=== PATIENT | male | born 1950 | race African-American/Black ===

== ENCOUNTER 2016-07-07 14:04 | Emergency (ER) | payer MEDICARE ==
[~2016-07-07] VITALS: Ht 182.9 cm; Wt 80.7 kg
[~2016-07-07 14:04] MED LIST: ACET325T21 PO; AMLO5TAB2 PO; ATOR10TA60 PO; BACL10TA PO; BISA5TAB4 PO; CARB100C PO; CARB200T PO; CARV12.52 PO; CLON0.2T PO; CLON1TAB3 PO; DIPH25CA58 PO; DIPH50CA PO; DOXY100T PO; DULO30CA2 PO; ESOM40CA PO; FERR-26 PO; GABA600T2 PO; GLIP5TAB10 PO; HYDR-2762 PO; HYDR-2867 PO; HYDR-2869 PO; HYDR-963 PO; HYDR-971 PO; HYDR10TA2 PO; HYDR25CA75 PO; INSU100I13 SQ; INSU100I17 SQ; LATA2.5D3 OU; LEVE500T56 PO; LIDO700A4 TP; METF500T3 PO; METO50TA2 PO; NAPR250T PO; PANT40TA5 PO; PENT100C PO; PHEN100C PO; PIOG15TA21 PO; POLY17PO5 PO; POTA20TA82 PO; PRED20TA PO; PREG75CA PO; QUET100T PO; QUET25TA PO; QUET25TA5 PO; SULF1TAB24 PO; TAMS0.4C97 PO; TRAV2.5D2 OP; TRAV2.5D2 OU
[2016-07-07 14:16] VITALS: BP 139/79
[2016-07-07] MEDS ORDERED: PREG100C PO (14:51)
--- NOTE | 2016-07-07 14:51 | PHYS DOC ---
Past Medical History Past Medical History: Diabetes-Type I, Hypertension Additional Past Medical Histor: TBI, CHRONIC LOW BACK AND LEG PAIN, URINARY RETENTION. Past Surgical History: Cervical Fusion, Lumbar Laminectomy Additional Past Surgical Histo: back sx neck sx back sx Alcohol Use: None Drug Use: None Adult General Chief Complaint Chief Complaint: PAIN CONTROL HPI HPI Patient is a 65 year old male who presents emergency room today with complaint of bilateral leg pain after being out of his Lyrica for approximately one month. Patient states that it progressively got worse over the past 2 weeks. He has not seen his primary care doctor's for a refill. Patient states that the Lyrica template keeps his leg pain under control. Patient denies saddle anesthesia. He denies incontinence of urine or bowel. He denies any focal, unilateral symptoms. He has no additional concerns or complaints at this time. Review of Systems Review of Systems Constitutional: Denies fever or chills [] Eyes: Denies change in visual acuity, redness, or eye pain [] HENT: Denies nasal congestion or sore throat [] Respiratory: Denies cough or shortness of breath [] Cardiovascular: No additional information not addressed in HPI [] GI: Denies abdominal pain, nausea, vomiting, bloody stools or diarrhea [] : Denies dysuria or hematuria [] Musculoskeletal: Denies back pain or joint pain [] Integument: Denies rash or skin lesions [] Neurologic: Denies headache, focal weakness or sensory changes [] Endocrine: Denies polyuria or polydipsia [] Allergies Allergies Allergies Coded Allergies Type Severity Reaction Last Updated Verified No Known Drug Allergies 04/15/16 No Physical Exam Physical Exam Constitutional: Well developed, well nourished, no acute distress, non-toxic appearance. [] HENT: Normocephalic, atraumatic, bilateral external ears normal, oropharynx moist, no oral exudates, nose normal. [] Eyes: PERRLA, EOMI, conjunctiva normal, no discharge. [] Neck: Normal range of motion, no tenderness, supple, no stridor. [] Cardiovascular:Heart rate regular rhythm, no murmur [] Lungs & Thorax: Bilateral breath sounds clear to auscultation [] Abdomen: Bowel sounds normal, soft, no tenderness, no masses, no pulsatile masses. [] Skin: Warm, dry, no erythema, no rash. [] Back: No tenderness, no CVA tenderness. [] Extremities: Bilateral lower extremities are normal in appearance without any dystrophic changes. Skin is warm and dry. Patient has strong dorsalis pedis and posterior tibialis pulses. Lower extremities are neurovascularly intact. Strength is symmetric. Neurologic: Alert and oriented X 3, normal motor function, normal sensory function, no focal deficits noted. [] Psychologic: Affect normal, judgement normal, mood normal. [] Current Patient Data Vital Signs Vital Signs Date Time Temp Pulse Resp B/P Pulse Ox O2 Delivery O2 Flow Rate FiO2 07/07/16 14:16 98.7 104 18 100 Room Air 98.7 EKG EKG [] Radiology/Procedures Radiology/Procedures [] Course & Med Decision Making Course & Med Decision Making Pertinent Labs and Imaging studies reviewed. (See chart for details) [] Dragon Disclaimer Dragon Disclaimer This electronic medical record was generated, in whole or in part, using a voice recognition dictation system. Departure Departure Impression: Primary Impression: Medication refill Disposition: HOME, SELF-CARE Condition: GOOD Referrals: OLMAN HERNANDEZ (PCP) Patient Instructions: Medication Refill, Emergency Department Additional Instructions: 1. Take the medication as prescribed. 2. Be sure to follow up with your new primary care doctor within the next 1-2 weeks. Scripts Pregabalin (Lyrica)100 Mg Capsule1 Cap PO TID #30 CAP Ref 2 Prov:EASTON JIMENEZ 07/07/16 EASTON JIMENEZ Jul 07, 2016 14:51
== END 2016-07-07 15:03 | disposition home or self-care (01) ==
LOC: ER 14:04
DX: Z76.0 Encounter for issue of repeat prescription (principal); M79.605 Pain in left leg; M79.604 Pain in right leg; G89.29 Other chronic pain; Z98.1 Arthrodesis status; Z98.890 Other specified postprocedural states; E10.9 Type 1 diabetes mellitus without complications; I10 Essential (primary) hypertension; Z87.820 Personal history of traumatic brain injury
CPT/HCPCS: 99283

== ENCOUNTER → 2016-07-12 | Outpatient (CLI) | payer MEDICARE ==
[2016-07-07 14:16] VITALS: BP 139/79
[~2016-07-12] MED LIST changes: +PREG100C PO
== END | disposition home or self-care (01) ==
LOC: LAB 11:26
PROVIDERS: ATTEND Nurse Practitioner Occupational Health
DX: Z12.5 Encounter for screening for malignant neoplasm of prostate (principal); N40.1 Benign prostatic hyperplasia with lower urinary tract symptoms
CPT/HCPCS: 36415; G0103

== ENCOUNTER 2016-08-26 14:56 | Emergency (ER) | payer MEDICARE ==
[~2016-08-26 14:56] MED LIST changes: -PIOG15TA21 PO; +PIOG15TA42 PO; +POLY17PO29 PO; -POLY17PO5 PO
--- NOTE | 2016-08-26 15:20 | PHYS DOC ---
Past Medical History Past Medical History: Diabetes-Type I, Hypertension Additional Past Medical Histor: TBI, CHRONIC LOW BACK AND LEG PAIN, URINARY RETENTION. Past Surgical History: Cervical Fusion, Lumbar Laminectomy Additional Past Surgical Histo: back sx neck sx back sx Alcohol Use: None Drug Use: None Adult General Chief Complaint Chief Complaint: SEIZURE HPI HPI Patient is a 66 year old male presenting to the emergency department for evaluation of a seizure that happened today. Seizure was witnessed by mother and mother reportedly says that the seizure lasted for several minutes and then stopped on its own. He was somewhat confused afterwards and he is somewhat sleepy on exam but he awakes and arouses and answers all questions. He has some mental difficulty and after reviewing the charts this appears his baseline after suffering a traumatic brain injury. Medical records show that he is on Keppra and Tegretol however on another medication reconciliation appears that he is only on Keppra. He says that he sees a neurologist here and he thinks it is Dr. hammond. He denies any recent medication changes. He is in no obvious distress and denies any pain except for some leg itching. Review of Systems Review of Systems Constitutional: Denies fever or chills [] Eyes: Denies change in visual acuity, redness, or eye pain [] HENT: Denies nasal congestion or sore throat [] Respiratory: Denies cough or shortness of breath [] Cardiovascular: No additional information not addressed in HPI [] GI: Denies abdominal pain, nausea, vomiting, bloody stools or diarrhea [] : Denies dysuria or hematuria [] Musculoskeletal: Denies back pain or joint pain [] Integument: Denies rash or skin lesions [] Neurologic: Denies headache, focal weakness or sensory changes [] Current Medications Current Medications Current Medications Medications (Trade) Dose Ordered Sig/Loyda Start Time Stop Time Status Last Admin Dose Admin Carbamazepine (TEGretol) 400 mg 1X STAT 08/26/16 16:26 08/26/16 16:33 DC Levetiracetam 1000 mg/Sodium Chloride 110 ml @ 440 mls/hr 1X ONCE 08/26/16 15:45 08/26/16 15:59 DC 08/26/16 15:37 440 MLS/HR Sodium Chloride 1,000 ml @ 1,000 mls/hr 1X ONCE 08/26/16 15:30 08/26/16 16:29 DC 08/26/16 15:33 1,000 MLS/HR Allergies Allergies Allergies Coded Allergies Type Severity Reaction Last Updated Verified No Known Drug Allergies 04/15/16 No Physical Exam Physical Exam Constitutional: Well developed, well nourished, no acute distress, non-toxic appearance. [] HENT: Normocephalic, atraumatic, bilateral external ears normal, oropharynx moist, no oral exudates, nose normal. [] Eyes: PERRLA, EOMI, conjunctiva normal, no discharge. [] Neck: Normal range of motion, no tenderness, supple, no stridor. [] Cardiovascular:Heart rate regular rhythm, no murmur [] Lungs & Thorax: Bilateral breath sounds clear to auscultation [] Abdomen: Bowel sounds normal, soft, no tenderness, no masses, no pulsatile masses. [] Skin: Warm, dry, no erythema, no rash. [] Back: No tenderness, no CVA tenderness. [] Extremities: No tenderness, no cyanosis, no clubbing, ROM intact, no edema. [] Neurologic: Alert and oriented X 2, moves all ext Current Patient Data Vital Signs Vital Signs Date Time Temp Pulse Resp B/P (MAP) Pulse Ox O2 Delivery O2 Flow Rate FiO2 08/26/16 14:56 98.9 79 18 121/59 (79) 100 Room Air 98.9 Lab Values Laboratory Tests Test 08/26/16 15:00 White Blood Count 4.7 x10^3/uL (4.0-11.0) Red Blood Count 2.68 x10^6/uL (4.30-5.70) L Hemoglobin 7.1 g/dL (13.0-17.5) L Hematocrit 22.9 % (39.0-53.0) L Mean Corpuscular Volume 86 fL (79-100) Mean Corpuscular Hemoglobin 27 pg (25-35) Mean Corpuscular Hemoglobin Concent 31 g/dL (31-37) Red Cell Distribution Width 18.8 % (11.5-14.5) H Platelet Count 182 x10^3/uL (140-400) Neutrophils (%) (Auto) 72 % (31-73) Lymphocytes (%) (Auto) 16 % (24-48) L Monocytes (%) (Auto) 11 % (0-9) H Eosinophils (%) (Auto) 1 % (0-3) Basophils (%) (Auto) 0 % (0-3) Neutrophils # (Auto) 3.4 x10^3uL (1.8-7.7) Lymphocytes # (Auto) 0.7 x10^3/uL (1.0-4.8) L Monocytes # (Auto) 0.5 x10^3/uL (0.0-1.1) Eosinophils # (Auto) 0.0 x10^3/uL (0.0-0.7) Basophils # (Auto) 0.0 x10^3/uL (0.0-0.2) Prothrombin Time 13.9 SEC (11.7-14.0) Prothrombin Time INR 1.1 (0.8-1.1) PTT 34 SEC (24-38) Sodium Level 142 mmol/L (136-145) Potassium Level 4.2 mmol/L (3.5-5.1) Chloride Level 108 mmol/L (98-107) H Carbon Dioxide Level 26 mmol/L (21-32) Anion Gap 8 (6-14) Blood Urea Nitrogen 28 mg/dL (8-26) H Creatinine 1.4 mg/dL (0.7-1.3) H Estimated GFR (Cockcroft-Gault) 61.7 BUN/Creatinine Ratio 20 (6-20) Glucose Level 153 mg/dL (70-99) H Calcium Level 8.6 mg/dL (8.5-10.1) Magnesium Level 2.0 mg/dL (1.8-2.4) Total Bilirubin 0.2 mg/dL (0.2-1.0) Aspartate Amino Transferase (AST) 29 U/L (15-37) Alanine Aminotransferase (ALT) 23 U/L (16-63) Alkaline Phosphatase 48 U/L (46-116) Creatine Kinase 225 U/L (39-308) Total Protein 7.4 g/dL (6.4-8.2) Albumin 3.5 g/dL (3.4-5.0) Albumin/Globulin Ratio 0.9 (1.0-1.7) L Lipase 121 U/L (73-393) Salicylates Level < 2.8 mg/dL (2.8-20.0) L Salicylate Last Dose Date Unk Salicylate Last Dose Time Unk Acetaminophen Level < 10 mcg/ml (10-30) L Acetaminophen Last Dose Date Unk Acetaminophen Last Dose Time Unk Carbamazepine (Tegretol) Level 2.6 mcg/mL (4.0-12.0) L Carbamazepine Last Dose Date 08/26/16 Carbamazepine Last Dose Time 0800 Ethyl Alcohol Level < 10 mg/dL (0-10) Laboratory Tests 08/26/16 15:00 Laboratory Tests 08/26/16 15:00 EKG EKG Sinus rhythm at 78 bpm with normal axis no obvious ST elevation or depression and normal T waves Radiology/Procedures Radiology/Procedures Indication seizure. Axial noncontrast images through the head were obtained and are compared to an exam April 15, 2016. Changes compatible with a prior left craniotomy are noted. No acute calvarial finding is seen. The visualized paranasal sinuses appear normal. Area of encephalomalacia in the left parietal lobe is noted similar to the previous exam. A smaller area of encephalomalacia at the base of the right frontal lobe is also noted and also appears similar. There is no subdural or epidural hematoma. There is no mass or midline shift. A significant change relative to the previous exam is not seen. IMPRESSION: Chronic changes. No acute finding. No significant change PQRS Compliance Statement: One or more of the following individualized dose reduction techniques were utilized for this examination: 1. Automated exposure control 2. Adjustment of the mA and/or kV according to patient size 3. Use of iterative reconstruction technique DICTATED and SIGNED BY: ERIN PLEITEZ MD DATE: 08/26/16 9004 Course & Med Decision Making Course & Med Decision Making Patient was observed in the emergency department for 2 hours and still sleepy but he awakes and is interactive and appropriate. I checked his labs and it appears that he is not taking Tegretol. He has mild increase in creatinine and by mouth and likely related to dehydration. He was given a liter of fluids in addition to a gram of Keppra. His hemoglobin is 7.1 and this appears to be consistent with his recent baseline for which no one is doing transfusions, given his poor baseline I think this is reasonable and will not pursue transfusion at this time. We spoke to his mother the Ronny and she says that he does get sleepy after seizures and he is somewhat confused at baseline. We told her that he is somewhat dehydrated and needs to drink some warm water and he needs to follow with his seizure in the next 1-2 days to go over his medications and recent seizure. I do not see any reason for admission at this time so he will be discharged in stable condition back to home. Mother aware and agreeable with plan for discharge and verbalized understanding of the need for short-term neurology follow-up and strict ER return precautions discussed worsening pain confusion seizures or other general concerns. Dragon Disclaimer Dragon Disclaimer This electronic medical record was generated, in whole or in part, using a voice recognition dictation system. Departure Departure Impression: Primary Impression: Seizure Additional Impressions: Dehydration Anemia Disposition: HOME, SELF-CARE Condition: GOOD Referrals: OLMAN HERNANDEZ (PCP) RAVI HAMMOND MD Patient Instructions: Seizure Disorder, Child, Generalized Tonic-Clonic Additional Instructions: Take all of her medications as prescribed including her seizure medications. He should be drinking plenty of water and also eating a good diet rich and iron as you are anemic. He should follow with your neurologist in the next 1-2 days and come back to the ER sooner with any worsening pain seizures confusion or other general concerns. Problem Qualifiers FRANCINE CLAUDIO DO Aug 26, 2016 15:20
[2016-08-26] MEDS ORDERED: IV NORMAL SALINE 1000ML BAG 1,000 ML IV ONE (15:30)
[2016-08-26 15:32] LABS: BASO % 0 % (0-3); EOS % 1 % (0-3); HEMATOCRIT 22.9 % (39.0-53.0); HEMOGLOBIN 7.1 g/dL (13.0-17.5); LYMPH # 0.7 x10^3/uL (1.0-4.8); LYMPH % 16 % (24-48); MEAN CORPUSCULAR HEMOGLOBIN 27 pg (25-35); MEAN CORPUSCULAR HGB CONC 31 g/dL (31-37); MEAN CORPUSCULAR VOLUME 86 fL (79-100); MONO % 11 % (0-9); NEUT % 72 % (31-73); PLATELET COUNT 182 x10^3/uL (140-400); RED BLOOD COUNT 2.68 x10^6/uL (4.30-5.70); RED CELL DISTRIBUTION WIDTH 18.8 % (11.5-14.5); WHITE BLOOD COUNT 4.7 x10^3/uL (4.0-11.0)
--- NOTE | 2016-08-26 15:43 | EKG ---
[facility] [address] [place] [address] Test Date: 2016-08-26 Test Time: 15:36:07 Pat Name: ANAMARIA MAJANO Department: Room: Gender: M Recruiter: : 1950 Requested By: FRANCINE CLAUDIO Order Number: [id number] Reading MD: Yenni Woo Measurements Intervals [place] Rate: 78 P: 31 FL: 170 QRS: 9 QRSD: 90 T: 28 QT: 358 QTc: 411 Interpretive Statements SINUS RHYTHM QRS(T) CONTOUR ABNORMALITY CONSISTENT WITH ANTEROSEPTAL INFARCT AGE UNDETERMINED ABNORMAL ECG Electronically Signed On 08-29-2016 22:26:25 CDT by Yenni Woo
--- NOTE | 2016-08-26 16:02 | RAD ---
Indication seizure. Axial noncontrast images through the head were obtained and are compared to an exam April 15, 2016. Changes compatible with a prior left craniotomy are noted. No acute calvarial finding is seen. The visualized paranasal sinuses appear normal. Area of encephalomalacia in the left parietal lobe is noted similar to the previous exam. A smaller area of encephalomalacia at the base of the right frontal lobe is also noted and also appears similar. There is no subdural or epidural hematoma. There is no mass or midline shift. A significant change relative to the previous exam is not seen. IMPRESSION: Chronic changes. No acute finding. No significant change PQRS Compliance Statement: One or more of the following individualized dose reduction techniques were utilized for this examination: 1. Automated exposure control 2. Adjustment of the mA and/or kV according to patient size 3. Use of iterative reconstruction technique
[2016-08-26 16:10] LABS: CALCIUM 8.6 mg/dL (8.5-10.1); CREATININE 1.4 mg/dL (0.7-1.3); GFR 61.7; POTASSIUM 4.2 mmol/L (3.5-5.1)
[2016-08-26 16:11] LABS: ETHANOL < 10 mg/dL (0-10)
[2016-08-26 16:12] LABS: INR 1.1 (0.8-1.1); PROTHROMBIN TIME PATIENT 13.9 SEC (11.7-14.0)
[2016-08-26 16:13] LABS: ALBUMIN 3.5 g/dL (3.4-5.0); ALBUMIN/GLOBULIN RATIO 0.9 (1.0-1.7); TOTAL BILIRUBIN 0.2 mg/dL (0.2-1.0); TOTAL PROTEIN 7.4 g/dL (6.4-8.2)
--- NOTE | 2016-08-26 16:25 | ACF ---
Admit Criteria Forms Admit Criteria Forms Admit Criteria Forms SEIZURE Clinical Indications for Admission to Inpatient Care (Place 'X' for any and all applicable criteria): Admission is indicated for seizure and ANY ONE of the following(1)(2)(3)(4)(5): [X]I. Inpatient admission required rather than observation care (Also use Seizure: Observation Care Criteria as appropriate) because of ANY ONE of the following: [ ]a) Altered mental status that is severe or persistent [ ]b) New focal neurologic deficit that is severe or persistent [ ]c) Metabolic disorder (eg, hypoglycemia, hyponatremia) that is severe or persistent [X]d) Recurrent seizure [ ]e) Outpatient antiseizure regimen cannot be established (eg , patient cannot tolerate medication, initiation requires inpatient care) [ ]f) Need for ongoing intravenous infusion of antiseizure medication [ ]g) Cardiac arrhythmias of immediate concern [ ]h) Cerebral bleeding, hydrocephalus, or vasospasm monitoring (14) [ ]i) Increased intracranial pressure or cerebral edema monitoring (15) [ ]j) Other treatment or monitoring requiring inpatient admission [ ]II. Status epilepticus [A] or repetitive seizures not controlled with emergent treatment (6)(8) [ ]III. Brain disorder (eg, tumor, edema, and hydrocephalus) that requiring monitoring or intervention available only at inpatient level of care. [ ]IV. Brain insult (eg, severe trauma, stroke, drug toxicity, or withdrawal) that requires monitoring or intervention available only at inpatient level of care (10)(11) Extended stay beyond goal length of stay may be needed for (22) [ ]a) Complications of status epilepticus [ ]b) Refractory status epilepticus [ ]c) Etiology-specific therapy for conditions such as PROGRAM MANAGEMENT SPECIALIST infection, head injury,eclampsia, severe metabolic abnormalities, and brain tumor [ ]d) Residual neurologic damage, [ ]e) Initiation of significant change to anticonvulsant treatment [ ]f) Older patients (65 years or older) [ ]g) Patient requiring intubation (eg, to protect airway) The original [facility] content created by [email or web address] has been revised. The portions of the content which have been revised are identified through the use of italic text or in bold, and [facility] [employer] has neither reviewed nor approved the modified material. All other unmodified content is copyright [facility]. Please see references footnoted in the original [facility] edition 2016 DOMINGUEZ HUTCHISON Aug 26, 2016 16:25
[2016-08-26] MEDS ORDERED: carBAMazepine 200 MG TABLET PO STA (16:26)
[2016-08-26 16:30] VITALS: BP 132/66
== END 2016-08-26 18:45 | disposition home or self-care (01) ==
LOC: ER 14:56
DX: R56.9 Unspecified convulsions (principal); E86.0 Dehydration; D64.9 Anemia, unspecified; R41.0 Disorientation, unspecified; E10.9 Type 1 diabetes mellitus without complications; I10 Essential (primary) hypertension; G89.29 Other chronic pain; Z98.1 Arthrodesis status; Z79.899 Other long term (current) drug therapy; Z87.820 Personal history of traumatic brain injury
CPT/HCPCS: 36415; 70450; 80053; 80156; 80177; 82550; 83690; 83735; 85027; 85610; 85730; 93005; 96374; 99285; G0480; J1953; J7030; 80320; 80329; 96365

== ENCOUNTER 2016-10-29 09:51 | Emergency (ER) | payer MEDICARE ==
[~2016-10-29] VITALS: Ht 182.9 cm; Wt 80.7 kg
--- NOTE | 2016-10-29 10:17 | PHYS DOC ---
Past Medical History Past Medical History: Diabetes-Type I, Glaucoma, Hypertension Additional Past Medical Histor: TBI, CHRONIC LOW BACK AND LEG PAIN, URINARY RETENTION,sciatica, neuropathy Past Surgical History: Cervical Fusion, Lumbar Laminectomy Additional Past Surgical Histo: back sx neck sx back sx Alcohol Use: None Drug Use: None Adult General Chief Complaint Chief Complaint: SKIN RASH/ABSCESS HPI HPI Patient is a 66 year old male with history of diabetes hypertension, who presents today complaining of shingles rash for 2 weeks. Patient is giving very little information. He states his pain is very severe he would like something for pain. Review of Systems Review of Systems Constitutional: Denies fever or chills [] Musculoskeletal: Denies back pain or joint pain [] Integument: shingles rash Neurologic: Denies headache, focal weakness or sensory changes [] Endocrine: Denies polyuria or polydipsia [] Current Medications Current Medications Current Medications Medications (Trade) Dose Ordered Sig/Loyda Start Time Stop Time Status Last Admin Dose Admin Acetaminophen/ Hydrocodone Bitart (Lortab 5/325) 1 tab 1X ONCE 10/29/16 10:15 10/29/16 10:16 UNV Allergies Allergies Allergies Coded Allergies Type Severity Reaction Last Updated Verified No Known Drug Allergies 04/15/16 No Physical Exam Physical Exam Constitutional: Well developed, well nourished, no acute distress, non-toxic appearance. [] Skin: Moderate amount of erythematous papular rash in patient's right forearm. He is laying in bed and refusing to be examined fully. Back: No tenderness, no CVA tenderness. [] Extremities: No tenderness, no cyanosis, no clubbing, ROM intact, no edema. [] Neurologic: Alert and oriented X 3, normal motor function, normal sensory function, no focal deficits noted. [] Psychologic: Affect normal, judgement normal, mood normal. [] Current Patient Data Vital Signs Vital Signs Date Time Temp Pulse Resp B/P (MAP) Pulse Ox O2 Delivery O2 Flow Rate FiO2 10/29/16 10:05 98.2 94 20 97 Room Air 98.2 EKG EKG [] Radiology/Procedures Radiology/Procedures [] Course & Med Decision Making Course & Med Decision Making Pertinent Labs and Imaging studies reviewed. (See chart for details) Patient is in the ED with a rash suspicious for shingles. He only showed me the right upper extremity. The rash has been present for 2 weeks. Informed patient acyclovir is not that helpful at this point but i will write him a prescription. Gave him a prescription for gabapentin as well as Ultram. I did give him a prescription for triamcinolone cream just for comfort. He is to follow-up with his own PCP in one to 2 weeks. Dragon Disclaimer Dragon Disclaimer This electronic medical record was generated, in whole or in part, using a voice recognition dictation system. Departure Departure Impression: Primary Impression: Shingles rash Disposition: HOME, SELF-CARE Condition: STABLE Referrals: OLMAN HERNANDEZ (PCP) Follow-up with your doctor in 1-2 weeks. Patient Instructions: Shingles, [id number] Additional Instructions: You were seen for a rash suspicious of shingles. Use the medications provided as ordered. Follow-up with your doctor in the next 1-[address] operate machinery on the pain medicine. Scripts Acyclovir (ACYCLOVIR) 800 Mg Tablet 1 TAB PO 5XDAY, #50 TAB Prov: EBEN FULTON APRN 10/29/16 Gabapentin (GABAPENTIN) 300 Mg Capsule 300 MG PO TID, #30 CAP Prov: EBEN FULTON APRN 10/29/16 Triamcinolone Acetonide (TRIAMCINOLONE ACETONIDE 0.1% OINT) 15 Gm Oint...g. 1 BENJAMÍN TP BID for WOUND CARE, #1 TUBE Prov: EBEN FULTON APRN 10/29/16 Problem Qualifiers Primary Impression: Shingles rash Herpes zoster complications: without complications Qualified Codes: B02.9 - Zoster without complications EBEN FULTON APRN Oct 29, 2016 10:17
[2016-10-29] MEDS ORDERED: ACYC800T PO (10:25)
[2016-10-29] MEDS ORDERED: GABA-586 PO (10:25)
[2016-10-29] MEDS ORDERED: TRIA15OI TP (10:25)
[2016-10-29] MEDS ORDERED: HYDROcodone/APAP 5/325MG 1 TAB TABLET PO ONE ×2 (10:30)
[2016-10-29 10:32] VITALS: BP 147/87
== END 2016-10-29 10:52 | disposition home or self-care (01) ==
LOC: ER 09:51
DX: B02.9 Zoster without complications (principal); E10.39 Type 1 diabetes mellitus with other diabetic ophthalmic complication; E10.40 Type 1 diabetes mellitus with diabetic neuropathy, unspecified; H40.9 Unspecified glaucoma; I10 Essential (primary) hypertension; G89.29 Other chronic pain; Z98.1 Arthrodesis status; Z98.890 Other specified postprocedural states; Z87.820 Personal history of traumatic brain injury
CPT/HCPCS: 99283

== ENCOUNTER 2017-02-07 22:00 | Emergency (ER) | payer MEDICARE ==
[~2017-02-07] VITALS: Ht 182.9 cm; Wt 77.1 kg
[~2017-02-07 22:00] MED LIST changes: +ACYC800T PO; +GABA-586 PO; +POTA20TA4 PO; +TRIA15OI TP
--- NOTE | 2017-02-07 22:30 | PHYS DOC ---
Past Medical History Past Medical History: Diabetes-Type I, Glaucoma, High Cholesterol, Hypertension Additional Past Medical Histor: TBI, CHRONIC LOW BACK AND LEG PAIN, URINARY RETENTION,sciatica, neuropathy Past Surgical History: Appendectomy, Cervical Fusion, Cholecystectomy, Lumbar Laminectomy Additional Past Surgical Histo: back sx neck sx back sx Alcohol Use: None Drug Use: None Adult General Chief Complaint Chief Complaint: HYPOGLYCEMIA HPI HPI Patient is a 66 year old M who presents with low blood sugar. Patient's mom called EMS for decreased level responsiveness EMS blood sugar was 14. Given amp of D50 and transported to the emergency room. In emergency room blood sugar was 109 and patient has no complaints. Patient was given some apple juice and food and a lunch box. Patient denies any fevers. Patient denies any chest pain or shortness of breath or nausea/vomiting/diarrhea. Review of Systems Review of Systems GEN: Denies fevers, chills, sweats HEENT: Denies blurred vision, sore throat CV: Denies chest pain RESP: Denies shortness of air, cough GI: Denies n/v/d NEURO: Denies confusion, dizziness MSK: Denies weakness, joint pain/swelling All other systems were reviewed and found to be within normal limits, except as documented in this note. Allergies Allergies Allergies Coded Allergies Type Severity Reaction Last Updated Verified No Known Drug Allergies 04/15/16 No Physical Exam Physical Exam GEN.: No apparent distress. Alert and oriented. HEENT: Head is normocephalic, atraumatic NECK: Supple. LUNGS: CTAB. HEART: RRR, S1, S2 present. Peripheral pulses intact ABDOMEN: Soft, nontender. Positive bowel sounds. EXTREMITIES: Without any cyanosis. NEUROLOGIC: Normal speech, normal tone PSYCHIATRIC: Normal affect, normal mood. SKIN: No ulcerations Current Patient Data Vital Signs Vital Signs Date Time Temp Pulse Resp B/P (MAP) Pulse Ox O2 Delivery O2 Flow Rate FiO2 02/07/17 22:09 75 18 137/81 (99) 100 Room Air Lab Values Laboratory Tests Test 02/07/17 22:29 02/07/17 22:53 POC Hemoglobin 9.9 g/dL (14-18) L POC Hematocrit 29 % (37-52) L POC Sodium 144 mmol/L (135-145) POC Potassium 4.4 mmol/L (3.5-5.0) POC Chloride 108 mmol/L (98-110) POC Total CO2 30 mmol/L (23-32) Anion Gap 12 mmol/L (6-14) POC Blood Urea Nitrogen 28 mg/dL (8-26) H POC Creatinine 1.2 mg/dL (0.5-1.4) Glucose Level 102 mg/dL (70-99) H POC Ionized Calcium (Naz) 1.10 mmol/L (1.13-1.32) L Glucose (Fingerstick) 123 mg/dL (70-99) H Laboratory Tests 02/07/17 22:29 EKG EKG [] Course & Med Decision Making Course & Med Decision Making Pertinent Labs and Imaging studies reviewed. (See chart for details) ED course: Patient was seen and examined emergency room an i-STAT was ordered Repeat blood sugars show levels above the 100, patient is alert and oriented sitting up in bed eating in no acute distress MDM: After reviewing the chart, CC/HPI/PMH, physical exam, [lab results], I do not believe the patient has emergent medical condition warranting further workup and /or admission at this time. I believe patient stable for discharge. Patient had multiple blood sugar checks that were all normal. Additional verbal discharge instructions were provided to the patient and that if symptoms get worse or any new symptoms arise that are worrisome to the patient he is to return to the emergency room immediately [] Dragon Disclaimer Dragon Disclaimer This electronic medical record was generated, in whole or in part, using a voice recognition dictation system. Departure Departure Impression: Primary Impression: Hypoglycemia Disposition: 01 HOME, SELF-CARE Condition: IMPROVED Referrals: ERNESTO BUCK MD (PCP) Patient Instructions: Hypoglycemia (Low Blood Sugar) Additional Instructions: Please follow-up with your family physician in the next one to 2 days and return if symptoms increase JOSE CERON DO Feb 07, 2017 22:30
[2017-02-07 22:45] LABS: POTASSIUM ISTAT 4.4 mmol/L (3.5-5.0)
[2017-02-07 23:18] VITALS: BP 158/87
== END 2017-02-07 23:29 | disposition home or self-care (01) ==
LOC: ER 22:00
DX: E10.649 Type 1 diabetes mellitus with hypoglycemia without coma (principal); E10.39 Type 1 diabetes mellitus with other diabetic ophthalmic complication; H40.9 Unspecified glaucoma; E78.00 Pure hypercholesterolemia, unspecified; I10 Essential (primary) hypertension; G89.29 Other chronic pain; E10.40 Type 1 diabetes mellitus with diabetic neuropathy, unspecified; Z98.1 Arthrodesis status; Z87.820 Personal history of traumatic brain injury; Z90.49 Acquired absence of other specified parts of digestive tract
CPT/HCPCS: 36415; 80047; 82962; 85014; 85018; 99284

== ENCOUNTER 2018-03-10 09:45 | Emergency (ER) | payer MEDICARE ==
[~2018-03-10] VITALS: Ht 175.3 cm; Wt 83.9 kg
[~2018-03-10 09:45] MED LIST changes: -AMLO5TAB2 PO; +AMLO5TAB7 PO; -CARB100C PO; +CARB100C2 PO; +CARV12.511 PO; -CARV12.52 PO; +CIPR250T30 PO; +CLON1TAB11 PO; -CLON1TAB3 PO; +DOXY100C2 PO; -FERR-26 PO; +FERR325T14 PO; +FINA5TAB4 PO; -GABA-586 PO; +GABA300C18 PO; -HYDR-2762 PO; +HYDR-2765 PO; +HYDR-3135 PO; +HYDR-3164 PO; -HYDR-963 PO; -HYDR-971 PO; -METO50TA2 PO; +METO50TA6 PO; +PREG150C PO
--- NOTE | 2018-03-10 10:34 | PHYS DOC ---
Past Medical History Past Medical History: Anemia, Depression, Diabetes-Type II, Glaucoma, High Cholesterol, Hypertension, Other Additional Past Medical Histor: TBI, URINARY RETEN, SCIATICA, NEUROPATHY, ANEURSYM, TARDIVE DYSKINESIA Past Surgical History: Appendectomy, Cervical Fusion, Cholecystectomy, Lumbar Laminectomy, Other Additional Past Surgical Histo: BACK SX, NECK SX , L PARIETAL CRANIECTOMY, INTRACRAN. ANEURSYM REPAIR Alcohol Use: None Drug Use: None Adult General Chief Complaint Chief Complaint: CONSTIPATION HPI HPI Patient is a 67 year old male who presents with multiple complaints. Patient states that he has been having ongoing constipation. He does indicate that he took some medicine for the constipation and did have a small bowel movement but states that he is still constipated. He also complains of lower back pain and admits that that is chronic in nature. He states that he also has a Garcia catheter and states that the catheter is in place but is not connected to a bag. He states that the home health people did not attach a bag to it he also states that the catheter has not been draining and wants it checked. He denies any chest pain or shortness of breath. He states that he doesn't think that he has had a fever. He denies any nausea, vomiting or diarrhea. Review of Systems Review of Systems Constitutional: Denies fever or chills [] Respiratory: Denies cough or shortness of breath [] Cardiovascular: No additional information not addressed in HPI [] GI: Denies abdominal pain, nausea, vomiting or diarrhea. Complains of constipation [] : Denies dysuria or hematuria [] Musculoskeletal: Power of lower back pain [] Neurologic: Denies headache, focal weakness or sensory changes [] All other systems were reviewed and found to be within normal limits, except as documented in this note. Current Medications Current Medications Current Medications Medications (Trade) Dose Ordered Sig/Loyda Start Time Stop Time Status Last Admin Dose Admin Magnesium Citrate (Citroma) 296 ml 1X ONCE 03/10/18 12:30 03/10/18 12:33 DC 03/10/18 12:49 296 ML Allergies Allergies Allergies Coded Allergies Type Severity Reaction Last Updated Verified No Known Drug Allergies 04/15/16 No Physical Exam Physical Exam Constitutional: Well developed, well nourished, no acute distress, non-toxic appearance. [] HENT: Normocephalic, atraumatic, bilateral external ears normal, oropharynx moist, no oral exudates, nose normal. [] Eyes: PERRLA, EOMI, conjunctiva normal, no discharge. [] Neck: Normal range of motion, no tenderness, supple, no stridor. [] Cardiovascular: Regular rate and rhythm [] Lungs & Thorax: Bilateral breath sounds clear to auscultation [] Abdomen: Bowel sounds normal, soft, no tenderness. [] Skin: Warm, dry, no erythema, no rash. [] Extremities: No tenderness, no cyanosis, no clubbing, ROM intact. [] Neurologic: Awake and alert with no focal deficits noted. [] Current Patient Data Vital Signs Vital Signs Date Time Temp Pulse Resp B/P (MAP) Pulse Ox O2 Delivery O2 Flow Rate FiO2 03/10/18 09:47 98.2 75 22 139/79 (99) 97 Room Air 98.2 Lab Values Laboratory Tests Test 03/10/18 11:05 03/10/18 11:14 White Blood Count 7.8 x10^3/uL (4.0-11.0) Red Blood Count 3.77 x10^6/uL (4.30-5.70) L Hemoglobin 12.0 g/dL (13.0-17.5) L Hematocrit 36.0 % (39.0-53.0) L Mean Corpuscular Volume 96 fL (79-100) Mean Corpuscular Hemoglobin 32 pg (25-35) Mean Corpuscular Hemoglobin Concent 33 g/dL (31-37) Red Cell Distribution Width 14.6 % (11.5-14.5) H Platelet Count 147 x10^3/uL (140-400) Neutrophils (%) (Auto) 79 % (31-73) H Lymphocytes (%) (Auto) 11 % (24-48) L Monocytes (%) (Auto) 8 % (0-9) Eosinophils (%) (Auto) 2 % (0-3) Basophils (%) (Auto) 0 % (0-3) Neutrophils # (Auto) 6.2 x10^3uL (1.8-7.7) Lymphocytes # (Auto) 0.9 x10^3/uL (1.0-4.8) L Monocytes # (Auto) 0.7 x10^3/uL (0.0-1.1) Eosinophils # (Auto) 0.1 x10^3/uL (0.0-0.7) Basophils # (Auto) 0.0 x10^3/uL (0.0-0.2) Sodium Level 146 mmol/L (136-145) H Potassium Level 3.1 mmol/L (3.5-5.1) L Chloride Level 107 mmol/L (98-107) Carbon Dioxide Level 31 mmol/L (21-32) Anion Gap 8 (6-14) Blood Urea Nitrogen 18 mg/dL (8-26) Creatinine 1.3 mg/dL (0.7-1.3) Estimated GFR (Cockcroft-Gault) 67.0 BUN/Creatinine Ratio 14 (6-20) Glucose Level 140 mg/dL (70-99) H Calcium Level 9.0 mg/dL (8.5-10.1) Total Bilirubin 0.6 mg/dL (0.2-1.0) Aspartate Amino Transferase (AST) 29 U/L (15-37) Alanine Aminotransferase (ALT) 27 U/L (16-63) Alkaline Phosphatase 49 U/L (46-116) Total Protein 8.1 g/dL (6.4-8.2) Albumin 3.2 g/dL (3.4-5.0) L Albumin/Globulin Ratio 0.7 (1.0-1.7) L Urine Collection Type Unknown Urine Color Negrita Urine Clarity Clear Urine pH 5.5 Urine Specific [place] 1.025 Urine Protein 30 mg/dL (NEG-TRACE) Urine Glucose (UA) Negative mg/dL (NEG) Urine Ketones (Stick) Trace mg/dL (NEG) Urine Blood Negative (NEG) Urine Nitrite Negative (NEG) Urine Bilirubin Small (NEG) Urine Urobilinogen Dipstick 1.0 mg/dL (0.2 mg/dL) Urine Leukocyte Esterase Small (NEG) Urine RBC Occ /HPF (0-2) Urine WBC 5-10 /HPF (0-4) Urine Squamous Epithelial Cells Occ /LPF Urine Bacteria 0 /HPF (0-FEW) Urine Mucus Mod /LPF Urine Yeast Present /HPF Laboratory Tests 03/10/18 11:05 Laboratory Tests 03/10/18 11:05 EKG EKG [] Radiology/Procedures Radiology/Procedures [] Impressions: PROCEDURE: ACUTE ABDOMEN SERIES ACUTE ABDOMEN SERIES History: CONSTIPATION, ABDOMEN PAIN. . Comparison: None are available Single view of the chest is compared with prior study of 02/26/2018. Cardiomediastinal silhouette is stable. Improvement in previously seen infiltrates in the right lung. There is some mild patchy residual opacity in both lungs. No new lobar airspace consolidation. No evidence of pneumothorax. No significant pleural effusion. No evidence of free intraperitoneal gas. Moderate retained stool in the colon. There are some metallic clips or surgical material in the upper mid abdomen. Spinal fixation rods of the lower spine. Multiple pelvic calcifications would most commonly represent phleboliths. Bowel gas pattern is nonobstructive. IMPRESSION: 1. Mild patchy hazy opacities persist in both lungs but are improved since previous exam. 2. Moderate retained stool in the colon. Electronically signed by: Eugenio Whitmore MD (03/10/2018 10:39 AM) Course & Med Decision Making Course & Med Decision Making Pertinent Labs and Imaging studies reviewed. (See chart for details) [] Dragon Disclaimer Dragon Disclaimer This electronic medical record was generated, in whole or in part, using a voice recognition dictation system. Departure Departure Impression: Primary Impression: Constipation Disposition: 01 HOME, SELF-CARE Condition: STABLE Referrals: ERNESTO BUCK MD (PCP) Patient Instructions: Constipation, Adult Scripts Lactulose (LACTULOSE) 20 Gm/30 Ml Solution 10 GM PO DAILY PRN for CONSTIPATION, #240 [facility] [place] Prov: STEPHANIE LINDSEY Jr. DO 03/10/18 Problem Qualifiers Primary Impression: Constipation Constipation type: unspecified constipation type Qualified Codes: K59.00 - Constipation, unspecified STEPHANIE LINDSEY Jr. DO Mar 10, 2018 10:34
--- NOTE | 2018-03-10 10:42 | RAD ---
ACUTE ABDOMEN SERIES History: CONSTIPATION, ABDOMEN PAIN. . Comparison: None are available Single view of the chest is compared with prior study of 02/26/2018. Cardiomediastinal silhouette is stable. Improvement in previously seen infiltrates in the right lung. There is some mild patchy residual opacity in both lungs. No new lobar airspace consolidation. No evidence of pneumothorax. No significant pleural effusion. No evidence of free intraperitoneal gas. Moderate retained stool in the colon. There are some metallic clips or surgical material in the upper mid abdomen. Spinal fixation rods of the lower spine. Multiple pelvic calcifications would most commonly represent phleboliths. Bowel gas pattern is nonobstructive. IMPRESSION: 1. Mild patchy hazy opacities persist in both lungs but are improved since previous exam. 2. Moderate retained stool in the colon. Electronically signed by: Eugenio Whitmore MD (03/10/2018 10:39 AM) [id number]
[2018-03-10 11:23] LABS: BILIRUBIN,URINE SMALL (NEG); CLARITY,URINE CLEAR; COLOR,URINE AMBER; NITRITE,URINE NEGATIVE (NEG); PH,URINE 5.5; PROTEIN,URINE 30 mg/dL (NEG-TRACE)
[2018-03-10 11:53] LABS: BACTERIA,URINE 0 /HPF (0-FEW); RBC,URINE OCC /HPF (0-2); SQUAMOUS EPITHELIAL CELL,UR OCC /LPF
[2018-03-10 11:54] LABS: YEAST,URINE PRESENT /HPF
[2018-03-10 12:12] LABS: BASO % 0 % (0-3); EOS # 0.1 x10^3/uL (0.0-0.7); EOS % 2 % (0-3); LYMPH # 0.9 x10^3/uL (1.0-4.8); LYMPH % 11 % (24-48); MEAN CORPUSCULAR HEMOGLOBIN 32 pg (25-35); MEAN CORPUSCULAR HGB CONC 33 g/dL (31-37); MEAN CORPUSCULAR VOLUME 96 fL (79-100); MONO # 0.7 x10^3/uL (0.0-1.1); MONO % 8 % (0-9); NEUT # 6.2 x10^3uL (1.8-7.7); NEUT % 79 % (31-73); PLATELET COUNT 147 x10^3/uL (140-400); RED BLOOD COUNT 3.77 x10^6/uL (4.30-5.70); RED CELL DISTRIBUTION WIDTH 14.6 % (11.5-14.5); WHITE BLOOD COUNT 7.8 x10^3/uL (4.0-11.0)
[2018-03-10 12:19] LABS: CREATININE 1.3 mg/dL (0.7-1.3); POTASSIUM 3.1 mmol/L (3.5-5.1)
[2018-03-10 12:27] LABS: ALBUMIN 3.2 g/dL (3.4-5.0); ALBUMIN/GLOBULIN RATIO 0.7 (1.0-1.7); TOTAL BILIRUBIN 0.6 mg/dL (0.2-1.0); TOTAL PROTEIN 8.1 g/dL (6.4-8.2)
[2018-03-10] MEDS ORDERED: MAGNESIUM CITRATE 296 ML SOLUTION. PO ONE (12:30)
[2018-03-10] MEDS ORDERED: LACT20SO PO (13:48)
[2018-03-10 14:45] VITALS: BP 172/87
== END 2018-03-10 15:00 | disposition home or self-care (01) ==
LOC: ER 09:45
DX: K59.00 Constipation, unspecified (principal); M54.5 Low back pain; F32.9 Major depressive disorder, single episode, unspecified; E11.39 Type 2 diabetes mellitus with other diabetic ophthalmic complication; H40.9 Unspecified glaucoma; E78.00 Pure hypercholesterolemia, unspecified; I10 Essential (primary) hypertension; E11.40 Type 2 diabetes mellitus with diabetic neuropathy, unspecified; Z87.820 Personal history of traumatic brain injury; Z86.2 Personal history of diseases of the blood and blood-forming organs and certain disorders involving the immune mechanism; Z90.89 Acquired absence of other organs; Z90.49 Acquired absence of other specified parts of digestive tract; Z98.890 Other specified postprocedural states
CPT/HCPCS: 36415; 74022; 80053; 81001; 85025; 99284-25

== ENCOUNTER → 2018-03-20 | Outpatient (CLI) | payer MEDICARE ==
[2018-03-10 14:45] VITALS: BP 172/87
[~2018-03-20] MED LIST changes: +LACT20SO PO
--- NOTE | 2018-03-24 20:08 | EEG ---
DATE OF SERVICE: 03/20/2018 EEG NUMBER: [id number]. OBJECTIVE: This is a 67-year-old male patient with a history of seizure. He had mental status changes. EEG was requested to evaluate seizure activity. METHODS: Twenty electrodes were applied according to the international 10-20 electrode placement system. EKG monitoring, hyperventilation, intermittent photic stimulation, monopolar and bipolar montages are routinely utilized. The record was obtained on a digital system with video monitoring. FINDINGS: Background: The patient was recorded in the awake, drowsy, and sleep states. The overall background amplitude is 10-20 microvolts. A posterior dominant rhythm of 7-8 Hz is observed. Abnormalities: No specific epileptiform discharge or electrographic seizure is seen. No diffuse slowing. Activation: Hyperventilation was performed with poor efforts. Intermittent photic stimulation was performed with photic driving. No specific epileptiform discharge or electrographic seizure induced by hyperventilation or intermittent photic stimulation. IMPRESSION: This EEG is an abnormal study for the awake, drowsy, and sleep states. The posterior dominant rhythm of 7-8 Hz is slow for age. No focal, lateralizing, specific epileptiform discharge or electrographic seizure is seen. RAVI VALDES MD DR: JULIUS/kristen JOB#: [id number] / [id number] NEYDA
== END | disposition home or self-care (01) ==
LOC: RT 09:00
PROVIDERS: ATTEND Psychiatry & Neurology Neurology
DX: R56.9 Unspecified convulsions (principal); R41.82 Altered mental status, unspecified
CPT/HCPCS: 95816

== ENCOUNTER 2018-06-25 22:17 | Inpatient (IN) | payer MEDICARE ==
[~2018-06-25] VITALS: Ht 172.7 cm; Wt 81.2 kg
[~2018-06-25 22:17] MED LIST changes: +AMLO5TAB10 PO; -AMLO5TAB7 PO; -GABA600T2 PO; +GABA600T7 PO
--- NOTE | 2018-06-25 22:35 | PHYS DOC ---
Past Medical History Past Medical History: Constipation, Diabetes-Type II, High Cholesterol, Hypertension Additional Past Medical Histor: TBI, URINARY RETEN, SCIATICA, NEUROPATHY, ANEURSYM, TARDIVE DYSKINESIA Past Surgical History: Other Additional Past Surgical Histo: PROSTATE Alcohol Use: None Drug Use: None Adult General Chief Complaint Chief Complaint: SEIZURE HPI HPI Patient is a 67 year old male who presents for a seizure. Per EMS, patient has a history of seizures and had a generalized tonic clonic seizure about 45 minutes prior to ED arrival. Per EMS, patient's who was a witness stated that the seizure lasted one to two minutes but she was unsure if he hit his head. Patient reportedly fell from standing. Patient was given 2mg Narcan without improvement en route to the ED. Blood sugar noted to be 164, per EMS. Patient is a poor historian secondary to altered mental status. Patient had kidney stones removed surgically yesterday at . Review of Systems Review of Systems ROS unobtainable secondary to altered mental status. Current Medications Current Medications Current Medications Medications (Trade) Dose Ordered Sig/Loyda Start Time Stop Time Status Last Admin Dose Admin Sodium Chloride 1,000 ml @ 1,000 mls/hr 1X ONCE 06/25/18 22:45 06/25/18 23:44 DC 06/25/18 23:02 1,000 MLS/HR Allergies Allergies Allergies Coded Allergies Type Severity Reaction Last Updated Verified No Known Drug Allergies 04/15/16 No Physical Exam Physical Exam Constitutional: Well developed, well nourished, lethargic. HENT: Normocephalic, oropharynx moist. No tongue laceration. Eyes: Pinpoint pupils. No discharge. Cardiovascular:Heart rate regular rhythm, no murmur Lungs & Thorax: Bilateral breath sounds clear to auscultation Abdomen: Bowel sounds normal, soft. Skin: Warm, dry. Back: Gauze dressing overlying surgical site located over left lower back which looks clean and dry. Extremities: No edema. Distal pulses intact. Neurologic: Able to follow simple commands. Alert and oriented to self and place. Current Patient Data Lab Values Laboratory Tests Test 06/25/18 23:00 White Blood Count 5.8 x10^3/uL (4.0-11.0) Red Blood Count 3.51 x10^6/uL (4.30-5.70) L Hemoglobin 11.0 g/dL (13.0-17.5) L Hematocrit 33.7 % (39.0-53.0) L Mean Corpuscular Volume 96 fL (79-100) Mean Corpuscular Hemoglobin 31 pg (25-35) Mean Corpuscular Hemoglobin Concent 33 g/dL (31-37) Red Cell Distribution Width 16.1 % (11.5-14.5) H Platelet Count 100 x10^3/uL (140-400) L Neutrophils (%) (Auto) 67 % (31-73) Lymphocytes (%) (Auto) 17 % (24-48) L Monocytes (%) (Auto) 14 % (0-9) H Eosinophils (%) (Auto) 1 % (0-3) Basophils (%) (Auto) 0 % (0-3) Neutrophils # (Auto) 3.9 x10^3uL (1.8-7.7) Lymphocytes # (Auto) 1.0 x10^3/uL (1.0-4.8) Monocytes # (Auto) 0.8 x10^3/uL (0.0-1.1) Eosinophils # (Auto) 0.1 x10^3/uL (0.0-0.7) Basophils # (Auto) 0.0 x10^3/uL (0.0-0.2) Prothrombin Time 12.7 SEC (11.7-14.0) Prothrombin Time INR 1.0 (0.8-1.1) PTT 38 SEC (24-38) Sodium Level 142 mmol/L (136-145) Potassium Level 4.1 mmol/L (3.5-5.1) Chloride Level 105 mmol/L (98-107) Carbon Dioxide Level 30 mmol/L (21-32) Anion Gap 7 (6-14) Blood Urea Nitrogen 32 mg/dL (8-26) H Creatinine 2.4 mg/dL (0.7-1.3) H Estimated GFR (Cockcroft-Gault) 33.0 BUN/Creatinine Ratio 13 (6-20) Glucose Level 175 mg/dL (70-99) H Lactic Acid Level 1.4 mmol/L (0.4-2.0) Calcium Level 8.4 mg/dL (8.5-10.1) L Magnesium Level 2.1 mg/dL (1.8-2.4) Total Bilirubin 0.4 mg/dL (0.2-1.0) Aspartate Amino Transferase (AST) 32 U/L (15-37) Alanine Aminotransferase (ALT) 31 U/L (16-63) Alkaline Phosphatase 66 U/L (46-116) Creatine Kinase 273 U/L (39-308) Creatine Kinase MB (Mass) 2.1 ng/mL (0.0-3.6) Creatine Kinase MB Relative Index 0.8 % (0-4) Troponin I Quantitative < 0.017 ng/mL (0.000-0.055) Total Protein 8.2 g/dL (6.4-8.2) Albumin 3.6 g/dL (3.4-5.0) Albumin/Globulin Ratio 0.8 (1.0-1.7) L Carbamazepine (Tegretol) Level 11.7 mcg/mL (4.0-12.0) Carbamazepine Last Dose Date Carbamazepine Last Dose Time Ethyl Alcohol Level < 10 mg/dL (0-10) Laboratory Tests 06/25/18 23:00 Laboratory Tests 06/25/18 23:00 EKG EKG Normal sinus rhythm at 73bpm. No ST elevation. Interpretation Time: 22:51 Radiology/Procedures Radiology/Procedures [] Course & Med Decision Making Course & Med Decision Making Pertinent Labs and Imaging studies reviewed. (See chart for details) Patient is a 67 year old male who presents for a seizure. CT head ordered due to seizure with unknown head trauma. 1L Normal Saline IV administered. Dragon Disclaimer Dragon Disclaimer This electronic medical record was generated, in whole or in part, using a voice recognition dictation system. Departure Departure Impression: Primary Impression: Breakthrough seizure Additional Impression: Acute renal insufficiency Disposition: 09 ADMITTED INPATIENT Admitting Physician: Debi Maza (covering for Dr. Bukc) Condition: STABLE Referrals: ERNESTO BUCK MD (PCP) Problem Qualifiers KP TOMAS DO Jun 25, 2018 22:35
[2018-06-25] MEDS ORDERED: IV NORMAL SALINE 1000ML BAG 1,000 ML IV ONE (22:45)
[2018-06-25 23:31] LABS: CALCIUM 8.4 mg/dL (8.5-10.1); CREATININE 2.4 mg/dL (0.7-1.3); POTASSIUM 4.1 mmol/L (3.5-5.1)
[2018-06-25 23:33] LABS: BASO % 0 % (0-3); EOS # 0.1 x10^3/uL (0.0-0.7); EOS % 1 % (0-3); HEMATOCRIT 33.7 % (39.0-53.0); LYMPH % 17 % (24-48); MEAN CORPUSCULAR HEMOGLOBIN 31 pg (25-35); MEAN CORPUSCULAR HGB CONC 33 g/dL (31-37); MEAN CORPUSCULAR VOLUME 96 fL (79-100); MONO # 0.8 x10^3/uL (0.0-1.1); MONO % 14 % (0-9); NEUT # 3.9 x10^3uL (1.8-7.7); NEUT % 67 % (31-73); PLATELET COUNT 100 x10^3/uL (140-400); RED BLOOD COUNT 3.51 x10^6/uL (4.30-5.70); RED CELL DISTRIBUTION WIDTH 16.1 % (11.5-14.5); WHITE BLOOD COUNT 5.8 x10^3/uL (4.0-11.0)
--- NOTE | 2018-06-25 23:35 | RAD ---
PQRS Compliance statement: One or more of the following individualized dose reduction techniques were utilized for this examination: 1. Automated exposure control. 2. Adjustment of the mA and/or kV according to patient size. 3. Use of iterative reconstruction technique. Indication:seizure TECHNIQUE: CT head without IV contrast COMPARISON:02/2018 FINDINGS: Stable moderate encephalomalacia involving the left temporoparietal lobe. No pathologic extra-axial or intra-axial fluid collection. No acute intracranial bleed. The ventricles and basal cisterns are within normal limits. No focal loss of suárez-white differentiation. Orbits within normal limits. Left lateral parietal anatomy. No suspicious calvarial lesion. Visualized paranasal sinuses and mastoid air cells are clear. IMPRESSION: 1. No acute intracranial process. 2. Stable encephalomalacia in the left temporoparietal lobe likely from prior surgery or trauma. Indication:seizure TECHNIQUE: CT of the cervical spine without IV contrast with multiplanar reformats. COMPARISON:None FINDINGS: Focal reversal of normal cervical lordosis is seen with apex at C2-C3. Status post posterior fusion at C3-C7 atlantoaxial joint interval is preserved. No compression deformities. Multilevel intervertebral disc space narrowing seen with endplate irregularities and small osteophyte formation. Laminectomy changes seen from C3-C7. No acute fractures. Noncontrast appearance of the neck soft tissue is within normal limits. Clear lung apices. IMPRESSION: 1. No acute fractures. 2. Status post posterior fixation with laminectomy changes from C3-C7. 3. Multilevel degenerative disc disease. Electronically signed by: Hector White DO (06/25/2018 11:32 PM) [facility]
[2018-06-25 23:36] LABS: PROTHROMBIN TIME PATIENT 12.7 SEC (11.7-14.0)
[2018-06-25 23:37] LABS: ALBUMIN 3.6 g/dL (3.4-5.0); ALBUMIN/GLOBULIN RATIO 0.8 (1.0-1.7); MAGNESIUM 2.1 mg/dL (1.8-2.4); TOTAL BILIRUBIN 0.4 mg/dL (0.2-1.0); TOTAL PROTEIN 8.2 g/dL (6.4-8.2)
[2018-06-26] VITALS (7 sets, daily range): BP systolic 102–171; BP diastolic 49–79
[2018-06-26] MEDS ORDERED: fentaNYL PF VIAL 100 MCG/2 ML VIAL IV PRN (00:15)
[2018-06-26] MEDS ORDERED: DEXTROSE 50% 25 GM / 50ML DISP.SYRIN. IV PRN (00:15)
[2018-06-26] MEDS ORDERED: IV NORMAL SALINE 1000ML BAG 1,000 ML IV ONE (00:15)
[2018-06-26] MEDS ORDERED: ONDANSETRON PF 4 MG/2 ML VIAL. IV PRN (00:15)
[2018-06-26 00:29] LABS: CARBAM 11.7 mcg/mL (4.0-12.0)
--- NOTE | 2018-06-26 01:40 | NUR ---
The patient, ANAMARIA MAJANO, 67 y/o, M admitted by STEPHEN TURNER MD, was given written information regarding hospital policies, unit procedures and contact persons. Valuables were checked and left with patient.
--- NOTE | 2018-06-26 04:05 | NUR ---
Pt was admitted on to the unit from the ED. Pt experienced a siezure at home. During assessment, pt was unable to answer questions with more than a yes or no response. Pt also unable to sign Fall Contract and unable to comprehend orientation to the room and tv/call light. Changed transparent dressing to spine stimulator surgical site with Ambar JEAN. Will continue to monitor.
[2018-06-26] MEDS: INSULIN LISPRO 300 UNITS/3 ML INSULN.PEN. SQ SCH ×3 (07:51→17:00)
[2018-06-26] MEDS ORDERED: BISACODYL 5 MG TABLET.DR. PO PRN (08:00)
[2018-06-26] MEDS ORDERED: LACTULOSE 20 GM/30 ML SOLUTION. PO PRN (08:00)
--- NOTE | 2018-06-26 08:02 | PDOC1 ---
History and Physical Date of Admission Date of Admission 06/26/18 Identification/Chief Complaint Chief Complaint Seizures Source Source: Chart review, Patient History of Present Illness History of Present Illness Pt admits that he is still slightly confused. He is oriented to person and place but unable to tell me date, month, year, etc. He says that he knows that he is here for seizures and blood sugar issues but he does not remember much of yesterday. Per chart review pt had kidney stones removed yesterday at . Pt unable to squeeze my hand with his left hand and has very limited use of his left hand when directed; in discussing with pt it appears that this has been going on since a previous brain aneurysm, but he is not well known to me so will discuss with his normal PCP today. Past Medical History Cardiovascular: HTN Pulmonary: No pertinent hx CENTRAL NERVOUS SYSTEM: Periperal neuropathy, Seizure, Other GI: Peptic Ulcer disease Heme/Onc: No pertinent hx Hepatobiliary: No pertinent hx Psych: Depression, Schizophrenia Rheumatologic: No pertinent hx Infectious disease: No pertinent hx ENT: No pertinent hx Renal/: Other Endocrine: Diabetes Dermatology: No pertinent hx Past Surgical History Past Surgical History: Other (Craniotomy 2/2 brain aneurysm, back surgery, kyphoplasty L2, cervical laminectomy, coil embolization of two gastric arteries , TURP) Family History Family History: Cancer, Other Social History Smoke: No ALCOHOL: none Drugs: None Current Problem List Problem List Problems Medical Problems: (1) Acute renal insufficiency Status: Acute (2) Breakthrough seizure Status: Acute Current Medications Current Medications Current Medications Medications (Trade) Dose Ordered Sig/Loyda Start Time Stop Time Status Last Admin Dose Admin Dextrose (Dextrose 50%-Water Syringe) 12.5 gm PRN Q15MIN PRN 06/26/18 00:15 Fentanyl Citrate (Fentanyl 2ml Vial) 50 mcg PRN Q2HR PRN 06/26/18 00:15 Insulin Human Lispro (HumaLOG) 0-5 UNITS TIDWMEALS 06/26/18 08:00 Ondansetron HCl (Zofran) 4 mg PRN Q8HRS PRN 06/26/18 00:15 06/27/18 00:14 Sodium Chloride 1,000 ml @ 100 mls/hr 1X ONCE 06/26/18 00:15 06/26/18 10:14 Allergies Allergies Allergies Coded Allergies Type Severity Reaction Last Updated Verified No Known Drug Allergies 04/15/16 No ROS Review of System CONSTITUTIONAL: No fever or chills EYES: No recent changes SKIN: No rash or itching CARDIOVASCULAR: No chest pain, syncope, palpitations, or edema RESPIRATORY: No SOB or cough GASTROINTESTINAL: No nausea, vomiting or abdominal pain NEUROLOGICAL: No headaches or weakness ENDOCRINE: No cold or heat intolerance GENITOURINARY: No urgency or frequency of urination MUSCULOSKELETAL: No back pain or joint pain LYMPHATICS: No enlarged lymph nodes PSYCHIATRIC: No anxiety or depression Physical Exam Physical Exam GEN.: No apparent distress. Alert and oriented to person and place only. HEENT: Head is normocephalic, atraumatic NECK: Supple. LUNGS: Clear to auscultation. HEART: RRR, S1, S2 present. Peripheral pulses intact ABDOMEN: Soft, nontender. Positive bowel sounds. EXTREMITIES: Without any cyanosis. NEUROLOGIC: Normal speech, pt unable to use left hand PSYCHIATRIC: Normal affect, normal mood. SKIN: No ulcerations Vitals Vitals Vital Signs Date Time Temp Pulse Resp B/P (MAP) Pulse Ox O2 Delivery O2 Flow Rate FiO2 06/26/18 07:00 97.7 78 18 143/76 (98) 93 Room Air 97.7 Labs Labs Laboratory Tests Test 06/25/18 23:00 White Blood Count 5.8 x10^3/uL (4.0-11.0) Red Blood Count 3.51 x10^6/uL (4.30-5.70) Hemoglobin 11.0 g/dL (13.0-17.5) Hematocrit 33.7 % (39.0-53.0) Mean Corpuscular Volume 96 fL (79-100) Mean Corpuscular Hemoglobin 31 pg (25-35) Mean Corpuscular Hemoglobin Concent 33 g/dL (31-37) Red Cell Distribution Width 16.1 % (11.5-14.5) Platelet Count 100 x10^3/uL (140-400) Neutrophils (%) (Auto) 67 % (31-73) Lymphocytes (%) (Auto) 17 % (24-48) Monocytes (%) (Auto) 14 % (0-9) Eosinophils (%) (Auto) 1 % (0-3) Basophils (%) (Auto) 0 % (0-3) Neutrophils # (Auto) 3.9 x10^3uL (1.8-7.7) Lymphocytes # (Auto) 1.0 x10^3/uL (1.0-4.8) Monocytes # (Auto) 0.8 x10^3/uL (0.0-1.1) Eosinophils # (Auto) 0.1 x10^3/uL (0.0-0.7) Basophils # (Auto) 0.0 x10^3/uL (0.0-0.2) Prothrombin Time 12.7 SEC (11.7-14.0) Prothromb Time International Ratio 1.0 (0.8-1.1) Activated Partial Thromboplast Time 38 SEC (24-38) Sodium Level 142 mmol/L (136-145) Potassium Level 4.1 mmol/L (3.5-5.1) Chloride Level 105 mmol/L (98-107) Carbon Dioxide Level 30 mmol/L (21-32) Anion Gap 7 (6-14) Blood Urea Nitrogen 32 mg/dL (8-26) Creatinine 2.4 mg/dL (0.7-1.3) Estimated GFR (Cockcroft-Gault) 33.0 BUN/Creatinine Ratio 13 (6-20) Glucose Level 175 mg/dL (70-99) Lactic Acid Level 1.4 mmol/L (0.4-2.0) Calcium Level 8.4 mg/dL (8.5-10.1) Magnesium Level 2.1 mg/dL (1.8-2.4) Total Bilirubin 0.4 mg/dL (0.2-1.0) Aspartate Amino Transf (AST/SGOT) 32 U/L (15-37) Alanine Aminotransferase (ALT/SGPT) 31 U/L (16-63) Alkaline Phosphatase 66 U/L (46-116) Creatine Kinase 273 U/L (39-308) Creatine Kinase MB (Mass) 2.1 ng/mL (0.0-3.6) Creatine Kinase MB Relative Index 0.8 % (0-4) Troponin I Quantitative < 0.017 ng/mL (0.000-0.055) Total Protein 8.2 g/dL (6.4-8.2) Albumin 3.6 g/dL (3.4-5.0) Albumin/Globulin Ratio 0.8 (1.0-1.7) Carbamazepine (Tegretol) Level 11.7 mcg/mL (4.0-12.0) Carbamazepine Last Dose Date Carbamazepine Last Dose Time Ethyl Alcohol Level < 10 mg/dL (0-10) Laboratory Tests Test 06/25/18 23:00 White Blood Count 5.8 x10^3/uL (4.0-11.0) Red Blood Count 3.51 x10^6/uL (4.30-5.70) Hemoglobin 11.0 g/dL (13.0-17.5) Hematocrit 33.7 % (39.0-53.0) Mean Corpuscular Volume 96 fL (79-100) Mean Corpuscular Hemoglobin 31 pg (25-35) Mean Corpuscular Hemoglobin Concent 33 g/dL (31-37) Red Cell Distribution Width 16.1 % (11.5-14.5) Platelet Count 100 x10^3/uL (140-400) Neutrophils (%) (Auto) 67 % (31-73) Lymphocytes (%) (Auto) 17 % (24-48) Monocytes (%) (Auto) 14 % (0-9) Eosinophils (%) (Auto) 1 % (0-3) Basophils (%) (Auto) 0 % (0-3) Neutrophils # (Auto) 3.9 x10^3uL (1.8-7.7) Lymphocytes # (Auto) 1.0 x10^3/uL (1.0-4.8) Monocytes # (Auto) 0.8 x10^3/uL (0.0-1.1) Eosinophils # (Auto) 0.1 x10^3/uL (0.0-0.7) Basophils # (Auto) 0.0 x10^3/uL (0.0-0.2) Prothrombin Time 12.7 SEC (11.7-14.0) Prothromb Time International Ratio 1.0 (0.8-1.1) Activated Partial Thromboplast Time 38 SEC (24-38) Sodium Level 142 mmol/L (136-145) Potassium Level 4.1 mmol/L (3.5-5.1) Chloride Level 105 mmol/L (98-107) Carbon Dioxide Level 30 mmol/L (21-32) Anion Gap 7 (6-14) Blood Urea Nitrogen 32 mg/dL (8-26) Creatinine 2.4 mg/dL (0.7-1.3) Estimated GFR (Cockcroft-Gault) 33.0 BUN/Creatinine Ratio 13 (6-20) Glucose Level 175 mg/dL (70-99) Lactic Acid Level 1.4 mmol/L (0.4-2.0) Calcium Level 8.4 mg/dL (8.5-10.1) Magnesium Level 2.1 mg/dL (1.8-2.4) Total Bilirubin 0.4 mg/dL (0.2-1.0) Aspartate Amino Transf (AST/SGOT) 32 U/L (15-37) Alanine Aminotransferase (ALT/SGPT) 31 U/L (16-63) Alkaline Phosphatase 66 U/L (46-116) Creatine Kinase 273 U/L (39-308) Creatine Kinase MB (Mass) 2.1 ng/mL (0.0-3.6) Creatine Kinase MB Relative Index 0.8 % (0-4) Troponin I Quantitative < 0.017 ng/mL (0.000-0.055) Total Protein 8.2 g/dL (6.4-8.2) Albumin 3.6 g/dL (3.4-5.0) Albumin/Globulin Ratio 0.8 (1.0-1.7) Carbamazepine (Tegretol) Level 11.7 mcg/mL (4.0-12.0) Carbamazepine Last Dose Date Carbamazepine Last Dose Time Ethyl Alcohol Level < 10 mg/dL (0-10) VTE Prophylaxis Ordered VTE Prophylaxis Devices: No VTE Pharmacological Prophylaxi: No Assessment/Plan Assessment/Plan Pt is a 67yo AAM admitted after seizure 1)Seizure disorder- pt continued on Tegretol 200mg qday and Keppra 500mg BID. Neurology consulted. 2)Altered mental status- will discuss with pt's PCP what pt's baseline is as pt is not well known to me. 3)Acute on CKD- Cr currently 2.4 with baseline at 1.3, receiving IVF hydration 4)Depression/Schizophrenia- pt continued on Duloxetine 60mg and Seroquel 100mg QHS 5)BPH- pt continued on Flomax and Finasteride 6)Kidney stone removal yesterday? 7)HTN- moderately controlled. Pt resumed on home medications of Carvedilol 12.5mg BID, Amlodipine 5mg 8)DM2- HbA1C currently pending. Pt continued on Glipizide 5mg BID, Metformin 500mg BID and Pioglitazone 45mg. SSI also available as needed 9)HLD- pt continued on atorvastatin 10mg 10)Tardive Dyskinesia- pt continued on baclofen 11)Hx of brain aneurysm 12)Anemia- mild, chronic 13)Thrombocytopenia- chronic, stable. No active bleeding or oozing STEPHEN TURNER MD Jun 26, 2018 08:02
[2018-06-26] MEDS: glipiZIDE 5 MG TABLET PO SCH ×2 (08:15→17:07)
--- NOTE | 2018-06-26 08:27 | EKG ---
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
[2018-06-26] MEDS: CARVEDILOL 12.5 MG TABLET. PO SCH ×2 (08:55→17:06)
[2018-06-26] MEDS: levETIRAcetam 500 MG TABLET PO SCH ×2 (08:55→20:22)
[2018-06-26] MEDS: FINASTERIDE 5 MG TABLET. PO SCH (08:56)
[2018-06-26] MEDS: PREGABALIN 75 MG CAPSULE PO SCH ×2 (08:56→20:33)
[2018-06-26] MEDS: TAMSULOSIN 0.4 MG CAP.ER.24H. PO SCH ×2 (08:56→20:22)
[2018-06-26] MEDS: DULoxetine HCL 30 MG CAPSULE.DR PO SCH (08:56)
[2018-06-26] MEDS: carBAMazepine 200 MG TABLET PO SCH ×2 (08:56→20:21)
[2018-06-26] MEDS: FUROSEMIDE 20 MG TABLET PO SCH (08:56)
[2018-06-26] MEDS: BACLOFEN 10 MG TABLET. PO SCH ×3 (08:56→20:20)
[2018-06-26] MEDS: metFORMIN 500 MG TABLET PO SCH ×2 (08:57→17:07)
[2018-06-26] MEDS: amLODIPine BESYLATE 5 MG TABLET PO SCH (08:57)
[2018-06-26] MEDS: PIOGLITAZONE 15 MG TABLET. PO SCH (08:58)
--- NOTE | 2018-06-26 09:00 | NUR ---
Glucotrol held r/t patient poor diet intake and FSBG 110. Continue cares and monitor.
--- NOTE | 2018-06-26 09:58 | PDOC2 ---
NEUROLOGY CONSULT Date of Admission Date of Admission DATE: 06/26/18 TIME: 09:46 Reason for Consult Reason for Consult: Seizure Referring Physician Referring Physician: Dr. Maza Source Source: Chart review, Patient History of Present Illness History of Present Illness The patient is a 67-year-old right-handed male whom I follow in the office for diabetic polyneuropathy and epilepsy. He had a seizure last night. He remained posted actively confused. Had kidney stone removed at yesterday. He is feeling better this morning. He denies any headache, diplopia, dysphagia, or dysarthria. His last seizure was in January 2018. mojgan follows at the [facility] for schizophrenia and depression Past Medical History Cardiovascular: HTN, Hyperlipidemia CENTRAL NERVOUS SYSTEM: Periperal neuropathy, Seizure ( is he still here), Other (Brain aneurysm, tardive dyskinesia) GI: Peptic Ulcer disease, Other (C diff) Psych: Depression, Schizophrenia Musculoskeletal: low back pain ENT: Other ( glaucoma) Renal/: UTI, Other ( kidney stone removal) Endocrine: Diabetes Past Surgical History Past Surgical History: Appendectomy, Other ( craniotomy for brain aneurysm) Family History Family History: Other ( negative for seizures) Social History Social History Lives with , no alcohol or tobacco, usually ambulates with a walker Current Medications Current Medications Current Medications Sodium Chloride 1,000 ml @ 1,000 mls/hr 1X ONCE IV Last administered on at 23:02; Start 06/25/18 at 22:45; Stop 06/25/18 at 23:44; Status DC Ondansetron HCl (Zofran) 4 mg PRN Q8HRS PRN IV NAUSEA/VOMITING; Start 06/26/18 at 00:15; Stop 06/27/18 at 00:14 Fentanyl Citrate (Fentanyl 2ml Vial) 50 mcg PRN Q2HR PRN IV PAIN; Start at 00:15 Insulin Human Lispro (HumaLOG) 0-5 UNITS TIDWMEALS SQ ; Start 06/26/18 at 08:00 Dextrose (Dextrose 50%-Water Syringe) 12.5 gm PRN Q15MIN PRN IV SEE COMMENTS; Start 06/26/18 at 00:15 Sodium Chloride 1,000 ml @ 100 mls/hr 1X ONCE IV ; Start 06/26/18 at 00:15; Stop 06/26/18 at 10:14 Amlodipine Besylate (Norvasc) 5 mg DAILY PO Last administered on 06/26/18 08:57 ; Start 06/26/18 at 09:00 Atorvastatin Calcium (Lipitor) 10 mg QHS PO ; Start 06/26/18 at 21:00 Baclofen (Lioresal) 10 mg TID PO Last administered on 06/26/18 08:56; Start 06/26/18 at 09:00 Bisacodyl (Dulcolax Tab) 10 mg PRN DAILY PRN PO CONSTIPATION; Start 06/26/18 at 08:00 Carbamazepine (TEGretol) 200 mg BID PO Last administered on 06/26/18 08:56; Start 06/26/18 at 09:00 Carvedilol (Coreg) 12.5 mg BIDWMEALS PO Last administered on 06/26/18 08:55; Start 06/26/18 at 08:00 Duloxetine HCl (Cymbalta) 60 mg DAILY PO Last administered on 06/26/18 08:56; Start 06/26/18 at 09:00 Finasteride (Proscar) 5 mg DAILY PO Last administered on 06/26/18 08:56; Start 06/26/18 at 09:00 Glipizide (Glucotrol) 5 mg BIDBFRMEAL PO ; Start 06/26/18 at 08:15 Lactulose (Lactulose) 10 gm DAILY PRN PO CONSTIPATION; Start 06/26/18 at 08:00 Levetiracetam (Keppra) 500 mg BID PO Last administered on 06/26/18 08:55; Start 06/26/18 at 09:00 Tamsulosin HCl (Flomax) 0.4 mg BID PO Last administered on 06/26/18 08:56; Start 06/26/18 at 09:00 Latanoprost (Xalatan) 1 drop QHS OU ; Start 06/26/18 at 21:00 Metformin HCl (Glucophage) 500 mg BIDWMEALS PO Last administered on 06/26/18 08 :57; Start 06/26/18 at 08:15 Pioglitazone HCl (Actos) 45 mg DAILY PO Last administered on 06/26/18 08:58; Start 06/26/18 at 09:00 Pregabalin (Lyrica) 150 mg BID PO Last administered on 06/26/18at 08:56; Start at 09:00 Quetiapine Fumarate (SEROquel) 100 mg QHS PO ; Start 06/26/18 at 21:00 Furosemide (Lasix) 20 mg DAILY PO Last administered on 06/26/18at 08:56; Start at 09:00 Active Scripts Active Lactulose 20 Gm/30 Ml Solution 10 Gm PO DAILY PRN Finasteride 5 Mg Tablet 1 Tab PO DAILY Lyrica (Pregabalin) 150 Mg Capsule 1 Cap PO BID Flomax (Tamsulosin Hcl) 0.4 Mg Cap.er.24h 0.4 Mg PO BID 30 Days Triamcinolone Acetonide 0.1% Oint (Triamcinolone Acetonide) 15 Gm Oint...g. 1 Rogelio TP BID Actos (Pioglitazone Hcl) 15 Mg Tablet 45 Mg PO DAILY 28 Days Glucophage Xr (Metformin Hcl) 500 Mg Tab.er.24h 1,000 Mg PO DAILYWBKFT 30 Days Keppra (Levetiracetam) 500 Mg Tablet 500 Mg PO BID 30 Days Glipizide 5 Mg Tablet 5 Mg PO BIDBFRMEAL 30 Days Bisacodyl 5 Mg Tablet.dr 10 Mg PO PRN DAILY PRN 28 Days Quetiapine Fumarate 100 Mg Tablet 100 Mg PO QHS 30 Days Carvedilol (Carvedilol) 12.5 Mg Tablet 12.5 Mg PO BIDWMEALS 30 Days Baclofen 10 Mg Tablet 10 Mg PO TID 30 Days Reported Latanoprost 2.5 Ml Drops 1 Drop OU QHS Tegretol (Carbamazepine) 200 Mg Tablet 1 Tab PO BID Atorvastatin Calcium 10 Mg Tablet 10 Mg PO Amlodipine Besylate 5 Mg Tablet 5 Mg PO Cymbalta (Duloxetine Hcl) 30 Mg Capsule.dr 60 Mg PO DAILY Lidoderm (Lidocaine) 700 Mg Adh..patch 1 Patch TP DAILY Allergies Allergies: Coded Allergies: No Known Drug Allergies (Unverified , 04/15/16) ROS Review of System Negative for fever, chills, weight loss, shortness of breath, chest pain, indigestion, hematochezia, melena, and dysuria. Full 14-point review of systems is negative. Physical Exam Physical Examination General: Well-developed, well-nourished black male in no acute distress HEENT: Normocephalic andatraumatic. Tympanic membranes clear.Temporal arteries pulsatile and nontender.Fundoscopic exam unremarkable Neck: Supple without bruit, no meningismus Musculoskeletal: Stability:see neurologic. Gait exam:see neurologic. Tone:see neurologic. Strength:see neurologic. Neurological: Mental Status:orientation, memory, attention span/concentration, language, fund of knowledge: knows name of hospital, does not note date or the name of the president. Cranial Nerves:Pupils equal and reactive to light, extraocular movements areintact, visual garcia are full to confrontation. Facial sensation is normal. There is no facial asymmetry. Vestibulo-ocular reflex is intact. Palate elevates and tongue protrudes in midline. All other cranial related problems are negative except as mentioned before.Reflexes:0-1+ and symmetric with flexor plantar responses. Motor:5/5 strength with normal tone and bulk, left 3rd digit chronically inflection contracture. Coordination:Finger-nose finger and [id number]-od-jmdt testing are normal. Rapid alternating movements and fine finger movements are intact. Gait: not tested. Sensory: stocking loss. Vitals VITALS Vital Signs Date Time Temp Pulse Resp B/P (MAP) Pulse Ox O2 Delivery O2 Flow Rate FiO2 06/26/18 08:57 78 143/76 06/26/18 07:00 97.7 18 93 Room Air 97.7 Labs Labs Laboratory Tests Test 06/25/18 23:00 06/26/18 07:43 White Blood Count 5.8 x10^3/uL (4.0-11.0) Red Blood Count 3.51 x10^6/uL (4.30-5.70) Hemoglobin 11.0 g/dL (13.0-17.5) Hematocrit 33.7 % (39.0-53.0) Mean Corpuscular Volume 96 fL (79-100) Mean Corpuscular Hemoglobin 31 pg (25-35) Mean Corpuscular Hemoglobin Concent 33 g/dL (31-37) Red Cell Distribution Width 16.1 % (11.5-14.5) Platelet Count 100 x10^3/uL (140-400) Neutrophils (%) (Auto) 67 % (31-73) Lymphocytes (%) (Auto) 17 % (24-48) Monocytes (%) (Auto) 14 % (0-9) Eosinophils (%) (Auto) 1 % (0-3) Basophils (%) (Auto) 0 % (0-3) Neutrophils # (Auto) 3.9 x10^3uL (1.8-7.7) Lymphocytes # (Auto) 1.0 x10^3/uL (1.0-4.8) Monocytes # (Auto) 0.8 x10^3/uL (0.0-1.1) Eosinophils # (Auto) 0.1 x10^3/uL (0.0-0.7) Basophils # (Auto) 0.0 x10^3/uL (0.0-0.2) Prothrombin Time 12.7 SEC (11.7-14.0) Prothromb Time International Ratio 1.0 (0.8-1.1) Activated Partial Thromboplast Time 38 SEC (24-38) Sodium Level 142 mmol/L (136-145) Potassium Level 4.1 mmol/L (3.5-5.1) Chloride Level 105 mmol/L (98-107) Carbon Dioxide Level 30 mmol/L (21-32) Anion Gap 7 (6-14) Blood Urea Nitrogen 32 mg/dL (8-26) Creatinine 2.4 mg/dL (0.7-1.3) Estimated GFR (Cockcroft-Gault) 33.0 BUN/Creatinine Ratio 13 (6-20) Glucose Level 175 mg/dL (70-99) Lactic Acid Level 1.4 mmol/L (0.4-2.0) Calcium Level 8.4 mg/dL (8.5-10.1) Magnesium Level 2.1 mg/dL (1.8-2.4) Total Bilirubin 0.4 mg/dL (0.2-1.0) Aspartate Amino Transf (AST/SGOT) 32 U/L (15-37) Alanine Aminotransferase (ALT/SGPT) 31 U/L (16-63) Alkaline Phosphatase 66 U/L (46-116) Creatine Kinase 273 U/L (39-308) Creatine Kinase MB (Mass) 2.1 ng/mL (0.0-3.6) Creatine Kinase MB Relative Index 0.8 % (0-4) Troponin I Quantitative < 0.017 ng/mL (0.000-0.055) Total Protein 8.2 g/dL (6.4-8.2) Albumin 3.6 g/dL (3.4-5.0) Albumin/Globulin Ratio 0.8 (1.0-1.7) Carbamazepine (Tegretol) Level 11.7 mcg/mL (4.0-12.0) Carbamazepine Last Dose Date Carbamazepine Last Dose Time Ethyl Alcohol Level < 10 mg/dL (0-10) Ammonia 27 mcmol/L (11-34) Laboratory Tests Test 06/25/18 23:00 06/26/18 07:43 White Blood Count 5.8 x10^3/uL (4.0-11.0) Red Blood Count 3.51 x10^6/uL (4.30-5.70) Hemoglobin 11.0 g/dL (13.0-17.5) Hematocrit 33.7 % (39.0-53.0) Mean Corpuscular Volume 96 fL (79-100) Mean Corpuscular Hemoglobin 31 pg (25-35) Mean Corpuscular Hemoglobin Concent 33 g/dL (31-37) Red Cell Distribution Width 16.1 % (11.5-14.5) Platelet Count 100 x10^3/uL (140-400) Neutrophils (%) (Auto) 67 % (31-73) Lymphocytes (%) (Auto) 17 % (24-48) Monocytes (%) (Auto) 14 % (0-9) Eosinophils (%) (Auto) 1 % (0-3) Basophils (%) (Auto) 0 % (0-3) Neutrophils # (Auto) 3.9 x10^3uL (1.8-7.7) Lymphocytes # (Auto) 1.0 x10^3/uL (1.0-4.8) Monocytes # (Auto) 0.8 x10^3/uL (0.0-1.1) Eosinophils # (Auto) 0.1 x10^3/uL (0.0-0.7) Basophils # (Auto) 0.0 x10^3/uL (0.0-0.2) Prothrombin Time 12.7 SEC (11.7-14.0) Prothromb Time International Ratio 1.0 (0.8-1.1) Activated Partial Thromboplast Time 38 SEC (24-38) Sodium Level 142 mmol/L (136-145) Potassium Level 4.1 mmol/L (3.5-5.1) Chloride Level 105 mmol/L (98-107) Carbon Dioxide Level 30 mmol/L (21-32) Anion Gap 7 (6-14) Blood Urea Nitrogen 32 mg/dL (8-26) Creatinine 2.4 mg/dL (0.7-1.3) Estimated GFR (Cockcroft-Gault) 33.0 BUN/Creatinine Ratio 13 (6-20) Glucose Level 175 mg/dL (70-99) Lactic Acid Level 1.4 mmol/L (0.4-2.0) Calcium Level 8.4 mg/dL (8.5-10.1) Magnesium Level 2.1 mg/dL (1.8-2.4) Total Bilirubin 0.4 mg/dL (0.2-1.0) Aspartate Amino Transf (AST/SGOT) 32 U/L (15-37) Alanine Aminotransferase (ALT/SGPT) 31 U/L (16-63) Alkaline Phosphatase 66 U/L (46-116) Creatine Kinase 273 U/L (39-308) Creatine Kinase MB (Mass) 2.1 ng/mL (0.0-3.6) Creatine Kinase MB Relative Index 0.8 % (0-4) Troponin I Quantitative < 0.017 ng/mL (0.000-0.055) Total Protein 8.2 g/dL (6.4-8.2) Albumin 3.6 g/dL (3.4-5.0) Albumin/Globulin Ratio 0.8 (1.0-1.7) Carbamazepine (Tegretol) Level 11.7 mcg/mL (4.0-12.0) Carbamazepine Last Dose Date Carbamazepine Last Dose Time Ethyl Alcohol Level < 10 mg/dL (0-10) Ammonia 27 mcmol/L (11-34) Images Images CT head without IV contrast COMPARISON:02/2018 FINDINGS: Stable moderate encephalomalacia involving the left temporoparietal lobe. No pathologic extra-axial or intra-axial fluid collection. No acute intracranial bleed. The ventricles and basal cisterns are within normal limits. No focal loss of suárez-white differentiation. Orbits within normal limits. Left lateral parietal anatomy. No suspicious calvarial lesion. Visualized paranasal sinuses and mastoid air cells are clear. IMPRESSION: 1. No acute intracranial process. 2. Stable encephalomalacia in the left temporoparietal lobe likely from prior surgery or trauma. Indication:seizure TECHNIQUE: CT of the cervical spine without IV contrast with multiplanar reformats. COMPARISON:None FINDINGS: Focal reversal of normal cervical lordosis is seen with apex at C2-C3. Status post posterior fusion at C3-C7 atlantoaxial joint interval is preserved. No compression deformities. Multilevel intervertebral disc space narrowing seen with endplate irregularities and small osteophyte formation. Laminectomy changes seen from C3-C7. No acute fractures. Noncontrast appearance of the neck soft tissue is within normal limits. Clear lung apices. IMPRESSION: 1. No acute fractures. 2. Status post posterior fixation with laminectomy changes from C3-C7. 3. Multilevel degenerative disc disease. Assessment/Plan Assessment/Plan Impression: Epilepsy, breakthrough seizure, therapeutic carbamazepine level. Schizophrenia and depression Diabetic polyneuropathy Tardive dyskinesia, controlled Recommendations: Continue current anticonvulsant doses, I am worried about increasing them given his psychiatric issues and gait disorder, increased fall risk. He does not need additional neurological studies. Observe overnight. Thank you for letting me help with the patient's care. BEN TAM MD Jun 26, 2018 09:58
--- NOTE | 2018-06-26 11:35 | NUR ---
Dr. Maza notified patient's sister Alisha Snyder called, she is in [place], she stated patient gets his prescriptions from [facility] on . This RN called to check patient medication list. She said he had surgery for stimulator on 06/24 at [facility] to help him urinate, that the ordered him medications. Dr. Maza notified of medications, see orders. To clarify Tegretol dose with Dr. Knowles, last orders per [facility] at [facility] were for Tegretol ER 100 mg BID and Tegretol 200 mg was ordered . Will notify Dr. Knowles. See nursing communication. Patient confused, knows he has had a seizure, but does not remember anything and states he has had a brain injury and never knows the date. Patient is oriented to hospital, name and birthdate. Continue cares and monitor.
[2018-06-26] MEDS ORDERED: HYOSCYAMINE 0.125 MG TAB.RAPDIS PO PRN (11:45)
[2018-06-26] MEDS: CEPHALEXIN 250 MG CAPSULE. PO SCH ×2 (13:08→20:19)
--- NOTE | 2018-06-26 13:42 | NUR ---
Dr. Knowles called r/t different doses of Tegretol order at [facility], he confirmed patient on correct dose now, 200 mg BID as ordered. See nursing communication.
--- NOTE | 2018-06-26 13:48 | PDOC2 ---
UROLOGY CONSULT Date of Consult Date of Consult DATE: 06/26/18 TIME: 13:46 Source Source: Caregiver, Chart review, Patient History of Present Illness Reason for Visit: Patient is a 67 year old male who presented yesterday for a seizure. Per the spouse the seizure lasted two minutes and she was unsure if he hit his head. Urology has been consulted for a history of an implanted stimulator device for bladder function and history of recent kidney stone removal at . records regarding this are not available to review at the time of consult. During the interview, patient was very difficult to get focused. He kept talking about his hair, etc. He did mention a "device" that he "peed through." When asked if it was a catheter he said "I think so." Per Nursing he is voiding and wetting the bed frequently. He just voided before the SAMPLE SHOE INSPECTOR AND REWORKER came in the room and thinks his bladder is empty now. Past Medical History Cardiovascular: HTN, Hyperlipidemia Pulmonary: No pertinent hx CENTRAL NERVOUS SYSTEM: Periperal neuropathy, Seizure ( is he still here), Other (Brain aneurysm, tardive dyskinesia) GI: Peptic Ulcer disease, Other (C diff) Heme/Onc: No pertinent hx Hepatobiliary: No pertinent hx Psych: Depression, Schizophrenia Musculoskeletal: low back pain Rheumatologic: No pertinent hx Infectious disease: No pertinent hx ENT: Other ( glaucoma) Renal/: UTI, Other ( kidney stone removal) Endocrine: Diabetes Dermatology: No pertinent hx Past Surgical History Past Surgical History: Appendectomy, Other ( craniotomy for brain aneurysm) Family History Family History: Cancer, Other Social History No ALCOHOL: none Drugs: None Lives: Alone Current Medications Current Medications Current Medications Amlodipine Besylate (Norvasc) 5 mg DAILY PO Last administered on 06/26/18at 08:57 ; Start 06/26/18 at 09:00 Atorvastatin Calcium (Lipitor) 10 mg QHS PO ; Start 06/26/18 at 21:00 Baclofen (Lioresal) 10 mg TID PO Last administered on 06/26/18at 13:08; Start 06/26/18 at 09:00 Bisacodyl (Dulcolax Tab) 10 mg PRN DAILY PRN PO CONSTIPATION 1ST CHOICE; Start 06/26/18 at 08:00 Carbamazepine (TEGretol) 200 mg BID PO Last administered on 06/26/18at 08:56; Start 06/26/18 at 09:00 Carvedilol (Coreg) 12.5 mg BIDWMEALS PO Last administered on 06/26/18 08:55; Start 06/26/18 at 08:00 Cephalexin HCl (Keflex) 500 mg BID PO Last administered on 06/26/18at 13:08; Start 06/26/18 at 13:00 Dextrose (Dextrose 50%-Water Syringe) 12.5 gm PRN Q15MIN PRN IV SEE COMMENTS; Start 06/26/18 at 00:15 Docusate Sodium (Colace) 100 mg DAILY PO ; Start 06/27/18 at 09:00 Duloxetine HCl (Cymbalta) 60 mg DAILY PO Last administered on 06/26/18 08:56; Start 06/26/18 at 09:00 Fentanyl Citrate (Fentanyl 2ml Vial) 50 mcg PRN Q2HR PRN IV PAIN; Start at 00:15 Finasteride (Proscar) 5 mg DAILY PO Last administered on 06/26/18at 08:56; Start 06/26/18 at 09:00 Furosemide (Lasix) 20 mg DAILY PO Last administered on 06/26/18 08:56; Start at 09:00 Glipizide (Glucotrol) 5 mg BIDBFRMEAL PO ; Start 06/26/18 at 08:15 Hyoscyamine (Anaspaz) 0.125 mg PRN Q4HRS PRN PO STOMACH CRAMPING; Start at 11:45 Insulin Human Lispro (HumaLOG) 0-5 UNITS TIDWMEALS SQ ; Start 06/26/18 at 08:00 Lactobacillus Rhamnosus (Culturelle) 1 cap BID PO ; Start 06/26/18 at 21:00 Lactulose (Lactulose) 10 gm DAILY PRN PO CONSTIPATION 2ND CHOICE; Start at 08:00 Latanoprost (Xalatan) 1 drop QHS OU ; Start 06/26/18 at 21:00 Levetiracetam (Keppra) 500 mg BID PO Last administered on 06/26/18 08:55; Start 06/26/18 at 09:00 Metformin HCl (Glucophage) 500 mg BIDWMEALS PO Last administered on 4/5/19at 08 :57; Start 06/26/18 at 08:15 Ondansetron HCl (Zofran) 4 mg PRN Q8HRS PRN IV NAUSEA/VOMITING; Start 06/26/18 at 00:15; Stop 06/27/18 at 00:14 Pioglitazone HCl (Actos) 45 mg DAILY PO Last administered on 06/26/18at 08:58; Start 06/26/18 at 09:00 Pregabalin (Lyrica) 150 mg BID PO Last administered on 06/26/18at 08:56; Start at 09:00 Quetiapine Fumarate (SEROquel) 100 mg QHS PO ; Start 06/26/18 at 21:00 Sodium Chloride 1,000 ml @ 100 mls/hr 1X ONCE IV ; Start 06/26/18 at 00:15; Stop 06/26/18 at 10:14; Status DC Sodium Chloride 1,000 ml @ 1,000 mls/hr 1X ONCE IV Last administered on at 23:02; Start 06/25/18 at 22:45; Stop 06/25/18 at 23:44; Status DC Tamsulosin HCl (Flomax) 0.4 mg BID PO Last administered on 06/26/18at 08:56; Start 06/26/18 at 09:00 Allergies Allergies: Coded Allergies: No Known Drug Allergies (Unverified , 04/15/16) ROS Review Of Systems: CONSTITUTIONAL: No fever or chills EYES: No recent changes SKIN: No rash or itching CARDIOVASCULAR: No chest pain, syncope, palpitations, or edema RESPIRATORY: No SOB or cough GASTROINTESTINAL: No nausea, vomiting or abdominal pain NEUROLOGICAL: No headaches or weakness ENDOCRINE: No cold or heat intolerance GENITOURINARY: No urgency or frequency of urination MUSCULOSKELETAL: No back pain or joint pain LYMPHATICS: No enlarged lymph nodes PSYCHIATRIC: No anxiety or depression Physical Exam Physical Exam: General: Pleasant, no acute distress, well groomed Eyes: conjunctiva anicteric, eyes full range of motion ENT: moist oral mucosa, normal dentition Neck: Trachea midline, no masses Respiratory: unlabored breathing, not using accessory muscles, : circ phallus. PVR per scan is 375 Abdomen: nontender, nondistended, no hepatosplenomegaly, no masses Skin: no rashes or skin lesions on visualized skin Psych: cooperative but confused. Poor historian. Vitals VITALS Vital Signs Date Time Temp Pulse Resp B/P (MAP) Pulse Ox O2 Delivery O2 Flow Rate FiO2 06/26/18 11:00 98.4 65 16 120/60 (80) 96 Room Air 98.4 Labs Labs Laboratory Tests Test 06/25/18 23:00 06/26/18 07:26 06/26/18 07:43 06/26/18 12:03 White Blood Count 5.8 x10^3/uL (4.0-11.0) Red Blood Count 3.51 x10^6/uL (4.30-5.70) Hemoglobin 11.0 g/dL (13.0-17.5) Hematocrit 33.7 % (39.0-53.0) Mean Corpuscular Volume 96 fL (79-100) Mean Corpuscular Hemoglobin 31 pg (25-35) Mean Corpuscular Hemoglobin Concent 33 g/dL (31-37) Red Cell Distribution Width 16.1 % (11.5-14.5) Platelet Count 100 x10^3/uL (140-400) Neutrophils (%) (Auto) 67 % (31-73) Lymphocytes (%) (Auto) 17 % (24-48) Monocytes (%) (Auto) 14 % (0-9) Eosinophils (%) (Auto) 1 % (0-3) Basophils (%) (Auto) 0 % (0-3) Neutrophils # (Auto) 3.9 x10^3uL (1.8-7.7) Lymphocytes # (Auto) 1.0 x10^3/uL (1.0-4.8) Monocytes # (Auto) 0.8 x10^3/uL (0.0-1.1) Eosinophils # (Auto) 0.1 x10^3/uL (0.0-0.7) Basophils # (Auto) 0.0 x10^3/uL (0.0-0.2) Prothrombin Time 12.7 SEC (11.7-14.0) Prothromb Time International Ratio 1.0 (0.8-1.1) Activated Partial Thromboplast Time 38 SEC (24-38) Sodium Level 142 mmol/L (136-145) Potassium Level 4.1 mmol/L (3.5-5.1) Chloride Level 105 mmol/L (98-107) Carbon Dioxide Level 30 mmol/L (21-32) Anion Gap 7 (6-14) Blood Urea Nitrogen 32 mg/dL (8-26) Creatinine 2.4 mg/dL (0.7-1.3) Estimated GFR (Cockcroft-Gault) 33.0 BUN/Creatinine Ratio 13 (6-20) Glucose Level 175 mg/dL (70-99) Lactic Acid Level 1.4 mmol/L (0.4-2.0) Calcium Level 8.4 mg/dL (8.5-10.1) Magnesium Level 2.1 mg/dL (1.8-2.4) Total Bilirubin 0.4 mg/dL (0.2-1.0) Aspartate Amino Transf (AST/SGOT) 32 U/L (15-37) Alanine Aminotransferase (ALT/SGPT) 31 U/L (16-63) Alkaline Phosphatase 66 U/L (46-116) Creatine Kinase 273 U/L (39-308) Creatine Kinase MB (Mass) 2.1 ng/mL (0.0-3.6) Creatine Kinase MB Relative Index 0.8 % (0-4) Troponin I Quantitative < 0.017 ng/mL (0.000-0.055) Total Protein 8.2 g/dL (6.4-8.2) Albumin 3.6 g/dL (3.4-5.0) Albumin/Globulin Ratio 0.8 (1.0-1.7) Carbamazepine (Tegretol) Level 11.7 mcg/mL (4.0-12.0) Carbamazepine Last Dose Date Carbamazepine Last Dose Time Ethyl Alcohol Level < 10 mg/dL (0-10) Glucose (Fingerstick) 110 mg/dL (70-99) 145 mg/dL (70-99) Ammonia 27 mcmol/L (11-34) Laboratory Tests Test 06/25/18 23:00 06/26/18 07:26 06/26/18 07:43 06/26/18 12:03 White Blood Count 5.8 x10^3/uL (4.0-11.0) Red Blood Count 3.51 x10^6/uL (4.30-5.70) Hemoglobin 11.0 g/dL (13.0-17.5) Hematocrit 33.7 % (39.0-53.0) Mean Corpuscular Volume 96 fL (79-100) Mean Corpuscular Hemoglobin 31 pg (25-35) Mean Corpuscular Hemoglobin Concent 33 g/dL (31-37) Red Cell Distribution Width 16.1 % (11.5-14.5) Platelet Count 100 x10^3/uL (140-400) Neutrophils (%) (Auto) 67 % (31-73) Lymphocytes (%) (Auto) 17 % (24-48) Monocytes (%) (Auto) 14 % (0-9) Eosinophils (%) (Auto) 1 % (0-3) Basophils (%) (Auto) 0 % (0-3) Neutrophils # (Auto) 3.9 x10^3uL (1.8-7.7) Lymphocytes # (Auto) 1.0 x10^3/uL (1.0-4.8) Monocytes # (Auto) 0.8 x10^3/uL (0.0-1.1) Eosinophils # (Auto) 0.1 x10^3/uL (0.0-0.7) Basophils # (Auto) 0.0 x10^3/uL (0.0-0.2) Prothrombin Time 12.7 SEC (11.7-14.0) Prothromb Time International Ratio 1.0 (0.8-1.1) Activated Partial Thromboplast Time 38 SEC (24-38) Sodium Level 142 mmol/L (136-145) Potassium Level 4.1 mmol/L (3.5-5.1) Chloride Level 105 mmol/L (98-107) Carbon Dioxide Level 30 mmol/L (21-32) Anion Gap 7 (6-14) Blood Urea Nitrogen 32 mg/dL (8-26) Creatinine 2.4 mg/dL (0.7-1.3) Estimated GFR (Cockcroft-Gault) 33.0 BUN/Creatinine Ratio 13 (6-20) Glucose Level 175 mg/dL (70-99) Lactic Acid Level 1.4 mmol/L (0.4-2.0) Calcium Level 8.4 mg/dL (8.5-10.1) Magnesium Level 2.1 mg/dL (1.8-2.4) Total Bilirubin 0.4 mg/dL (0.2-1.0) Aspartate Amino Transf (AST/SGOT) 32 U/L (15-37) Alanine Aminotransferase (ALT/SGPT) 31 U/L (16-63) Alkaline Phosphatase 66 U/L (46-116) Creatine Kinase 273 U/L (39-308) Creatine Kinase MB (Mass) 2.1 ng/mL (0.0-3.6) Creatine Kinase MB Relative Index 0.8 % (0-4) Troponin I Quantitative < 0.017 ng/mL (0.000-0.055) Total Protein 8.2 g/dL (6.4-8.2) Albumin 3.6 g/dL (3.4-5.0) Albumin/Globulin Ratio 0.8 (1.0-1.7) Carbamazepine (Tegretol) Level 11.7 mcg/mL (4.0-12.0) Carbamazepine Last Dose Date Carbamazepine Last Dose Time Ethyl Alcohol Level < 10 mg/dL (0-10) Glucose (Fingerstick) 110 mg/dL (70-99) 145 mg/dL (70-99) Ammonia 27 mcmol/L (11-34) Assessment/Plan Assessment/Plan We will get a KUB to check for stones due to reports of recent stone surgery Records have been ordered from Urology department. Bladder scan = 375. We did attempt to insert indwelling Garcia catheter x 2 but was unsuccessful. He is voiding into depends and urinal, just not emptying completely. Leave Garcia out for now. Continue BID Flomax and Finasteride. Bladder stimulator: please leave disconnected and follow up at for treatment regarding this. No need for serial bladder scans but nursing staff may bladder scan PRN suspected retention. ALVARADO BACON PRINTER OPERATOR Jun 26, 2018 13:48
--- NOTE | 2018-06-26 14:36 | NUR ---
Bindu Clifford APRN attempted galdamez catheter insertion without success r/t patient with 375 cc in bladder. To continue to monitor UO, patient was incontinent of large amount of urine before lunch saturating brief, bed pad, draw sheet and bottom sheet. Patient verb. understanding request of records from [facility] and request faxed per order.
--- NOTE | 2018-06-26 15:46 | RAD ---
Portable abdomen, 06/26/2018: HISTORY: Check for kidney stones Comparison is made to a study from 03/10/2018. The renal regions are largely obscured by overlying bowel. No renal calculi are seen. Multiple lower pelvic calcifications are probably phleboliths. There is a moderate amount gas and stool in the transverse colon and the hepatic/splenic flexures. Radiopacities overlying the upper abdomen centrally are probably old embolization coils. An electrode type wire extends into the left sacral region. There are surgical rods and screws in the lower lumbar spine. Vertebroplasty change is evident at L2. IMPRESSION: 1. Chronic findings as shown above. 2. No urinary tract calculi are identified. Electronically signed by: Andry Cornell MD (06/26/2018 3:43 PM) [facility]
[2018-06-26] MEDS ORDERED: CEPH500T PO (16:28)
[2018-06-26] MEDS ORDERED: FURO20TA3 PO (16:28)
[2018-06-26] MEDS ORDERED: DOCU100C28 PO (16:28)
[2018-06-26] MEDS ORDERED: PANT20TA2 PO (16:28)
[2018-06-26] MEDS ORDERED: HYOS0.1264 PO (16:28)
[2018-06-26] MEDS ORDERED: OXYC5TAB4 PO (16:28)
--- NOTE | 2018-06-26 16:43 | NUR ---
Medications added to patient medication reconciliation as reported by indeni pharmacy teacher. at [facility] as patient's sister Alisha Snyder called and stated they should have patient mediation list as they fill his medications at [facility] on . Patient's sister currently in [place] until Friday on vacation and returned call after RN had trie to call her, (left message when no pick-up) for patient per his request in the morning.
--- NOTE | 2018-06-26 17:22 | NUR ---
AUTO BODY REPAIRER states has change patient's bed linens and brief four times this 12 hour shift for incontinence large amount of urine soaking brief, bed pad and linens.
[2018-06-26] MEDS: LATANOPROST 0.005% OPHTH SOLUTION 2.5ML BOTTLE. OU SCH (20:18)
[2018-06-26] MEDS: ATORVASTATIN CALCIUM 10 MG TABLET. PO SCH (20:19)
[2018-06-26] MEDS: LACTOBACILLUS RHAMNOSUS GG 1 CAPSULE. PO SCH (20:20)
[2018-06-26] MEDS: QUEtiapine 100 MG TABLET. PO SCH (20:22)
[2018-06-26 23:09] LABS: HEMOGLOBIN A1C 6.5 % (4.8-5.6)
[2018-06-27 03:00] VITALS: BP 133/65
[2018-06-27 04:54] LABS: CALCIUM 8.2 mg/dL (8.5-10.1); CREATININE 1.5 mg/dL (0.7-1.3); GFR 56.8; POTASSIUM 3.6 mmol/L (3.5-5.1)
[2018-06-27 07:00] VITALS: BP 124/62
[2018-06-27] MEDS: INSULIN LISPRO 300 UNITS/3 ML INSULN.PEN. SQ SCH ×3 (07:59→17:00)
[2018-06-27] MEDS: PIOGLITAZONE 15 MG TABLET. PO SCH (08:43)
[2018-06-27] MEDS: amLODIPine BESYLATE 5 MG TABLET PO SCH (08:43)
[2018-06-27] MEDS: PREGABALIN 75 MG CAPSULE PO SCH ×2 (08:44→20:13)
[2018-06-27] MEDS: FUROSEMIDE 20 MG TABLET PO SCH (08:44)
[2018-06-27] MEDS: BACLOFEN 10 MG TABLET. PO SCH ×3 (08:44→20:15)
[2018-06-27] MEDS: TAMSULOSIN 0.4 MG CAP.ER.24H. PO SCH ×2 (08:44→20:16)
[2018-06-27] MEDS: FINASTERIDE 5 MG TABLET. PO SCH (08:44)
[2018-06-27] MEDS: CARVEDILOL 12.5 MG TABLET. PO SCH ×2 (08:44→16:53)
[2018-06-27] MEDS: CEPHALEXIN 250 MG CAPSULE. PO SCH ×2 (08:44→20:16)
[2018-06-27] MEDS: levETIRAcetam 500 MG TABLET PO SCH ×2 (08:44→20:14)
[2018-06-27] MEDS: metFORMIN 500 MG TABLET PO SCH ×2 (08:44→16:53)
[2018-06-27] MEDS: LACTOBACILLUS RHAMNOSUS GG 1 CAPSULE. PO SCH ×2 (08:44→20:14)
[2018-06-27] MEDS: DOCUSATE SODIUM 100 MG CAPSULE. PO SCH (08:44)
[2018-06-27] MEDS: DULoxetine HCL 30 MG CAPSULE.DR PO SCH (08:45)
[2018-06-27] MEDS: carBAMazepine 200 MG TABLET PO SCH ×2 (08:45→20:15)
[2018-06-27] MEDS: glipiZIDE 5 MG TABLET PO SCH ×2 (08:45→16:53)
[2018-06-27 11:00] VITALS: BP 106/61
[2018-06-27 15:01] VITALS: BP 107/54
--- NOTE | 2018-06-27 16:11 | PDOC ---
PROGRESS NOTES Assessment Problems Medical Problems: (1) Acute renal insufficiency Status: Acute (2) Breakthrough seizure Status: Acute Epilepsy, breakthrough seizure, therapeutic carbamazepine level. Schizophrenia and depression Diabetic polyneuropathy Tardive dyskinesia, controlled Long-standing gait disorder Recent kidney stone surgery Plan Continue current anticonvulsant doses, I am worried about increasing them given his psychiatric issues and gait disorder, increased fall risk. Rehabilitation modalities. I do not think he would tolerate an MRI scan to investigate for a new stroke. He may need placement. He apparently has alienated friends and family and only his mother is taking care of him (not his as I mistakenly wrote yesterday) Subjective No complaints, wants to go home Objective Vital Signs Date Time Temp Pulse Resp B/P (MAP) Pulse Ox O2 Delivery O2 Flow Rate FiO2 06/27/18 15:01 98.2 66 17 107/54 (71) 98 Room Air 98.2 Intake and Output 06/27/18 07:00 Intake Total 100 ml Balance 100 ml Intake Oral 100 ml # Voids 5 PHYSICAL EXAM Alert. knows name of hospital, does not note date or the name of the president [facility]. EOMI. CN: no focal findings. Muscle tone: normal. 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 Sensory exam: Stocking loss. No cerebellar signs elicited. Review of Relevant I have reviewed the following items jacob (where applicable) has been applied. Labs Laboratory Tests Test 06/25/18 23:00 06/26/18 07:26 06/26/18 07:43 06/26/18 12:03 White Blood Count 5.8 x10^3/uL (4.0-11.0) Red Blood Count 3.51 x10^6/uL (4.30-5.70) Hemoglobin 11.0 g/dL (13.0-17.5) Hematocrit 33.7 % (39.0-53.0) Mean Corpuscular Volume 96 fL (79-100) Mean Corpuscular Hemoglobin 31 pg (25-35) Mean Corpuscular Hemoglobin Concent 33 g/dL (31-37) Red Cell Distribution Width 16.1 % (11.5-14.5) Platelet Count 100 x10^3/uL (140-400) Neutrophils (%) (Auto) 67 % (31-73) Lymphocytes (%) (Auto) 17 % (24-48) Monocytes (%) (Auto) 14 % (0-9) Eosinophils (%) (Auto) 1 % (0-3) Basophils (%) (Auto) 0 % (0-3) Neutrophils # (Auto) 3.9 x10^3uL (1.8-7.7) Lymphocytes # (Auto) 1.0 x10^3/uL (1.0-4.8) Monocytes # (Auto) 0.8 x10^3/uL (0.0-1.1) Eosinophils # (Auto) 0.1 x10^3/uL (0.0-0.7) Basophils # (Auto) 0.0 x10^3/uL (0.0-0.2) Prothrombin Time 12.7 SEC (11.7-14.0) Prothromb Time International Ratio 1.0 (0.8-1.1) Activated Partial Thromboplast Time 38 SEC (24-38) Sodium Level 142 mmol/L (136-145) Potassium Level 4.1 mmol/L (3.5-5.1) Chloride Level 105 mmol/L (98-107) Carbon Dioxide Level 30 mmol/L (21-32) Anion Gap 7 (6-14) Blood Urea Nitrogen 32 mg/dL (8-26) Creatinine 2.4 mg/dL (0.7-1.3) Estimated GFR (Cockcroft-Gault) 33.0 BUN/Creatinine Ratio 13 (6-20) Glucose Level 175 mg/dL (70-99) Hemoglobin A1c 6.5 % (4.8-5.6) Lactic Acid Level 1.4 mmol/L (0.4-2.0) Calcium Level 8.4 mg/dL (8.5-10.1) Magnesium Level 2.1 mg/dL (1.8-2.4) Total Bilirubin 0.4 mg/dL (0.2-1.0) Aspartate Amino Transf (AST/SGOT) 32 U/L (15-37) Alanine Aminotransferase (ALT/SGPT) 31 U/L (16-63) Alkaline Phosphatase 66 U/L (46-116) Creatine Kinase 273 U/L (39-308) Creatine Kinase MB (Mass) 2.1 ng/mL (0.0-3.6) Creatine Kinase MB Relative Index 0.8 % (0-4) Troponin I Quantitative < 0.017 ng/mL (0.000-0.055) Total Protein 8.2 g/dL (6.4-8.2) Albumin 3.6 g/dL (3.4-5.0) Albumin/Globulin Ratio 0.8 (1.0-1.7) Carbamazepine (Tegretol) Level 11.7 mcg/mL (4.0-12.0) Carbamazepine Last Dose Date Carbamazepine Last Dose Time Ethyl Alcohol Level < 10 mg/dL (0-10) Glucose (Fingerstick) 110 mg/dL (70-99) 145 mg/dL (70-99) Ammonia 27 mcmol/L (11-34) Test 06/26/18 17:06 06/26/18 20:28 06/27/18 03:10 06/27/18 07:18 Glucose (Fingerstick) 154 mg/dL (70-99) 133 mg/dL (70-99) 125 mg/dL (70-99) Sodium Level 147 mmol/L (136-145) Potassium Level 3.6 mmol/L (3.5-5.1) Chloride Level 108 mmol/L (98-107) Carbon Dioxide Level 31 mmol/L (21-32) Anion Gap 8 (6-14) Blood Urea Nitrogen 22 mg/dL (8-26) Creatinine 1.5 mg/dL (0.7-1.3) Estimated GFR (Cockcroft-Gault) 56.8 Glucose Level 108 mg/dL (70-99) Calcium Level 8.2 mg/dL (8.5-10.1) Test 06/27/18 10:50 Glucose (Fingerstick) 176 mg/dL (70-99) Laboratory Tests Test 06/26/18 17:06 06/26/18 20:28 06/27/18 03:10 06/27/18 07:18 Glucose (Fingerstick) 154 mg/dL (70-99) 133 mg/dL (70-99) 125 mg/dL (70-99) Sodium Level 147 mmol/L (136-145) Potassium Level 3.6 mmol/L (3.5-5.1) Chloride Level 108 mmol/L (98-107) Carbon Dioxide Level 31 mmol/L (21-32) Anion Gap 8 (6-14) Blood Urea Nitrogen 22 mg/dL (8-26) Creatinine 1.5 mg/dL (0.7-1.3) Estimated GFR (Cockcroft-Gault) 56.8 Glucose Level 108 mg/dL (70-99) Calcium Level 8.2 mg/dL (8.5-10.1) Test 06/27/18 10:50 Glucose (Fingerstick) 176 mg/dL (70-99) Medications Current Medications Sodium Chloride 1,000 ml @ 1,000 mls/hr 1X ONCE IV Last administered on at 23:02; Start 06/25/18 at 22:45; Stop 06/25/18 at 23:44; Status DC Ondansetron HCl (Zofran) 4 mg PRN Q8HRS PRN IV NAUSEA/VOMITING; Start 06/26/18 at 00:15; Stop 06/27/18 at 00:14; Status DC Fentanyl Citrate (Fentanyl 2ml Vial) 50 mcg PRN Q2HR PRN IV PAIN; Start at 00:15 Insulin Human Lispro (HumaLOG) 0-5 UNITS TIDWMEALS SQ Last administered on at 11:44; Start 06/26/18 at 08:00 Dextrose (Dextrose 50%-Water Syringe) 12.5 gm PRN Q15MIN PRN IV SEE COMMENTS; Start 06/26/18 at 00:15 Sodium Chloride 1,000 ml @ 100 mls/hr 1X ONCE IV ; Start 06/26/18 at 00:15; Stop 06/26/18 at 10:14; Status DC Amlodipine Besylate (Norvasc) 5 mg DAILY PO Last administered on 06/27/18at 08:43 ; Start 06/26/18 at 09:00 Atorvastatin Calcium (Lipitor) 10 mg QHS PO Last administered on 06/26/18at 20:19 ; Start 06/26/18 at 21:00 Baclofen (Lioresal) 10 mg TID PO Last administered on 06/27/18at 14:24; Start 06/26/18 at 09:00 Bisacodyl (Dulcolax Tab) 10 mg PRN DAILY PRN PO CONSTIPATION 1ST CHOICE; Start 06/26/18 at 08:00 Carbamazepine (TEGretol) 200 mg BID PO Last administered on 06/27/18 08:45; Start 06/26/18 at 09:00 Carvedilol (Coreg) 12.5 mg BIDWMEALS PO Last administered on 06/27/18 08:44; Start 06/26/18 at 08:00 Duloxetine HCl (Cymbalta) 60 mg DAILY PO Last administered on 06/27/18 08:45; Start 06/26/18 at 09:00 Finasteride (Proscar) 5 mg DAILY PO Last administered on 06/27/18 08:44; Start 06/26/18 at 09:00 Glipizide (Glucotrol) 5 mg BIDBFRMEAL PO Last administered on 06/27/18 08:45; Start 06/26/18 at 08:15 Lactulose (Lactulose) 10 gm DAILY PRN PO CONSTIPATION 2ND CHOICE Last administered on 06/27/18 08:49; Start 06/26/18 at 08:00 Levetiracetam (Keppra) 500 mg BID PO Last administered on 06/27/18 08:44; Start 06/26/18 at 09:00 Tamsulosin HCl (Flomax) 0.4 mg BID PO Last administered on 06/27/18 08:44; Start 06/26/18 at 09:00 Latanoprost (Xalatan) 1 drop QHS OU Last administered on 06/26/18 20:18; Start 06/26/18 at 21:00 Metformin HCl (Glucophage) 500 mg BIDWMEALS PO Last administered on 06/27/18 08 :44; Start 06/26/18 at 08:15 Pioglitazone HCl (Actos) 45 mg DAILY PO Last administered on 06/27/18 08:43; Start 06/26/18 at 09:00 Pregabalin (Lyrica) 150 mg BID PO Last administered on 06/27/18 08:44; Start at 09:00 Quetiapine Fumarate (SEROquel) 100 mg QHS PO Last administered on 06/26/18 20: 22; Start 06/26/18 at 21:00 Furosemide (Lasix) 20 mg DAILY PO Last administered on 06/27/18 08:44; Start at 09:00 Cephalexin HCl (Keflex) 500 mg BID PO Last administered on 06/27/18 08:44; Start 06/26/18 at 13:00 Docusate Sodium (Colace) 100 mg DAILY PO Last administered on 06/27/18at 08:44; Start 06/27/18 at 09:00 Hyoscyamine (Anaspaz) 0.125 mg PRN Q4HRS PRN PO STOMACH CRAMPING; Start at 11:45 Lactobacillus Rhamnosus (Culturelle) 1 cap BID PO Last administered on at 08:44; Start 06/26/18 at 21:00 Active Scripts Active Lactulose 20 Gm/30 Ml Solution 10 Gm PO DAILY PRN Finasteride 5 Mg Tablet 1 Tab PO DAILY Lyrica (Pregabalin) 150 Mg Capsule 1 Cap PO BID Flomax (Tamsulosin Hcl) 0.4 Mg Cap.er.24h 0.4 Mg PO BID 30 Days Triamcinolone Acetonide 0.1% Oint (Triamcinolone Acetonide) 15 Gm Oint...g. 1 Rogelio TP BID Actos (Pioglitazone Hcl) 15 Mg Tablet 45 Mg PO DAILY 28 Days Glucophage Xr (Metformin Hcl) 500 Mg Tab.er.24h 1,000 Mg PO DAILYWBKFT 30 Days Keppra (Levetiracetam) 500 Mg Tablet 500 Mg PO BID 30 Days Glipizide 5 Mg Tablet 5 Mg PO BIDBFRMEAL 30 Days Bisacodyl 5 Mg Tablet.dr 10 Mg PO PRN DAILY PRN 28 Days Quetiapine Fumarate 100 Mg Tablet 100 Mg PO QHS 30 Days Carvedilol (Carvedilol) 12.5 Mg Tablet 12.5 Mg PO BIDWMEALS 30 Days Baclofen 10 Mg Tablet 10 Mg PO TID 30 Days Reported Protonix (Pantoprazole Sodium) 20 Mg Tablet.dr 40 Mg PO DAILY Furosemide 20 Mg Tablet 1 Tab PO DAILY Levsin (Hyoscyamine Sulfate) 0.125 Mg Tablet 1 Tab PO Q4HRS Oxycodone Hcl Immed.release (Oxycodone Hcl) 5 Mg Tablet 5 Mg PO PRN Q4HRS PRN Cephalexin 500 Mg Tablet 500 Mg PO BID Docusate Sodium 100 Mg Capsule 1 Cap PO DAILY Latanoprost 2.5 Ml Drops 1 Drop OU QHS Tegretol (Carbamazepine) 200 Mg Tablet 1 Tab PO BID Atorvastatin Calcium 10 Mg Tablet 10 Mg PO Amlodipine Besylate 5 Mg Tablet 5 Mg PO Cymbalta (Duloxetine Hcl) 30 Mg Capsule.dr 60 Mg PO DAILY Lidoderm (Lidocaine) 700 Mg Adh..patch 1 Patch TP DAILY Vitals/I & O Vital Sign - Last 24 Hours 06/26/18 06/26/18 06/26/18 06/26/18 17:06 19:00 19:55 23:00 Temp 99.3 98.4 99.3 98.4 Pulse 79 67 67 Resp 18 B/P (MAP) 134/68 106/52 (70) 102/49 (66) Pulse Ox 96 95 O2 Delivery Room Air Room Air Room Air 06/27/18 06/27/18 06/27/18 06/27/18 03:00 07:00 08:43 08:44 Temp 98.7 97.9 98.7 97.9 Pulse 67 68 68 68 Resp 17 B/P (MAP) 133/65 (87) 124/62 (82) 124/62 124/62 Pulse Ox 97 96 O2 Delivery Room Air Room Air 06/27/18 06/27/18 11:00 15:01 Temp 97.9 98.2 97.9 98.2 Pulse 64 66 Resp 17 B/P (MAP) 106/61 (76) 107/54 (71) Pulse Ox 96 98 O2 Delivery Room Air Room Air Intake and Output 06/26/18 06/26/18 06/27/18 15:00 23:00 07:00 Intake Total 100 ml Balance 100 ml BEN TAM MD Jun 27, 2018 16:11
[2018-06-27 19:00] VITALS: BP 124/60
--- NOTE | 2018-06-27 20:08 | DS ---
DATE OF DISCHARGE: 06/27/2018 ADMITTING DIAGNOSES: 1. Recurrent seizure disorder. 2. Altered mental status. 3. Qfjcz-ci-kontnse renal failure. 4. Urinary retention. 5. Depression and schizophrenia. 6. Benign prostatic hyperplasia with stimulator device in place by [facility]. 7. Recurrent kidney stones. 8. Hypertension. 9. Type 2 diabetes. 10. Hyperlipidemia. 11. Tardive dyskinesia. 12. History of brain aneurysm. 13. Chronic anemia. 14. Chronic thrombocytopenia. DISMISSAL DIAGNOSES: 1. Recurrent seizure disorder. 2. Altered mental status. 3. Vtjfq-hf-wnzfrhm renal failure. 4. Urinary retention. 5. Depression and schizophrenia. 6. Benign prostatic hyperplasia with stimulator device in place by [facility]. 7. Recurrent kidney stones. 8. Hypertension. 9. Type 2 diabetes. 10. Hyperlipidemia. 11. Tardive dyskinesia. 12. History of brain aneurysm. 13. Chronic anemia. 14. Chronic thrombocytopenia. HISTORY OF PRESENT ILLNESS AND HOSPITAL COURSE: This patient is a 67-year-old -Stateless male with multiple medical and mental issues, came in with changes in mental status, which are now back to baseline and a history of recurrent seizure as well as difficulty with urination. Again, the patient's chronic medical mental status was back to baseline. The patient was evaluated by Urology for urinary retention and the patient is voiding with high residuals but stable and chronic followed by [facility]. The patient was also seen by Neurology due to recurrent seizure and seizure medications were evaluated due to multiple medications. No further increase medications were described at this time and the patient was observed for 24 hours without a recurrent seizure and was back to baseline; therefore, plans discharged to home were made with a rapid followup by [facility] for ongoing urologic issues. DISCHARGE MEDICATIONS: As follows: Amlodipine 5 mg daily, atorvastatin 10 mg daily, baclofen 10 mg t.i.d., Colace 10 mg daily, Tegretol 200 mg b.i.d., carvedilol 12.5 mg b.i.d., cephalexin 500 mg b.i.d. for UTI, Dulcolax 10 mg p.r.n., Cymbalta 60 mg daily, finasteride 5 mg daily, Lasix 20 mg daily, glipizide 5 mg b.i.d., Levsin 0.25 q. 4 hours p.r.n. bladder spasms, lactulose 20 mg daily, latanoprost eyedrops at bedtime, Keppra 500 mg b.i.d., lidocaine patch applied daily, metformin 500 mg daily, oxycodone 5 mg q. 4 p.r.n., Protonix 40 mg daily, Actos 45 mg daily, Lyrica 150 mg b.i.d., Seroquel 100 mg at bedtime, Flomax 0.4 b.i.d. and triamcinolone cream p.r.n. DISCHARGE INSTRUCTIONS: The patient will follow up with Dr. Riley in 1-2 weeks and with Urology within 1 week. KP READ MD DR: TITO/nts JOB#: [id number] / [id number]
[2018-06-27] MEDS: LATANOPROST 0.005% OPHTH SOLUTION 2.5ML BOTTLE. OU SCH (20:12)
[2018-06-27] MEDS: ATORVASTATIN CALCIUM 10 MG TABLET. PO SCH (20:15)
[2018-06-27] MEDS: QUEtiapine 100 MG TABLET. PO SCH (20:16)
[2018-06-27 23:00] VITALS: BP 120/69
[2018-06-28 03:00] VITALS: BP 107/68
[2018-06-28 07:00] VITALS: BP 152/76
[2018-06-28] MEDS: INSULIN LISPRO 300 UNITS/3 ML INSULN.PEN. SQ SCH ×3 (08:00→17:00)
[2018-06-28] MEDS: DOCUSATE SODIUM 100 MG CAPSULE. PO SCH (08:48)
[2018-06-28] MEDS: CARVEDILOL 12.5 MG TABLET. PO SCH ×2 (08:48→17:22)
[2018-06-28] MEDS: LACTOBACILLUS RHAMNOSUS GG 1 CAPSULE. PO SCH ×2 (08:48→20:53)
[2018-06-28] MEDS: amLODIPine BESYLATE 5 MG TABLET PO SCH (08:48)
[2018-06-28] MEDS: carBAMazepine 200 MG TABLET PO SCH ×2 (08:48→20:53)
[2018-06-28] MEDS: FUROSEMIDE 20 MG TABLET PO SCH (08:48)
[2018-06-28] MEDS: PIOGLITAZONE 15 MG TABLET. PO SCH (08:48)
[2018-06-28] MEDS: BACLOFEN 10 MG TABLET. PO SCH ×3 (08:49→20:54)
[2018-06-28] MEDS: DULoxetine HCL 30 MG CAPSULE.DR PO SCH (08:49)
[2018-06-28] MEDS: CEPHALEXIN 250 MG CAPSULE. PO SCH ×2 (08:49→20:53)
[2018-06-28] MEDS: levETIRAcetam 500 MG TABLET PO SCH ×2 (08:49→20:53)
[2018-06-28] MEDS: FINASTERIDE 5 MG TABLET. PO SCH (08:49)
[2018-06-28] MEDS: TAMSULOSIN 0.4 MG CAP.ER.24H. PO SCH ×2 (08:49→20:53)
[2018-06-28] MEDS: PREGABALIN 75 MG CAPSULE PO SCH ×2 (08:49→20:54)
[2018-06-28] MEDS: metFORMIN 500 MG TABLET PO SCH ×2 (08:49→17:21)
[2018-06-28] MEDS: glipiZIDE 5 MG TABLET PO SCH ×2 (08:49→16:30)
--- NOTE | 2018-06-28 10:02 | PDOC ---
PROGRESS NOTES Subjective Subjective Discharge ordered yesterday. Patient exhibited increased weakness and was unable to ambulate and care for herself therefore discharge was canceled. Plans for three-day hospital stay and half-way if patient does not improve PT and OT ordered. Patient greatly improved today and ambulating with walker still unsteady and unsafe. Patient's mental care abilities appear improved today. Patient speaking better and answering questions appropriately. Objective Objective Vital Signs Date Time Temp Pulse Resp B/P (MAP) Pulse Ox O2 Delivery O2 Flow Rate FiO2 06/28/18 08:48 81 152/76 06/28/18 07:00 98.1 18 94 Room Air 98.1 Intake and Output 06/28/18 07:00 Intake Total 210 ml Balance 210 ml Intake Oral 210 ml # Voids 4 # Bowel Movements 1 Physical Exam Abdomen: Normal bowel sounds Heart: Regular rate Extremities: No edema General: Alert Lungs: Clear to auscultation Assessment Assessment Problems Medical Problems: (1) Acute renal insufficiency Status: Acute (2) Breakthrough seizure Status: Acute 1. Recurrent seizure disorder. 2. Altered mental status. 3. Qonij-ya-kvamope renal failure. 4. Urinary retention. 5. Depression and schizophrenia. 6. Benign prostatic hyperplasia with stimulator device in place by [facility]. 7. Recurrent kidney stones. 8. Hypertension. 9. Type 2 diabetes. 10. Hyperlipidemia. 11. Tardive dyskinesia. 12. History of brain aneurysm. 13. Chronic anemia. 14. Chronic thrombocytopenia. 15. Debilitation Plan Plan of Care Continue PT and OT modalities. Discharge to's new or home with home health pending recommendations in a.m. Comment Review of Relevant I have reviewed the following items jacob (where applicable) has been applied. Labs Laboratory Tests Test 06/26/18 12:03 06/26/18 17:06 06/26/18 20:28 06/27/18 03:10 Glucose (Fingerstick) 145 mg/dL (70-99) 154 mg/dL (70-99) 133 mg/dL (70-99) Sodium Level 147 mmol/L (136-145) Potassium Level 3.6 mmol/L (3.5-5.1) Chloride Level 108 mmol/L (98-107) Carbon Dioxide Level 31 mmol/L (21-32) Anion Gap 8 (6-14) Blood Urea Nitrogen 22 mg/dL (8-26) Creatinine 1.5 mg/dL (0.7-1.3) Estimated GFR (Cockcroft-Gault) 56.8 Glucose Level 108 mg/dL (70-99) Calcium Level 8.2 mg/dL (8.5-10.1) Test 06/27/18 07:18 06/27/18 10:50 06/27/18 16:43 06/27/18 20:16 Glucose (Fingerstick) 125 mg/dL (70-99) 176 mg/dL (70-99) 80 mg/dL (70-99) 123 mg/dL (70-99) Test 06/28/18 07:09 Glucose (Fingerstick) 120 mg/dL (70-99) Laboratory Tests Test 06/27/18 10:50 06/27/18 16:43 06/27/18 20:16 06/28/18 07:09 Glucose (Fingerstick) 176 mg/dL (70-99) 80 mg/dL (70-99) 123 mg/dL (70-99) 120 mg/dL (70-99) Medications Current Medications Sodium Chloride 1,000 ml @ 1,000 mls/hr 1X ONCE IV Last administered on at 23:02; Start 06/25/18 at 22:45; Stop 06/25/18 at 23:44; Status DC Ondansetron HCl (Zofran) 4 mg PRN Q8HRS PRN IV NAUSEA/VOMITING; Start 06/26/18 at 00:15; Stop 06/27/18 at 00:14; Status DC Fentanyl Citrate (Fentanyl 2ml Vial) 50 mcg PRN Q2HR PRN IV PAIN; Start at 00:15 Insulin Human Lispro (HumaLOG) 0-5 UNITS TIDWMEALS SQ Last administered on at 11:44; Start 06/26/18 at 08:00 Dextrose (Dextrose 50%-Water Syringe) 12.5 gm PRN Q15MIN PRN IV SEE COMMENTS; Start 06/26/18 at 00:15 Sodium Chloride 1,000 ml @ 100 mls/hr 1X ONCE IV ; Start 06/26/18 at 00:15; Stop 06/26/18 at 10:14; Status DC Amlodipine Besylate (Norvasc) 5 mg DAILY PO Last administered on 06/28/18 08:48 ; Start 06/26/18 at 09:00 Atorvastatin Calcium (Lipitor) 10 mg QHS PO Last administered on 06/27/18 20:15 ; Start 06/26/18 at 21:00 Baclofen (Lioresal) 10 mg TID PO Last administered on 06/28/18 08:49; Start 06/26/18 at 09:00 Bisacodyl (Dulcolax Tab) 10 mg PRN DAILY PRN PO CONSTIPATION 1ST CHOICE; Start 06/26/18 at 08:00 Carbamazepine (TEGretol) 200 mg BID PO Last administered on 06/28/18 08:48; Start 06/26/18 at 09:00 Carvedilol (Coreg) 12.5 mg BIDWMEALS PO Last administered on 06/28/18 08:48; Start 06/26/18 at 08:00 Duloxetine HCl (Cymbalta) 60 mg DAILY PO Last administered on 06/28/18 08:49; Start 06/26/18 at 09:00 Finasteride (Proscar) 5 mg DAILY PO Last administered on 06/28/18 08:49; Start 06/26/18 at 09:00 Glipizide (Glucotrol) 5 mg BIDBFRMEAL PO Last administered on 06/28/18 08:49; Start 06/26/18 at 08:15 Lactulose (Lactulose) 10 gm DAILY PRN PO CONSTIPATION 2ND CHOICE Last administered on 06/27/18 08:49; Start 06/26/18 at 08:00 Levetiracetam (Keppra) 500 mg BID PO Last administered on 06/28/18 08:49; Start 06/26/18 at 09:00 Tamsulosin HCl (Flomax) 0.4 mg BID PO Last administered on 06/28/18 08:49; Start 06/26/18 at 09:00 Latanoprost (Xalatan) 1 drop QHS OU Last administered on 06/27/18 20:12; Start 06/26/18 at 21:00 Metformin HCl (Glucophage) 500 mg BIDWMEALS PO Last administered on 06/28/18 08 :49; Start 06/26/18 at 08:15 Pioglitazone HCl (Actos) 45 mg DAILY PO Last administered on 06/28/18 08:48; Start 06/26/18 at 09:00 Pregabalin (Lyrica) 150 mg BID PO Last administered on 06/28/18 08:49; Start at 09:00 Quetiapine Fumarate (SEROquel) 100 mg QHS PO Last administered on 06/27/18 20: 16; Start 06/26/18 at 21:00 Furosemide (Lasix) 20 mg DAILY PO Last administered on 06/28/18 08:48; Start at 09:00 Cephalexin HCl (Keflex) 500 mg BID PO Last administered on 06/28/18 08:49; Start 06/26/18 at 13:00 Docusate Sodium (Colace) 100 mg DAILY PO Last administered on 06/28/18 08:48; Start 06/27/18 at 09:00 Hyoscyamine (Anaspaz) 0.125 mg PRN Q4HRS PRN PO STOMACH CRAMPING; Start at 11:45 Lactobacillus Rhamnosus (Culturelle) 1 cap BID PO Last administered on 08:48; Start 06/26/18 at 21:00 Active Scripts Active Lactulose 20 Gm/30 Ml Solution 10 Gm PO DAILY PRN Finasteride 5 Mg Tablet 1 Tab PO DAILY Lyrica (Pregabalin) 150 Mg Capsule 1 Cap PO BID Flomax (Tamsulosin Hcl) 0.4 Mg Cap.er.24h 0.4 Mg PO BID 30 Days Triamcinolone Acetonide 0.1% Oint (Triamcinolone Acetonide) 15 Gm Oint...g. 1 Rogelio TP BID Actos (Pioglitazone Hcl) 15 Mg Tablet 45 Mg PO DAILY 28 Days Glucophage Xr (Metformin Hcl) 500 Mg Tab.er.24h 1,000 Mg PO DAILYWBKFT 30 Days Keppra (Levetiracetam) 500 Mg Tablet 500 Mg PO BID 30 Days Glipizide 5 Mg Tablet 5 Mg PO BIDBFRMEAL 30 Days Bisacodyl 5 Mg Tablet.dr 10 Mg PO PRN DAILY PRN 28 Days Quetiapine Fumarate 100 Mg Tablet 100 Mg PO QHS 30 Days Carvedilol (Carvedilol) 12.5 Mg Tablet 12.5 Mg PO BIDWMEALS 30 Days Baclofen 10 Mg Tablet 10 Mg PO TID 30 Days Reported Protonix (Pantoprazole Sodium) 20 Mg Tablet.dr 40 Mg PO DAILY Furosemide 20 Mg Tablet 1 Tab PO DAILY Levsin (Hyoscyamine Sulfate) 0.125 Mg Tablet 1 Tab PO Q4HRS Oxycodone Hcl Immed.release (Oxycodone Hcl) 5 Mg Tablet 5 Mg PO PRN Q4HRS PRN Cephalexin 500 Mg Tablet 500 Mg PO BID Docusate Sodium 100 Mg Capsule 1 Cap PO DAILY Latanoprost 2.5 Ml Drops 1 Drop OU QHS Tegretol (Carbamazepine) 200 Mg Tablet 1 Tab PO BID Atorvastatin Calcium 10 Mg Tablet 10 Mg PO Amlodipine Besylate 5 Mg Tablet 5 Mg PO Cymbalta (Duloxetine Hcl) 30 Mg Capsule.dr 60 Mg PO DAILY Lidoderm (Lidocaine) 700 Mg Adh..patch 1 Patch TP DAILY Vitals/I & O Vital Sign - Last 24 Hours 06/27/18 06/27/18 06/27/18 06/27/18 11:00 15:01 16:53 19:00 Temp 97.9 98.2 98.5 97.9 98.2 98.5 Pulse 64 66 66 66 Resp 19 17 17 B/P (MAP) 106/61 (76) 107/54 (71) 107/54 124/60 (81) Pulse Ox 96 98 97 O2 Delivery Room Air Room Air Room Air 06/27/18 06/27/18 06/28/18 06/28/18 19:58 23:00 03:00 07:00 Temp 98.4 98.1 98.1 98.4 98.1 98.1 Pulse 63 67 81 Resp 17 17 18 B/P (MAP) 120/69 (86) 107/68 (81) 152/76 (101) Pulse Ox 96 95 94 O2 Delivery Room Air Room Air Room Air Room Air 06/28/18 06/28/18 08:48 08:48 Pulse 81 81 B/P (MAP) 152/76 152/76 Intake and Output 06/27/18 06/27/18 06/28/18 15:00 23:00 07:00 Intake Total 150 ml 60 ml Balance 150 ml 60 ml KP READ MD Jun 28, 2018 10:02
--- NOTE | 2018-06-28 10:03 | PDOC ---
PROGRESS NOTES Assessment Problems Medical Problems: (1) Acute renal insufficiency Status: Acute (2) Breakthrough seizure Status: Acute Epilepsy, breakthrough seizure, therapeutic carbamazepine level. Schizophrenia and depression Diabetic polyneuropathy Tardive dyskinesia, controlled Long-standing gait disorder Recent kidney stone surgery Plan Continue current anticonvulsant doses, I am worried about increasing them given his psychiatric issues and gait disorder, increased fall risk. Rehabilitation modalities. I do not think he would tolerate an MRI scan to investigate for a new stroke. He is agreeable to SNU placement. He apparently has alienated friends and family and only his mother is taking care of him Subjective no complaints Objective Vital Signs Date Time Temp Pulse Resp B/P (MAP) Pulse Ox O2 Delivery O2 Flow Rate FiO2 06/28/18 08:48 81 152/76 06/28/18 07:00 98.1 18 94 Room Air 98.1 Intake and Output 06/28/18 07:00 Intake Total 210 ml Balance 210 ml Intake Oral 210 ml # Voids 4 # Bowel Movements 1 PHYSICAL EXAM Alert. knows name of hospital, does not note date or the name of the president MORGANCelia [facility]ARRAGAN[facility]. CN: no focal findings. Muscle tone: normal. Muscle strength: 5/5, left 3rd digit chronically in flexion contracture DTR: 0-1+ Plantar reflex: flexor Gait: not examined in bed Sensory exam: Stocking loss. No cerebellar signs elicited. Review of Relevant I have reviewed the following items jacob (where applicable) has been applied. Labs Laboratory Tests Test 06/26/18 12:03 06/26/18 17:06 06/26/18 20:28 06/27/18 03:10 Glucose (Fingerstick) 145 mg/dL (70-99) 154 mg/dL (70-99) 133 mg/dL (70-99) Sodium Level 147 mmol/L (136-145) Potassium Level 3.6 mmol/L (3.5-5.1) Chloride Level 108 mmol/L (98-107) Carbon Dioxide Level 31 mmol/L (21-32) Anion Gap 8 (6-14) Blood Urea Nitrogen 22 mg/dL (8-26) Creatinine 1.5 mg/dL (0.7-1.3) Estimated GFR (Cockcroft-Gault) 56.8 Glucose Level 108 mg/dL (70-99) Calcium Level 8.2 mg/dL (8.5-10.1) Test 06/27/18 07:18 06/27/18 10:50 06/27/18 16:43 06/27/18 20:16 Glucose (Fingerstick) 125 mg/dL (70-99) 176 mg/dL (70-99) 80 mg/dL (70-99) 123 mg/dL (70-99) Test 06/28/18 07:09 Glucose (Fingerstick) 120 mg/dL (70-99) Laboratory Tests Test 06/27/18 10:50 06/27/18 16:43 06/27/18 20:16 06/28/18 07:09 Glucose (Fingerstick) 176 mg/dL (70-99) 80 mg/dL (70-99) 123 mg/dL (70-99) 120 mg/dL (70-99) Medications Current Medications Sodium Chloride 1,000 ml @ 1,000 mls/hr 1X ONCE IV Last administered on at 23:02; Start 06/25/18 at 22:45; Stop 06/25/18 at 23:44; Status DC Ondansetron HCl (Zofran) 4 mg PRN Q8HRS PRN IV NAUSEA/VOMITING; Start 06/26/18 at 00:15; Stop 06/27/18 at 00:14; Status DC Fentanyl Citrate (Fentanyl 2ml Vial) 50 mcg PRN Q2HR PRN IV PAIN; Start at 00:15 Insulin Human Lispro (HumaLOG) 0-5 UNITS TIDWMEALS SQ Last administered on at 11:44; Start 06/26/18 at 08:00 Dextrose (Dextrose 50%-Water Syringe) 12.5 gm PRN Q15MIN PRN IV SEE COMMENTS; Start 06/26/18 at 00:15 Sodium Chloride 1,000 ml @ 100 mls/hr 1X ONCE IV ; Start 06/26/18 at 00:15; Stop 06/26/18 at 10:14; Status DC Amlodipine Besylate (Norvasc) 5 mg DAILY PO Last administered on 06/28/18at 08:48 ; Start 06/26/18 at 09:00 Atorvastatin Calcium (Lipitor) 10 mg QHS PO Last administered on 06/27/18at 20:15 ; Start 06/26/18 at 21:00 Baclofen (Lioresal) 10 mg TID PO Last administered on 06/28/18 08:49; Start 06/26/18 at 09:00 Bisacodyl (Dulcolax Tab) 10 mg PRN DAILY PRN PO CONSTIPATION 1ST CHOICE; Start 06/26/18 at 08:00 Carbamazepine (TEGretol) 200 mg BID PO Last administered on 06/28/18 08:48; Start 06/26/18 at 09:00 Carvedilol (Coreg) 12.5 mg BIDWMEALS PO Last administered on 06/28/18 08:48; Start 06/26/18 at 08:00 Duloxetine HCl (Cymbalta) 60 mg DAILY PO Last administered on 06/28/18 08:49; Start 06/26/18 at 09:00 Finasteride (Proscar) 5 mg DAILY PO Last administered on 06/28/18 08:49; Start 06/26/18 at 09:00 Glipizide (Glucotrol) 5 mg BIDBFRMEAL PO Last administered on 06/28/18 08:49; Start 06/26/18 at 08:15 Lactulose (Lactulose) 10 gm DAILY PRN PO CONSTIPATION 2ND CHOICE Last administered on 06/27/18 08:49; Start 06/26/18 at 08:00 Levetiracetam (Keppra) 500 mg BID PO Last administered on 06/28/18 08:49; Start 06/26/18 at 09:00 Tamsulosin HCl (Flomax) 0.4 mg BID PO Last administered on 06/28/18 08:49; Start 06/26/18 at 09:00 Latanoprost (Xalatan) 1 drop QHS OU Last administered on 06/27/18 20:12; Start 06/26/18 at 21:00 Metformin HCl (Glucophage) 500 mg BIDWMEALS PO Last administered on 06/28/18 08 :49; Start 06/26/18 at 08:15 Pioglitazone HCl (Actos) 45 mg DAILY PO Last administered on 06/28/18 08:48; Start 06/26/18 at 09:00 Pregabalin (Lyrica) 150 mg BID PO Last administered on 06/28/18 08:49; Start at 09:00 Quetiapine Fumarate (SEROquel) 100 mg QHS PO Last administered on 06/27/18at 20: 16; Start 06/26/18 at 21:00 Furosemide (Lasix) 20 mg DAILY PO Last administered on 06/28/18at 08:48; Start at 09:00 Cephalexin HCl (Keflex) 500 mg BID PO Last administered on 06/28/18 08:49; Start 06/26/18 at 13:00 Docusate Sodium (Colace) 100 mg DAILY PO Last administered on 06/28/18 08:48; Start 06/27/18 at 09:00 Hyoscyamine (Anaspaz) 0.125 mg PRN Q4HRS PRN PO STOMACH CRAMPING; Start at 11:45 Lactobacillus Rhamnosus (Culturelle) 1 cap BID PO Last administered on at 08:48; Start 06/26/18 at 21:00 Active Scripts Active Lactulose 20 Gm/30 Ml Solution 10 Gm PO DAILY PRN Finasteride 5 Mg Tablet 1 Tab PO DAILY Lyrica (Pregabalin) 150 Mg Capsule 1 Cap PO BID Flomax (Tamsulosin Hcl) 0.4 Mg Cap.er.24h 0.4 Mg PO BID 30 Days Triamcinolone Acetonide 0.1% Oint (Triamcinolone Acetonide) 15 Gm Oint...g. 1 Rogelio TP BID Actos (Pioglitazone Hcl) 15 Mg Tablet 45 Mg PO DAILY 28 Days Glucophage Xr (Metformin Hcl) 500 Mg Tab.er.24h 1,000 Mg PO DAILYWBKFT 30 Days Keppra (Levetiracetam) 500 Mg Tablet 500 Mg PO BID 30 Days Glipizide 5 Mg Tablet 5 Mg PO BIDBFRMEAL 30 Days Bisacodyl 5 Mg Tablet.dr 10 Mg PO PRN DAILY PRN 28 Days Quetiapine Fumarate 100 Mg Tablet 100 Mg PO QHS 30 Days Carvedilol (Carvedilol) 12.5 Mg Tablet 12.5 Mg PO BIDWMEALS 30 Days Baclofen 10 Mg Tablet 10 Mg PO TID 30 Days Reported Protonix (Pantoprazole Sodium) 20 Mg Tablet.dr 40 Mg PO DAILY Furosemide 20 Mg Tablet 1 Tab PO DAILY Levsin (Hyoscyamine Sulfate) 0.125 Mg Tablet 1 Tab PO Q4HRS Oxycodone Hcl Immed.release (Oxycodone Hcl) 5 Mg Tablet 5 Mg PO PRN Q4HRS PRN Cephalexin 500 Mg Tablet 500 Mg PO BID Docusate Sodium 100 Mg Capsule 1 Cap PO DAILY Latanoprost 2.5 Ml Drops 1 Drop OU QHS Tegretol (Carbamazepine) 200 Mg Tablet 1 Tab PO BID Atorvastatin Calcium 10 Mg Tablet 10 Mg PO Amlodipine Besylate 5 Mg Tablet 5 Mg PO Cymbalta (Duloxetine Hcl) 30 Mg Capsule.dr 60 Mg PO DAILY Lidoderm (Lidocaine) 700 Mg Adh..patch 1 Patch TP DAILY Vitals/I & O Vital Sign - Last 24 Hours 06/27/18 06/27/18 06/27/18 06/27/18 11:00 15:01 16:53 19:00 Temp 97.9 98.2 98.5 97.9 98.2 98.5 Pulse 64 66 66 66 Resp 19 17 17 B/P (MAP) 106/61 (76) 107/54 (71) 107/54 124/60 (81) Pulse Ox 96 98 97 O2 Delivery Room Air Room Air Room Air 06/27/18 06/27/18 06/28/18 06/28/18 19:58 23:00 03:00 07:00 Temp 98.4 98.1 98.1 98.4 98.1 98.1 Pulse 63 67 81 Resp 17 17 18 B/P (MAP) 120/69 (86) 107/68 (81) 152/76 (101) Pulse Ox 96 95 94 O2 Delivery Room Air Room Air Room Air Room Air 06/28/18 06/28/18 08:48 08:48 Pulse 81 81 B/P (MAP) 152/76 152/76 Intake and Output 06/27/18 06/27/18 06/28/18 15:00 23:00 07:00 Intake Total 150 ml 60 ml Balance 150 ml 60 ml BEN TAM MD Jun 28, 2018 10:03
[2018-06-28 11:00] VITALS: BP 130/65
[2018-06-28 15:00] VITALS: BP 114/56
--- NOTE | 2018-06-28 17:30 | NUR ---
Held pt's glipizide as this nurse is anticipating a rebound from low BG. Pt's BG has come up 30+ points in 30 min.
--- NOTE | 2018-06-28 18:27 | NUR ---
Assumed care from MIRANDA Johnson around 1430. Agree with head to toe assessment.
[2018-06-28 19:00] VITALS: BP 95/59
[2018-06-28] MEDS: LATANOPROST 0.005% OPHTH SOLUTION 2.5ML BOTTLE. OU SCH (20:52)
[2018-06-28] MEDS: QUEtiapine 100 MG TABLET. PO SCH (20:53)
[2018-06-28] MEDS: ATORVASTATIN CALCIUM 10 MG TABLET. PO SCH (20:57)
[2018-06-28 23:00] VITALS: BP 122/63
[2018-06-29 03:00] VITALS: BP 113/57
[2018-06-29 07:00] VITALS: BP 129/66
[2018-06-29] MEDS: INSULIN LISPRO 300 UNITS/3 ML INSULN.PEN. SQ SCH ×2 (08:00→12:24)
[2018-06-29] MEDS: FINASTERIDE 5 MG TABLET. PO SCH (08:16)
[2018-06-29] MEDS: DULoxetine HCL 30 MG CAPSULE.DR PO SCH (08:16)
[2018-06-29] MEDS: LACTOBACILLUS RHAMNOSUS GG 1 CAPSULE. PO SCH (08:16)
[2018-06-29] MEDS: FUROSEMIDE 20 MG TABLET PO SCH (08:16)
[2018-06-29] MEDS: glipiZIDE 5 MG TABLET PO SCH (08:16)
[2018-06-29] MEDS: metFORMIN 500 MG TABLET PO SCH (08:16)
[2018-06-29] MEDS: PIOGLITAZONE 15 MG TABLET. PO SCH (08:18)
[2018-06-29] MEDS: CARVEDILOL 12.5 MG TABLET. PO SCH (08:20)
[2018-06-29] MEDS: CEPHALEXIN 250 MG CAPSULE. PO SCH (08:20)
[2018-06-29] MEDS: PREGABALIN 75 MG CAPSULE PO SCH (08:21)
[2018-06-29] MEDS: DOCUSATE SODIUM 100 MG CAPSULE. PO SCH (08:21)
[2018-06-29] MEDS: levETIRAcetam 500 MG TABLET PO SCH (08:22)
[2018-06-29] MEDS: TAMSULOSIN 0.4 MG CAP.ER.24H. PO SCH (08:22)
[2018-06-29] MEDS: BACLOFEN 10 MG TABLET. PO SCH (08:22)
[2018-06-29] MEDS: carBAMazepine 200 MG TABLET PO SCH (08:23)
[2018-06-29] MEDS: amLODIPine BESYLATE 5 MG TABLET PO SCH (08:23)
--- NOTE | 2018-06-29 08:36 | PDOC ---
PROGRESS NOTES Subjective Subjective Patient without complaint, feels ready to go home, declines assisted. Objective Objective Vital Signs Date Time Temp Pulse Resp B/P (MAP) Pulse Ox O2 Delivery O2 Flow Rate FiO2 06/29/18 08:23 64 129/66 06/29/18 07:00 97.9 18 95 Room Air 97.9 Intake and Output 06/29/18 07:00 Intake Total 350 ml Output Total 1270 ml Balance -920 ml Intake Oral 350 ml Output Urine Total 1270 ml # Voids 2 Physical Exam Abdomen: Normal bowel sounds, Soft, No tenderness Heart: Regular rate Extremities: No edema General: Alert, Oriented X3, No acute distress Lungs: Clear to auscultation Assessment Assessment Problems Medical Problems: (1) Acute renal insufficiency Status: Acute (2) Breakthrough seizure Status: Acute Plan Plan of Care 1. Seizure disorder - stable, continuing on his usual medications per Neurology. 2. weakness and gait instability - patient's gait disturbance is chronic and he appears to be at baseline. Able to ambulate with roller walker. Home today, he already has home health for nursing care. Orders done. 3. DM2 - some low blood sugars here but patient denies problems with his blood sugar at home and probably doesn't watch his diet as closely there. A1C 6.5 Home on his usual medications. 4. HTN - controlled with present medication. 5. schizophrenia - patient's mental status is at his baseline. Continue medication per his Psychiatrist. 6. urinary retention - this has actually improved recently and patient is no longer needing a Garcia. Continue care per Urology. 7. tardive dyskinesia - at baseline. 8. chronic back pain - stable, patient takes Tylenol or Ibuprofen as needed, no narcotics. Comment Review of Relevant I have reviewed the following items jacob (where applicable) has been applied. Labs Laboratory Tests Test 06/27/18 10:50 06/27/18 16:43 06/27/18 20:16 06/28/18 07:09 Glucose (Fingerstick) 176 mg/dL (70-99) 80 mg/dL (70-99) 123 mg/dL (70-99) 120 mg/dL (70-99) Test 06/28/18 10:58 06/28/18 16:49 06/28/18 17:07 06/28/18 17:21 Glucose (Fingerstick) 265 mg/dL (70-99) 45 mg/dL (70-99) 54 mg/dL (70-99) 72 mg/dL (70-99) Test 06/28/18 18:11 06/28/18 19:44 06/29/18 07:47 06/29/18 08:08 Glucose (Fingerstick) 115 mg/dL (70-99) 124 mg/dL (70-99) 58 mg/dL (70-99) 106 mg/dL (70-99) Laboratory Tests Test 06/28/18 10:58 06/28/18 16:49 06/28/18 17:07 06/28/18 17:21 Glucose (Fingerstick) 265 mg/dL (70-99) 45 mg/dL (70-99) 54 mg/dL (70-99) 72 mg/dL (70-99) Test 06/28/18 18:11 06/28/18 19:44 06/29/18 07:47 06/29/18 08:08 Glucose (Fingerstick) 115 mg/dL (70-99) 124 mg/dL (70-99) 58 mg/dL (70-99) 106 mg/dL (70-99) Medications Current Medications Sodium Chloride 1,000 ml @ 1,000 mls/hr 1X ONCE IV Last administered on at 23:02; Start 06/25/18 at 22:45; Stop 06/25/18 at 23:44; Status DC Ondansetron HCl (Zofran) 4 mg PRN Q8HRS PRN IV NAUSEA/VOMITING; Start 06/26/18 at 00:15; Stop 06/27/18 at 00:14; Status DC Fentanyl Citrate (Fentanyl 2ml Vial) 50 mcg PRN Q2HR PRN IV PAIN; Start at 00:15; Stop 06/29/18 at 08:16; Status DC Insulin Human Lispro (HumaLOG) 0-5 UNITS TIDWMEALS SQ Last administered on at 11:42; Start 06/26/18 at 08:00 Dextrose (Dextrose 50%-Water Syringe) 12.5 gm PRN Q15MIN PRN IV SEE COMMENTS; Start 06/26/18 at 00:15 Sodium Chloride 1,000 ml @ 100 mls/hr 1X ONCE IV ; Start 06/26/18 at 00:15; Stop 06/26/18 at 10:14; Status DC Amlodipine Besylate (Norvasc) 5 mg DAILY PO Last administered on 06/29/18 08:23 ; Start 06/26/18 at 09:00 Atorvastatin Calcium (Lipitor) 10 mg QHS PO Last administered on 06/28/18 20:57 ; Start 06/26/18 at 21:00 Baclofen (Lioresal) 10 mg TID PO Last administered on 06/29/18 08:22; Start 06/26/18 at 09:00 Bisacodyl (Dulcolax Tab) 10 mg PRN DAILY PRN PO CONSTIPATION 1ST CHOICE; Start 06/26/18 at 08:00 Carbamazepine (TEGretol) 200 mg BID PO Last administered on 06/29/18 08:23; Start 06/26/18 at 09:00 Carvedilol (Coreg) 12.5 mg BIDWMEALS PO Last administered on 06/29/18 08:20; Start 06/26/18 at 08:00 Duloxetine HCl (Cymbalta) 60 mg DAILY PO Last administered on 06/29/18 08:16; Start 06/26/18 at 09:00 Finasteride (Proscar) 5 mg DAILY PO Last administered on 06/29/18 08:16; Start 06/26/18 at 09:00 Glipizide (Glucotrol) 5 mg BIDBFRMEAL PO Last administered on 06/29/18 08:16; Start 06/26/18 at 08:15 Lactulose (Lactulose) 10 gm DAILY PRN PO CONSTIPATION 2ND CHOICE Last administered on 06/27/18 08:49; Start 06/26/18 at 08:00 Levetiracetam (Keppra) 500 mg BID PO Last administered on 06/29/18 08:22; Start 06/26/18 at 09:00 Tamsulosin HCl (Flomax) 0.4 mg BID PO Last administered on 06/29/18 08:22; Start 06/26/18 at 09:00 Latanoprost (Xalatan) 1 drop QHS OU Last administered on 06/28/18 20:52; Start 06/26/18 at 21:00 Metformin HCl (Glucophage) 500 mg BIDWMEALS PO Last administered on 06/29/18 08 :16; Start 06/26/18 at 08:15 Pioglitazone HCl (Actos) 45 mg DAILY PO Last administered on 06/29/18 08:18; Start 06/26/18 at 09:00 Pregabalin (Lyrica) 150 mg BID PO Last administered on 06/29/18 08:21; Start at 09:00 Quetiapine Fumarate (SEROquel) 100 mg QHS PO Last administered on 06/28/18 20: 53; Start 06/26/18 at 21:00 Furosemide (Lasix) 20 mg DAILY PO Last administered on 06/29/18 08:16; Start at 09:00 Cephalexin HCl (Keflex) 500 mg BID PO Last administered on 06/29/18 08:20; Start 06/26/18 at 13:00 Docusate Sodium (Colace) 100 mg DAILY PO Last administered on 06/29/18 08:21; Start 06/27/18 at 09:00 Hyoscyamine (Anaspaz) 0.125 mg PRN Q4HRS PRN PO STOMACH CRAMPING; Start at 11:45 Lactobacillus Rhamnosus (Culturelle) 1 cap BID PO Last administered on 08:16; Start 06/26/18 at 21:00 Active Scripts Active Lactulose 20 Gm/30 Ml Solution 10 Gm PO DAILY PRN Finasteride 5 Mg Tablet 1 Tab PO DAILY Lyrica (Pregabalin) 150 Mg Capsule 1 Cap PO BID Flomax (Tamsulosin Hcl) 0.4 Mg Cap.er.24h 0.4 Mg PO BID 30 Days Triamcinolone Acetonide 0.1% Oint (Triamcinolone Acetonide) 15 Gm Oint...g. 1 Rogelio TP BID Actos (Pioglitazone Hcl) 15 Mg Tablet 45 Mg PO DAILY 28 Days Glucophage Xr (Metformin Hcl) 500 Mg Tab.er.24h 1,000 Mg PO DAILYWBKFT 30 Days Keppra (Levetiracetam) 500 Mg Tablet 500 Mg PO BID 30 Days Glipizide 5 Mg Tablet 5 Mg PO BIDBFRMEAL 30 Days Bisacodyl 5 Mg Tablet.dr 10 Mg PO PRN DAILY PRN 28 Days Quetiapine Fumarate 100 Mg Tablet 100 Mg PO QHS 30 Days Carvedilol (Carvedilol) 12.5 Mg Tablet 12.5 Mg PO BIDWMEALS 30 Days Baclofen 10 Mg Tablet 10 Mg PO TID 30 Days Reported Protonix (Pantoprazole Sodium) 20 Mg Tablet. 40 Mg PO DAILY Furosemide 20 Mg Tablet 1 Tab PO DAILY Levsin (Hyoscyamine Sulfate) 0.125 Mg Tablet 1 Tab PO Q4HRS Oxycodone Hcl Immed.release (Oxycodone Hcl) 5 Mg Tablet 5 Mg PO PRN Q4HRS PRN Cephalexin 500 Mg Tablet 500 Mg PO BID Docusate Sodium 100 Mg Capsule 1 Cap PO DAILY Latanoprost 2.5 Ml Drops 1 Drop OU QHS Tegretol (Carbamazepine) 200 Mg Tablet 1 Tab PO BID Atorvastatin Calcium 10 Mg Tablet 10 Mg PO Amlodipine Besylate 5 Mg Tablet 5 Mg PO Cymbalta (Duloxetine Hcl) 30 Mg Capsule.dr 60 Mg PO DAILY Lidoderm (Lidocaine) 700 Mg Adh..patch 1 Patch TP DAILY Vitals/I & O Vital Sign - Last 24 Hours 06/28/18 06/28/18 06/28/18 06/28/18 08:48 08:48 11:00 15:00 Temp 97.9 98.5 97.9 98.5 Pulse 81 81 69 74 Resp 18 18 B/P (MAP) 152/76 152/76 130/65 (86) 114/56 (75) Pulse Ox 95 96 O2 Delivery Room Air Room Air 06/28/18 06/28/18 06/28/18 06/28/18 17:22 19:00 19:50 23:00 Temp 98.5 98.5 98.5 98.5 Pulse 74 77 74 Resp 18 18 B/P (MAP) 114/56 95/59 (71) 122/63 (82) Pulse Ox 91 94 O2 Delivery Room Air Room Air Room Air 06/29/18 06/29/18 06/29/18 06/29/18 03:00 07:00 08:20 08:23 Temp 98.0 97.9 98.0 97.9 Pulse 64 64 64 64 Resp 18 18 B/P (MAP) 113/57 (75) 129/66 (87) 129/66 129/66 Pulse Ox 91 95 O2 Delivery Room Air Room Air Intake and Output 06/28/18 06/28/18 06/29/18 15:00 23:00 07:00 Intake Total 350 ml 0 ml Output Total 420 ml 500 ml 350 ml Balance -420 ml -150 ml -350 ml ERNESTO BCUK MD Jun 29, 2018 08:36
--- NOTE | 2018-06-29 08:41 | SNU/HH DC ---
DISCHARGE WITH HOME HEALTH DISCHARGE INFORMATION: Final Diagnosis: Problems Medical Problems: (1) Acute renal insufficiency Status: Acute (2) Breakthrough seizure Status: Acute Condition on Discharge: Stable CODE STATUS: Code Status: Full HOME HEALTH: Face to Face: I certify this patient is under my care and that I, or a nurse practitioner or physician's customer relations assistant working with me, had a face to face encounter that meets the physician face to face encounter requirements with this patient on []. RN For Eval/Treatment: Yes Physical Therapy For: Evalulation/Treatment Occupational Therapy For: Evaluation/Treatment Pt Meets Homebound Status: Poor coordination w/ amb., Unsteady balance w/ amb, , Psychological condition POST DISCHARGE ORDERS: Activity Instructions for Disc: Activity as tolerated Weight Bearing Status after Di: No restrictions, As tolerated Bathing Instructions: Shower-keep dressing dry, No Tub Bath until see DIET AFTER DISCHARGE: ADA Wound/Incision Care: Keep wound/cast CDI, Reinforce dressing PRN CHECKS AFTER DISCHARGE: Checks after discharge: Check blood press - daily, Check blood sugar, ac/hs FOLLOW-UP: Follow up with: Dr Riley as needed. TREATMENT/EQUIPMENT ORDERS: Adaptive Equipment Issued: None CERTIFICATION STATEMENT: Certification Statement: Certification Statement: Based on the above finding, I certify that this patient is confined to the home and needs intermittent longterm care, physical therapy and/or speech therapy, or continues to need occupational therapy.~ This patient is under my care, and I have initiated the establishment of the plan of care.~ This patient will be followed by myself or a community physician who will periodically review the plan of care. Home Meds Active Scripts Lactulose (LACTULOSE) 20 Gm/30 Ml Solution, 10 GM PO DAILY PRN for CONSTIPATION , #240 MISC Prov:STEPHANIE LINDSEY Jr. DO 03/10/18 Finasteride (FINASTERIDE) 5 Mg Tablet, 1 TAB PO DAILY for bph, #30 TAB 11 Refills Prov:ERNESTO RILEY MD 02/26/18 Pregabalin (LYRICA) 150 Mg Capsule, 1 CAP PO BID, #60 CAP 5 Refills Prov:Dinorah LOAIZA MD 06/18/17 Tamsulosin Hcl (FLOMAX) 0.4 Mg Cap.er.24h, 0.4 MG PO BID for 30 Days, #60 CAP.SR 5 Refills Prov:Dinorah LOAIZA MD 11/18/16 Triamcinolone Acetonide (TRIAMCINOLONE ACETONIDE 0.1% OINT) 15 Gm Oint...g., 1 BENJAMÍN TP BID for WOUND CARE, #1 TUBE Prov:EBEN FULTON VESTA 10/29/16 Pioglitazone Hcl (ACTOS) 15 Mg Tablet, 45 MG PO DAILY for 28 Days, TAB Prov:ERNESTO RILEY MD 04/22/16 Metformin Hcl (GLUCOPHAGE XR) 500 Mg Tab.er.24h, 1000 MG PO DAILYWBKFT for 30 Days, TAB Prov:ERNESTO RILEY MD 04/22/16 Levetiracetam (KEPPRA) 500 Mg Tablet, 500 MG PO BID for 30 Days, TAB Prov:ERNESTO RILEY MD 04/22/16 Glipizide (GLIPIZIDE) 5 Mg Tablet, 5 MG PO BIDBFRMEAL for 30 Days, TAB Prov:ERNESTO RILEY MD 04/22/16 Bisacodyl (BISACODYL) 5 Mg Tablet., 10 MG PO PRN DAILY PRN for CONSTIPATION for 28 Days, TAB Prov:ERNESTO RILEY MD 04/22/16 Quetiapine Fumarate (QUETIAPINE FUMARATE) 100 Mg Tablet, 100 MG PO QHS for 30 Days, TAB Prov:ERNESTO RILEY MD 03/11/16 Carvedilol (CARVEDILOL ) 12.5 Mg Tablet, 12.5 MG PO BIDWMEALS for 30 Days, TAB Prov:ERNESTO RILEY MD 03/11/16 Baclofen (BACLOFEN) 10 Mg Tablet, 10 MG PO TID for 30 Days, TAB Prov:ERNESTO RILEY MD 03/11/16 Reported Medications Pantoprazole Sodium (PROTONIX) 20 Mg Tablet.dr, 40 MG PO DAILY for acid refulx, TAB 06/26/18 Furosemide (FUROSEMIDE) 20 Mg Tablet, 1 TAB PO DAILY for diuretic, #90 TAB 1 Refill 06/26/18 Hyoscyamine Sulfate (LEVSIN) 0.125 Mg Tablet, 1 TAB PO Q4HRS for bladder spasm, #120 TAB 5 Refills 06/26/18 Cephalexin (CEPHALEXIN) 500 Mg Tablet, 500 MG PO BID for after surgery at [facility], TAB 06/26/18 Docusate Sodium (DOCUSATE SODIUM) 100 Mg Capsule, 1 CAP PO DAILY for bowels, # 30 CAP 06/26/18 Latanoprost (LATANOPROST) 2.5 Ml Drops, 1 DROP OU QHS, #25 04/17/16 Carbamazepine (TEGRETOL) 200 Mg Tablet, 1 TAB PO BID, #60 TAB 1 Refill 12/30/13 Atorvastatin Calcium (ATORVASTATIN CALCIUM) 10 Mg Tablet, 10 MG PO 06/21/13 Amlodipine Besylate (AMLODIPINE BESYLATE) 5 Mg Tablet, 5 MG PO 06/21/13 Duloxetine Hcl (CYMBALTA) 30 Mg Capsule.dr, 60 MG PO DAILY 06/21/13 Lidocaine (LIDODERM) 700 Mg Adh..patch, 1 PATCH TP DAILY 06/21/13 Discontinued Reported Medications Oxycodone Hcl (OXYCODONE HCL IMMED.RELEASE ) 5 Mg Tablet, 5 MG PO PRN Q4HRS PRN for PAIN, TAB 0 Refills 06/26/18 Discontinued Scripts Doxycycline Hyclate (DOXYCYCLINE HYCLATE) 100 Mg Capsule, 1 CAP PO BID for uti for 5 Days, #10 CAP Prov:ERNESTO RILEY MD 02/26/18 ERNESTO RILEY MD Jun 29, 2018 08:41
--- NOTE | 2018-06-29 08:52 | PDOC ---
SUBJECTIVE Subjective Pt feeling well this am, ready to go home. States "after you tried to put that catheter in me, it opened me up and I have been peeing like crazy ever since." No pain, dysuria, hematuria or retention. OBJECTIVE Objective Physical Exam: General appearance: Alert and cooperative. Some mild confusion,but very pleasant overall. Head: Normocephalic, without obvious abnormality Eyes: conjunctivae/corneas clear. PERRL, EOM's intact. Fundi benign Back: no CVA pain. Lungs: Regular respirations, non labored breathing. Abdomen: soft, non-tender. Extremities: extremities normal, atraumatic, no cyanosis or edema Pulses: 2+ and symmetric Lymph nodes: Cervical, supraclavicular, and axillary nodes normal. Vital Signs Vital Signs Date Time Temp Pulse Resp B/P (MAP) Pulse Ox O2 Delivery O2 Flow Rate FiO2 06/29/18 08:23 64 129/66 06/29/18 08:20 64 129/66 06/29/18 07:00 97.9 64 18 129/66 (87) 95 Room Air 97.9 06/29/18 03:00 98.0 64 18 113/57 (75) 91 Room Air 98.0 06/28/18 23:00 98.5 74 18 122/63 (82) 94 Room Air 98.5 06/28/18 19:50 Room Air 06/28/18 19:00 98.5 77 18 95/59 (71) 91 Room Air 98.5 06/28/18 17:22 74 114/56 06/28/18 15:00 98.5 74 18 114/56 (75) 96 Room Air 98.5 06/28/18 11:00 97.9 69 18 130/65 (86) 95 Room Air 97.9 I & O Intake and Output 06/29/18 07:00 Intake Total 350 ml Output Total 1270 ml Balance -920 ml Intake Oral 350 ml Output Urine Total 1270 ml # Voids 2 PHYSICAL EXAM Physical Exam Physical Exam: General appearance: Alert and cooperative. Some mild confusion,but very pleasant overall. Head: Normocephalic, without obvious abnormality Eyes: conjunctivae/corneas clear. PERRL, EOM's intact. Fundi benign Back: no CVA pain. Lungs: Regular respirations, non labored breathing. Abdomen: soft, non-tender. Extremities: extremities normal, atraumatic, no cyanosis or edema Pulses: 2+ and symmetric Lymph nodes: Cervical, supraclavicular, and axillary nodes normal. ASSESSMENT/PLAN Assessment/Plan Patient voiding very well over the weekend. No stones on KUB. Recommend he follow up at for bladder stem device management. For now, keep disconnected. Continue BID Flomax and Finasteride as an outpatient. OK to D/C whenever medical team is ready. Will sign off at this time, but please call with questions or changes in patient condition. Problems: (1) Urinary retention COMMENT Lab Laboratory Tests Test 06/28/18 10:58 06/28/18 16:49 06/28/18 17:07 06/28/18 17:21 Glucose (Fingerstick) 265 mg/dL (70-99) 45 mg/dL (70-99) 54 mg/dL (70-99) 72 mg/dL (70-99) Test 06/28/18 18:11 06/28/18 19:44 06/29/18 07:47 06/29/18 08:08 Glucose (Fingerstick) 115 mg/dL (70-99) 124 mg/dL (70-99) 58 mg/dL (70-99) 106 mg/dL (70-99) ALVARADO BACON APRN Jun 29, 2018 08:52
--- NOTE | 2018-06-29 10:33 | NUR ---
SW following for discharge planning. Discussed with RN, pt wanting to return home, DC orders in for home health. MICHELLE met with pt, pt agreeable to home health. Pt chose [facility] after given a list to choose from. MICHELLE phoned and faxed referral to [facility]. Pt needing assistance getting home, MICHELLE set up transportation for 1230. RN notified. Pt choice and rights letter signed and placed on chart. No further SW needs.
[2018-06-29 10:36] VITALS: BP 130/65
--- NOTE | 2018-06-29 14:29 | DS ---
DATE OF DISCHARGE: 06/29/2018 ADDENDUM CHIEF COMPLAINT: Seizures. HISTORY OF PRESENT ILLNESS: The patient is a 67-year-old male with a history of seizure disorder who was brought to the Emergency Room with the above complaint. The Emergency Room information indicates that the patient had a witnessed grand mal seizure at home. He was brought to the Emergency Room and admitted for further care. HOSPITAL COURSE: The patient was seen by Urology due to his history of chronic urinary retention and by Neurology for his seizures. He had no further seizures while hospitalized, Dr. Jacob felt that he should be continued on his usual seizure medication and this was done. The patient did deny missing doses of it. He goes to Urology for treatment of his chronic urinary retention. He had been requiring a Garcia catheter for the past several months, but this has apparently improved and the Garcia was discontinued by . There was also a report in the chart that he had had renal stones removed at recently. He has been urinating well while he is here, although he does have some chronic postvoid residual. The patient has schizophrenia and other ongoing psychiatric issues. He is at his baseline mental status where he is alert and oriented and cooperative with his care. His usual medications from Psychiatry are to be continued. His hypertension is well controlled with present medication. He is on several medications for diabetes. He had a few mildly low blood sugars while hospitalized, but denies having a problem with this at home and is probably not as compliant with a diabetic diet at home. His A1c is 6.5. His usual medications for his diabetes are continued. The patient was originally going to be discharged home on 06/27/2018; however, it was felt that he was too weak to go home, so he was kept over the weekend. He was seen by Physical and Occupational Therapy. He appears to be at his baseline mobility where he uses a roller walker. He does have a chronically unsteady gait, but this does not appear to have worsened or changed. Discharge options were discussed with the patient and he declines consideration of fdc at this time. He feels that he is moving around fairly well and requests to be discharged home. He already has home health to help with his ongoing medical problems, so orders will be resumed for this and physical and occupational therapy consult to see if the patient would benefit from more therapy at home. FINAL DIAGNOSES: 1. Seizure disorder. 2. Chronic gait instability. 3. Diabetes. 4. Hypertension. 5. Schizophrenia. 6. Chronic urinary retention. 7. Tardive dyskinesia. 8. Chronic back pain. DISCHARGE MEDICATIONS: Remain the same as previously dictated by Dr. Jimenez except that the oxycodone has been discontinued as the patient is not on this long-term and does not do well with narcotic pain medication. Follow up with Dr. Riley as needed. Follow up with Urology and Neurology as advised. ERNESTO RILEY MD DR: WILLIE/kristen JOB#: [id number] / [id number] NEYDA
--- NOTE | 2018-06-29 15:16 | PDOC ---
PROGRESS NOTES Assessment Assessment Metabolic encephalopathy. Hyperglycemia. Seizure. Hypoglycemia. Hyperglycemia. TBI Hx DM Diabetic peripheral neuropathy, LE, bilateral. HTN HLD RECOMMENDATIONS/PLAN: Continue Keppra 500 mg bid. Continue Lipitor HS. FU with PCP. FU with in Neurology Clinic. PAST MEDICAL HISTORY: Cardiovascular: HTN, Hyperlipidemia Pulmonary: Other (tardive dyskinesia) Psych: Depression Musculoskeletal: low back pain Past Surgical History Aneurysm, left parietal craniotomy. Family History No pertinent hx Social History Lives at home, denies alcohol or tobacco. MEDICATIONS: Refer to [facility] REVIEW OF SYSTEMS: Constitutional: No cachexia. Head: No traumatic brain or head injury. Skin: No edema, or rash. Ear: No infection, tinnitus. Eyes: No vision loss, or diplopia. Nose: No bleeding or purulent discharges. Hearing: No hearing decrease. Neck: No injury. Cardiac: HTN, HLD Pulmonary: No COPD. GI: No GI Ulcer, GI bleeding Urinary/genital: Renal failure. Endocrine: Diabetes Mellitus Skeletomuscular: No muscular atrophy, deformity Neurological: see HP. Psychiatric: Denies drug use/abuse. Otherwise, not [id number] review of systems. PHYSICAL EXAMINATION: General appearance in no acute distress. HEENT: Normocephalic and nontraumatic. Eyes, nose, ears, and throat are unremarkable. Hearing decrease. Neck is supple. No lymphadenopathy. No bruits are heard over the carotid artery. No Crepitus. Cardiovascular: S1, S2, regular rate and rhythm. Pulmonary: Clear to auscultation bilaterally. Abdomen: Bowel sounds are positive. Abdomen is soft, nontender, and nondistended. Extremities: No rash, lesions, or edema. No restriction of range of motion NEUROLOGICAL EXAMINATION: Awake. Not fully oriented to time, but knows place and person. PERRL. EOMI. CN: no focal findings. Muscle tone: within normal. Muscle strength: 5- DTR: 2 UE, 0 at knee. Plantar reflex: Neutral response bilaterally Gait: Able to walk. Sensory exam: no acute findings. F-T-N test fine. Objective Objective Vital Signs Date Time Temp Pulse Resp B/P (MAP) Pulse Ox O2 Delivery O2 Flow Rate FiO2 06/29/18 10:36 97.9 66 18 130/65 (86) 94 Room Air 97.9 Intake and Output 06/29/18 07:00 Intake Total 350 ml Output Total 1270 ml Balance -920 ml Intake Oral 350 ml Output Urine Total 1270 ml # Voids 2 Vitals Signs Vitals VS - Last 72 Hours, by Label Date Time Temp Pulse Resp B/P (MAP) Pulse Ox O2 Delivery O2 Flow Rate FiO2 06/29/18 10:36 97.9 66 18 130/65 (86) 94 Room Air 97.9 06/29/18 08:23 64 129/66 06/29/18 08:20 64 129/66 06/29/18 07:00 97.9 64 18 129/66 (87) 95 Room Air 97.9 06/29/18 03:00 98.0 64 18 113/57 (75) 91 Room Air 98.0 06/28/18 23:00 98.5 74 18 122/63 (82) 94 Room Air 98.5 06/28/18 19:50 Room Air 06/28/18 19:00 98.5 77 18 95/59 (71) 91 Room Air 98.5 06/28/18 17:22 74 114/56 06/28/18 15:00 98.5 74 18 114/56 (75) 96 Room Air 98.5 06/28/18 11:00 97.9 69 18 130/65 (86) 95 Room Air 97.9 06/28/18 08:48 81 152/76 06/28/18 08:48 81 152/76 06/28/18 07:00 98.1 81 18 152/76 (101) 94 Room Air 98.1 Laboratory Laboratory Laboratory Tests Test 06/28/18 16:49 06/28/18 17:07 06/28/18 17:21 06/28/18 18:11 Glucose (Fingerstick) 45 mg/dL (70-99) 54 mg/dL (70-99) 72 mg/dL (70-99) 115 mg/dL (70-99) Test 06/28/18 19:44 06/29/18 07:47 06/29/18 08:08 06/29/18 09:12 Glucose (Fingerstick) 124 mg/dL (70-99) 58 mg/dL (70-99) 106 mg/dL (70-99) 149 mg/dL (70-99) Test 06/29/18 10:57 Glucose (Fingerstick) 151 mg/dL (70-99) Comment Review of Relevant I have reviewed the following items jacob (where applicable) has been applied. RAVI VALDES MD Jun 29, 2018 15:16
[2018-08-17] MEDS ORDERED: CEPH500T PO (11:52)
[2018-08-17] MEDS ORDERED: TRAM50TA PO (11:52)
[2018-08-17] MEDS ORDERED: SULF1TAB24 PO (11:52)
[2018-08-20] MEDS ORDERED: IV NORMAL SALINE 1000ML BAG 1,000 ML IV SCH (08:45)
[2018-08-26] MEDS ORDERED: PRED20TA PO (09:10)
[2018-08-26] MEDS ORDERED: NYST60PO TP (09:10)
== END 2018-06-29 13:07 | disposition home health service (06) | DRG 100 ==
LOC: ER 22:17 → 5 NORTH 06-26
PROVIDERS: ADMIT Family Medicine; ATTEND Family Medicine
DX: G40.409 Other generalized epilepsy and epileptic syndromes, not intractable, without status epilepticus (principal); G93.41 Metabolic encephalopathy; N17.9 Acute kidney failure, unspecified; N39.0 Urinary tract infection, site not specified; E78.5 Hyperlipidemia, unspecified; I12.9 Hypertensive chronic kidney disease with stage 1 through stage 4 chronic kidney disease, or unspecified chronic kidney disease; N18.9 Chronic kidney disease, unspecified; F20.9 Schizophrenia, unspecified; E78.00 Pure hypercholesterolemia, unspecified; E11.42 Type 2 diabetes mellitus with diabetic polyneuropathy; F32.9 Major depressive disorder, single episode, unspecified; E11.22 Type 2 diabetes mellitus with diabetic chronic kidney disease; N40.1 Benign prostatic hyperplasia with lower urinary tract symptoms; R33.8 Other retention of urine; G24.01 Drug induced subacute dyskinesia; D64.9 Anemia, unspecified; D69.6 Thrombocytopenia, unspecified; H40.9 Unspecified glaucoma; E11.65 Type 2 diabetes mellitus with hyperglycemia; G89.29 Other chronic pain; Z87.820 Personal history of traumatic brain injury; Z87.442 Personal history of urinary calculi; Z87.11 Personal history of peptic ulcer disease; Z80.9 Family history of malignant neoplasm, unspecified; Z79.899 Other long term (current) drug therapy; Z79.84 Long term (current) use of oral hypoglycemic drugs
CPT/HCPCS: 36415; 70450; 72125; 74018; 80048; 80053; 80156; 80177; 82140; 82553; 82962; 83036; 83605; 83735; 84484; 85025; 85610; 85730; 93005; 96360; G0480; J1815; J7030; 97116; 97535; 99285-25

== ENCOUNTER 2018-08-19 10:41 | Inpatient (IN) | payer MEDICARE ==
[~2018-08-19] VITALS: Ht 175.3 cm; Wt 86.3 kg
[~2018-08-19 10:41] MED LIST changes: +CEPH500T PO; +DOCU100C28 PO; +FURO20TA3 PO; +HYOS0.1264 PO; +OXYC5TAB4 PO; +PANT20TA2 PO; +TRAM50TA PO
[2018-08-19] MEDS ORDERED: IV NORMAL SALINE 1000ML BAG 1,000 ML IV SCH (10:56)
--- NOTE | 2018-08-19 11:04 | PHYS DOC ---
Past Medical History Past Medical History: Diabetes-Type II, Glaucoma, Hypertension Additional Past Medical Histor: TBI, URINARY RETEN, SCIATICA, NEUROPATHY,ANEURSYM, TARDIVE DYSKINESIA Past Surgical History: Lumbar Laminectomy Additional Past Surgical Histo: neck and back surgery Alcohol Use: None Drug Use: None Adult General HPI HPI Patient is a 68-year-old -[place] male who arrives in the emergency department via EMS. According to EMS report, the patient had a seizure at his home and was postictal upon their arrival. By the time of the emergency department arrival, the patient is able to answer questions, appears coherent. However cognitive bleed does appear somewhat limited, and although I am unaware of his baseline, this might be baseline for the patient, he has a history of schizophrenia, as well as prior brain surgery from an aneurysm. He denies any pain at this time. He is noted to be febrile upon arrival in the emergency department. On initial evaluation he was noted to be hypoxic but I suspect that this was more of a monitoring issue as when the patient was transferred to a r esuscitation room, his oxygen saturation is in the upper 90s on 2 L of nasal cannula he will be monitored from an oxygenation standpoint. He denies any cough, headache, neck pain, back pain, numbness or weakness. He does have warmth and erythema on his left hand, as well as a small cutaneous abscess on the dorsal aspect of his left index finger which was drained a few days ago. The patient is uncertain if he has been taking the antibiotics or not. There are no alleviating or exacerbating factors to the patient's symptoms. Review of Systems Review of Systems Constitutional: Denies malaise or chills [] Eyes: Denies change in visual acuity, redness, or eye pain [] HENT: Denies nasal congestion or sore throat [] Respiratory: Denies cough or shortness of breath [] Cardiovascular: The patient denies any shortness of breath, chest pain, palpitations, or orthopnea [] GI: Denies abdominal pain, nausea, vomiting, bloody stools or diarrhea [] : Denies dysuria or hematuria [] Musculoskeletal: Denies back pain or joint pain [] Integument: Denies rash or skin lesions, except as noted to the left hand. [] Neurologic: Denies headache, focal weakness or sensory changes. The patient apparently had a seizure prior to arrival. [] Endocrine: Denies polyuria or polydipsia [] All other systems were reviewed and found to be within normal limits, except as documented in this note. Current Medications Current Medications Current Medications Medications (Trade) Dose Ordered Sig/Loyda Start Time Stop Time Status Last Admin Dose Admin Ceftriaxone Sodium (Rocephin) 1 gm 1X ONCE 08/19/18 11:45 08/19/18 11:46 DC Lorazepam (Ativan Inj) 1 mg 1X ONCE 08/19/18 11:00 08/19/18 11:01 DC 08/19/18 11:38 1 MG Sodium Chloride 1,000 ml @ 1,000 mls/hr 1X ONCE 08/19/18 12:00 08/19/18 12:59 Vancomycin HCl 1.25 gm/Sodium Chloride 250 ml @ 166.667 mls/hr 1X ONCE 08/19/18 12:00 08/19/18 13:29 Allergies Allergies Allergies Coded Allergies Type Severity Reaction Last Updated Verified No Known Drug Allergies 04/15/16 No Physical Exam Physical Exam PHYSICAL EXAM: CONSTITUTIONAL: Well developed, well nourished HEAD: normocephalic, atraumatic EENT: PERRL, EOMI. Conjunctivae normal color, sclerae non-icteric; moist mucous membranes. NECK: Supple, non-tender; no meningismus. LUNGS: Lungs CTA, breathing even and unlabored. Normal air movement. HEART: Regular rate and rhythm, no murmur CHEST: No deformity; non-tender ABDOMEN: The abdomen is soft, and non-tender, no masses or bruits. EXTREM: Normal ROM; no deformity, no calf tenderness. Normal pulses palpable in all extremities. There is no pedal edema. There is edema and warmth noted to the left hand, with a somewhat macerated cutaneous abscess without active drainage, the dorsal aspect of the left index finger. SKIN: No rash; no diaphoresis NEURO: Alert; normal speech mildly delayed cognition; CN's grossly intact; strength grossly intact without focal deficit. The patient is exhibiting intermittent myoclonic jerking BACK: No CVA TTP. GENITOURINARY: There is excoriation/exfoliation of the outer dermal layer of the skin of the glans penis. There is also superficial erosion on the skin of the scrotum on the right. The remainder of the skin of the scrotum appears unremarkable without maceration or evidence of acute infection. The patient is uncertain exactly how or when his penile lesions developed. Current Patient Data Vital Signs Vital Signs Date Time Temp Pulse Resp B/P (MAP) Pulse Ox O2 Delivery O2 Flow Rate FiO2 08/19/18 11:01 101.2 105 14 150/70 (96) 95 Nasal Cannula 2.0 101.2 Lab Values Laboratory Tests Test 08/19/18 11:00 08/19/18 11:35 08/19/18 11:40 White Blood Count 6.0 x10^3/uL (4.0-11.0) Red Blood Count 3.63 x10^6/uL (4.30-5.70) L Hemoglobin 11.6 g/dL (13.0-17.5) L Hematocrit 34.5 % (39.0-53.0) L Mean Corpuscular Volume 95 fL (79-100) Mean Corpuscular Hemoglobin 32 pg (25-35) Mean Corpuscular Hemoglobin Concent 34 g/dL (31-37) Red Cell Distribution Width 14.5 % (11.5-14.5) Platelet Count 114 x10^3/uL (140-400) L Neutrophils (%) (Auto) 79 % (31-73) H Lymphocytes (%) (Auto) 6 % (24-48) L Monocytes (%) (Auto) 12 % (0-9) H Eosinophils (%) (Auto) 3 % (0-3) Basophils (%) (Auto) 0 % (0-3) Neutrophils # (Auto) 4.8 x10^3uL (1.8-7.7) Lymphocytes # (Auto) 0.4 x10^3/uL (1.0-4.8) L Monocytes # (Auto) 0.7 x10^3/uL (0.0-1.1) Eosinophils # (Auto) 0.2 x10^3/uL (0.0-0.7) Basophils # (Auto) 0.0 x10^3/uL (0.0-0.2) Prothrombin Time 12.7 SEC (11.7-14.0) Prothrombin Time INR 1.0 (0.8-1.1) Sodium Level 141 mmol/L (136-145) Potassium Level 4.0 mmol/L (3.5-5.1) Chloride Level 102 mmol/L (98-107) Carbon Dioxide Level 28 mmol/L (21-32) Anion Gap 11 (6-14) Blood Urea Nitrogen 35 mg/dL (8-26) H Creatinine 2.5 mg/dL (0.7-1.3) H Estimated GFR (Cockcroft-Gault) 31.4 BUN/Creatinine Ratio 14 (6-20) Glucose Level 181 mg/dL (70-99) H Lactic Acid Level 1.2 mmol/L (0.4-2.0) Calcium Level 8.7 mg/dL (8.5-10.1) Total Bilirubin 0.4 mg/dL (0.2-1.0) Aspartate Amino Transferase (AST) 39 U/L (15-37) H Alanine Aminotransferase (ALT) 32 U/L (16-63) Alkaline Phosphatase 73 U/L (46-116) Ammonia < 10 mcmol/L (11-34) L Troponin I Quantitative < 0.017 ng/mL (0.000-0.055) Total Protein 7.9 g/dL (6.4-8.2) Albumin 3.6 g/dL (3.4-5.0) Albumin/Globulin Ratio 0.8 (1.0-1.7) L Lipase 81 U/L (73-393) Carbamazepine (Tegretol) Level 11.2 mcg/mL (4.0-12.0) Carbamazepine Last Dose Date Unknown Carbamazepine Last Dose Time Unknown Urine Collection Type Unknown Urine Color [place] Urine Clarity Clear Urine pH 5.5 Urine Specific [place] 1.020 Urine Protein Negative mg/dL (NEG-TRACE) Urine Glucose (UA) Negative mg/dL (NEG) Urine Ketones (Stick) Negative mg/dL (NEG) Urine Blood Negative (NEG) Urine Nitrite Negative (NEG) Urine Bilirubin Small (NEG) Urine Urobilinogen Dipstick 1.0 mg/dL (0.2 mg/dL) Urine Leukocyte Esterase Negative (NEG) Urine RBC 0 /HPF (0-2) Urine WBC 0 /HPF (0-4) Urine Squamous Epithelial Cells Few /LPF Urine Bacteria 0 /HPF (0-FEW) Urine Opiates Screen Neg (NEG) Urine Methadone Screen Neg (NEG) Urine Barbiturates Neg (NEG) Urine Phencyclidine Screen Neg (NEG) Urine Amphetamine/Methamphetamine Neg (NEG) Urine Benzodiazepines Screen Neg (NEG) Urine Cocaine Screen Neg (NEG) Urine Cannabinoids Screen Neg (NEG) Urine Ethyl Alcohol Neg (NEG) Laboratory Tests 08/19/18 11:00 Laboratory Tests 08/19/18 11:00 EKG EKG Normal sinus rhythm at a rate of 101 beats for minute, left axis deviation, normal intervals. Biatrial enlargement. There are no acute ischemic ST/T changes.[] Radiology/Procedures Radiology/Procedures [PROCEDURE: PORTABLE CHEST 1V Portable chest, 08/19/2018: HISTORY: Fever Comparison is made to a study from 02/26/2018. The heart appears to be within normal limits in size. There is mild patchy right basilar infiltrate. There is minimal linear atelectasis in the left base. There is no evidence of pleural fluid. Postsurgical changes are present in the lower cervical spine. IMPRESSION: 1. Mild right basilar atelectasis and/or pneumonitis. 2. Minimal discoid atelectasis in the left base.] Course & Med Decision Making Course & Med Decision Making Pertinent Labs and Imaging studies reviewed. (See chart for details) []12:10 PM: The patient's condition remains stable. I spoke with the hospitalist, who accepted the patient to the hospital for further evaluation and treatment. Dragon Disclaimer Dragon Disclaimer This electronic medical record was generated, in whole or in part, using a voice recognition dictation system. Departure Departure Impression: Primary Impression: Acute renal failure Additional Impressions: Seizure Cellulitis of left hand Disposition: ADMITTED INPATIENT Condition: STABLE Referrals: ERNESTO BUCK MD (PCP) Problem Qualifiers FRANCINE HAMM MD August 19, 2018 11:04
[2018-08-19 11:24] LABS: BASO % 0 % (0-3); EOS # 0.2 x10^3/uL (0.0-0.7); EOS % 3 % (0-3); HEMATOCRIT 34.5 % (39.0-53.0); HEMOGLOBIN 11.6 g/dL (13.0-17.5); LYMPH # 0.4 x10^3/uL (1.0-4.8); LYMPH % 6 % (24-48); MEAN CORPUSCULAR HEMOGLOBIN 32 pg (25-35); MEAN CORPUSCULAR HGB CONC 34 g/dL (31-37); MEAN CORPUSCULAR VOLUME 95 fL (79-100); MONO # 0.7 x10^3/uL (0.0-1.1); MONO % 12 % (0-9); NEUT # 4.8 x10^3uL (1.8-7.7); NEUT % 79 % (31-73); PLATELET COUNT 114 x10^3/uL (140-400); RED BLOOD COUNT 3.63 x10^6/uL (4.30-5.70); RED CELL DISTRIBUTION WIDTH 14.5 % (11.5-14.5)
--- NOTE | 2018-08-19 11:24 | RAD ---
Portable chest, 08/19/2018: HISTORY: Fever Comparison is made to a study from 02/26/2018. The heart appears to be within normal limits in size. There is mild patchy right basilar infiltrate. There is minimal linear atelectasis in the left base. There is no evidence of pleural fluid. Postsurgical changes are present in the lower cervical spine. IMPRESSION: 1. Mild right basilar atelectasis and/or pneumonitis. 2. Minimal discoid atelectasis in the left base. Electronically signed by: Andry Cornell MD (08/19/2018 11:21 AM) [facility]
[2018-08-19 11:26] LABS: PROTHROMBIN TIME PATIENT 12.7 SEC (11.7-14.0)
[2018-08-19 11:30] LABS: ANION GAP 11 (6-14); BLOOD UREA NITROGEN 35 mg/dL (8-26); BUN/CREATININE RATIO 14 (6-20); CALCIUM 8.7 mg/dL (8.5-10.1); CARBON DIOXIDE 28 mmol/L (21-32); CHLORIDE 102 mmol/L (98-107); CREATININE 2.5 mg/dL (0.7-1.3); GFR 31.4; GLUCOSE 181 mg/dL (70-99); SODIUM 141 mmol/L (136-145)
[2018-08-19 11:43] LABS: ALBUMIN 3.6 g/dL (3.4-5.0); ALBUMIN/GLOBULIN RATIO 0.8 (1.0-1.7); ALK PHOS 73 U/L (46-116); ALT (SGPT) 32 U/L (16-63); AST (SGOT) 39 U/L (15-37); CARBAM 11.2 mcg/mL (4.0-12.0); LIPASE 81 U/L (73-393); TOTAL BILIRUBIN 0.4 mg/dL (0.2-1.0); TOTAL PROTEIN 7.9 g/dL (6.4-8.2)
[2018-08-19] MEDS ORDERED: VANCOMYCIN 1GM IVPB FOR OMNI 250 ML IV ONE (11:45)
[2018-08-19] MEDS ORDERED: cefTRIAXone IV Push 1 GM VIAL. IVP ONE (11:45)
--- NOTE | 2018-08-19 11:51 | PDOC1 ---
History and Physical Date of Admission Date of Admission DATE: 08/19/18 TIME: 11:51 Past Medical History Cardiovascular: HTN Pulmonary: No pertinent hx CENTRAL NERVOUS SYSTEM: Periperal neuropathy, Seizure, Other GI: Peptic Ulcer disease Heme/Onc: No pertinent hx Hepatobiliary: No pertinent hx Psych: Schizophrenia Musculoskeletal: Other Rheumatologic: No pertinent hx Infectious disease: No pertinent hx Renal/: Other Endocrine: Diabetes Past Surgical History Past Surgical History: Other Family History Family History: Other Social History ALCOHOL: none Drugs: None Current Medications Current Medications Current Medications Lorazepam (Ativan Inj) 1 mg 1X ONCE IV Last administered on 08/19/18at 11:38; Start 08/19/18 at 11:00; Stop 08/19/18 at 11:01; Status DC Sodium Chloride 1,000 ml @ 100 mls/hr Q10H IV Last administered on 08/19/18at 11:22; Start 08/19/18 at 10:56; Stop 08/19/18 at 20:55 Ceftriaxone Sodium (Rocephin) 1 gm 1X ONCE IVP ; Start 08/19/18 at 11:45; Stop 08/19/18 at 11:46; Status DC Vancomycin HCl 250 ml @ 250 mls/hr 1X ONCE IV ; Start 08/19/18 at 11:45; Stop 08/19/18 at 12:44; Status UNV Vancomycin HCl 1.25 gm/Sodium Chloride 250 ml @ 166.667 mls/hr 1X ONCE IV ; Start 08/19/18 at 12:00; Stop 08/19/18 at 13:29 Active Scripts Active Tramadol Hcl 50 Mg Tablet 50 Mg PO Q6HRS PRN Cephalexin 500 Mg Tablet 1 Tab PO QID Bactrim Ds Tablet (Sulfamethoxazole/Trimethoprim) 1 Each Tablet 1 Tab PO BID Lactulose 20 Gm/30 Ml Solution 10 Gm PO DAILY PRN Finasteride 5 Mg Tablet 1 Tab PO DAILY Lyrica (Pregabalin) 150 Mg Capsule 1 Cap PO BID Flomax (Tamsulosin Hcl) 0.4 Mg Cap.er.24h 0.4 Mg PO BID 30 Days Triamcinolone Acetonide 0.1% Oint (Triamcinolone Acetonide) 15 Gm Oint...g. 1 Rogelio TP BID Actos (Pioglitazone Hcl) 15 Mg Tablet 45 Mg PO DAILY 28 Days Glucophage Xr (Metformin Hcl) 500 Mg Tab.er.24h 1,000 Mg PO DAILYWBKFT 30 Days Keppra (Levetiracetam) 500 Mg Tablet 500 Mg PO BID 30 Days Glipizide 5 Mg Tablet 5 Mg PO BIDBFRMEAL 30 Days Bisacodyl 5 Mg Tablet.dr 10 Mg PO PRN DAILY PRN 28 Days Quetiapine Fumarate 100 Mg Tablet 100 Mg PO QHS 30 Days Carvedilol (Carvedilol) 12.5 Mg Tablet 12.5 Mg PO BIDWMEALS 30 Days Baclofen 10 Mg Tablet 10 Mg PO TID 30 Days Reported Protonix (Pantoprazole Sodium) 20 Mg Tablet.dr 40 Mg PO DAILY Furosemide 20 Mg Tablet 1 Tab PO DAILY Levsin (Hyoscyamine Sulfate) 0.125 Mg Tablet 1 Tab PO Q4HRS Cephalexin 500 Mg Tablet 500 Mg PO BID Docusate Sodium 100 Mg Capsule 1 Cap PO DAILY Latanoprost 2.5 Ml Drops 1 Drop OU QHS Tegretol (Carbamazepine) 200 Mg Tablet 1 Tab PO BID Atorvastatin Calcium 10 Mg Tablet 10 Mg PO Amlodipine Besylate 5 Mg Tablet 5 Mg PO Cymbalta (Duloxetine Hcl) 30 Mg Capsule.dr 60 Mg PO DAILY Lidoderm (Lidocaine) 700 Mg Adh..patch 1 Patch TP DAILY Allergies Allergies: Coded Allergies: No Known Drug Allergies (Unverified , 04/15/16) Vitals Vitals Vital Signs Date Time Temp Pulse Resp B/P (MAP) Pulse Ox O2 Delivery O2 Flow Rate FiO2 08/19/18 11:01 101.2 105 14 150/70 (96) 95 Nasal Cannula 2.0 101.2 Labs Labs Laboratory Tests Test 08/19/18 11:00 White Blood Count 6.0 x10^3/uL (4.0-11.0) Red Blood Count 3.63 x10^6/uL (4.30-5.70) Hemoglobin 11.6 g/dL (13.0-17.5) Hematocrit 34.5 % (39.0-53.0) Mean Corpuscular Volume 95 fL (79-100) Mean Corpuscular Hemoglobin 32 pg (25-35) Mean Corpuscular Hemoglobin Concent 34 g/dL (31-37) Red Cell Distribution Width 14.5 % (11.5-14.5) Platelet Count 114 x10^3/uL (140-400) Neutrophils (%) (Auto) 79 % (31-73) Lymphocytes (%) (Auto) 6 % (24-48) Monocytes (%) (Auto) 12 % (0-9) Eosinophils (%) (Auto) 3 % (0-3) Basophils (%) (Auto) 0 % (0-3) Neutrophils # (Auto) 4.8 x10^3uL (1.8-7.7) Lymphocytes # (Auto) 0.4 x10^3/uL (1.0-4.8) Monocytes # (Auto) 0.7 x10^3/uL (0.0-1.1) Eosinophils # (Auto) 0.2 x10^3/uL (0.0-0.7) Basophils # (Auto) 0.0 x10^3/uL (0.0-0.2) Sodium Level 141 mmol/L (136-145) Potassium Level 4.0 mmol/L (3.5-5.1) Chloride Level 102 mmol/L (98-107) Carbon Dioxide Level 28 mmol/L (21-32) Anion Gap 11 (6-14) Blood Urea Nitrogen 35 mg/dL (8-26) Creatinine 2.5 mg/dL (0.7-1.3) Estimated GFR (Cockcroft-Gault) 31.4 BUN/Creatinine Ratio 14 (6-20) Glucose Level 181 mg/dL (70-99) Lactic Acid Level 1.2 mmol/L (0.4-2.0) Calcium Level 8.7 mg/dL (8.5-10.1) Total Bilirubin 0.4 mg/dL (0.2-1.0) Aspartate Amino Transf (AST/SGOT) 39 U/L (15-37) Alanine Aminotransferase (ALT/SGPT) 32 U/L (16-63) Alkaline Phosphatase 73 U/L (46-116) Ammonia < 10 mcmol/L (11-34) Troponin I Quantitative < 0.017 ng/mL (0.000-0.055) Total Protein 7.9 g/dL (6.4-8.2) Albumin 3.6 g/dL (3.4-5.0) Albumin/Globulin Ratio 0.8 (1.0-1.7) Lipase 81 U/L (73-393) Carbamazepine (Tegretol) Level 11.2 mcg/mL (4.0-12.0) Carbamazepine Last Dose Date Unknown Carbamazepine Last Dose Time Unknown Laboratory Tests Test 08/19/18 11:00 White Blood Count 6.0 x10^3/uL (4.0-11.0) Red Blood Count 3.63 x10^6/uL (4.30-5.70) Hemoglobin 11.6 g/dL (13.0-17.5) Hematocrit 34.5 % (39.0-53.0) Mean Corpuscular Volume 95 fL (79-100) Mean Corpuscular Hemoglobin 32 pg (25-35) Mean Corpuscular Hemoglobin Concent 34 g/dL (31-37) Red Cell Distribution Width 14.5 % (11.5-14.5) Platelet Count 114 x10^3/uL (140-400) Neutrophils (%) (Auto) 79 % (31-73) Lymphocytes (%) (Auto) 6 % (24-48) Monocytes (%) (Auto) 12 % (0-9) Eosinophils (%) (Auto) 3 % (0-3) Basophils (%) (Auto) 0 % (0-3) Neutrophils # (Auto) 4.8 x10^3uL (1.8-7.7) Lymphocytes # (Auto) 0.4 x10^3/uL (1.0-4.8) Monocytes # (Auto) 0.7 x10^3/uL (0.0-1.1) Eosinophils # (Auto) 0.2 x10^3/uL (0.0-0.7) Basophils # (Auto) 0.0 x10^3/uL (0.0-0.2) Sodium Level 141 mmol/L (136-145) Potassium Level 4.0 mmol/L (3.5-5.1) Chloride Level 102 mmol/L (98-107) Carbon Dioxide Level 28 mmol/L (21-32) Anion Gap 11 (6-14) Blood Urea Nitrogen 35 mg/dL (8-26) Creatinine 2.5 mg/dL (0.7-1.3) Estimated GFR (Cockcroft-Gault) 31.4 BUN/Creatinine Ratio 14 (6-20) Glucose Level 181 mg/dL (70-99) Lactic Acid Level 1.2 mmol/L (0.4-2.0) Calcium Level 8.7 mg/dL (8.5-10.1) Total Bilirubin 0.4 mg/dL (0.2-1.0) Aspartate Amino Transf (AST/SGOT) 39 U/L (15-37) Alanine Aminotransferase (ALT/SGPT) 32 U/L (16-63) Alkaline Phosphatase 73 U/L (46-116) Ammonia < 10 mcmol/L (11-34) Troponin I Quantitative < 0.017 ng/mL (0.000-0.055) Total Protein 7.9 g/dL (6.4-8.2) Albumin 3.6 g/dL (3.4-5.0) Albumin/Globulin Ratio 0.8 (1.0-1.7) Lipase 81 U/L (73-393) Carbamazepine (Tegretol) Level 11.2 mcg/mL (4.0-12.0) Carbamazepine Last Dose Date Unknown Carbamazepine Last Dose Time Unknown VTE Prophylaxis Ordered VTE Prophylaxis Devices: No VTE Pharmacological Prophylaxi: Contraindicated TAYLOR LANDA MD August 19, 2018 11:51
[2018-08-19 11:57] LABS: BILIRUBIN,URINE SMALL (NEG); CLARITY,URINE CLEAR; COLOR,URINE AMBER; NITRITE,URINE NEGATIVE (NEG); PH,URINE 5.5; PROTEIN,URINE NEGATIVE (NEG-TRACE)
[2018-08-19 11:59] LABS: AMPHETAMINE/METHAMPHETAMINE NEG (NEG); BARBITURATES NEG (NEG); BENZODIAZEPINES NEG (NEG); CANNABINOIDS NEG (NEG); COCAINE NEG (NEG); METHADONE NEG (NEG); OPIATES NEG (NEG); PHENCYCLIDINE NEG (NEG)
[2018-08-19] MEDS ORDERED: VANCOMYCIN 1.25 GM in IV NORMAL SALINE 250ML 250 ML IV ONE (12:00)
[2018-08-19] MEDS ORDERED: IV NORMAL SALINE 1000ML BAG 1,000 ML IV ONE (12:00)
[2018-08-19 12:06] LABS: BACTERIA,URINE 0 /HPF (0-FEW); RBC,URINE 0 /HPF (0-2); SQUAMOUS EPITHELIAL CELL,UR FEW /LPF; WBC,URINE 0 /HPF (0-4)
--- NOTE | 2018-08-19 13:22 | EKG ---
[facility] [address] [place] [address] Test Date: 2018-08-19 Test Time: 10:58:29 Pat Name: ANAMARIA MAJANO Department: Room: Gender: M Buffer Inflated Pad: : 1950 Requested By: FRANCINE HAMM Order Number: [id number] Reading MD: Measurements Intervals [place] Rate: 101 P: 180 SD: 164 QRS: -8 QRSD: 94 T: 21 QT: 322 QTc: 418 Interpretive Statements SINUS TACHYCARDIA LEFTWARD AXIS QRS(T) CONTOUR ABNORMALITY CONSISTENT WITH ANTEROSEPTAL INFARCT AGE UNDETERMINED ABNORMAL ECG RI6.01 Unconfirmed report No previous ECG available for comparison
[2018-08-19] MEDS ORDERED: DEXTROSE 50% 25 GM / 50ML DISP.SYRIN. IV PRN (14:30)
[2018-08-19] MEDS ORDERED: BISACODYL 5 MG TABLET.DR. PO PRN (14:30)
--- NOTE | 2018-08-19 14:44 | NUR ---
Pharmacy Vancomycin Dosing Note S:Consulted to monitor and dose vancomycin started . O:ANAMARIA MAJANO is a 68 year old M with CELLULITIS Height: 5 feet, 4 inches Weight: 79.468218 kg [place] Body Weight: Adjusted Body Weight: Dosing Weight: Other Antibiotics: LABS: Last BUN: Last Creatinine: 2.5 Creatinine Clearance: 27ML/min Last WBC: 6.0 Last Procalcitonin: Tmax (past 24 hours): 101.2 Microbiology: I/O: Drug Levels: Last level: on at Last dose given at 08/19/18 1400 Vancomycin Dosing: Loading Dose: x1 Dosing Weight: 79 KG Target Trough: 15 A: Based on: WEIGHT AND RENAL FUNCTION, GIVE A TOTAL OF 2GM VANCOMYCIN BOLUS, THEN P: 1. Begin Vancomycin IV 1GM Q24H TOMORROW 2. Follow up level on 08/21 AT 1330 3. Pharmacy will continue to monitor, follow and adjust therapy as needed. ROSIO PEREZ [facility], 08/19/18 [id number]
[2018-08-19] MEDS ORDERED: ACETAMINOPHEN 500 MG TABLET PO PRN (14:45)
[2018-08-19] MEDS: VANCOMYCIN PER PHARMACY MC PRN (14:50)
[2018-08-19] MEDS ORDERED: VANCOMYCIN 750 MG in IV NORMAL SALINE 250ML 250 ML IV ONE (15:00)
[2018-08-19] MEDS: BACLOFEN 10 MG TABLET. PO SCH ×2 (15:30→20:43)
[2018-08-19] MEDS: PIPERACILLIN/TAZOBACTAM 3.375 GM in IV NORMAL SALINE 50ML 50 ML IV SCH ×3 (15:41→23:23)
--- NOTE | 2018-08-19 16:10 | PDOC2 ---
NEUROLOGY CONSULT Date of Admission Date of Admission DATE: 08/19/18 TIME: 15:59 Reason for Consult Reason for Consult: seizure Referring Physician Referring Physician: Dr. Riley Source Source: Chart review, Patient History of Present Illness History of Present Illness The patient is a 67-year-old right-handed male whom I follow in the office for diabetic polyneuropathy and epilepsy. I last saw him during his June hospital stay for breakthrough seizure. At that time his carbamazepine level was 11.7 and his levetiracetam level was 37.6. He was brought in by emergency medical servic es today for a seizure. He was postictal upon their arrival. He just had a left second digit abscess incised and drained 2 days ago. He was febrile and hypoxic in the emergency department.. He follows at the [facility] for schizophrenia and depression. Past Medical History Cardiovascular: HTN, Hyperlipidemia CENTRAL NERVOUS SYSTEM: Periperal neuropathy, Seizure, Other (Brain aneurysm, tardive dyskinesia) GI: Peptic Ulcer disease, Other (C diff) Psych: Depression, Schizophrenia Musculoskeletal: low back pain ENT: Other (glaucoma) Renal/: UTI, Other (kidney stone removal) Endocrine: Diabetes Past Surgical History Past Surgical History: Appendectomy, No pertinent history (craniotomy for brain aneurysm) Family History Family History: Other (negative for seizures) Social History Social History Lives with mother, no alcohol or tobacco, usually ambulates with a walker Current Medications Current Medications Current Medications Lorazepam (Ativan Inj) 1 mg 1X ONCE IV Last administered on 08/19/18at 11:38; Start 08/19/18 at 11:00; Stop 08/19/18 at 11:01; Status DC Sodium Chloride 1,000 ml @ 100 mls/hr Q10H IV Last administered on 08/19/18at 11:22; Start 08/19/18 at 10:56; Stop 08/19/18 at 20:55 Ceftriaxone Sodium (Rocephin) 1 gm 1X ONCE IVP Last administered on 08/19/18at 12:10; Start 08/19/18 at 11:45; Stop 08/19/18 at 11:46; Status DC Vancomycin HCl 250 ml @ 250 mls/hr 1X ONCE IV ; Start 08/19/18 at 11:45; Stop 08/19/18 at 12:44; Status UNV Vancomycin HCl 1.25 gm/Sodium Chloride 250 ml @ 166.667 mls/hr 1X ONCE IV Last administered on 08/19/18at 12:14; Start 08/19/18 at 12:00; Stop 08/19/18 at 13:29; Status DC Sodium Chloride 1,000 ml @ 1,000 mls/hr 1X ONCE IV Last administered on 08/19/18at 12:33; Start 08/19/18 at 12:00; Stop 08/19/18 at 12:59; Status DC Insulin Human Lispro (HumaLOG) 0-5 UNITS TIDWMEALS SQ ; Start 08/19/18 at 17:00 Dextrose (Dextrose 50%-Water Syringe) 12.5 gm PRN Q15MIN PRN IV SEE COMMENTS; Start 08/19/18 at 14:30 Piperacillin Sod/ Tazobactam Sod 3.375 gm/Sodium Chloride 50 ml @ 100 mls/hr Q6HRS IV Last administered on 08/19/18at 15:41; Start 08/19/18 at 14:30 Vancomycin HCl (Vanco Per Pharmacy) 1 each PRN DAILY PRN MC SEE COMMENTS Last administered on 08/19/18at 14:50; Start 08/19/18 at 14:30 Amlodipine Besylate (Norvasc) 5 mg DAILY PO ; Start 08/20/18 at 09:00 Atorvastatin Calcium (Lipitor) 10 mg HS PO ; Start 08/19/18 at 21:00 Baclofen (Lioresal) 10 mg TID PO ; Start 08/19/18 at 15:30 Bisacodyl (Dulcolax Tab) 10 mg PRN DAILY PRN PO CONSTIPATION; Start 08/19/18 at 14:30 Carbamazepine (TEGretol) 200 mg BID PO ; Start 08/19/18 at 21:00 Carvedilol (Coreg) 12.5 mg BIDWMEALS PO ; Start 08/19/18 at 17:00 Docusate Sodium (Colace) 100 mg DAILY PO ; Start 08/20/18 at 09:00 Duloxetine HCl (Cymbalta) 60 mg DAILY PO ; Start 08/20/18 at 09:00 Finasteride (Proscar) 5 mg DAILY PO ; Start 08/20/18 at 09:00 Glipizide (Glucotrol) 5 mg BIDBFRMEAL PO ; Start 08/19/18 at 16:30 Levetiracetam (Keppra) 500 mg BID PO ; Start 08/19/18 at 21:00 Tamsulosin HCl (Flomax) 0.4 mg BID PO ; Start 08/19/18 at 21:00 Latanoprost (Xalatan) 1 drop QHS OU ; Start 08/19/18 at 21:00 Pantoprazole Sodium (Protonix) 40 mg DAILYAC PO ; Start 08/20/18 at 07:30 Pioglitazone HCl (Actos) 45 mg DAILY PO ; Start 08/20/18 at 09:00 Pregabalin (Lyrica) 150 mg BID PO ; Start 08/19/18 at 21:00 Quetiapine Fumarate (SEROquel) 100 mg HS PO ; Start 08/19/18 at 21:00 Acetaminophen (Tylenol) 1,000 mg PRN Q6HRS PRN PO pain; Start 08/19/18 at 14:45 Vancomycin HCl 750 mg/Sodium Chloride 250 ml @ 250 mls/hr 1X ONCE IV Last administered on 08/19/18at 15:41; Start 08/19/18 at 15:00; Stop 08/19/18 at 15:59 Vancomycin HCl 1 gm/Sodium Chloride 250 ml @ 250 mls/hr Q24H IV ; Start 08/20/18 at 14:00 Vancomycin HCl (Vancomycin Trough Level) 1 each 1X ONCE MC ; Start 08/21/18 at 13:30; Stop 08/21/18 at 13:31 Active Scripts Active Tramadol Hcl 50 Mg Tablet 50 Mg PO Q6HRS PRN Cephalexin 500 Mg Tablet 1 Tab PO QID Bactrim Ds Tablet (Sulfamethoxazole/Trimethoprim) 1 Each Tablet 1 Tab PO BID Finasteride 5 Mg Tablet 1 Tab PO DAILY Lyrica (Pregabalin) 150 Mg Capsule 1 Cap PO BID Flomax (Tamsulosin Hcl) 0.4 Mg Cap.er.24h 0.4 Mg PO BID 30 Days Triamcinolone Acetonide 0.1% Oint (Triamcinolone Acetonide) 15 Gm Oint...g. 1 Rogelio TP BID Actos (Pioglitazone Hcl) 15 Mg Tablet 45 Mg PO DAILY 28 Days Glucophage Xr (Metformin Hcl) 500 Mg Tab.er.24h 1,000 Mg PO DAILYWBKFT 30 Days Keppra (Levetiracetam) 500 Mg Tablet 500 Mg PO BID 30 Days Glipizide 5 Mg Tablet 5 Mg PO BIDBFRMEAL 30 Days Bisacodyl 5 Mg Tablet.dr 10 Mg PO PRN DAILY PRN 28 Days Quetiapine Fumarate 100 Mg Tablet 100 Mg PO QHS 30 Days Carvedilol (Carvedilol) 12.5 Mg Tablet 12.5 Mg PO BIDWMEALS 30 Days Baclofen 10 Mg Tablet 10 Mg PO TID 30 Days Reported Protonix (Pantoprazole Sodium) 20 Mg Tablet.dr 40 Mg PO DAILY Furosemide 20 Mg Tablet 1 Tab PO DAILY Docusate Sodium 100 Mg Capsule 1 Cap PO DAILY Latanoprost 2.5 Ml Drops 1 Drop OU QHS Tegretol (Carbamazepine) 200 Mg Tablet 1 Tab PO BID Atorvastatin Calcium 10 Mg Tablet 10 Mg PO Amlodipine Besylate 5 Mg Tablet 5 Mg PO Cymbalta (Duloxetine Hcl) 30 Mg Capsule.dr 60 Mg PO DAILY Lidoderm (Lidocaine) 700 Mg Adh..patch 1 Patch TP DAILY Allergies Allergies: Coded Allergies: No Known Drug Allergies (Unverified , 04/15/16) ROS Review of System Negative for fever, chills, weight loss, shortness of breath, chest pain, indigestion, hematochezia, melena, and dysuria. Full 14-point review of systems is negative. Physical Exam Physical Examination General: Well-developed, well-nourished black male in no acute distress HEENT: Normocephalic andatraumatic. Tympanic membranes clear.Temporal arteriespulsatile and nontender.Fundoscopic exam unremarkable Neck: Supple without bruit, no meningismus Musculoskeletal: Stability:see neurologic. Gait exam:see neurologic. Tone:see neurologic.Strength:see neurologic. Neurological: Mental Status:orientation, memory, attention span/concentration, language, fund of knowledge: knows name of hospital, does not note date or the name of the president. Cranial Nerves:Pupils equal and reactive to light, extraocular movements areintact, visual garcia are full to confrontation. Facial sensation is normal. There is no facial asymmetry. Vestibulo-ocular reflex is intact. Pal ate elevates and tongue protrudes in midline. All other cranial related problems are negative except as mentioned before.Reflexes:0-1+ and symmetric with flexor plantar responses. Motor:5/5 strength with normal tone and bulk, left 3rd digit chronically inflection contracture. Coordination:Finger-nose finger and [id number] testing are normal. Rapid alternating movements and fine finger movements are intact. Gait: not tested. Sensory: stocking loss. Vitals VITALS Vital Signs Date Time Temp Pulse Resp B/P (MAP) Pulse Ox O2 Delivery O2 Flow Rate FiO2 08/19/18 13:09 90 98 08/19/18 11:01 101.2 14 150/70 (96) Nasal Cannula 2.0 101.2 Labs Labs Laboratory Tests Test 08/19/18 11:00 08/19/18 11:35 08/19/18 11:40 White Blood Count 6.0 x10^3/uL (4.0-11.0) Red Blood Count 3.63 x10^6/uL (4.30-5.70) Hemoglobin 11.6 g/dL (13.0-17.5) Hematocrit 34.5 % (39.0-53.0) Mean Corpuscular Volume 95 fL (79-100) Mean Corpuscular Hemoglobin 32 pg (25-35) Mean Corpuscular Hemoglobin Concent 34 g/dL (31-37) Red Cell Distribution Width 14.5 % (11.5-14.5) Platelet Count 114 x10^3/uL (140-400) Neutrophils (%) (Auto) 79 % (31-73) Lymphocytes (%) (Auto) 6 % (24-48) Monocytes (%) (Auto) 12 % (0-9) Eosinophils (%) (Auto) 3 % (0-3) Basophils (%) (Auto) 0 % (0-3) Neutrophils # (Auto) 4.8 x10^3uL (1.8-7.7) Lymphocytes # (Auto) 0.4 x10^3/uL (1.0-4.8) Monocytes # (Auto) 0.7 x10^3/uL (0.0-1.1) Eosinophils # (Auto) 0.2 x10^3/uL (0.0-0.7) Basophils # (Auto) 0.0 x10^3/uL (0.0-0.2) Prothrombin Time 12.7 SEC (11.7-14.0) Prothromb Time International Ratio 1.0 (0.8-1.1) Sodium Level 141 mmol/L (136-145) Potassium Level 4.0 mmol/L (3.5-5.1) Chloride Level 102 mmol/L (98-107) Carbon Dioxide Level 28 mmol/L (21-32) Anion Gap 11 (6-14) Blood Urea Nitrogen 35 mg/dL (8-26) Creatinine 2.5 mg/dL (0.7-1.3) Estimated GFR (Cockcroft-Gault) 31.4 BUN/Creatinine Ratio 14 (6-20) Glucose Level 181 mg/dL (70-99) Lactic Acid Level 1.2 mmol/L (0.4-2.0) Calcium Level 8.7 mg/dL (8.5-10.1) Total Bilirubin 0.4 mg/dL (0.2-1.0) Aspartate Amino Transf (AST/SGOT) 39 U/L (15-37) Alanine Aminotransferase (ALT/SGPT) 32 U/L (16-63) Alkaline Phosphatase 73 U/L (46-116) Ammonia < 10 mcmol/L (11-34) Troponin I Quantitative < 0.017 ng/mL (0.000-0.055) Total Protein 7.9 g/dL (6.4-8.2) Albumin 3.6 g/dL (3.4-5.0) Albumin/Globulin Ratio 0.8 (1.0-1.7) Lipase 81 U/L (73-393) Carbamazepine (Tegretol) Level 11.2 mcg/mL (4.0-12.0) Carbamazepine Last Dose Date Unknown Carbamazepine Last Dose Time Unknown Urine Collection Type Unknown Urine Color Negrita Urine Clarity Clear Urine pH 5.5 Urine Specific [place] 1.020 Urine Protein Negative mg/dL (NEG-TRACE) Urine Glucose (UA) Negative mg/dL (NEG) Urine Ketones (Stick) Negative mg/dL (NEG) Urine Blood Negative (NEG) Urine Nitrite Negative (NEG) Urine Bilirubin Small (NEG) Urine Urobilinogen Dipstick 1.0 mg/dL (0.2 mg/dL) Urine Leukocyte Esterase Negative (NEG) Urine RBC 0 /HPF (0-2) Urine WBC 0 /HPF (0-4) Urine Squamous Epithelial Cells Few /LPF Urine Bacteria 0 /HPF (0-FEW) Urine Opiates Screen Neg (NEG) Urine Methadone Screen Neg (NEG) Urine Barbiturates Neg (NEG) Urine Phencyclidine Screen Neg (NEG) Urine Amphetamine/Methamphetamine Neg (NEG) Urine Benzodiazepines Screen Neg (NEG) Urine Cocaine Screen Neg (NEG) Urine Cannabinoids Screen Neg (NEG) Urine Ethyl Alcohol Neg (NEG) Laboratory Tests Test 08/19/18 11:00 08/19/18 11:35 08/19/18 11:40 White Blood Count 6.0 x10^3/uL (4.0-11.0) Red Blood Count 3.63 x10^6/uL (4.30-5.70) Hemoglobin 11.6 g/dL (13.0-17.5) Hematocrit 34.5 % (39.0-53.0) Mean Corpuscular Volume 95 fL (79-100) Mean Corpuscular Hemoglobin 32 pg (25-35) Mean Corpuscular Hemoglobin Concent 34 g/dL (31-37) Red Cell Distribution Width 14.5 % (11.5-14.5) Platelet Count 114 x10^3/uL (140-400) Neutrophils (%) (Auto) 79 % (31-73) Lymphocytes (%) (Auto) 6 % (24-48) Monocytes (%) (Auto) 12 % (0-9) Eosinophils (%) (Auto) 3 % (0-3) Basophils (%) (Auto) 0 % (0-3) Neutrophils # (Auto) 4.8 x10^3uL (1.8-7.7) Lymphocytes # (Auto) 0.4 x10^3/uL (1.0-4.8) Monocytes # (Auto) 0.7 x10^3/uL (0.0-1.1) Eosinophils # (Auto) 0.2 x10^3/uL (0.0-0.7) Basophils # (Auto) 0.0 x10^3/uL (0.0-0.2) Prothrombin Time 12.7 SEC (11.7-14.0) Prothromb Time International Ratio 1.0 (0.8-1.1) Sodium Level 141 mmol/L (136-145) Potassium Level 4.0 mmol/L (3.5-5.1) Chloride Level 102 mmol/L (98-107) Carbon Dioxide Level 28 mmol/L (21-32) Anion Gap 11 (6-14) Blood Urea Nitrogen 35 mg/dL (8-26) Creatinine 2.5 mg/dL (0.7-1.3) Estimated GFR (Cockcroft-Gault) 31.4 BUN/Creatinine Ratio 14 (6-20) Glucose Level 181 mg/dL (70-99) Lactic Acid Level 1.2 mmol/L (0.4-2.0) Calcium Level 8.7 mg/dL (8.5-10.1) Total Bilirubin 0.4 mg/dL (0.2-1.0) Aspartate Amino Transf (AST/SGOT) 39 U/L (15-37) Alanine Aminotransferase (ALT/SGPT) 32 U/L (16-63) Alkaline Phosphatase 73 U/L (46-116) Ammonia < 10 mcmol/L (11-34) Troponin I Quantitative < 0.017 ng/mL (0.000-0.055) Total Protein 7.9 g/dL (6.4-8.2) Albumin 3.6 g/dL (3.4-5.0) Albumin/Globulin Ratio 0.8 (1.0-1.7) Lipase 81 U/L (73-393) Carbamazepine (Tegretol) Level 11.2 mcg/mL (4.0-12.0) Carbamazepine Last Dose Date Unknown Carbamazepine Last Dose Time Unknown Urine Collection Type Unknown Urine Color Negrita Urine Clarity Clear Urine pH 5.5 Urine Specific [place] 1.020 Urine Protein Negative mg/dL (NEG-TRACE) Urine Glucose (UA) Negative mg/dL (NEG) Urine Ketones (Stick) Negative mg/dL (NEG) Urine Blood Negative (NEG) Urine Nitrite Negative (NEG) Urine Bilirubin Small (NEG) Urine Urobilinogen Dipstick 1.0 mg/dL (0.2 mg/dL) Urine Leukocyte Esterase Negative (NEG) Urine RBC 0 /HPF (0-2) Urine WBC 0 /HPF (0-4) Urine Squamous Epithelial Cells Few /LPF Urine Bacteria 0 /HPF (0-FEW) Urine Opiates Screen Neg (NEG) Urine Methadone Screen Neg (NEG) Urine Barbiturates Neg (NEG) Urine Phencyclidine Screen Neg (NEG) Urine Amphetamine/Methamphetamine Neg (NEG) Urine Benzodiazepines Screen Neg (NEG) Urine Cocaine Screen Neg (NEG) Urine Cannabinoids Screen Neg (NEG) Urine Ethyl Alcohol Neg (NEG) Assessment/Plan Assessment/Plan Impression: Epilepsy, breakthrough seizure. He is on 3 anticonvulsants including the pregabalin, plus the levetiracetam and carbamazepine. Levels were therapeutic when he was admitted 2 months ago Schizophrenia and depression Diabetic polyneuropathy Tardive dyskinesia, controlled Recommendations: Continue current anticonvulsant doses He does not need additional neurological studies. Observe overnight. Treatment of abscess, fever, per primary service. Also, nurse notes a lesion on the penis which I defer to primary service. Thank you for letting me help with the patient's care. BEN TAM MD August 19, 2018 16:10
[2018-08-19] MEDS: INSULIN LISPRO 300 UNITS/3 ML INSULN.PEN. SQ SCH (17:00)
[2018-08-19] MEDS: glipiZIDE 5 MG TABLET PO SCH (17:50)
[2018-08-19] MEDS: CARVEDILOL 12.5 MG TABLET. PO SCH (17:51)
[2018-08-19 19:00] VITALS: BP 126/70
[2018-08-19] MEDS: LATANOPROST 0.005% OPHTH SOLUTION 2.5ML BOTTLE. OU SCH (20:42)
[2018-08-19] MEDS: levETIRAcetam 500 MG TABLET PO SCH (20:43)
[2018-08-19] MEDS: TAMSULOSIN 0.4 MG CAP.ER.24H. PO SCH (20:43)
[2018-08-19] MEDS: QUEtiapine 100 MG TABLET. PO SCH (20:43)
[2018-08-19] MEDS: PREGABALIN 75 MG CAPSULE PO SCH (20:43)
[2018-08-19] MEDS: ATORVASTATIN CALCIUM 10 MG TABLET. PO SCH (20:43)
[2018-08-19] MEDS: carBAMazepine 200 MG TABLET PO SCH (20:43)
[2018-08-19 23:00] VITALS: BP 140/88
[2018-08-20 03:00] VITALS: BP 121/69
--- NOTE | 2018-08-20 03:10 | NUR ---
Care taken over from MIRANDA Sidhu
[2018-08-20] MEDS: PIPERACILLIN/TAZOBACTAM 3.375 GM in IV NORMAL SALINE 50ML 50 ML IV SCH ×3 (05:55→17:30)
[2018-08-20 07:00] VITALS: BP 145/72
[2018-08-20] MEDS: glipiZIDE 5 MG TABLET PO SCH (07:30)
[2018-08-20] MEDS: INSULIN LISPRO 300 UNITS/3 ML INSULN.PEN. SQ SCH ×3 (08:00→17:32)
[2018-08-20] MEDS: PIOGLITAZONE 15 MG TABLET. PO SCH (08:08)
[2018-08-20] MEDS ORDERED: IV NORMAL SALINE 1000ML BAG 1,000 ML IV SCH (08:45)
[2018-08-20 08:49] LABS: HEMATOCRIT 33.8 % (39.0-53.0); HEMOGLOBIN 11.3 g/dL (13.0-17.5); RED BLOOD COUNT 3.51 x10^6/uL (4.30-5.70); RED CELL DISTRIBUTION WIDTH 14.8 % (11.5-14.5); WHITE BLOOD COUNT 8.8 x10^3/uL (4.0-11.0)
--- NOTE | 2018-08-20 08:50 | PDOC ---
PROGRESS NOTES Subjective Subjective Patient denies pain or SOA. Objective Objective Vital Signs Date Time Temp Pulse Resp B/P (MAP) Pulse Ox O2 Delivery O2 Flow Rate FiO2 08/20/18 03:00 98.4 72 16 121/69 (86) 97 98.4 08/19/18 19:10 Nasal Cannula 2.0 Intake and Output 08/20/18 07:00 Intake Total 590 ml Output Total 950 ml Balance -360 ml Intake Oral 540 ml IV Total 50 ml Output Urine Total 950 ml Physical Exam Abdomen: Normal bowel sounds, Soft, No tenderness, Other (glans penis with eroded skin, no ulcer seen ) Heart: Regular rate Extremities: No edema General: Alert (appears mildly sleepy but appropriate), No acute distress Lungs: Clear to auscultation Skin: Other (Left index finger with shallow open area and scant exudate, no erythema or induration) Assessment Assessment Problems Medical Problems: (1) Acute renal failure Status: Acute (2) Cellulitis of left hand Status: Acute Plan Plan of Care 1. Seizure disorder - has been stable overnight, continue his usual meds per Neurology. 2. acute renal failure - lab from this AM pending, continue IVF and encourage po fluids. Has fairly normal renal function at baseline. 3. Cellulitis of finger with possible sepsis - patient was febrile at admission, afebrile since. Blood cultures pending. Infection on finger not significantly worse than when seen in clinic day before this admission. Continue broad- spectrum antibiotics and wound care. 4. wound to penis - start Diflucan for possible fungal component. Urology consult pending. 5. hx of urinary retention - patient had bladder interstim placed by Urology earlier this month and he reports he has been urinating well since then. Had to have Garcia for several weeks prior to that. Continuing his usual meds for now. 6. DM2 - glucose low this AM, not eating as much as usual. Metformin already on hold due to renal failure, will hold Glipizide also and follow FSBG. 7. HTN - continue home meds. 8. schizophrenia - stable, continue his usual meds for this from Psychiatry. Comment Review of Relevant I have reviewed the following items jacob (where applicable) has been applied. Labs Laboratory Tests Test 08/19/18 11:00 08/19/18 11:35 08/19/18 11:40 08/19/18 16:41 White Blood Count 6.0 x10^3/uL (4.0-11.0) Red Blood Count 3.63 x10^6/uL (4.30-5.70) Hemoglobin 11.6 g/dL (13.0-17.5) Hematocrit 34.5 % (39.0-53.0) Mean Corpuscular Volume 95 fL (79-100) Mean Corpuscular Hemoglobin 32 pg (25-35) Mean Corpuscular Hemoglobin Concent 34 g/dL (31-37) Red Cell Distribution Width 14.5 % (11.5-14.5) Platelet Count 114 x10^3/uL (140-400) Neutrophils (%) (Auto) 79 % (31-73) Lymphocytes (%) (Auto) 6 % (24-48) Monocytes (%) (Auto) 12 % (0-9) Eosinophils (%) (Auto) 3 % (0-3) Basophils (%) (Auto) 0 % (0-3) Neutrophils # (Auto) 4.8 x10^3uL (1.8-7.7) Lymphocytes # (Auto) 0.4 x10^3/uL (1.0-4.8) Monocytes # (Auto) 0.7 x10^3/uL (0.0-1.1) Eosinophils # (Auto) 0.2 x10^3/uL (0.0-0.7) Basophils # (Auto) 0.0 x10^3/uL (0.0-0.2) Prothrombin Time 12.7 SEC (11.7-14.0) Prothromb Time International Ratio 1.0 (0.8-1.1) Sodium Level 141 mmol/L (136-145) Potassium Level 4.0 mmol/L (3.5-5.1) Chloride Level 102 mmol/L (98-107) Carbon Dioxide Level 28 mmol/L (21-32) Anion Gap 11 (6-14) Blood Urea Nitrogen 35 mg/dL (8-26) Creatinine 2.5 mg/dL (0.7-1.3) Estimated GFR (Cockcroft-Gault) 31.4 BUN/Creatinine Ratio 14 (6-20) Glucose Level 181 mg/dL (70-99) Lactic Acid Level 1.2 mmol/L (0.4-2.0) Calcium Level 8.7 mg/dL (8.5-10.1) Total Bilirubin 0.4 mg/dL (0.2-1.0) Aspartate Amino Transf (AST/SGOT) 39 U/L (15-37) Alanine Aminotransferase (ALT/SGPT) 32 U/L (16-63) Alkaline Phosphatase 73 U/L (46-116) Ammonia < 10 mcmol/L (11-34) Troponin I Quantitative < 0.017 ng/mL (0.000-0.055) Total Protein 7.9 g/dL (6.4-8.2) Albumin 3.6 g/dL (3.4-5.0) Albumin/Globulin Ratio 0.8 (1.0-1.7) Lipase 81 U/L (73-393) Carbamazepine (Tegretol) Level 11.2 mcg/mL (4.0-12.0) Carbamazepine Last Dose Date Unknown Carbamazepine Last Dose Time Unknown Urine Collection Type Unknown Urine Color Negrita Urine Clarity Clear Urine pH 5.5 Urine Specific [place] 1.020 Urine Protein Negative mg/dL (NEG-TRACE) Urine Glucose (UA) Negative mg/dL (NEG) Urine Ketones (Stick) Negative mg/dL (NEG) Urine Blood Negative (NEG) Urine Nitrite Negative (NEG) Urine Bilirubin Small (NEG) Urine Urobilinogen Dipstick 1.0 mg/dL (0.2 mg/dL) Urine Leukocyte Esterase Negative (NEG) Urine RBC 0 /HPF (0-2) Urine WBC 0 /HPF (0-4) Urine Squamous Epithelial Cells Few /LPF Urine Bacteria 0 /HPF (0-FEW) Urine Opiates Screen Neg (NEG) Urine Methadone Screen Neg (NEG) Urine Barbiturates Neg (NEG) Urine Phencyclidine Screen Neg (NEG) Urine Amphetamine/Methamphetamine Neg (NEG) Urine Benzodiazepines Screen Neg (NEG) Urine Cocaine Screen Neg (NEG) Urine Cannabinoids Screen Neg (NEG) Urine Ethyl Alcohol Neg (NEG) Glucose (Fingerstick) 155 mg/dL (70-99) Test 08/19/18 21:15 08/20/18 07:38 08/20/18 08:19 Glucose (Fingerstick) 140 mg/dL (70-99) 36 mg/dL (70-99) 159 mg/dL (70-99) Laboratory Tests Test 08/19/18 11:00 08/19/18 11:35 08/19/18 11:40 08/19/18 16:41 White Blood Count 6.0 x10^3/uL (4.0-11.0) Red Blood Count 3.63 x10^6/uL (4.30-5.70) Hemoglobin 11.6 g/dL (13.0-17.5) Hematocrit 34.5 % (39.0-53.0) Mean Corpuscular Volume 95 fL (79-100) Mean Corpuscular Hemoglobin 32 pg (25-35) Mean Corpuscular Hemoglobin Concent 34 g/dL (31-37) Red Cell Distribution Width 14.5 % (11.5-14.5) Platelet Count 114 x10^3/uL (140-400) Neutrophils (%) (Auto) 79 % (31-73) Lymphocytes (%) (Auto) 6 % (24-48) Monocytes (%) (Auto) 12 % (0-9) Eosinophils (%) (Auto) 3 % (0-3) Basophils (%) (Auto) 0 % (0-3) Neutrophils # (Auto) 4.8 x10^3uL (1.8-7.7) Lymphocytes # (Auto) 0.4 x10^3/uL (1.0-4.8) Monocytes # (Auto) 0.7 x10^3/uL (0.0-1.1) Eosinophils # (Auto) 0.2 x10^3/uL (0.0-0.7) Basophils # (Auto) 0.0 x10^3/uL (0.0-0.2) Prothrombin Time 12.7 SEC (11.7-14.0) Prothromb Time International Ratio 1.0 (0.8-1.1) Sodium Level 141 mmol/L (136-145) Potassium Level 4.0 mmol/L (3.5-5.1) Chloride Level 102 mmol/L (98-107) Carbon Dioxide Level 28 mmol/L (21-32) Anion Gap 11 (6-14) Blood Urea Nitrogen 35 mg/dL (8-26) Creatinine 2.5 mg/dL (0.7-1.3) Estimated GFR (Cockcroft-Gault) 31.4 BUN/Creatinine Ratio 14 (6-20) Glucose Level 181 mg/dL (70-99) Lactic Acid Level 1.2 mmol/L (0.4-2.0) Calcium Level 8.7 mg/dL (8.5-10.1) Total Bilirubin 0.4 mg/dL (0.2-1.0) Aspartate Amino Transf (AST/SGOT) 39 U/L (15-37) Alanine Aminotransferase (ALT/SGPT) 32 U/L (16-63) Alkaline Phosphatase 73 U/L (46-116) Ammonia < 10 mcmol/L (11-34) Troponin I Quantitative < 0.017 ng/mL (0.000-0.055) Total Protein 7.9 g/dL (6.4-8.2) Albumin 3.6 g/dL (3.4-5.0) Albumin/Globulin Ratio 0.8 (1.0-1.7) Lipase 81 U/L (73-393) Carbamazepine (Tegretol) Level 11.2 mcg/mL (4.0-12.0) Carbamazepine Last Dose Date Unknown Carbamazepine Last Dose Time Unknown Urine Collection Type Unknown Urine Color Negrita Urine Clarity Clear Urine pH 5.5 Urine Specific [place] 1.020 Urine Protein Negative mg/dL (NEG-TRACE) Urine Glucose (UA) Negative mg/dL (NEG) Urine Ketones (Stick) Negative mg/dL (NEG) Urine Blood Negative (NEG) Urine Nitrite Negative (NEG) Urine Bilirubin Small (NEG) Urine Urobilinogen Dipstick 1.0 mg/dL (0.2 mg/dL) Urine Leukocyte Esterase Negative (NEG) Urine RBC 0 /HPF (0-2) Urine WBC 0 /HPF (0-4) Urine Squamous Epithelial Cells Few /LPF Urine Bacteria 0 /HPF (0-FEW) Urine Opiates Screen Neg (NEG) Urine Methadone Screen Neg (NEG) Urine Barbiturates Neg (NEG) Urine Phencyclidine Screen Neg (NEG) Urine Amphetamine/Methamphetamine Neg (NEG) Urine Benzodiazepines Screen Neg (NEG) Urine Cocaine Screen Neg (NEG) Urine Cannabinoids Screen Neg (NEG) Urine Ethyl Alcohol Neg (NEG) Glucose (Fingerstick) 155 mg/dL (70-99) Test 08/19/18 21:15 08/20/18 07:38 08/20/18 08:19 Glucose (Fingerstick) 140 mg/dL (70-99) 36 mg/dL (70-99) 159 mg/dL (70-99) Medications Current Medications Lorazepam (Ativan Inj) 1 mg 1X ONCE IV Last administered on 08/19/18at 11:38; Start 08/19/18 at 11:00; Stop 08/19/18 at 11:01; Status DC Sodium Chloride 1,000 ml @ 100 mls/hr Q10H IV Last administered on 08/19/18at 11:22; Start 08/19/18 at 10:56; Stop 08/19/18 at 20:55; Status DC Ceftriaxone Sodium (Rocephin) 1 gm 1X ONCE IVP Last administered on 08/19/18at 12:10; Start 08/19/18 at 11:45; Stop 08/19/18 at 11:46; Status DC Vancomycin HCl 250 ml @ 250 mls/hr 1X ONCE IV ; Start 08/19/18 at 11:45; Stop 08/19/18 at 12:44; Status UNV Vancomycin HCl 1.25 gm/Sodium Chloride 250 ml @ 166.667 mls/hr 1X ONCE IV Last administered on 08/19/18at 12:14; Start 08/19/18 at 12:00; Stop 08/19/18 at 13:29; Status DC Sodium Chloride 1,000 ml @ 1,000 mls/hr 1X ONCE IV Last administered on 08/19/18at 12:33; Start 08/19/18 at 12:00; Stop 08/19/18 at 12:59; Status DC Insulin Human Lispro (HumaLOG) 0-5 UNITS TIDWMEALS SQ ; Start 08/19/18 at 17:00 Dextrose (Dextrose 50%-Water Syringe) 12.5 gm PRN Q15MIN PRN IV SEE COMMENTS Last administered on 08/20/18at 08:00; Start 08/19/18 at 14:30 Piperacillin Sod/ Tazobactam Sod 3.375 gm/Sodium Chloride 50 ml @ 100 mls/hr Q6HRS IV Last administered on 08/20/18at 05:55; Start 08/19/18 at 14:30 Vancomycin HCl (Vanco Per Pharmacy) 1 each PRN DAILY PRN MC SEE COMMENTS Last administered on 08/19/18at 14:50; Start 08/19/18 at 14:30 Amlodipine Besylate (Norvasc) 5 mg DAILY PO ; Start 08/20/18 at 09:00 Atorvastatin Calcium (Lipitor) 10 mg HS PO Last administered on 08/19/18 20:43; Start 08/19/18 at 21:00 Baclofen (Lioresal) 10 mg TID PO Last administered on 08/19/18 20:43; Start 08/19/18 at 15:30 Bisacodyl (Dulcolax Tab) 10 mg PRN DAILY PRN PO CONSTIPATION; Start 08/19/18 at 14:30 Carbamazepine (TEGretol) 200 mg BID PO Last administered on 08/19/18 20:43; Start 08/19/18 at 21:00 Carvedilol (Coreg) 12.5 mg BIDWMEALS PO Last administered on 08/19/18 17:51; Start 08/19/18 at 17:00 Docusate Sodium (Colace) 100 mg DAILY PO ; Start 08/20/18 at 09:00 Duloxetine HCl (Cymbalta) 60 mg DAILY PO ; Start 08/20/18 at 09:00 Finasteride (Proscar) 5 mg DAILY PO ; Start 08/20/18 at 09:00 Glipizide (Glucotrol) 5 mg BIDBFRMEAL PO Last administered on 08/19/18at 17:50; Start 08/19/18 at 16:30 Levetiracetam (Keppra) 500 mg BID PO Last administered on 08/19/18 20:43; Start 08/19/18 at 21:00 Tamsulosin HCl (Flomax) 0.4 mg BID PO Last administered on 08/19/18 20:43; Start 08/19/18 at 21:00 Latanoprost (Xalatan) 1 drop QHS OU Last administered on 08/19/18 20:42; Start 08/19/18 at 21:00 Pantoprazole Sodium (Protonix) 40 mg DAILYAC PO ; Start 08/20/18 at 07:30 Pioglitazone HCl (Actos) 45 mg DAILY PO ; Start 08/20/18 at 09:00 Pregabalin (Lyrica) 150 mg BID PO Last administered on 08/19/18 20:43; Start 08/19/18 at 21:00 Quetiapine Fumarate (SEROquel) 100 mg HS PO Last administered on 08/19/18at 20:43; Start 08/19/18 at 21:00 Acetaminophen (Tylenol) 1,000 mg PRN Q6HRS PRN PO pain; Start 08/19/18 at 14:45 Vancomycin HCl 750 mg/Sodium Chloride 250 ml @ 250 mls/hr 1X ONCE IV Last administered on 08/19/18at 15:41; Start 08/19/18 at 15:00; Stop 08/19/18 at 15:59; Status DC Vancomycin HCl 1 gm/Sodium Chloride 250 ml @ 250 mls/hr Q24H IV ; Start 08/20/18 at 14:00 Vancomycin HCl (Vancomycin Trough Level) 1 each 1X ONCE MC ; Start 08/21/18 at 13:30; Stop 08/21/18 at 13:31 Sodium Chloride 1,000 ml @ 100 mls/hr Q10H IV ; Start 08/20/18 at 08:45; Status UNV Fluconazole (Diflucan) 100 mg DAILY PO ; Start 08/20/18 at 09:00; Status UNV Active Scripts Active Tramadol Hcl 50 Mg Tablet 50 Mg PO Q6HRS PRN Cephalexin 500 Mg Tablet 1 Tab PO QID Bactrim Ds Tablet (Sulfamethoxazole/Trimethoprim) 1 Each Tablet 1 Tab PO BID Finasteride 5 Mg Tablet 1 Tab PO DAILY Lyrica (Pregabalin) 150 Mg Capsule 1 Cap PO BID Flomax (Tamsulosin Hcl) 0.4 Mg Cap.er.24h 0.4 Mg PO BID 30 Days Triamcinolone Acetonide 0.1% Oint (Triamcinolone Acetonide) 15 Gm Oint...g. 1 Rogelio TP BID Actos (Pioglitazone Hcl) 15 Mg Tablet 45 Mg PO DAILY 28 Days Glucophage Xr (Metformin Hcl) 500 Mg Tab.er.24h 1,000 Mg PO DAILYWBKFT 30 Days Keppra (Levetiracetam) 500 Mg Tablet 500 Mg PO BID 30 Days Glipizide 5 Mg Tablet 5 Mg PO BIDBFRMEAL 30 Days Bisacodyl 5 Mg Tablet.dr 10 Mg PO PRN DAILY PRN 28 Days Quetiapine Fumarate 100 Mg Tablet 100 Mg PO QHS 30 Days Carvedilol (Carvedilol) 12.5 Mg Tablet 12.5 Mg PO BIDWMEALS 30 Days Baclofen 10 Mg Tablet 10 Mg PO TID 30 Days Reported Protonix (Pantoprazole Sodium) 20 Mg Tablet.dr 40 Mg PO DAILY Furosemide 20 Mg Tablet 1 Tab PO DAILY Docusate Sodium 100 Mg Capsule 1 Cap PO DAILY Latanoprost 2.5 Ml Drops 1 Drop OU QHS Tegretol (Carbamazepine) 200 Mg Tablet 1 Tab PO BID Atorvastatin Calcium 10 Mg Tablet 10 Mg PO Amlodipine Besylate 5 Mg Tablet 5 Mg PO Cymbalta (Duloxetine Hcl) 30 Mg Capsule.dr 60 Mg PO DAILY Lidoderm (Lidocaine) 700 Mg Adh..patch 1 Patch TP DAILY Vitals/I & O Vital Sign - Last 24 Hours 08/19/18 08/19/18 08/19/18 08/19/18 11:01 11:09 11:39 11:54 Temp 101.2 101.2 Pulse 105 100 102 96 Resp 14 B/P (MAP) 150/70 (96) Pulse Ox 95 96 96 98 O2 Delivery Nasal Cannula O2 Flow Rate 2.0 08/19/18 08/19/18 08/19/18 08/19/18 12:09 13:09 17:49 17:51 Pulse 96 90 88 B/P (MAP) 126/65 Pulse Ox 98 98 O2 Delivery Nasal Cannula O2 Flow Rate 2.0 08/19/18 08/19/18 08/19/18 08/20/18 19:00 19:10 23:00 03:00 Temp 97.5 98.2 98.4 97.5 98.2 98.4 Pulse 73 79 72 Resp 18 18 16 B/P (MAP) 126/70 (88) 140/88 (105) 121/69 (86) Pulse Ox 100 98 97 O2 Delivery Nasal Cannula O2 Flow Rate 2.0 Intake and Output 08/19/18 08/19/18 08/20/18 15:00 23:00 07:00 Intake Total 260 ml 330 ml Output Total 450 ml 500 ml Balance -190 ml -170 ml ERNESTO BUCK MD August 20, 2018 08:50
[2018-08-20] MEDS: FLUCONAZOLE 100 MG TABLET. PO SCH (08:56)
[2018-08-20] MEDS: PREGABALIN 75 MG CAPSULE PO SCH ×2 (08:56→20:45)
[2018-08-20] MEDS: carBAMazepine 200 MG TABLET PO SCH ×2 (08:56→20:44)
[2018-08-20] MEDS: BACLOFEN 10 MG TABLET. PO SCH ×3 (08:56→20:44)
[2018-08-20] MEDS: DOCUSATE SODIUM 100 MG CAPSULE. PO SCH (08:56)
[2018-08-20] MEDS: levETIRAcetam 500 MG TABLET PO SCH ×2 (08:56→20:44)
[2018-08-20] MEDS: TAMSULOSIN 0.4 MG CAP.ER.24H. PO SCH ×2 (08:57→20:44)
[2018-08-20] MEDS: amLODIPine BESYLATE 5 MG TABLET PO SCH (08:57)
[2018-08-20] MEDS: PANTOPRAZOLE 40 MG TABLET.DR. PO SCH (08:57)
[2018-08-20] MEDS: CARVEDILOL 12.5 MG TABLET. PO SCH ×2 (08:57→17:29)
[2018-08-20] MEDS: FINASTERIDE 5 MG TABLET. PO SCH (08:57)
[2018-08-20 09:07] LABS: CALCIUM 8.2 mg/dL (8.5-10.1); CREATININE 1.5 mg/dL (0.7-1.3); GFR 56.7; POTASSIUM 3.7 mmol/L (3.5-5.1)
[2018-08-20] MEDS: DULoxetine HCL 30 MG CAPSULE.DR PO SCH (09:23)
--- NOTE | 2018-08-20 09:37 | HP ---
ADMIT DATE: 08/19/2018 CHIEF COMPLAINT: Seizures. HISTORY OF PRESENT ILLNESS: The patient is a 68-year-old male with a known history of seizure disorder who was brought to the Emergency Room with the above complaint. He apparently had a witnessed seizure at his home and the paramedics were called. Initial evaluation in the Emergency Room showed him to be postictal. He was also found to be febrile with a temperature of 101.2. Lab showed acute renal failure with a creatinine of 2.5. Treatment was started, and he was admitted for further care. PAST MEDICAL HISTORY: Seizure disorder, diabetes mellitus type 2, schizophrenia, chronic urinary retention, peripheral neuropathy, previous gastric ulcer, cervical and lumbar degenerative disk disease and stenosis, glaucoma, hypertension, tardive dyskinesia. PAST SURGICAL HISTORY: Cholecystectomy, appendectomy, cervical fusion, lumbar laminectomy, craniotomy and brain aneurysm repair, coil embolization of 2 gastric artery, 11/07. TURP. InterStim placement at Urology in 2019. ALLERGIES: The patient has no known drug allergies. HOME MEDICATIONS: This list may not be accurate, amlodipine 5 mg daily, atorvastatin 10 mg daily, baclofen 10 mg t.i.d., Tegretol 200 mg b.i.d., carvedilol 12.5 mg b.i.d., Cymbalta 30 mg daily, finasteride 5 mg daily, furosemide 20 mg daily, glipizide 5 mg b.i.d. Latanoprost drops one drop both eyes at bedtime, Keppra 500 mg b.i.d., metformin XR 1000 mg daily, pantoprazole 40 mg daily, pioglitazone 45 mg daily, Lyrica 150 mg b.i.d., Seroquel 100 mg at bedtime, Flomax 0.4 mg daily. The patient had just been started on Keflex and Bactrim after being seen in the Emergency Room several days ago for cellulitis of his left index finger. FAMILY HISTORY: Noncontributory. SOCIAL HISTORY: The patient is single. He is disabled. He lives with a family member. He does not smoke cigarettes or drink alcohol. REVIEW OF SYSTEMS: The patient was not aware of a fever at home. He denies cough or shortness of breath. He denies chest pain or palpitations. He denies abdominal pain, nausea or vomiting. He denies dysuria. He reports that he has been able to urinate well since his InterStim placement earlier this month. He had a Garcia catheter, but this was removed when the InterStim was done. He denies pain in his penis. He also denies pain in his left index finger, but he does know that a sore is present there. PHYSICAL EXAMINATION: GENERAL: The patient is alert and oriented to person and place, but he does appear mildly sleepy and not quite at his baseline. HEENT: PERRL, EOMI, sclerae clear. Oropharynx: Mucous membranes moist. NECK: Supple, without lymphadenopathy. CHEST: Clear to auscultation without crackles or wheeze. CARDIOVASCULAR: Regular rhythm. ABDOMEN: Soft, nontender, normoactive bowel sounds are present. EXTREMITIES: Bilateral lower extremities are without edema. The left index finger shows a small shallow open area with scant exudate present. There is no erythema or induration. GENITOURINARY: The glans penis has eroded skin throughout. No ulcer seen. ASSESSMENT AND PLAN: 1. Seizure disorder. This has been stable overnight. He has been seen by Dr. Knowles who recommends continuing his usual anti-seizure medications. 2. Acute renal failure. The patient was on IV fluids overnight. Lab from this morning is pending. We will continue IV fluids and encourage p.o. fluids and follow his response to this. 3. Cellulitis of the finger with possible sepsis. The patient was febrile at admission and has been afebrile since. Blood cultures are pending. The infection on his finger does not appear significantly worse than when seen in our clinic on the day before this admission. We will continue broad-spectrum antibiotics and wound care. 4. Rash on the penis. We will start oral Diflucan for possible fungal component to this. A consult with Urology is pending. 5. History of urinary retention. This appears to have improved after placement of a bladder InterStim. We will continue his usual oral medications and monitor his urination. 6. Diabetes mellitus type 2. The patient's glucose is low this morning as he is not eating as much as is usual for him. His metformin is already on hold due to renal failure. We will also hold his glipizide and follow his fingersticks. 7. Hypertension. Continue home medication. 8. Schizophrenia. This is stable, continue his usual medications from Psychiatry. ERNESTO BUCK MD DR: Landen JOB#: [id number] / [id number] NEYDA
--- NOTE | 2018-08-20 09:40 | PDOC2 ---
ALVARADO BACON Rosalba RAG WASHER 08/20/18 0940: UROLOGY CONSULT Date of Consult Date of Consult DATE: 08/20/18 TIME: 09:31 Reason for Consult Reason for Consult: Penile lesion Identification/Chief Complaint Chief Complaint Penile lesion Source Source: Caregiver, Chart review History of Present Illness Reason for Visit: This pleasant 68 year old male was admitted through the ER for seizure, renal failure and cellulitis of the left hand. During the course of his h ospitalization, it was discovered that he had a penile lesion. He is a poor historian, but the RN reports that he has had this since he came in, that the entire head of his penis is red with some sloughing, but they have not noticed any significant odor or drainage from the wound.. There is also a slit on the top side of his penis and on the underside of his penis. Apparently all areas to include the slits have been cultured yesterday, and the results are not back yet on these cultures. Patient lives in assisted living and is not sexually active. During exam, patient insists that the wound is "not painful, and does not interfere with urination.." He is not sure when he first developed this and states "I didn't know it was there till they said something." Per RN he has been urinating well and patient denies LUTs or having a full bladder. Past Medical History Cardiovascular: HTN, Hyperlipidemia Pulmonary: No pertinent hx CENTRAL NERVOUS SYSTEM: Periperal neuropathy, Seizure, Other (Brain aneurysm, tardive dyskinesia) GI: Peptic Ulcer disease, Other (C diff) Heme/Onc: No pertinent hx Hepatobiliary: No pertinent hx Psych: Depression, Schizophrenia Musculoskeletal: low back pain Rheumatologic: No pertinent hx Infectious disease: No pertinent hx ENT: Other (glaucoma) Renal/: UTI, Other (kidney stone removal) Endocrine: Diabetes Past Surgical History Past Surgical History: Appendectomy, No pertinent history (craniotomy for brain aneurysm) Family History Family History: Other Social History ALCOHOL: none Drugs: None Lives: Alone Current Problem List Problems: (1) Penile lesion Current Medications Current Medications Current Medications Acetaminophen (Tylenol) 1,000 mg PRN Q6HRS PRN PO pain; Start 08/19/18 at 14:45 Amlodipine Besylate (Norvasc) 5 mg DAILY PO Last administered on 08/20/18at 08:57; Start 08/20/18 at 09:00 Atorvastatin Calcium (Lipitor) 10 mg HS PO Last administered on 08/19/18 20:43; Start 08/19/18 at 21:00 Baclofen (Lioresal) 10 mg TID PO Last administered on 08/20/18 08:56; Start 08/19/18 at 15:30 Bisacodyl (Dulcolax Tab) 10 mg PRN DAILY PRN PO CONSTIPATION; Start 08/19/18 at 14:30 Carbamazepine (TEGretol) 200 mg BID PO Last administered on 08/20/18 08:56; Start 08/19/18 at 21:00 Carvedilol (Coreg) 12.5 mg BIDWMEALS PO Last administered on 08/20/18 08:57; Start 08/19/18 at 17:00 Ceftriaxone Sodium (Rocephin) 1 gm 1X ONCE IVP Last administered on 08/19/18 12:10; Start 08/19/18 at 11:45; Stop 08/19/18 at 11:46; Status DC Dextrose (Dextrose 50%-Water Syringe) 12.5 gm PRN Q15MIN PRN IV SEE COMMENTS Last administered on 08/20/18 08:00; Start 08/19/18 at 14:30 Docusate Sodium (Colace) 100 mg DAILY PO Last administered on 08/20/18 08:56; Start 08/20/18 at 09:00 Duloxetine HCl (Cymbalta) 60 mg DAILY PO Last administered on 08/20/18 09:23; Start 08/20/18 at 09:00 Finasteride (Proscar) 5 mg DAILY PO Last administered on 08/20/18 08:57; Start 08/20/18 at 09:00 Fluconazole (Diflucan) 100 mg DAILY PO Last administered on 08/20/18 08:56; Start 08/20/18 at 09:00 Glipizide (Glucotrol) 5 mg BIDBFRMEAL PO Last administered on 08/19/18 17:50; Start 08/19/18 at 16:30; Stop 08/20/18 at 08:51; Status DC Insulin Human Lispro (HumaLOG) 0-5 UNITS TIDWMEALS SQ ; Start 08/19/18 at 17:00 Latanoprost (Xalatan) 1 drop QHS OU Last administered on 08/19/18at 20:42; Start 08/19/18 at 21:00 Levetiracetam (Keppra) 500 mg BID PO Last administered on 08/20/18 08:56; Start 08/19/18 at 21:00 Lorazepam (Ativan Inj) 1 mg 1X ONCE IV Last administered on 08/19/18at 11:38; Start 08/19/18 at 11:00; Stop 08/19/18 at 11:01; Status DC Pantoprazole Sodium (Protonix) 40 mg DAILYAC PO Last administered on 08/20/18 08:57; Start 08/20/18 at 07:30 Pioglitazone HCl (Actos) 45 mg DAILY PO ; Start 08/20/18 at 09:00 Piperacillin Sod/ Tazobactam Sod 3.375 gm/Sodium Chloride 50 ml @ 100 mls/hr Q6HRS IV Last administered on 08/20/18at 05:55; Start 08/19/18 at 14:30 Pregabalin (Lyrica) 150 mg BID PO Last administered on 08/20/18 08:56; Start 08/19/18 at 21:00 Quetiapine Fumarate (SEROquel) 100 mg HS PO Last administered on 08/19/18 20:43; Start 08/19/18 at 21:00 Sodium Chloride 1,000 ml @ 100 mls/hr Q10H IV Last administered on 08/19/18at 11:22; Start 08/19/18 at 10:56; Stop 08/19/18 at 20:55; Status DC Sodium Chloride 1,000 ml @ 100 mls/hr Q10H IV Last administered on 08/20/18 08:58; Start 08/20/18 at 08:45 Sodium Chloride 1,000 ml @ 1,000 mls/hr 1X ONCE IV Last administered on 08/19/18at 12:33; Start 08/19/18 at 12:00; Stop 08/19/18 at 12:59; Status DC Tamsulosin HCl (Flomax) 0.4 mg BID PO Last administered on 08/20/18 08:57; Start 08/19/18 at 21:00 Vancomycin HCl 250 ml @ 250 mls/hr 1X ONCE IV ; Start 08/19/18 at 11:45; Stop 08/19/18 at 12:44; Status UNV Vancomycin HCl (Vanco Per Pharmacy) 1 each PRN DAILY PRN MC SEE COMMENTS Last administered on 08/19/18at 14:50; Start 08/19/18 at 14:30 Vancomycin HCl (Vancomycin Trough Level) 1 each 1X ONCE MC ; Start 08/21/18 at 13:30; Stop 08/21/18 at 13:31 Vancomycin HCl 1.25 gm/Sodium Chloride 250 ml @ 166.667 mls/hr 1X ONCE IV Last administered on 08/19/18at 12:14; Start 08/19/18 at 12:00; Stop 08/19/18 at 13:29; Status DC Vancomycin HCl 750 mg/Sodium Chloride 250 ml @ 250 mls/hr 1X ONCE IV Last administered on 08/19/18at 15:41; Start 08/19/18 at 15:00; Stop 08/19/18 at 15:59; Status DC Vancomycin HCl 1 gm/Sodium Chloride 250 ml @ 250 mls/hr Q24H IV ; Start 08/20/18 at 14:00 Allergies Allergies: Coded Allergies: No Known Drug Allergies (Unverified , 04/15/16) ROS Review Of Systems: CONSTITUTIONAL: No fever or chills EYES: No recent changes SKIN: No rash or itching CARDIOVASCULAR: No chest pain, syncope, palpitations, or edema RESPIRATORY: No SOB or cough GASTROINTESTINAL: No nausea, vomiting or abdominal pain NEUROLOGICAL: No headaches or weakness ENDOCRINE: No cold or heat intolerance GENITOURINARY: No urgency or frequency of urination MUSCULOSKELETAL: No back pain or joint pain LYMPHATICS: No enlarged lymph nodes PSYCHIATRIC: No anxiety or depression Physical Exam Physical Exam: General: Pleasant, no acute distress, well groomed Eyes: conjunctiva anicteric, eyes full range of motion ENT: moist oral mucosa, normal dentition Neck: Trachea midline, no masses Respiratory: unlabored breathing, not using accessory muscles, Abdomen: nontender, nondistended, no hepatosplenomegaly, no masses : head of penis is red with some minor skin sloughing. A small 1 cm slit on the upper side of the coronal ridge and on the bottom side. No significant drainage or odor noted from any of the areas. Non tender on exam by [employer] Skin: Penile lesion, please see above. Psych: normal mood, affect. Some confusion but very pleasant and cooperative with staff. Vitals VITALS Vital Signs Date Time Temp Pulse Resp B/P (MAP) Pulse Ox O2 Delivery O2 Flow Rate FiO2 08/20/18 08:57 79 145/72 08/20/18 07:00 98.5 16 94 Room Air 98.5 08/19/18 19:10 2.0 Labs Labs Laboratory Tests Test 08/19/18 11:00 08/19/18 11:35 08/19/18 11:40 08/19/18 16:41 White Blood Count 6.0 x10^3/uL (4.0-11.0) Red Blood Count 3.63 x10^6/uL (4.30-5.70) Hemoglobin 11.6 g/dL (13.0-17.5) Hematocrit 34.5 % (39.0-53.0) Mean Corpuscular Volume 95 fL (79-100) Mean Corpuscular Hemoglobin 32 pg (25-35) Mean Corpuscular Hemoglobin Concent 34 g/dL (31-37) Red Cell Distribution Width 14.5 % (11.5-14.5) Platelet Count 114 x10^3/uL (140-400) Neutrophils (%) (Auto) 79 % (31-73) Lymphocytes (%) (Auto) 6 % (24-48) Monocytes (%) (Auto) 12 % (0-9) Eosinophils (%) (Auto) 3 % (0-3) Basophils (%) (Auto) 0 % (0-3) Neutrophils # (Auto) 4.8 x10^3uL (1.8-7.7) Lymphocytes # (Auto) 0.4 x10^3/uL (1.0-4.8) Monocytes # (Auto) 0.7 x10^3/uL (0.0-1.1) Eosinophils # (Auto) 0.2 x10^3/uL (0.0-0.7) Basophils # (Auto) 0.0 x10^3/uL (0.0-0.2) Prothrombin Time 12.7 SEC (11.7-14.0) Prothromb Time International Ratio 1.0 (0.8-1.1) Sodium Level 141 mmol/L (136-145) Potassium Level 4.0 mmol/L (3.5-5.1) Chloride Level 102 mmol/L (98-107) Carbon Dioxide Level 28 mmol/L (21-32) Anion Gap 11 (6-14) Blood Urea Nitrogen 35 mg/dL (8-26) Creatinine 2.5 mg/dL (0.7-1.3) Estimated GFR (Cockcroft-Gault) 31.4 BUN/Creatinine Ratio 14 (6-20) Glucose Level 181 mg/dL (70-99) Lactic Acid Level 1.2 mmol/L (0.4-2.0) Calcium Level 8.7 mg/dL (8.5-10.1) Total Bilirubin 0.4 mg/dL (0.2-1.0) Aspartate Amino Transf (AST/SGOT) 39 U/L (15-37) Alanine Aminotransferase (ALT/SGPT) 32 U/L (16-63) Alkaline Phosphatase 73 U/L (46-116) Ammonia < 10 mcmol/L (11-34) Troponin I Quantitative < 0.017 ng/mL (0.000-0.055) Total Protein 7.9 g/dL (6.4-8.2) Albumin 3.6 g/dL (3.4-5.0) Albumin/Globulin Ratio 0.8 (1.0-1.7) Lipase 81 U/L (73-393) Carbamazepine (Tegretol) Level 11.2 mcg/mL (4.0-12.0) Carbamazepine Last Dose Date Unknown Carbamazepine Last Dose Time Unknown Urine Collection Type Unknown Urine Color [place]grita Urine Clarity Clear Urine pH 5.5 Urine Specific [place] 1.020 Urine Protein Negative mg/dL (NEG-TRACE) Urine Glucose (UA) Negative mg/dL (NEG) Urine Ketones (Stick) Negative mg/dL (NEG) Urine Blood Negative (NEG) Urine Nitrite Negative (NEG) Urine Bilirubin Small (NEG) Urine Urobilinogen Dipstick 1.0 mg/dL (0.2 mg/dL) Urine Leukocyte Esterase Negative (NEG) Urine RBC 0 /HPF (0-2) Urine WBC 0 /HPF (0-4) Urine Squamous Epithelial Cells Few /LPF Urine Bacteria 0 /HPF (0-FEW) Urine Opiates Screen Neg (NEG) Urine Methadone Screen Neg (NEG) Urine Barbiturates Neg (NEG) Urine Phencyclidine Screen Neg (NEG) Urine Amphetamine/Methamphetamine Neg (NEG) Urine Benzodiazepines Screen Neg (NEG) Urine Cocaine Screen Neg (NEG) Urine Cannabinoids Screen Neg (NEG) Urine Ethyl Alcohol Neg (NEG) Glucose (Fingerstick) 155 mg/dL (70-99) Test 08/19/18 21:15 08/20/18 07:38 08/20/18 08:19 08/20/18 08:30 Glucose (Fingerstick) 140 mg/dL (70-99) 36 mg/dL (70-99) 159 mg/dL (70-99) White Blood Count 8.8 x10^3/uL (4.0-11.0) Red Blood Count 3.51 x10^6/uL (4.30-5.70) Hemoglobin 11.3 g/dL (13.0-17.5) Hematocrit 33.8 % (39.0-53.0) Mean Corpuscular Volume 97 fL (79-100) Mean Corpuscular Hemoglobin 32 pg (25-35) Mean Corpuscular Hemoglobin Concent 33 g/dL (31-37) Red Cell Distribution Width 14.8 % (11.5-14.5) Platelet Count 112 x10^3/uL (140-400) Sodium Level 144 mmol/L (136-145) Potassium Level 3.7 mmol/L (3.5-5.1) Chloride Level 107 mmol/L (98-107) Carbon Dioxide Level 29 mmol/L (21-32) Anion Gap 8 (6-14) Blood Urea Nitrogen 22 mg/dL (8-26) Creatinine 1.5 mg/dL (0.7-1.3) Estimated GFR (Cockcroft-Gault) 56.7 Glucose Level 148 mg/dL (70-99) Calcium Level 8.2 mg/dL (8.5-10.1) Laboratory Tests Test 08/19/18 11:00 08/19/18 11:35 08/19/18 11:40 08/19/18 16:41 White Blood Count 6.0 x10^3/uL (4.0-11.0) Red Blood Count 3.63 x10^6/uL (4.30-5.70) Hemoglobin 11.6 g/dL (13.0-17.5) Hematocrit 34.5 % (39.0-53.0) Mean Corpuscular Volume 95 fL (79-100) Mean Corpuscular Hemoglobin 32 pg (25-35) Mean Corpuscular Hemoglobin Concent 34 g/dL (31-37) Red Cell Distribution Width 14.5 % (11.5-14.5) Platelet Count 114 x10^3/uL (140-400) Neutrophils (%) (Auto) 79 % (31-73) Lymphocytes (%) (Auto) 6 % (24-48) Monocytes (%) (Auto) 12 % (0-9) Eosinophils (%) (Auto) 3 % (0-3) Basophils (%) (Auto) 0 % (0-3) Neutrophils # (Auto) 4.8 x10^3uL (1.8-7.7) Lymphocytes # (Auto) 0.4 x10^3/uL (1.0-4.8) Monocytes # (Auto) 0.7 x10^3/uL (0.0-1.1) Eosinophils # (Auto) 0.2 x10^3/uL (0.0-0.7) Basophils # (Auto) 0.0 x10^3/uL (0.0-0.2) Prothrombin Time 12.7 SEC (11.7-14.0) Prothromb Time International Ratio 1.0 (0.8-1.1) Sodium Level 141 mmol/L (136-145) Potassium Level 4.0 mmol/L (3.5-5.1) Chloride Level 102 mmol/L (98-107) Carbon Dioxide Level 28 mmol/L (21-32) Anion Gap 11 (6-14) Blood Urea Nitrogen 35 mg/dL (8-26) Creatinine 2.5 mg/dL (0.7-1.3) Estimated GFR (Cockcroft-Gault) 31.4 BUN/Creatinine Ratio 14 (6-20) Glucose Level 181 mg/dL (70-99) Lactic Acid Level 1.2 mmol/L (0.4-2.0) Calcium Level 8.7 mg/dL (8.5-10.1) Total Bilirubin 0.4 mg/dL (0.2-1.0) Aspartate Amino Transf (AST/SGOT) 39 U/L (15-37) Alanine Aminotransferase (ALT/SGPT) 32 U/L (16-63) Alkaline Phosphatase 73 U/L (46-116) Ammonia < 10 mcmol/L (11-34) Troponin I Quantitative < 0.017 ng/mL (0.000-0.055) Total Protein 7.9 g/dL (6.4-8.2) Albumin 3.6 g/dL (3.4-5.0) Albumin/Globulin Ratio 0.8 (1.0-1.7) Lipase 81 U/L (73-393) Carbamazepine (Tegretol) Level 11.2 mcg/mL (4.0-12.0) Carbamazepine Last Dose Date Unknown Carbamazepine Last Dose Time Unknown Urine Collection Type Unknown Urine Color Negrita Urine Clarity Clear Urine pH 5.5 Urine Specific [place] 1.020 Urine Protein Negative mg/dL (NEG-TRACE) Urine Glucose (UA) Negative mg/dL (NEG) Urine Ketones (Stick) Negative mg/dL (NEG) Urine Blood Negative (NEG) Urine Nitrite Negative (NEG) Urine Bilirubin Small (NEG) Urine Urobilinogen Dipstick 1.0 mg/dL (0.2 mg/dL) Urine Leukocyte Esterase Negative (NEG) Urine RBC 0 /HPF (0-2) Urine WBC 0 /HPF (0-4) Urine Squamous Epithelial Cells Few /LPF Urine Bacteria 0 /HPF (0-FEW) Urine Opiates Screen Neg (NEG) Urine Methadone Screen Neg (NEG) Urine Barbiturates Neg (NEG) Urine Phencyclidine Screen Neg (NEG) Urine Amphetamine/Methamphetamine Neg (NEG) Urine Benzodiazepines Screen Neg (NEG) Urine Cocaine Screen Neg (NEG) Urine Cannabinoids Screen Neg (NEG) Urine Ethyl Alcohol Neg (NEG) Glucose (Fingerstick) 155 mg/dL (70-99) Test 08/19/18 21:15 08/20/18 07:38 08/20/18 08:19 08/20/18 08:30 Glucose (Fingerstick) 140 mg/dL (70-99) 36 mg/dL (70-99) 159 mg/dL (70-99) White Blood Count 8.8 x10^3/uL (4.0-11.0) Red Blood Count 3.51 x10^6/uL (4.30-5.70) Hemoglobin 11.3 g/dL (13.0-17.5) Hematocrit 33.8 % (39.0-53.0) Mean Corpuscular Volume 97 fL (79-100) Mean Corpuscular Hemoglobin 32 pg (25-35) Mean Corpuscular Hemoglobin Concent 33 g/dL (31-37) Red Cell Distribution Width 14.8 % (11.5-14.5) Platelet Count 112 x10^3/uL (140-400) Sodium Level 144 mmol/L (136-145) Potassium Level 3.7 mmol/L (3.5-5.1) Chloride Level 107 mmol/L (98-107) Carbon Dioxide Level 29 mmol/L (21-32) Anion Gap 8 (6-14) Blood Urea Nitrogen 22 mg/dL (8-26) Creatinine 1.5 mg/dL (0.7-1.3) Estimated GFR (Cockcroft-Gault) 56.7 Glucose Level 148 mg/dL (70-99) Calcium Level 8.2 mg/dL (8.5-10.1) Assessment/Plan Assessment/Plan Penile lesion: patient currently on Diflucan per Dr. Riley, continue until cultures back Recommend daily showers, pat dry. If area starts to ooze, may apply damp wash rag or gauze to area and gently dab. Wound cultures in progress, await results. Pt denies LUTS or urinary symptoms from penile lesion. Continue Flomax BID. Discussed case with Dr. Figueroa who will check on patient later today. JULIETTE FIGUEROA MD 08/20/18 1330: UROLOGY CONSULT Assessment/Plan Assessment/Plan I have seen and examined patient. He is circumcised and has painful desquamtization of the penile glans with white discharge. suspect candidiasis balanitis. Try nystatin powder to affected area. If not improving then would get dermatol ogy consult. ALVARADO BACON APRN August 20, 2018 09:40 JULIETTE FIGUEROA MD August 20, 2018 13:30
[2018-08-20 11:00] VITALS: BP 111/60
--- NOTE | 2018-08-20 11:56 | NUR ---
Wound Care: Consult to eval and treat for abscess to L index finger, and penis/scrotal wounds. Admission pictures and measurements in chart. Culture obtained from shaft of penis per Dr. Riley. Cracked, bleeding skin to plantar L 2nd-4th toe creases. Per Babs Tamayo APRN, penile and toe areas are yeast related. Recommending nystatin cream. Aquacel AG and telfa dressing to L finger. No other open areas noted on head to toe inspection. Pt educated on prevention of further skin breakdown. Planned follow up 08/27/18
[2018-08-20] MEDS: VANCOMYCIN PER PHARMACY MC PRN ×2 (13:40→13:41)
--- NOTE | 2018-08-20 13:40 | NUR ---
Pharmacy Vancomycin Dosing Note S:Consulted to monitor and dose vancomycin started 08/19/18. O:ANAMARIA MAJANO is a 68 year old M with Cellulitis . Height: 5 feet, 9 inches Weight: 85.314427 kg [place] Body Weight: 208.70 Adjusted Body Weight: 156.94 Dosing Weight: Actual Other Antibiotics: ZOSYN LABS: Last BUN: 22 Last Creatinine: 1.5 Creatinine Clearance: 52 mL/min Last WBC: 8.8 Last Procalcitonin: Tmax (past 24 hours): 98.5 Microbiology: BLOOD CX IS NGTD I/O: 590/950 Drug Levels: Last level: on at Last dose given 08/19/18 at 1400 Vancomycin Dosing: Loading Dose: 2000 mg x1 Dosing Weight: Actual Target Trough: 10-20 A: Based on: improved renal fxn P: 1. Begin Vancomycin 1500 mg IV q24h 2. Follow up Trough level on 08/21/18 at 1330 3. Pharmacy will continue to monitor, follow and adjust therapy as needed. JEROME ALCANTARA, [facility], 08/20/18 1340
[2018-08-20] MEDS ORDERED: VANCOMYCIN 1 GM in IV NORMAL SALINE 250ML 250 ML IV SCH (14:00)
[2018-08-20] MEDS: VANCOMYCIN 1.5 GM in IV NORMAL SALINE 500ML BAG 500 ML IV SCH (14:02)
[2018-08-20] MEDS: NYSTATIN TOPICAL POWDER 15GM BOTTLE. TP SCH ×2 (14:02→20:44)
--- NOTE | 2018-08-20 14:06 | NUR ---
SW following for discharge planning. Discussed with RN, pt is from home with family and currently no SW needs. PT recommends home. SW will continue to follow for discharge planning.
--- NOTE | 2018-08-20 14:56 | PDOC ---
PROGRESS NOTES Assessment Problems Medical Problems: (1) Acute renal failure Status: Acute (2) Cellulitis of left hand Status: Acute Epilepsy, breakthrough seizure. He is on 3 anticonvulsants including the pregabalin, plus the levetiracetam and carbamazepine. Levels were therapeutic when he was admitted 2 months ago Schizophrenia and depression Diabetic polyneuropathy Tardive dyskinesia, controlled Skin lesions Plan Continue current anticonvulsant doses He does not need additional neurological studies. Observation Treatment of abscess, fever, lesion on the penis per primary service. Subjective Feels much better, no seizures Objective Vital Signs Date Time Temp Pulse Resp B/P (MAP) Pulse Ox O2 Delivery O2 Flow Rate FiO2 08/20/18 11:00 98.4 85 14 111/60 (77) 94 Room Air 98.4 08/19/18 19:10 2.0 Intake and Output 08/20/18 07:00 Intake Total 590 ml Output Total 950 ml Balance -360 ml Intake Oral 540 ml IV Total 50 ml Output Urine Total 950 ml PHYSICAL EXAM Alert. Oriented to time, place and person. PERRL. EOMI. CN: no focal findings. Muscle tone: normal. 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 Sensory exam: Stocking loss. No cerebellar signs elicited. Review of Relevant I have reviewed the following items jacob (where applicable) has been applied. Labs Laboratory Tests Test 08/19/18 11:00 08/19/18 11:35 08/19/18 11:40 08/19/18 16:41 White Blood Count 6.0 x10^3/uL (4.0-11.0) Red Blood Count 3.63 x10^6/uL (4.30-5.70) Hemoglobin 11.6 g/dL (13.0-17.5) Hematocrit 34.5 % (39.0-53.0) Mean Corpuscular Volume 95 fL (79-100) Mean Corpuscular Hemoglobin 32 pg (25-35) Mean Corpuscular Hemoglobin Concent 34 g/dL (31-37) Red Cell Distribution Width 14.5 % (11.5-14.5) Platelet Count 114 x10^3/uL (140-400) Neutrophils (%) (Auto) 79 % (31-73) Lymphocytes (%) (Auto) 6 % (24-48) Monocytes (%) (Auto) 12 % (0-9) Eosinophils (%) (Auto) 3 % (0-3) Basophils (%) (Auto) 0 % (0-3) Neutrophils # (Auto) 4.8 x10^3uL (1.8-7.7) Lymphocytes # (Auto) 0.4 x10^3/uL (1.0-4.8) Monocytes # (Auto) 0.7 x10^3/uL (0.0-1.1) Eosinophils # (Auto) 0.2 x10^3/uL (0.0-0.7) Basophils # (Auto) 0.0 x10^3/uL (0.0-0.2) Prothrombin Time 12.7 SEC (11.7-14.0) Prothromb Time International Ratio 1.0 (0.8-1.1) Sodium Level 141 mmol/L (136-145) Potassium Level 4.0 mmol/L (3.5-5.1) Chloride Level 102 mmol/L (98-107) Carbon Dioxide Level 28 mmol/L (21-32) Anion Gap 11 (6-14) Blood Urea Nitrogen 35 mg/dL (8-26) Creatinine 2.5 mg/dL (0.7-1.3) Estimated GFR (Cockcroft-Gault) 31.4 BUN/Creatinine Ratio 14 (6-20) Glucose Level 181 mg/dL (70-99) Lactic Acid Level 1.2 mmol/L (0.4-2.0) Calcium Level 8.7 mg/dL (8.5-10.1) Total Bilirubin 0.4 mg/dL (0.2-1.0) Aspartate Amino Transf (AST/SGOT) 39 U/L (15-37) Alanine Aminotransferase (ALT/SGPT) 32 U/L (16-63) Alkaline Phosphatase 73 U/L (46-116) Ammonia < 10 mcmol/L (11-34) Troponin I Quantitative < 0.017 ng/mL (0.000-0.055) Total Protein 7.9 g/dL (6.4-8.2) Albumin 3.6 g/dL (3.4-5.0) Albumin/Globulin Ratio 0.8 (1.0-1.7) Lipase 81 U/L (73-393) Carbamazepine (Tegretol) Level 11.2 mcg/mL (4.0-12.0) Carbamazepine Last Dose Date Unknown Carbamazepine Last Dose Time Unknown Urine Collection Type Unknown Urine Color Negrita Urine Clarity Clear Urine pH 5.5 Urine Specific Palmer 1.020 Urine Protein Negative mg/dL (NEG-TRACE) Urine Glucose (UA) Negative mg/dL (NEG) Urine Ketones (Stick) Negative mg/dL (NEG) Urine Blood Negative (NEG) Urine Nitrite Negative (NEG) Urine Bilirubin Small (NEG) Urine Urobilinogen Dipstick 1.0 mg/dL (0.2 mg/dL) Urine Leukocyte Esterase Negative (NEG) Urine RBC 0 /HPF (0-2) Urine WBC 0 /HPF (0-4) Urine Squamous Epithelial Cells Few /LPF Urine Bacteria 0 /HPF (0-FEW) Urine Opiates Screen Neg (NEG) Urine Methadone Screen Neg (NEG) Urine Barbiturates Neg (NEG) Urine Phencyclidine Screen Neg (NEG) Urine Amphetamine/Methamphetamine Neg (NEG) Urine Benzodiazepines Screen Neg (NEG) Urine Cocaine Screen Neg (NEG) Urine Cannabinoids Screen Neg (NEG) Urine Ethyl Alcohol Neg (NEG) Glucose (Fingerstick) 155 mg/dL (70-99) Test 08/19/18 21:15 08/20/18 07:38 08/20/18 08:19 08/20/18 08:30 Glucose (Fingerstick) 140 mg/dL (70-99) 36 mg/dL (70-99) 159 mg/dL (70-99) White Blood Count 8.8 x10^3/uL (4.0-11.0) Red Blood Count 3.51 x10^6/uL (4.30-5.70) Hemoglobin 11.3 g/dL (13.0-17.5) Hematocrit 33.8 % (39.0-53.0) Mean Corpuscular Volume 97 fL (79-100) Mean Corpuscular Hemoglobin 32 pg (25-35) Mean Corpuscular Hemoglobin Concent 33 g/dL (31-37) Red Cell Distribution Width 14.8 % (11.5-14.5) Platelet Count 112 x10^3/uL (140-400) Sodium Level 144 mmol/L (136-145) Potassium Level 3.7 mmol/L (3.5-5.1) Chloride Level 107 mmol/L (98-107) Carbon Dioxide Level 29 mmol/L (21-32) Anion Gap 8 (6-14) Blood Urea Nitrogen 22 mg/dL (8-26) Creatinine 1.5 mg/dL (0.7-1.3) Estimated GFR (Cockcroft-Gault) 56.7 Glucose Level 148 mg/dL (70-99) Calcium Level 8.2 mg/dL (8.5-10.1) Treponema pallidum Antibody Nonreactive (Nonreactive) Test 08/20/18 11:31 Glucose (Fingerstick) 193 mg/dL (70-99) Laboratory Tests Test 08/19/18 16:41 08/19/18 21:15 08/20/18 07:38 08/20/18 08:19 Glucose (Fingerstick) 155 mg/dL (70-99) 140 mg/dL (70-99) 36 mg/dL (70-99) 159 mg/dL (70-99) Test 08/20/18 08:30 08/20/18 11:31 White Blood Count 8.8 x10^3/uL (4.0-11.0) Red Blood Count 3.51 x10^6/uL (4.30-5.70) Hemoglobin 11.3 g/dL (13.0-17.5) Hematocrit 33.8 % (39.0-53.0) Mean Corpuscular Volume 97 fL (79-100) Mean Corpuscular Hemoglobin 32 pg (25-35) Mean Corpuscular Hemoglobin Concent 33 g/dL (31-37) Red Cell Distribution Width 14.8 % (11.5-14.5) Platelet Count 112 x10^3/uL (140-400) Sodium Level 144 mmol/L (136-145) Potassium Level 3.7 mmol/L (3.5-5.1) Chloride Level 107 mmol/L (98-107) Carbon Dioxide Level 29 mmol/L (21-32) Anion Gap 8 (6-14) Blood Urea Nitrogen 22 mg/dL (8-26) Creatinine 1.5 mg/dL (0.7-1.3) Estimated GFR (Cockcroft-Gault) 56.7 Glucose Level 148 mg/dL (70-99) Calcium Level 8.2 mg/dL (8.5-10.1) Treponema pallidum Antibody Nonreactive (Nonreactive) Glucose (Fingerstick) 193 mg/dL (70-99) Microbiology 08/19/18 Blood Culture - Preliminary, Resulted NO GROWTH AFTER 1 DAY Medications Current Medications Lorazepam (Ativan Inj) 1 mg 1X ONCE IV Last administered on 08/19/18at 11:38; Start 08/19/18 at 11:00; Stop 08/19/18 at 11:01; Status DC Sodium Chloride 1,000 ml @ 100 mls/hr Q10H IV Last administered on 08/19/18at 11:22; Start 08/19/18 at 10:56; Stop 08/19/18 at 20:55; Status DC Ceftriaxone Sodium (Rocephin) 1 gm 1X ONCE IVP Last administered on 08/19/18at 12:10; Start 08/19/18 at 11:45; Stop 08/19/18 at 11:46; Status DC Vancomycin HCl 250 ml @ 250 mls/hr 1X ONCE IV ; Start 08/19/18 at 11:45; Stop 08/19/18 at 12:44; Status UNV Vancomycin HCl 1.25 gm/Sodium Chloride 250 ml @ 166.667 mls/hr 1X ONCE IV Last administered on 08/19/18at 12:14; Start 08/19/18 at 12:00; Stop 08/19/18 at 13:29; Status DC Sodium Chloride 1,000 ml @ 1,000 mls/hr 1X ONCE IV Last administered on 08/19/18at 12:33; Start 08/19/18 at 12:00; Stop 08/19/18 at 12:59; Status DC Insulin Human Lispro (HumaLOG) 0-5 UNITS TIDWMEALS SQ Last administered on 08/20/18at 12:05; Start 08/19/18 at 17:00 Dextrose (Dextrose 50%-Water Syringe) 12.5 gm PRN Q15MIN PRN IV SEE COMMENTS Last administered on 08/20/18at 08:00; Start 08/19/18 at 14:30 Piperacillin Sod/ Tazobactam Sod 3.375 gm/Sodium Chloride 50 ml @ 100 mls/hr Q6HRS IV Last administered on 08/20/18at 12:00; Start 08/19/18 at 14:30 Vancomycin HCl (Vanco Per Pharmacy) 1 each PRN DAILY PRN MC SEE COMMENTS Last administered on 08/20/18 13:41; Start 08/19/18 at 14:30 Amlodipine Besylate (Norvasc) 5 mg DAILY PO Last administered on 08/20/18 08:57; Start 08/20/18 at 09:00 Atorvastatin Calcium (Lipitor) 10 mg HS PO Last administered on 08/19/18 20:43 ; Start 08/19/18 at 21:00 Baclofen (Lioresal) 10 mg TID PO Last administered on 08/20/18 14:02; Start 08/19/18 at 15:30 Bisacodyl (Dulcolax Tab) 10 mg PRN DAILY PRN PO CONSTIPATION; Start 08/19/18 at 14:30 Carbamazepine (TEGretol) 200 mg BID PO Last administered on 08/20/18 08:56; Start 08/19/18 at 21:00 Carvedilol (Coreg) 12.5 mg BIDWMEALS PO Last administered on 08/20/18 08:57; Start 08/19/18 at 17:00 Docusate Sodium (Colace) 100 mg DAILY PO Last administered on 08/20/18 08:56; Start 08/20/18 at 09:00 Duloxetine HCl (Cymbalta) 60 mg DAILY PO Last administered on 08/20/18 09:23; Start 08/20/18 at 09:00 Finasteride (Proscar) 5 mg DAILY PO Last administered on 08/20/18 08:57; Start 08/20/18 at 09:00 Glipizide (Glucotrol) 5 mg BIDBFRMEAL PO Last administered on 08/19/18 17:50; Start 08/19/18 at 16:30; Stop 08/20/18 at 08:51; Status DC Levetiracetam (Keppra) 500 mg BID PO Last administered on 08/20/18 08:56; Start 08/19/18 at 21:00 Tamsulosin HCl (Flomax) 0.4 mg BID PO Last administered on 08/20/18 08:57; Start 08/19/18 at 21:00 Latanoprost (Xalatan) 1 drop QHS OU Last administered on 08/19/18 20:42; Start 08/19/18 at 21:00 Pantoprazole Sodium (Protonix) 40 mg DAILYAC PO Last administered on 08/20/18 08:57; Start 08/20/18 at 07:30 Pioglitazone HCl (Actos) 45 mg DAILY PO ; Start 08/20/18 at 09:00 Pregabalin (Lyrica) 150 mg BID PO Last administered on 08/20/18at 08:56; Start 08/19/18 at 21:00 Quetiapine Fumarate (SEROquel) 100 mg HS PO Last administered on 08/19/18 20:43; Start 08/19/18 at 21:00 Acetaminophen (Tylenol) 1,000 mg PRN Q6HRS PRN PO pain; Start 08/19/18 at 14:45 Vancomycin HCl 750 mg/Sodium Chloride 250 ml @ 250 mls/hr 1X ONCE IV Last administered on 08/19/18at 15:41; Start 08/19/18 at 15:00; Stop 08/19/18 at 15:59; Status DC Vancomycin HCl 1 gm/Sodium Chloride 250 ml @ 250 mls/hr Q24H IV ; Start 08/20/18 at 14:00; Stop 08/20/18 at 14:00; Status DC Vancomycin HCl (Vancomycin Trough Level) 1 each 1X ONCE MC ; Start 08/21/18 at 13:30; Stop 08/21/18 at 13:31 Sodium Chloride 1,000 ml @ 100 mls/hr Q10H IV Last administered on 08/20/18 08:58; Start 08/20/18 at 08:45 Fluconazole (Diflucan) 100 mg DAILY PO Last administered on 08/20/18 08:56; Start 08/20/18 at 09:00 Multivitamins (Thera M Plus) 1 tab DAILY PO ; Start 08/21/18 at 09:00 Ascorbic Acid (Vitamin C) 500 mg DAILY PO ; Start 08/21/18 at 09:00 Nystatin (Nystop) 1 rogelio BID TP Last administered on 08/20/18 14:02; Start 08/20/18 at 14:00 Vancomycin HCl 1.5 gm/Sodium Chloride 500 ml @ 250 mls/hr Q24H IV Last administered on 5/30/19at 14:02; Start 08/20/18 at 14:00 Lactobacillus Rhamnosus (Culturelle) 1 cap BID PO ; Start 08/20/18 at 21:00 Active Scripts Active Tramadol Hcl 50 Mg Tablet 50 Mg PO Q6HRS PRN Cephalexin 500 Mg Tablet 1 Tab PO QID Bactrim Ds Tablet (Sulfamethoxazole/Trimethoprim) 1 Each Tablet 1 Tab PO BID Finasteride 5 Mg Tablet 1 Tab PO DAILY Lyrica (Pregabalin) 150 Mg Capsule 1 Cap PO BID Flomax (Tamsulosin Hcl) 0.4 Mg Cap.er.24h 0.4 Mg PO BID 30 Days Triamcinolone Acetonide 0.1% Oint (Triamcinolone Acetonide) 15 Gm Oint...g. 1 Rogelio TP BID Actos (Pioglitazone Hcl) 15 Mg Tablet 45 Mg PO DAILY 28 Days Glucophage Xr (Metformin Hcl) 500 Mg Tab.er.24h 1,000 Mg PO DAILYWBKFT 30 Days Keppra (Levetiracetam) 500 Mg Tablet 500 Mg PO BID 30 Days Glipizide 5 Mg Tablet 5 Mg PO BIDBFRMEAL 30 Days Bisacodyl 5 Mg Tablet.dr 10 Mg PO PRN DAILY PRN 28 Days Quetiapine Fumarate 100 Mg Tablet 100 Mg PO QHS 30 Days Carvedilol (Carvedilol) 12.5 Mg Tablet 12.5 Mg PO BIDWMEALS 30 Days Baclofen 10 Mg Tablet 10 Mg PO TID 30 Days Reported Protonix (Pantoprazole Sodium) 20 Mg Tablet.dr 40 Mg PO DAILY Furosemide 20 Mg Tablet 1 Tab PO DAILY Docusate Sodium 100 Mg Capsule 1 Cap PO DAILY Latanoprost 2.5 Ml Drops 1 Drop OU QHS Tegretol (Carbamazepine) 200 Mg Tablet 1 Tab PO BID Atorvastatin Calcium 10 Mg Tablet 10 Mg PO Amlodipine Besylate 5 Mg Tablet 5 Mg PO Cymbalta (Duloxetine Hcl) 30 Mg Capsule.dr 60 Mg PO DAILY Lidoderm (Lidocaine) 700 Mg Adh..patch 1 Patch TP DAILY Vitals/I & O Vital Sign - Last 24 Hours 08/19/18 08/19/18 08/19/18 08/19/18 17:49 17:51 19:00 19:10 Temp 97.5 97.5 Pulse 88 73 Resp 18 B/P (MAP) 126/65 126/70 (88) Pulse Ox 100 O2 Delivery Nasal Cannula Nasal Cannula O2 Flow Rate 2.0 2.0 08/19/18 08/20/18 08/20/18 08/20/18 23:00 03:00 07:00 08:00 Temp 98.2 98.4 98.5 98.2 98.4 98.5 Pulse 79 72 79 Resp 18 16 16 B/P (MAP) 140/88 (105) 121/69 (86) 145/72 (96) Pulse Ox 98 97 94 O2 Delivery Room Air Room Air 08/20/18 08/20/18 08/20/18 08:57 08:57 11:00 Temp 98.4 98.4 Pulse 79 79 85 Resp 14 B/P (MAP) 145/72 145/72 111/60 (77) Pulse Ox 94 O2 Delivery Room Air Intake and Output 08/19/18 08/19/18 08/20/18 15:00 23:00 07:00 Intake Total 260 ml 330 ml Output Total 450 ml 500 ml Balance -190 ml -170 ml BEN TAM MD August 20, 2018 14:56
[2018-08-20 15:00] VITALS: BP 145/77
[2018-08-20 19:00] VITALS: BP 126/75
[2018-08-20] MEDS: LATANOPROST 0.005% OPHTH SOLUTION 2.5ML BOTTLE. OU SCH (20:44)
[2018-08-20] MEDS: LACTOBACILLUS RHAMNOSUS GG 1 CAPSULE. PO SCH (20:44)
[2018-08-20] MEDS: ATORVASTATIN CALCIUM 10 MG TABLET. PO SCH (20:44)
[2018-08-20] MEDS: QUEtiapine 100 MG TABLET. PO SCH (20:44)
[2018-08-20 23:00] VITALS: BP 139/80
[2018-08-21] MEDS: PIPERACILLIN/TAZOBACTAM 3.375 GM in IV NORMAL SALINE 50ML 50 ML IV SCH ×4 (00:20→20:29)
[2018-08-21 03:00] VITALS: BP 133/80
[2018-08-21 07:00] VITALS: BP 111/61
[2018-08-21] MEDS: INSULIN LISPRO 300 UNITS/3 ML INSULN.PEN. SQ SCH ×3 (08:00→18:08)
--- NOTE | 2018-08-21 08:32 | PDOC ---
PROGRESS NOTES Subjective Subjective Patient without complaint, denies pain. Objective Objective Vital Signs Date Time Temp Pulse Resp B/P (MAP) Pulse Ox O2 Delivery O2 Flow Rate FiO2 08/21/18 07:00 97.9 69 16 111/61 (78) 92 Room Air 97.9 08/19/18 19:10 2.0 Intake and Output 08/21/18 07:00 Intake Total 1400 ml Output Total 1850 ml Balance -450 ml Intake Oral 1300 ml IV Total 100 ml Output Urine Total 1850 ml # Voids 2 Physical Exam Abdomen: Normal bowel sounds, Soft, No tenderness Heart: Regular rate Extremities: No edema General: Alert, Oriented X3, No acute distress Lungs: Clear to auscultation Assessment Assessment Problems Medical Problems: (1) Acute renal failure Status: Acute (2) Cellulitis of left hand Status: Acute Plan Plan of Care 1. Seizure disorder with breakthrough seizure - stable, no further seizures. Continue his usual medications per Neurology. 2. Cellulitis left index finger with possible sepsis - remains afebrile. Blood cultures negative to date. Continue Vancomycin and Zosyn, continue wound care. 3. Acute renal failure - lab much improved yesterday so IVF were stopped last evening. Lab from this AM pending. Continue to encourage po fluids, patient is eating well now. 4. Candidal rash of penis - continue Diflucan and Nystatin powder, appreciate Urology input. Wound cultures from penis pending. 5. hx urinary retention, s/p interstim placement - urinating well now. Continue his usual po meds. 6. DM2 - home meds on hold presently as glucose was low initially. Continue SS insulin, resume home meds as needed. 7. HTN - controlled, continue present medications. 8. schizophrenia - stable, continue his usual medications for this. Comment Review of Relevant I have reviewed the following items jacob (where applicable) has been applied. Labs Laboratory Tests Test 08/19/18 11:00 08/19/18 11:35 08/19/18 11:40 08/19/18 16:41 White Blood Count 6.0 x10^3/uL (4.0-11.0) Red Blood Count 3.63 x10^6/uL (4.30-5.70) Hemoglobin 11.6 g/dL (13.0-17.5) Hematocrit 34.5 % (39.0-53.0) Mean Corpuscular Volume 95 fL (79-100) Mean Corpuscular Hemoglobin 32 pg (25-35) Mean Corpuscular Hemoglobin Concent 34 g/dL (31-37) Red Cell Distribution Width 14.5 % (11.5-14.5) Platelet Count 114 x10^3/uL (140-400) Neutrophils (%) (Auto) 79 % (31-73) Lymphocytes (%) (Auto) 6 % (24-48) Monocytes (%) (Auto) 12 % (0-9) Eosinophils (%) (Auto) 3 % (0-3) Basophils (%) (Auto) 0 % (0-3) Neutrophils # (Auto) 4.8 x10^3uL (1.8-7.7) Lymphocytes # (Auto) 0.4 x10^3/uL (1.0-4.8) Monocytes # (Auto) 0.7 x10^3/uL (0.0-1.1) Eosinophils # (Auto) 0.2 x10^3/uL (0.0-0.7) Basophils # (Auto) 0.0 x10^3/uL (0.0-0.2) Prothrombin Time 12.7 SEC (11.7-14.0) Prothromb Time International Ratio 1.0 (0.8-1.1) Sodium Level 141 mmol/L (136-145) Potassium Level 4.0 mmol/L (3.5-5.1) Chloride Level 102 mmol/L (98-107) Carbon Dioxide Level 28 mmol/L (21-32) Anion Gap 11 (6-14) Blood Urea Nitrogen 35 mg/dL (8-26) Creatinine 2.5 mg/dL (0.7-1.3) Estimated GFR (Cockcroft-Gault) 31.4 BUN/Creatinine Ratio 14 (6-20) Glucose Level 181 mg/dL (70-99) Lactic Acid Level 1.2 mmol/L (0.4-2.0) Calcium Level 8.7 mg/dL (8.5-10.1) Total Bilirubin 0.4 mg/dL (0.2-1.0) Aspartate Amino Transf (AST/SGOT) 39 U/L (15-37) Alanine Aminotransferase (ALT/SGPT) 32 U/L (16-63) Alkaline Phosphatase 73 U/L (46-116) Ammonia < 10 mcmol/L (11-34) Troponin I Quantitative < 0.017 ng/mL (0.000-0.055) Total Protein 7.9 g/dL (6.4-8.2) Albumin 3.6 g/dL (3.4-5.0) Albumin/Globulin Ratio 0.8 (1.0-1.7) Lipase 81 U/L (73-393) Carbamazepine (Tegretol) Level 11.2 mcg/mL (4.0-12.0) Carbamazepine Last Dose Date Unknown Carbamazepine Last Dose Time Unknown Urine Collection Type Unknown Urine Color Negrita Urine Clarity Clear Urine pH 5.5 Urine Specific [place] 1.020 Urine Protein Negative mg/dL (NEG-TRACE) Urine Glucose (UA) Negative mg/dL (NEG) Urine Ketones (Stick) Negative mg/dL (NEG) Urine Blood Negative (NEG) Urine Nitrite Negative (NEG) Urine Bilirubin Small (NEG) Urine Urobilinogen Dipstick 1.0 mg/dL (0.2 mg/dL) Urine Leukocyte Esterase Negative (NEG) Urine RBC 0 /HPF (0-2) Urine WBC 0 /HPF (0-4) Urine Squamous Epithelial Cells Few /LPF Urine Bacteria 0 /HPF (0-FEW) Urine Opiates Screen Neg (NEG) Urine Methadone Screen Neg (NEG) Urine Barbiturates Neg (NEG) Urine Phencyclidine Screen Neg (NEG) Urine Amphetamine/Methamphetamine Neg (NEG) Urine Benzodiazepines Screen Neg (NEG) Urine Cocaine Screen Neg (NEG) Urine Cannabinoids Screen Neg (NEG) Urine Ethyl Alcohol Neg (NEG) Glucose (Fingerstick) 155 mg/dL (70-99) Test 08/19/18 21:15 08/20/18 07:38 08/20/18 08:19 08/20/18 08:30 Glucose (Fingerstick) 140 mg/dL (70-99) 36 mg/dL (70-99) 159 mg/dL (70-99) White Blood Count 8.8 x10^3/uL (4.0-11.0) Red Blood Count 3.51 x10^6/uL (4.30-5.70) Hemoglobin 11.3 g/dL (13.0-17.5) Hematocrit 33.8 % (39.0-53.0) Mean Corpuscular Volume 97 fL (79-100) Mean Corpuscular Hemoglobin 32 pg (25-35) Mean Corpuscular Hemoglobin Concent 33 g/dL (31-37) Red Cell Distribution Width 14.8 % (11.5-14.5) Platelet Count 112 x10^3/uL (140-400) Sodium Level 144 mmol/L (136-145) Potassium Level 3.7 mmol/L (3.5-5.1) Chloride Level 107 mmol/L (98-107) Carbon Dioxide Level 29 mmol/L (21-32) Anion Gap 8 (6-14) Blood Urea Nitrogen 22 mg/dL (8-26) Creatinine 1.5 mg/dL (0.7-1.3) Estimated GFR (Cockcroft-Gault) 56.7 Glucose Level 148 mg/dL (70-99) Calcium Level 8.2 mg/dL (8.5-10.1) Treponema pallidum Antibody Nonreactive (Nonreactive) Test 08/20/18 11:31 08/20/18 16:32 08/20/18 20:36 08/21/18 06:09 Glucose (Fingerstick) 193 mg/dL (70-99) 175 mg/dL (70-99) 175 mg/dL (70-99) 106 mg/dL (70-99) Test 08/21/18 07:24 Glucose (Fingerstick) 111 mg/dL (70-99) Laboratory Tests Test 08/20/18 08:30 08/20/18 11:31 08/20/18 16:32 08/20/18 20:36 White Blood Count 8.8 x10^3/uL (4.0-11.0) Red Blood Count 3.51 x10^6/uL (4.30-5.70) Hemoglobin 11.3 g/dL (13.0-17.5) Hematocrit 33.8 % (39.0-53.0) Mean Corpuscular Volume 97 fL (79-100) Mean Corpuscular Hemoglobin 32 pg (25-35) Mean Corpuscular Hemoglobin Concent 33 g/dL (31-37) Red Cell Distribution Width 14.8 % (11.5-14.5) Platelet Count 112 x10^3/uL (140-400) Sodium Level 144 mmol/L (136-145) Potassium Level 3.7 mmol/L (3.5-5.1) Chloride Level 107 mmol/L (98-107) Carbon Dioxide Level 29 mmol/L (21-32) Anion Gap 8 (6-14) Blood Urea Nitrogen 22 mg/dL (8-26) Creatinine 1.5 mg/dL (0.7-1.3) Estimated GFR (Cockcroft-Gault) 56.7 Glucose Level 148 mg/dL (70-99) Calcium Level 8.2 mg/dL (8.5-10.1) Treponema pallidum Antibody Nonreactive (Nonreactive) Glucose (Fingerstick) 193 mg/dL (70-99) 175 mg/dL (70-99) 175 mg/dL (70-99) Test 08/21/18 06:09 08/21/18 07:24 Glucose (Fingerstick) 106 mg/dL (70-99) 111 mg/dL (70-99) Microbiology 08/19/18 Blood Culture - Preliminary, Resulted NO GROWTH AFTER 1 DAY 08/19/18 Anaerobic/Aerobic Culture, Resulted Pending 08/19/18 Anaerobic Culture Result 1 (HIRA), Resulted Pending 08/19/18 Aerobic Culture, Resulted Pending 08/19/18 Aerobic Culture Result 1 (HIRA), Resulted Pending 08/19/18 Gram Stain - Final, Resulted 08/19/18 Gram Stain Result 1 (HIRA) - Final, Resulted 08/19/18 Gram Stain Result 2 (HIRA) - Final, Resulted Medications Current Medications Lorazepam (Ativan Inj) 1 mg 1X ONCE IV Last administered on 08/19/18at 11:38; Start 08/19/18 at 11:00; Stop 08/19/18 at 11:01; Status DC Sodium Chloride 1,000 ml @ 100 mls/hr Q10H IV Last administered on 08/19/18at 11:22; Start 08/19/18 at 10:56; Stop 08/19/18 at 20:55; Status DC Ceftriaxone Sodium (Rocephin) 1 gm 1X ONCE IVP Last administered on 08/19/18at 12:10; Start 08/19/18 at 11:45; Stop 08/19/18 at 11:46; Status DC Vancomycin HCl 250 ml @ 250 mls/hr 1X ONCE IV ; Start 08/19/18 at 11:45; Stop 08/19/18 at 12:44; Status UNV Vancomycin HCl 1.25 gm/Sodium Chloride 250 ml @ 166.667 mls/hr 1X ONCE IV Last administered on 08/19/18 12:14; Start 08/19/18 at 12:00; Stop 08/19/18 at 13:29; Status DC Sodium Chloride 1,000 ml @ 1,000 mls/hr 1X ONCE IV Last administered on 08/19/18at 12:33; Start 08/19/18 at 12:00; Stop 08/19/18 at 12:59; Status DC Insulin Human Lispro (HumaLOG) 0-5 UNITS TIDWMEALS SQ Last administered on 08/20/18 17:32; Start 08/19/18 at 17:00 Dextrose (Dextrose 50%-Water Syringe) 12.5 gm PRN Q15MIN PRN IV SEE COMMENTS Last administered on 08/20/18 08:00; Start 08/19/18 at 14:30 Piperacillin Sod/ Tazobactam Sod 3.375 gm/Sodium Chloride 50 ml @ 100 mls/hr Q6HRS IV Last administered on 08/21/18 05:57; Start 08/19/18 at 14:30 Vancomycin HCl (Vanco Per Pharmacy) 1 each PRN DAILY PRN MC SEE COMMENTS Last administered on 08/20/18 13:41; Start 08/19/18 at 14:30 Amlodipine Besylate (Norvasc) 5 mg DAILY PO Last administered on 08/20/18 08:57; Start 08/20/18 at 09:00 Atorvastatin Calcium (Lipitor) 10 mg HS PO Last administered on 08/20/18 20:44; Start 08/19/18 at 21:00 Baclofen (Lioresal) 10 mg TID PO Last administered on 08/20/18 20:44; Start 08/19/18 at 15:30 Bisacodyl (Dulcolax Tab) 10 mg PRN DAILY PRN PO CONSTIPATION; Start 08/19/18 at 14:30 Carbamazepine (TEGretol) 200 mg BID PO Last administered on 08/20/18 20:44; Start 08/19/18 at 21:00 Carvedilol (Coreg) 12.5 mg BIDWMEALS PO Last administered on 08/20/18 17:29; Start 08/19/18 at 17:00 Docusate Sodium (Colace) 100 mg DAILY PO Last administered on 08/20/18 08:56; Start 08/20/18 at 09:00 Duloxetine HCl (Cymbalta) 60 mg DAILY PO Last administered on 08/20/18 09:23; Start 08/20/18 at 09:00 Finasteride (Proscar) 5 mg DAILY PO Last administered on 08/20/18 08:57; Start 08/20/18 at 09:00 Glipizide (Glucotrol) 5 mg BIDBFRMEAL PO Last administered on 08/19/18 17:50; Start 08/19/18 at 16:30; Stop 08/20/18 at 08:51; Status DC Levetiracetam (Keppra) 500 mg BID PO Last administered on 08/20/18 20:44; Start 08/19/18 at 21:00 Tamsulosin HCl (Flomax) 0.4 mg BID PO Last administered on 08/20/18 20:44; Start 08/19/18 at 21:00 Latanoprost (Xalatan) 1 drop QHS OU Last administered on 08/20/18 20:44; Start 08/19/18 at 21:00 Pantoprazole Sodium (Protonix) 40 mg DAILYAC PO Last administered on 08/20/18 08:57; Start 08/20/18 at 07:30 Pioglitazone HCl (Actos) 45 mg DAILY PO ; Start 08/20/18 at 09:00 Pregabalin (Lyrica) 150 mg BID PO Last administered on 08/20/18 20:45; Start 08/19/18 at 21:00 Quetiapine Fumarate (SEROquel) 100 mg HS PO Last administered on 08/20/18 20:44; Start 08/19/18 at 21:00 Acetaminophen (Tylenol) 1,000 mg PRN Q6HRS PRN PO pain; Start 08/19/18 at 14:45 Vancomycin HCl 750 mg/Sodium Chloride 250 ml @ 250 mls/hr 1X ONCE IV Last administered on 08/19/18at 15:41; Start 08/19/18 at 15:00; Stop 08/19/18 at 15:59; Status DC Vancomycin HCl 1 gm/Sodium Chloride 250 ml @ 250 mls/hr Q24H IV ; Start 08/20/18 at 14:00; Stop 08/20/18 at 14:00; Status DC Vancomycin HCl (Vancomycin Trough Level) 1 each 1X ONCE MC ; Start 08/21/18 at 13:30; Stop 08/21/18 at 13:31 Sodium Chloride 1,000 ml @ 100 mls/hr Q10H IV Last administered on 08/20/18at 08:58; Start 08/20/18 at 08:45; Stop 08/20/18 at 17:00; Status DC Fluconazole (Diflucan) 100 mg DAILY PO Last administered on 08/20/18at 08:56; Start 08/20/18 at 09:00 Multivitamins (Thera M Plus) 1 tab DAILY PO ; Start 08/21/18 at 09:00 Ascorbic Acid (Vitamin C) 500 mg DAILY PO ; Start 08/21/18 at 09:00 Nystatin (Nystop) 1 rogelio BID TP Last administered on 08/20/18at 20:44; Start 08/20/18 at 14:00 Vancomycin HCl 1.5 gm/Sodium Chloride 500 ml @ 250 mls/hr Q24H IV Last administered on 08/20/18at 14:02; Start 08/20/18 at 14:00 Lactobacillus Rhamnosus (Culturelle) 1 cap BID PO Last administered on 08/20/18at 20:44; Start 08/20/18 at 21:00 Active Scripts Active Tramadol Hcl 50 Mg Tablet 50 Mg PO Q6HRS PRN Cephalexin 500 Mg Tablet 1 Tab PO QID Bactrim Ds Tablet (Sulfamethoxazole/Trimethoprim) 1 Each Tablet 1 Tab PO BID Finasteride 5 Mg Tablet 1 Tab PO DAILY Lyrica (Pregabalin) 150 Mg Capsule 1 Cap PO BID Flomax (Tamsulosin Hcl) 0.4 Mg Cap.er.24h 0.4 Mg PO BID 30 Days Triamcinolone Acetonide 0.1% Oint (Triamcinolone Acetonide) 15 Gm Oint...g. 1 Rogelio TP BID Actos (Pioglitazone Hcl) 15 Mg Tablet 45 Mg PO DAILY 28 Days Glucophage Xr (Metformin Hcl) 500 Mg Tab.er.24h 1,000 Mg PO DAILYWBKFT 30 Days Keppra (Levetiracetam) 500 Mg Tablet 500 Mg PO BID 30 Days Glipizide 5 Mg Tablet 5 Mg PO BIDBFRMEAL 30 Days Bisacodyl 5 Mg Tablet.dr 10 Mg PO PRN DAILY PRN 28 Days Quetiapine Fumarate 100 Mg Tablet 100 Mg PO QHS 30 Days Carvedilol (Carvedilol) 12.5 Mg Tablet 12.5 Mg PO BIDWMEALS 30 Days Baclofen 10 Mg Tablet 10 Mg PO TID 30 Days Reported Protonix (Pantoprazole Sodium) 20 Mg Tablet.dr 40 Mg PO DAILY Furosemide 20 Mg Tablet 1 Tab PO DAILY Docusate Sodium 100 Mg Capsule 1 Cap PO DAILY Latanoprost 2.5 Ml Drops 1 Drop OU QHS Tegretol (Carbamazepine) 200 Mg Tablet 1 Tab PO BID Atorvastatin Calcium 10 Mg Tablet 10 Mg PO Amlodipine Besylate 5 Mg Tablet 5 Mg PO Cymbalta (Duloxetine Hcl) 30 Mg Capsule.dr 60 Mg PO DAILY Lidoderm (Lidocaine) 700 Mg Adh..patch 1 Patch TP DAILY Vitals/I & O Vital Sign - Last 24 Hours 08/20/18 08/20/18 08/20/18 08/20/18 08:57 08:57 11:00 15:00 Temp 98.4 98.3 98.4 98.3 Pulse 79 79 85 75 Resp 14 14 B/P (MAP) 145/72 145/72 111/60 (77) 145/77 (99) Pulse Ox 94 95 O2 Delivery Room Air Room Air 08/20/18 08/20/18 08/20/18 08/20/18 17:29 19:00 20:07 23:00 Temp 98.4 98.5 98.4 98.5 Pulse 75 78 75 Resp 20 20 B/P (MAP) 145/77 126/75 (92) 139/80 (99) Pulse Ox 93 92 O2 Delivery Room Air Room Air Room Air 08/21/18 08/21/18 03:00 07:00 Temp 98.5 97.9 98.5 97.9 Pulse 79 69 Resp 16 B/P (MAP) 133/80 (97) 111/61 (78) Pulse Ox 93 92 O2 Delivery Room Air Room Air Intake and Output 08/20/18 08/20/18 08/21/18 15:00 23:00 07:00 Intake Total 380 ml 480 ml 540 ml Output Total 625 ml 575 ml 650 ml Balance -245 ml -95 ml -110 ml ERNESTO BUCK MD August 21, 2018 08:32
[2018-08-21] MEDS: MULTIVITAMIN with MINERAL TABLET. PO SCH (08:36)
[2018-08-21] MEDS: LACTOBACILLUS RHAMNOSUS GG 1 CAPSULE. PO SCH ×2 (08:37→21:27)
[2018-08-21] MEDS: FINASTERIDE 5 MG TABLET. PO SCH (08:37)
[2018-08-21] MEDS: levETIRAcetam 500 MG TABLET PO SCH ×2 (08:37→21:26)
[2018-08-21] MEDS: ASCORBIC ACID 500 MG TABLET PO SCH (08:37)
[2018-08-21] MEDS: TAMSULOSIN 0.4 MG CAP.ER.24H. PO SCH ×2 (08:37→21:27)
[2018-08-21] MEDS: PANTOPRAZOLE 40 MG TABLET.DR. PO SCH (08:37)
[2018-08-21] MEDS: DOCUSATE SODIUM 100 MG CAPSULE. PO SCH (08:37)
[2018-08-21] MEDS: FLUCONAZOLE 100 MG TABLET. PO SCH (08:37)
[2018-08-21] MEDS: carBAMazepine 200 MG TABLET PO SCH ×2 (08:37→21:27)
[2018-08-21] MEDS: BACLOFEN 10 MG TABLET. PO SCH ×3 (08:37→21:27)
[2018-08-21] MEDS: PREGABALIN 75 MG CAPSULE PO SCH ×2 (08:38→21:26)
[2018-08-21] MEDS: amLODIPine BESYLATE 5 MG TABLET PO SCH (08:38)
[2018-08-21] MEDS: PIOGLITAZONE 15 MG TABLET. PO SCH (08:39)
[2018-08-21] MEDS: DULoxetine HCL 30 MG CAPSULE.DR PO SCH (08:39)
[2018-08-21] MEDS: CARVEDILOL 12.5 MG TABLET. PO SCH ×2 (08:39→18:03)
[2018-08-21 08:45] LABS: CALCIUM 8.3 mg/dL (8.5-10.1); CREATININE 1.3 mg/dL (0.7-1.3); GFR 66.8; POTASSIUM 4.2 mmol/L (3.5-5.1)
[2018-08-21] MEDS: NYSTATIN TOPICAL POWDER 15GM BOTTLE. TP SCH ×2 (08:46→21:27)
--- NOTE | 2018-08-21 10:23 | PDOC ---
PROGRESS NOTES Assessment Problems Medical Problems: (1) Acute renal failure Status: Acute (2) Cellulitis of left hand Status: Acute Epilepsy, breakthrough seizure. He is on 3 anticonvulsants including the pregabalin, plus the levetiracetam and carbamazepine. Levels were therapeutic when he was admitted 2 months ago Schizophrenia and depression Diabetic polyneuropathy Tardive dyskinesia, controlled Skin lesions Plan Continue current anticonvulsant doses He does not need additional neurological studies. Observation Treatment of abscess, fever, lesion on the penis per primary service. Discussed with Dr. Riley Subjective No complaints Objective Vital Signs Date Time Temp Pulse Resp B/P (MAP) Pulse Ox O2 Delivery O2 Flow Rate FiO2 08/21/18 08:39 69 111/61 08/21/18 07:00 97.9 16 92 Room Air 97.9 Intake and Output 08/21/18 06:59 Intake Total 1400 ml Output Total 1850 ml Balance -450 ml Intake Oral 1300 ml IV Total 100 ml Output Urine Total 1850 ml # Voids 2 PHYSICAL EXAM Alert. Oriented to time, place and person. PERRL. EOMI. CN: no focal findings. Muscle tone: normal. 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 Sensory exam: Stocking loss. No cerebellar signs elicited. Review of Relevant I have reviewed the following items jacob (where applicable) has been applied. Labs Laboratory Tests Test 08/19/18 11:00 08/19/18 11:35 08/19/18 11:40 08/19/18 16:41 White Blood Count 6.0 x10^3/uL (4.0-11.0) Red Blood Count 3.63 x10^6/uL (4.30-5.70) Hemoglobin 11.6 g/dL (13.0-17.5) Hematocrit 34.5 % (39.0-53.0) Mean Corpuscular Volume 95 fL (79-100) Mean Corpuscular Hemoglobin 32 pg (25-35) Mean Corpuscular Hemoglobin Concent 34 g/dL (31-37) Red Cell Distribution Width 14.5 % (11.5-14.5) Platelet Count 114 x10^3/uL (140-400) Neutrophils (%) (Auto) 79 % (31-73) Lymphocytes (%) (Auto) 6 % (24-48) Monocytes (%) (Auto) 12 % (0-9) Eosinophils (%) (Auto) 3 % (0-3) Basophils (%) (Auto) 0 % (0-3) Neutrophils # (Auto) 4.8 x10^3uL (1.8-7.7) Lymphocytes # (Auto) 0.4 x10^3/uL (1.0-4.8) Monocytes # (Auto) 0.7 x10^3/uL (0.0-1.1) Eosinophils # (Auto) 0.2 x10^3/uL (0.0-0.7) Basophils # (Auto) 0.0 x10^3/uL (0.0-0.2) Prothrombin Time 12.7 SEC (11.7-14.0) Prothromb Time International Ratio 1.0 (0.8-1.1) Sodium Level 141 mmol/L (136-145) Potassium Level 4.0 mmol/L (3.5-5.1) Chloride Level 102 mmol/L (98-107) Carbon Dioxide Level 28 mmol/L (21-32) Anion Gap 11 (6-14) Blood Urea Nitrogen 35 mg/dL (8-26) Creatinine 2.5 mg/dL (0.7-1.3) Estimated GFR (Cockcroft-Gault) 31.4 BUN/Creatinine Ratio 14 (6-20) Glucose Level 181 mg/dL (70-99) Lactic Acid Level 1.2 mmol/L (0.4-2.0) Calcium Level 8.7 mg/dL (8.5-10.1) Total Bilirubin 0.4 mg/dL (0.2-1.0) Aspartate Amino Transf (AST/SGOT) 39 U/L (15-37) Alanine Aminotransferase (ALT/SGPT) 32 U/L (16-63) Alkaline Phosphatase 73 U/L (46-116) Ammonia < 10 mcmol/L (11-34) Troponin I Quantitative < 0.017 ng/mL (0.000-0.055) Total Protein 7.9 g/dL (6.4-8.2) Albumin 3.6 g/dL (3.4-5.0) Albumin/Globulin Ratio 0.8 (1.0-1.7) Lipase 81 U/L (73-393) Carbamazepine (Tegretol) Level 11.2 mcg/mL (4.0-12.0) Carbamazepine Last Dose Date Unknown Carbamazepine Last Dose Time Unknown Urine Collection Type Unknown Urine Color [place] Urine Clarity Clear Urine pH 5.5 Urine Specific [place] 1.020 Urine Protein Negative mg/dL (NEG-TRACE) Urine Glucose (UA) Negative mg/dL (NEG) Urine Ketones (Stick) Negative mg/dL (NEG) Urine Blood Negative (NEG) Urine Nitrite Negative (NEG) Urine Bilirubin Small (NEG) Urine Urobilinogen Dipstick 1.0 mg/dL (0.2 mg/dL) Urine Leukocyte Esterase Negative (NEG) Urine RBC 0 /HPF (0-2) Urine WBC 0 /HPF (0-4) Urine Squamous Epithelial Cells Few /LPF Urine Bacteria 0 /HPF (0-FEW) Urine Opiates Screen Neg (NEG) Urine Methadone Screen Neg (NEG) Urine Barbiturates Neg (NEG) Urine Phencyclidine Screen Neg (NEG) Urine Amphetamine/Methamphetamine Neg (NEG) Urine Benzodiazepines Screen Neg (NEG) Urine Cocaine Screen Neg (NEG) Urine Cannabinoids Screen Neg (NEG) Urine Ethyl Alcohol Neg (NEG) Glucose (Fingerstick) 155 mg/dL (70-99) Test 08/19/18 21:15 08/20/18 07:38 08/20/18 08:19 08/20/18 08:30 Glucose (Fingerstick) 140 mg/dL (70-99) 36 mg/dL (70-99) 159 mg/dL (70-99) White Blood Count 8.8 x10^3/uL (4.0-11.0) Red Blood Count 3.51 x10^6/uL (4.30-5.70) Hemoglobin 11.3 g/dL (13.0-17.5) Hematocrit 33.8 % (39.0-53.0) Mean Corpuscular Volume 97 fL (79-100) Mean Corpuscular Hemoglobin 32 pg (25-35) Mean Corpuscular Hemoglobin Concent 33 g/dL (31-37) Red Cell Distribution Width 14.8 % (11.5-14.5) Platelet Count 112 x10^3/uL (140-400) Sodium Level 144 mmol/L (136-145) Potassium Level 3.7 mmol/L (3.5-5.1) Chloride Level 107 mmol/L (98-107) Carbon Dioxide Level 29 mmol/L (21-32) Anion Gap 8 (6-14) Blood Urea Nitrogen 22 mg/dL (8-26) Creatinine 1.5 mg/dL (0.7-1.3) Estimated GFR (Cockcroft-Gault) 56.7 Glucose Level 148 mg/dL (70-99) Calcium Level 8.2 mg/dL (8.5-10.1) Treponema pallidum Antibody Nonreactive (Nonreactive) Test 08/20/18 11:31 08/20/18 16:32 08/20/18 20:36 08/21/18 06:09 Glucose (Fingerstick) 193 mg/dL (70-99) 175 mg/dL (70-99) 175 mg/dL (70-99) 106 mg/dL (70-99) Test 08/21/18 07:24 08/21/18 08:00 Glucose (Fingerstick) 111 mg/dL (70-99) Sodium Level 144 mmol/L (136-145) Potassium Level 4.2 mmol/L (3.5-5.1) Chloride Level 108 mmol/L (98-107) Carbon Dioxide Level 28 mmol/L (21-32) Anion Gap 8 (6-14) Blood Urea Nitrogen 17 mg/dL (8-26) Creatinine 1.3 mg/dL (0.7-1.3) Estimated GFR (Cockcroft-Gault) 66.8 Glucose Level 120 mg/dL (70-99) Calcium Level 8.3 mg/dL (8.5-10.1) Laboratory Tests Test 08/20/18 11:31 08/20/18 16:32 08/20/18 20:36 08/21/18 06:09 Glucose (Fingerstick) 193 mg/dL (70-99) 175 mg/dL (70-99) 175 mg/dL (70-99) 106 mg/dL (70-99) Test 08/21/18 07:24 08/21/18 08:00 Glucose (Fingerstick) 111 mg/dL (70-99) Sodium Level 144 mmol/L (136-145) Potassium Level 4.2 mmol/L (3.5-5.1) Chloride Level 108 mmol/L (98-107) Carbon Dioxide Level 28 mmol/L (21-32) Anion Gap 8 (6-14) Blood Urea Nitrogen 17 mg/dL (8-26) Creatinine 1.3 mg/dL (0.7-1.3) Estimated GFR (Cockcroft-Gault) 66.8 Glucose Level 120 mg/dL (70-99) Calcium Level 8.3 mg/dL (8.5-10.1) Microbiology 08/19/18 Blood Culture - Preliminary, Resulted NO GROWTH AFTER 1 DAY 08/19/18 Anaerobic/Aerobic Culture, Resulted Pending 08/19/18 Anaerobic Culture Result 1 (HIRA), Resulted Pending 08/19/18 Aerobic Culture, Resulted Pending 08/19/18 Aerobic Culture Result 1 (HIRA), Resulted Pending 08/19/18 Gram Stain - Final, Resulted 08/19/18 Gram Stain Result 1 (HIRA) - Final, Resulted 08/19/18 Gram Stain Result 2 (HIRA) - Final, Resulted Medications Current Medications Lorazepam (Ativan Inj) 1 mg 1X ONCE IV Last administered on 08/19/18at 11:38; Start 08/19/18 at 11:00; Stop 08/19/18 at 11:01; Status DC Sodium Chloride 1,000 ml @ 100 mls/hr Q10H IV Last administered on 08/19/18at 11:22; Start 08/19/18 at 10:56; Stop 08/19/18 at 20:55; Status DC Ceftriaxone Sodium (Rocephin) 1 gm 1X ONCE IVP Last administered on 08/19/18at 12:10; Start 08/19/18 at 11:45; Stop 08/19/18 at 11:46; Status DC Vancomycin HCl 250 ml @ 250 mls/hr 1X ONCE IV ; Start 08/19/18 at 11:45; Stop 08/19/18 at 12:44; Status UNV Vancomycin HCl 1.25 gm/Sodium Chloride 250 ml @ 166.667 mls/hr 1X ONCE IV Last administered on 08/19/18at 12:14; Start 08/19/18 at 12:00; Stop 08/19/18 at 13:29; Status DC Sodium Chloride 1,000 ml @ 1,000 mls/hr 1X ONCE IV Last administered on 08/19/18at 12:33; Start 08/19/18 at 12:00; Stop 08/19/18 at 12:59; Status DC Insulin Human Lispro (HumaLOG) 0-5 UNITS TIDWMEALS SQ Last administered on 08/20/18 17:32; Start 08/19/18 at 17:00 Dextrose (Dextrose 50%-Water Syringe) 12.5 gm PRN Q15MIN PRN IV SEE COMMENTS Last administered on 08/20/18 08:00; Start 08/19/18 at 14:30 Piperacillin Sod/ Tazobactam Sod 3.375 gm/Sodium Chloride 50 ml @ 100 mls/hr Q6HRS IV Last administered on 08/21/18 05:57; Start 08/19/18 at 14:30 Vancomycin HCl (Vanco Per Pharmacy) 1 each PRN DAILY PRN MC SEE COMMENTS Last administered on 08/20/18 13:41; Start 08/19/18 at 14:30 Amlodipine Besylate (Norvasc) 5 mg DAILY PO Last administered on 08/21/18 08:38; Start 08/20/18 at 09:00 Atorvastatin Calcium (Lipitor) 10 mg HS PO Last administered on 08/20/18 20:44; Start 08/19/18 at 21:00 Baclofen (Lioresal) 10 mg TID PO Last administered on 08/21/18 08:37; Start 08/19/18 at 15:30 Bisacodyl (Dulcolax Tab) 10 mg PRN DAILY PRN PO CONSTIPATION; Start 08/19/18 at 14:30 Carbamazepine (TEGretol) 200 mg BID PO Last administered on 08/21/18 08:37; Start 08/19/18 at 21:00 Carvedilol (Coreg) 12.5 mg BIDWMEALS PO Last administered on 08/21/18 08:39; Start 08/19/18 at 17:00 Docusate Sodium (Colace) 100 mg DAILY PO Last administered on 08/21/18 08:37; Start 08/20/18 at 09:00 Duloxetine HCl (Cymbalta) 60 mg DAILY PO Last administered on 08/21/18 08:39; Start 08/20/18 at 09:00 Finasteride (Proscar) 5 mg DAILY PO Last administered on 08/21/18 08:37; Start 08/20/18 at 09:00 Glipizide (Glucotrol) 5 mg BIDBFRMEAL PO Last administered on 08/19/18at 17:50; Start 08/19/18 at 16:30; Stop 08/20/18 at 08:51; Status DC Levetiracetam (Keppra) 500 mg BID PO Last administered on 08/21/18 08:37; Start 08/19/18 at 21:00 Tamsulosin HCl (Flomax) 0.4 mg BID PO Last administered on 08/21/18 08:37; Start 08/19/18 at 21:00 Latanoprost (Xalatan) 1 drop QHS OU Last administered on 08/20/18 20:44; Start 08/19/18 at 21:00 Pantoprazole Sodium (Protonix) 40 mg DAILYAC PO Last administered on 08/21/18 08:37; Start 08/20/18 at 07:30 Pioglitazone HCl (Actos) 45 mg DAILY PO Last administered on 08/21/18 08:39; Start 08/20/18 at 09:00 Pregabalin (Lyrica) 150 mg BID PO Last administered on 08/21/18 08:38; Start 08/19/18 at 21:00 Quetiapine Fumarate (SEROquel) 100 mg HS PO Last administered on 08/20/18 20:44; Start 08/19/18 at 21:00 Acetaminophen (Tylenol) 1,000 mg PRN Q6HRS PRN PO pain; Start 08/19/18 at 14:45 Vancomycin HCl 750 mg/Sodium Chloride 250 ml @ 250 mls/hr 1X ONCE IV Last administered on 08/19/18at 15:41; Start 08/19/18 at 15:00; Stop 08/19/18 at 15:59; Status DC Vancomycin HCl 1 gm/Sodium Chloride 250 ml @ 250 mls/hr Q24H IV ; Start at 14:00; Stop 08/20/18 at 14:00; Status DC Vancomycin HCl (Vancomycin Trough Level) 1 each 1X ONCE MC ; Start 08/21/18 at 13:30; Stop 08/21/18 at 13:31 Sodium Chloride 1,000 ml @ 100 mls/hr Q10H IV Last administered on 08/20/18 08:58; Start 08/20/18 at 08:45; Stop 08/20/18 at 17:00; Status DC Fluconazole (Diflucan) 100 mg DAILY PO Last administered on 08/21/18at 08:37; Start 08/20/18 at 09:00 Multivitamins (Thera M Plus) 1 tab DAILY PO Last administered on 08/21/18 08:36; Start 08/21/18 at 09:00 Ascorbic Acid (Vitamin C) 500 mg DAILY PO Last administered on 08/21/18 08:37; Start 08/21/18 at 09:00 Nystatin (Nystop) 1 rogelio BID TP Last administered on 08/21/18 08:46; Start 08/20/18 at 14:00 Vancomycin HCl 1.5 gm/Sodium Chloride 500 ml @ 250 mls/hr Q24H IV Last administered on 08/20/18at 14:02; Start 08/20/18 at 14:00 Lactobacillus Rhamnosus (Culturelle) 1 cap BID PO Last administered on 08/21/18at 08:37; Start 08/20/18 at 21:00 Active Scripts Active Tramadol Hcl 50 Mg Tablet 50 Mg PO Q6HRS PRN Cephalexin 500 Mg Tablet 1 Tab PO QID Bactrim Ds Tablet (Sulfamethoxazole/Trimethoprim) 1 Each Tablet 1 Tab PO BID Finasteride 5 Mg Tablet 1 Tab PO DAILY Lyrica (Pregabalin) 150 Mg Capsule 1 Cap PO BID Flomax (Tamsulosin Hcl) 0.4 Mg Cap.er.24h 0.4 Mg PO BID 30 Days Triamcinolone Acetonide 0.1% Oint (Triamcinolone Acetonide) 15 Gm Oint...g. 1 Rogelio TP BID Actos (Pioglitazone Hcl) 15 Mg Tablet 45 Mg PO DAILY 28 Days Glucophage Xr (Metformin Hcl) 500 Mg Tab.er.24h 1,000 Mg PO DAILYWBKFT 30 Days Keppra (Levetiracetam) 500 Mg Tablet 500 Mg PO BID 30 Days Glipizide 5 Mg Tablet 5 Mg PO BIDBFRMEAL 30 Days Bisacodyl 5 Mg Tablet.dr 10 Mg PO PRN DAILY PRN 28 Days Quetiapine Fumarate 100 Mg Tablet 100 Mg PO QHS 30 Days Carvedilol (Carvedilol) 12.5 Mg Tablet 12.5 Mg PO BIDWMEALS 30 Days Baclofen 10 Mg Tablet 10 Mg PO TID 30 Days Reported Protonix (Pantoprazole Sodium) 20 Mg Tablet.dr 40 Mg PO DAILY Furosemide 20 Mg Tablet 1 Tab PO DAILY Docusate Sodium 100 Mg Capsule 1 Cap PO DAILY Latanoprost 2.5 Ml Drops 1 Drop OU QHS Tegretol (Carbamazepine) 200 Mg Tablet 1 Tab PO BID Atorvastatin Calcium 10 Mg Tablet 10 Mg PO Amlodipine Besylate 5 Mg Tablet 5 Mg PO Cymbalta (Duloxetine Hcl) 30 Mg Capsule.dr 60 Mg PO DAILY Lidoderm (Lidocaine) 700 Mg Adh..patch 1 Patch TP DAILY Vitals/I & O Vital Sign - Last 24 Hours 08/20/18 08/20/18 08/20/18 08/20/18 11:00 15:00 17:29 19:00 Temp 98.4 98.3 98.4 98.4 98.3 98.4 Pulse 85 75 75 78 Resp 14 14 20 B/P (MAP) 111/60 (77) 145/77 (99) 145/77 126/75 (92) Pulse Ox 94 95 93 O2 Delivery Room Air Room Air Room Air 08/20/18 08/20/18 08/21/18 08/21/18 20:07 23:00 03:00 07:00 Temp 98.5 98.5 97.9 98.5 98.5 97.9 Pulse 75 79 69 Resp 20 16 B/P (MAP) 139/80 (99) 133/80 (97) 111/61 (78) Pulse Ox 92 93 92 O2 Delivery Room Air Room Air Room Air Room Air 08/21/18 08/21/18 08:38 08:39 Pulse 69 69 B/P (MAP) 111/61 111/61 Intake and Output 08/20/18 08/20/18 08/21/18 14:59 22:59 06:59 Intake Total 380 ml 480 ml 540 ml Output Total 625 ml 575 ml 650 ml Balance -245 ml -95 ml -110 ml BEN TAM MD August 21, 2018 10:23
[2018-08-21 11:00] VITALS: BP 123/81
[2018-08-21 15:00] VITALS: BP 136/72
[2018-08-21] MEDS: VANCOMYCIN 1.5 GM in IV NORMAL SALINE 500ML BAG 500 ML IV SCH (16:29)
[2018-08-21] MEDS: VANCOMYCIN PER PHARMACY MC PRN (17:12)
--- NOTE | 2018-08-21 17:13 | NUR ---
Pharmacy Vancomycin Dosing Note S:Consulted to monitor and dose vancomycin started 08/19/18. O:ANAMARIA MAJANO is a 68 year old M with Cellulitis . Height: 5 feet, 9 inches Weight: 82.613395 kg [place] Body Weight: 70.70 Adjusted Body Weight: 74.14 Dosing Weight: Actual Other Antibiotics: ZOSYN LABS: Last BUN: 22 Last Creatinine: 1.5 Creatinine Clearance: 52 mL/min Last WBC: 8.8 Last Procalcitonin: Tmax (past 24 hours): 98.5 Microbiology: BLOOD CX IS NGTD I/O: 590/950 Drug Levels: Last Trough level: 11.0, DRAWN A BIT LATE on 08/21/18 at 1516 Last dose given 08/19/18 at 1400 Vancomycin Dosing: Loading Dose: 2000 mg x1 Dosing Weight: Actual Target Trough: 10-20 A: Based on: THERAPEUTIC TROUGH, P: 1. INITIATE Vancomycin 1500 mg IV q24h 2. Follow up Trough level NEEDED. 3. Pharmacy will continue to monitor, follow and adjust therapy as needed. DIANE CABRALES RPH, 08/21/18 [id number]
[2018-08-21 19:00] VITALS: BP 140/76
[2018-08-21] MEDS: ATORVASTATIN CALCIUM 10 MG TABLET. PO SCH (21:00)
[2018-08-21] MEDS: LATANOPROST 0.005% OPHTH SOLUTION 2.5ML BOTTLE. OU SCH (21:26)
[2018-08-21] MEDS: QUEtiapine 100 MG TABLET. PO SCH (21:29)
[2018-08-21 23:00] VITALS: BP 119/59
[2018-08-22] MEDS: PIPERACILLIN/TAZOBACTAM 3.375 GM in IV NORMAL SALINE 50ML 50 ML IV SCH ×5 (00:27→23:54)
[2018-08-22 03:00] VITALS: BP 138/70
[2018-08-22 07:00] VITALS: BP 122/77
[2018-08-22] MEDS: INSULIN LISPRO 300 UNITS/3 ML INSULN.PEN. SQ SCH ×3 (08:00→17:43)
[2018-08-22] MEDS: PIOGLITAZONE 15 MG TABLET. PO SCH (08:59)
[2018-08-22] MEDS: DULoxetine HCL 30 MG CAPSULE.DR PO SCH (09:00)
[2018-08-22] MEDS: amLODIPine BESYLATE 5 MG TABLET PO SCH (09:00)
[2018-08-22] MEDS: PANTOPRAZOLE 40 MG TABLET.DR. PO SCH (09:00)
[2018-08-22] MEDS: TAMSULOSIN 0.4 MG CAP.ER.24H. PO SCH ×2 (09:00→22:14)
[2018-08-22] MEDS: BACLOFEN 10 MG TABLET. PO SCH ×3 (09:00→22:14)
[2018-08-22] MEDS: CARVEDILOL 12.5 MG TABLET. PO SCH ×2 (09:01→17:30)
[2018-08-22] MEDS: carBAMazepine 200 MG TABLET PO SCH ×2 (09:01→22:14)
[2018-08-22] MEDS: FLUCONAZOLE 100 MG TABLET. PO SCH (09:01)
[2018-08-22] MEDS: LACTOBACILLUS RHAMNOSUS GG 1 CAPSULE. PO SCH ×2 (09:01→22:14)
[2018-08-22] MEDS: levETIRAcetam 500 MG TABLET PO SCH ×2 (09:01→22:14)
[2018-08-22] MEDS: MULTIVITAMIN with MINERAL TABLET. PO SCH (09:01)
[2018-08-22] MEDS: FINASTERIDE 5 MG TABLET. PO SCH (09:01)
[2018-08-22] MEDS: DOCUSATE SODIUM 100 MG CAPSULE. PO SCH (09:01)
[2018-08-22] MEDS: ASCORBIC ACID 500 MG TABLET PO SCH (09:02)
[2018-08-22] MEDS: PREGABALIN 75 MG CAPSULE PO SCH ×2 (09:02→22:14)
[2018-08-22] MEDS: NYSTATIN TOPICAL POWDER 15GM BOTTLE. TP SCH ×2 (09:02→22:14)
[2018-08-22 11:00] VITALS: BP 142/69
--- NOTE | 2018-08-22 12:26 | PDOC ---
SUBJECTIVE Subjective Pt states that he is doing okay. Still having pain. Doesn't feel rash on penis has improved OBJECTIVE Vital Signs Vital Signs Date Time Temp Pulse Resp B/P (MAP) Pulse Ox O2 Delivery O2 Flow Rate FiO2 08/22/18 11:00 98.0 71 18 142/69 (93) 95 Room Air 98.0 08/22/18 09:01 69 122/77 08/22/18 09:00 69 122/77 08/22/18 08:00 Room Air 08/22/18 07:00 97.8 69 18 122/77 (92) 92 Room Air 97.8 08/22/18 03:00 98.7 65 16 138/70 (92) 99 Room Air 98.7 08/21/18 23:00 98.7 68 16 119/59 (79) 92 Room Air 98.7 08/21/18 19:00 99.0 102 16 140/76 (97) 94 Room Air 99.0 08/21/18 18:03 73 136/72 08/21/18 15:00 98.1 73 16 136/72 (93) 94 Room Air 98.1 I & O Intake and Output 08/22/18 07:00 Intake Total 1140 ml Output Total 200 ml Balance 940 ml Intake Oral 1040 ml IV Total 100 ml Output Urine Total 200 ml # Voids 2 PHYSICAL EXAM Physical Exam GEN: NAD, AOx3 HEENT: lips cracked bleeding, EOMI, no scleral icterus/injection Cardiac: RRR, no M/R/G Lungs: CTAB Abd: non distended, NTTP Ext: no erythema/edema LE bilaterally, open healing wound left hand, head of penis with small areas of bleeding ASSESSMENT/PLAN Assessment/Plan Pt is a 68yo AAM admitted for seizure 1. Seizure disorder with breakthrough seizure - stable, no further seizures. Continue his usual medications per Neurology. 2. Cellulitis left index finger with possible sepsis - remains afebrile. Blood cultures negative to date. Continue Vancomycin and Zosyn, continue wound care. 3. Acute renal failure - resolved with IVF hydration 4. Candidal rash of penis - continue Diflucan and Nystatin powder, appreciate Urology input. Wound cultures from penis pending. 5. hx urinary retention, s/p interstim placement - urinating well now. Continue his usual po meds. 6. DM2 - home meds on hold presently as glucose was low initially. Continue SS insulin, resume home meds as needed. 7. HTN - controlled, continue present medications. 8. schizophrenia - stable, continue his usual medications for this. COMMENT Lab Laboratory Tests Test 08/21/18 15:16 08/21/18 17:50 08/21/18 20:40 08/22/18 07:33 Vancomycin Level Trough 11.0 mcg/mL (10.0-20.0) Vancomycin Last Dose Date 08/20/18 Vancomycin Last Dose Time 1400 Glucose (Fingerstick) 188 mg/dL (70-99) 135 mg/dL (70-99) 128 mg/dL (70-99) Test 08/22/18 11:38 Glucose (Fingerstick) 177 mg/dL (70-99) STEPHEN TURNER MD Aug 22, 2018 12:26
[2018-08-22] MEDS: VANCOMYCIN 1.5 GM in IV NORMAL SALINE 500ML BAG 500 ML IV SCH (14:43)
[2018-08-22] MEDS: VANCOMYCIN PER PHARMACY MC PRN (14:57)
[2018-08-22 15:00] VITALS: BP 149/77
[2018-08-22 19:00] VITALS: BP 147/75
[2018-08-22] MEDS: QUEtiapine 100 MG TABLET. PO SCH (22:14)
[2018-08-22] MEDS: LATANOPROST 0.005% OPHTH SOLUTION 2.5ML BOTTLE. OU SCH (22:14)
[2018-08-22] MEDS: ATORVASTATIN CALCIUM 10 MG TABLET. PO SCH (22:14)
[2018-08-22 22:43] VITALS: BP 159/82
[2018-08-23 03:00] VITALS: BP 148/79
[2018-08-23] MEDS: PIPERACILLIN/TAZOBACTAM 3.375 GM in IV NORMAL SALINE 50ML 50 ML IV SCH ×4 (05:56→23:41)
[2018-08-23 07:25] VITALS: BP 141/74
[2018-08-23] MEDS: INSULIN LISPRO 300 UNITS/3 ML INSULN.PEN. SQ SCH ×3 (08:00→17:23)
[2018-08-23] MEDS: FINASTERIDE 5 MG TABLET. PO SCH (08:37)
[2018-08-23] MEDS: PIOGLITAZONE 15 MG TABLET. PO SCH (08:37)
[2018-08-23] MEDS: DULoxetine HCL 30 MG CAPSULE.DR PO SCH (08:37)
[2018-08-23] MEDS: DOCUSATE SODIUM 100 MG CAPSULE. PO SCH (08:37)
[2018-08-23] MEDS: PREGABALIN 75 MG CAPSULE PO SCH ×2 (08:37→21:37)
[2018-08-23] MEDS: ASCORBIC ACID 500 MG TABLET PO SCH (08:37)
[2018-08-23] MEDS: LACTOBACILLUS RHAMNOSUS GG 1 CAPSULE. PO SCH ×2 (08:37→21:37)
[2018-08-23] MEDS: carBAMazepine 200 MG TABLET PO SCH ×2 (08:37→21:38)
[2018-08-23] MEDS: MULTIVITAMIN with MINERAL TABLET. PO SCH (08:38)
[2018-08-23] MEDS: PANTOPRAZOLE 40 MG TABLET.DR. PO SCH (08:38)
[2018-08-23] MEDS: BACLOFEN 10 MG TABLET. PO SCH ×3 (08:38→21:37)
[2018-08-23] MEDS: levETIRAcetam 500 MG TABLET PO SCH ×2 (08:38→21:37)
[2018-08-23] MEDS: FLUCONAZOLE 100 MG TABLET. PO SCH (08:38)
[2018-08-23] MEDS: TAMSULOSIN 0.4 MG CAP.ER.24H. PO SCH ×2 (08:38→21:37)
[2018-08-23] MEDS: amLODIPine BESYLATE 5 MG TABLET PO SCH (08:40)
[2018-08-23] MEDS: CARVEDILOL 12.5 MG TABLET. PO SCH ×2 (08:40→17:21)
[2018-08-23] MEDS: NYSTATIN TOPICAL POWDER 15GM BOTTLE. TP SCH ×2 (08:41→21:38)
[2018-08-23 08:53] LABS: CREATININE 1.1 mg/dL (0.7-1.3)
--- NOTE | 2018-08-23 11:06 | PDOC ---
SUBJECTIVE Subjective Pt states that his penis is not feeling any better, still painful. Discussed with pt that having the brief on is not helping but pt states that he needs it. OBJECTIVE Vital Signs Vital Signs Date Time Temp Pulse Resp B/P (MAP) Pulse Ox O2 Delivery O2 Flow Rate FiO2 08/23/18 08:40 72 141/74 08/23/18 08:40 72 141/74 08/23/18 08:00 Room Air 08/23/18 07:25 72 16 141/74 (96) 92 Room Air 08/23/18 03:00 98.3 73 18 148/79 (102) 96 Room Air 98.3 08/22/18 22:43 98.4 66 18 159/82 (107) 95 Room Air 98.4 08/22/18 19:00 98.4 78 18 147/75 (99) 96 Room Air 98.4 08/22/18 17:30 73 149/77 08/22/18 15:00 98.0 73 18 149/77 (101) 98 Room Air 98.0 I & O Intake and Output 08/23/18 06:59 Intake Total 720 ml Balance 720 ml Intake Oral 720 ml # Voids 2 # Bowel Movements 1 PHYSICAL EXAM Physical Exam GEN: NAD, AOx3 HEENT: lips cracked bleeding, EOMI, no scleral icterus/injection Cardiac: RRR, no M/R/G Lungs: CTAB Abd: non distended, NTTP Skin: healing wound 2nd finger, small ulcerations on head of penis Ext: no erythema/edema LE bilaterally ASSESSMENT/PLAN Assessment/Plan Pt is a 68yo AAM admitted for seizure 1. Seizure disorder with breakthrough seizure - stable, no further seizures. Continue his usual medications per Neurology. 2. Cellulitis left index finger with possible sepsis - remains afebrile. Blood cultures negative to date. Continue Vancomycin and Zosyn, continue wound care. 3. Acute renal failure - resolved with IVF hydration 4. Candidal rash of penis - continue Diflucan and Nystatin powder, appreciate Urology input. Wound cultures from penis pending. 5. hx urinary retention, s/p interstim placement - urinating well now. Continue his usual po meds. 6. DM2 - home meds on hold presently as glucose was low initially. Continue SS insulin, resume home meds as needed. 7. HTN - controlled, continue present medications. 8. schizophrenia - stable, continue his usual medications for this. COMMENT Lab Laboratory Tests Test 08/22/18 11:38 08/22/18 16:49 08/22/18 20:44 08/23/18 07:55 Glucose (Fingerstick) 177 mg/dL (70-99) 158 mg/dL (70-99) 162 mg/dL (70-99) Creatinine 1.1 mg/dL (0.7-1.3) Estimated GFR (Cockcroft-Gault) 81.0 Test 08/23/18 08:36 Glucose (Fingerstick) 119 mg/dL (70-99) STEPHEN TURNER MD Aug 23, 2018 11:06
[2018-08-23 11:15] VITALS: BP 125/62
[2018-08-23] MEDS ORDERED: KETOCONAZOLE 2% SHAMPOO 120ML BOTTLE. TP PRN (11:15)
[2018-08-23] MEDS: VANCOMYCIN PER PHARMACY MC PRN (13:30)
[2018-08-23 15:15] VITALS: BP 125/65
[2018-08-23] MEDS: VANCOMYCIN 1.5 GM in IV NORMAL SALINE 500ML BAG 500 ML IV SCH (15:24)
[2018-08-23 19:00] VITALS: BP 134/65
[2018-08-23] MEDS: ATORVASTATIN CALCIUM 10 MG TABLET. PO SCH (21:37)
[2018-08-23] MEDS: QUEtiapine 100 MG TABLET. PO SCH (21:37)
[2018-08-23] MEDS: LATANOPROST 0.005% OPHTH SOLUTION 2.5ML BOTTLE. OU SCH (21:38)
[2018-08-23 23:00] VITALS: BP 131/69
[2018-08-24 03:00] VITALS: BP 122/66
[2018-08-24] MEDS: PIPERACILLIN/TAZOBACTAM 3.375 GM in IV NORMAL SALINE 50ML 50 ML IV SCH (06:18)
[2018-08-24 07:00] VITALS: BP 154/83
[2018-08-24] MEDS: INSULIN LISPRO 300 UNITS/3 ML INSULN.PEN. SQ SCH ×3 (08:00→17:11)
--- NOTE | 2018-08-24 08:44 | PDOC ---
PROGRESS NOTES Subjective Subjective Patient c/o sore mouth and sore penis. Otherwise without complaint. Objective Objective Vital Signs Date Time Temp Pulse Resp B/P (MAP) Pulse Ox O2 Delivery O2 Flow Rate FiO2 08/24/18 03:00 98.6 69 18 122/66 (84) 93 Room Air 98.6 08/19/18 19:10 2.0 Intake and Output 08/24/18 07:00 Intake Total 680 ml Output Total 950 ml Balance -270 ml Intake Oral 580 ml IV Total 100 ml Output Urine Total 950 ml # Bowel Movements 1 Physical Exam Abdomen: Normal bowel sounds, Soft, No tenderness Heart: Regular rate Extremities: No edema General: Alert, Oriented X3, No acute distress Lungs: Clear to auscultation Skin: Other (desquamination and bleeding to lips, similar process on glans penis.) Assessment Assessment Problems Medical Problems: (1) Acute renal failure Status: Acute (2) Cellulitis of left hand Status: Acute Plan Plan of Care 1. Mucocutaneous ulcers/desquamation - worsening on lips, still present on penis. Possible allergic reaction to Bactrim which he had a few doses of prior to admission? No other new meds for him and started before admission so present antibiotics probably not causing this. Will give Prednisone x1. Dermatology consulted. Still treating possible fungal component on penis. 2. cellulitis - almost resolved. Blood cultures negative, will discontinue Vanco and Zosyn. 3. seizure disorder - stable with his usual medications. 4. HTN - controlled. 5. DM2 - fairly well controlled, expect some hyperglycemia from the Prednisone, continue SS insulin. 6. schizophrenia - stable with his usual medications. 7. chronically unsteady gait - continue therapies. Comment Review of Relevant I have reviewed the following items jacob (where applicable) has been applied. Labs Laboratory Tests Test 08/22/18 11:38 08/22/18 16:49 08/22/18 20:44 08/23/18 07:55 Glucose (Fingerstick) 177 mg/dL (70-99) 158 mg/dL (70-99) 162 mg/dL (70-99) Creatinine 1.1 mg/dL (0.7-1.3) Estimated GFR (Cockcroft-Gault) 81.0 Test 08/23/18 08:36 08/23/18 11:59 08/23/18 17:05 08/23/18 20:10 Glucose (Fingerstick) 119 mg/dL (70-99) 203 mg/dL (70-99) 172 mg/dL (70-99) 211 mg/dL (70-99) Test 08/24/18 07:44 Glucose (Fingerstick) 113 mg/dL (70-99) Laboratory Tests Test 08/23/18 11:59 08/23/18 17:05 08/23/18 20:10 08/24/18 07:44 Glucose (Fingerstick) 203 mg/dL (70-99) 172 mg/dL (70-99) 211 mg/dL (70-99) 113 mg/dL (70-99) Microbiology 08/19/18 Blood Culture - Preliminary, Resulted NO GROWTH AFTER 4 DAYS 08/20/18 Anaerobic/Aerobic Culture, Resulted Pending 08/20/18 Anaerobic Culture Result 1 (HIRA), Resulted Pending 08/20/18 Aerobic Culture - Final, Resulted 08/20/18 Aerobic Culture Result 1 (HIRA) - Final, Resulted 08/20/18 Gram Stain - Final, Resulted 08/20/18 Gram Stain Result 1 (HIRA) - Final, Resulted 08/20/18 Gram Stain Result 2 (HIRA) - Final, Resulted Medications Current Medications Lorazepam (Ativan Inj) 1 mg 1X ONCE IV Last administered on 08/19/18at 11:38; Start 08/19/18 at 11:00; Stop 08/19/18 at 11:01; Status DC Sodium Chloride 1,000 ml @ 100 mls/hr Q10H IV Last administered on 08/19/18at 11:22; Start 08/19/18 at 10:56; Stop 08/19/18 at 20:55; Status DC Ceftriaxone Sodium (Rocephin) 1 gm 1X ONCE IVP Last administered on 08/19/18at 12:10; Start 08/19/18 at 11:45; Stop 08/19/18 at 11:46; Status DC Vancomycin HCl 250 ml @ 250 mls/hr 1X ONCE IV ; Start 08/19/18 at 11:45; Stop 08/19/18 at 12:44; Status UNV Vancomycin HCl 1.25 gm/Sodium Chloride 250 ml @ 166.667 mls/hr 1X ONCE IV Last administered on 08/19/18at 12:14; Start 08/19/18 at 12:00; Stop 08/19/18 at 13:29; Status DC Sodium Chloride 1,000 ml @ 1,000 mls/hr 1X ONCE IV Last administered on 08/19/18at 12:33; Start 08/19/18 at 12:00; Stop 08/19/18 at 12:59; Status DC Insulin Human Lispro (HumaLOG) 0-5 UNITS TIDWMEALS SQ Last administered on 08/23/18 17:23; Start 08/19/18 at 17:00 Dextrose (Dextrose 50%-Water Syringe) 12.5 gm PRN Q15MIN PRN IV SEE COMMENTS Last administered on 08/20/18 08:00; Start 08/19/18 at 14:30 Piperacillin Sod/ Tazobactam Sod 3.375 gm/Sodium Chloride 50 ml @ 100 mls/hr Q6HRS IV Last administered on 08/24/18 06:18; Start 08/19/18 at 14:30 Vancomycin HCl (Vanco Per Pharmacy) 1 each PRN DAILY PRN MC SEE COMMENTS Last administered on 08/23/18 13:30; Start 08/19/18 at 14:30 Amlodipine Besylate (Norvasc) 5 mg DAILY PO Last administered on 08/23/18 08:40; Start 08/20/18 at 09:00 Atorvastatin Calcium (Lipitor) 10 mg HS PO Last administered on 08/23/18 21:37; Start 08/19/18 at 21:00 Baclofen (Lioresal) 10 mg TID PO Last administered on 08/23/18 21:37; Start 08/19/18 at 15:30 Bisacodyl (Dulcolax Tab) 10 mg PRN DAILY PRN PO CONSTIPATION; Start 08/19/18 at 14:30 Carbamazepine (TEGretol) 200 mg BID PO Last administered on 08/23/18 21:38; Start 08/19/18 at 21:00 Carvedilol (Coreg) 12.5 mg BIDWMEALS PO Last administered on 08/23/18 17:21; S tart 08/19/18 at 17:00 Docusate Sodium (Colace) 100 mg DAILY PO Last administered on 08/23/18 08:37; Start 08/20/18 at 09:00 Duloxetine HCl (Cymbalta) 60 mg DAILY PO Last administered on 08/23/18 08:37; Start 08/20/18 at 09:00 Finasteride (Proscar) 5 mg DAILY PO Last administered on 08/23/18 08:37; Start 08/20/18 at 09:00 Glipizide (Glucotrol) 5 mg BIDBFRMEAL PO Last administered on 08/19/18 17:50; Start 08/19/18 at 16:30; Stop 08/20/18 at 08:51; Status DC Levetiracetam (Keppra) 500 mg BID PO Last administered on 08/23/18 21:37; Start 08/19/18 at 21:00 Tamsulosin HCl (Flomax) 0.4 mg BID PO Last administered on 08/23/18 21:37; Start 08/19/18 at 21:00 Latanoprost (Xalatan) 1 drop QHS OU Last administered on 08/23/18 21:38; Start 08/19/18 at 21:00 Pantoprazole Sodium (Protonix) 40 mg DAILYAC PO Last administered on 08/23/18 08:38; Start 08/20/18 at 07:30 Pioglitazone HCl (Actos) 45 mg DAILY PO Last administered on 08/23/18 08:37; Start 08/20/18 at 09:00 Pregabalin (Lyrica) 150 mg BID PO Last administered on 08/23/18 21:37; Start 08/19/18 at 21:00 Quetiapine Fumarate (SEROquel) 100 mg HS PO Last administered on 08/23/18 21:37; Start 08/19/18 at 21:00 Acetaminophen (Tylenol) 1,000 mg PRN Q6HRS PRN PO pain; Start 08/19/18 at 14:45 Vancomycin HCl 750 mg/Sodium Chloride 250 ml @ 250 mls/hr 1X ONCE IV Last administered on 08/19/18at 15:41; Start 08/19/18 at 15:00; Stop 08/19/18 at 15:59; Status DC Vancomycin HCl 1 gm/Sodium Chloride 250 ml @ 250 mls/hr Q24H IV ; Start 08/20/18 at 14:00; Stop 08/20/18 at 14:00; Status DC Vancomycin HCl (Vancomycin Trough Level) 1 each 1X ONCE MC Last administered on 08/21/18 13:30; Start 08/21/18 at 13:30; Stop 08/21/18 at 13:31; Status DC Sodium Chloride 1,000 ml @ 100 mls/hr Q10H IV Last administered on 08/20/18 08:58; Start 08/20/18 at 08:45; Stop 08/20/18 at 17:00; Status DC Fluconazole (Diflucan) 100 mg DAILY PO Last administered on 08/23/18 08:38; Start 08/20/18 at 09:00 Multivitamins (Thera M Plus) 1 tab DAILY PO Last administered on 08/23/18 08:38; Start 08/21/18 at 09:00 Ascorbic Acid (Vitamin C) 500 mg DAILY PO Last administered on 08/23/18 08:37; Start 08/21/18 at 09:00 Nystatin (Nystop) 1 rogelio BID TP Last administered on 08/23/18at 21:38; Start 08/20/18 at 14:00 Vancomycin HCl 1.5 gm/Sodium Chloride 500 ml @ 250 mls/hr Q24H IV Last administered on 08/23/18 15:24; Start 08/20/18 at 14:00 Lactobacillus Rhamnosus (Culturelle) 1 cap BID PO Last administered on 08/23/18 21:37; Start 08/20/18 at 21:00 Ketoconazole (Nizoral 2% Shampoo) 1 rogelio PRN DAILY PRN TP SEE COMMENTS Last administered on 08/23/18at 12:27; Start 08/23/18 at 11:15 Active Scripts Active Tramadol Hcl 50 Mg Tablet 50 Mg PO Q6HRS PRN Cephalexin 500 Mg Tablet 1 Tab PO QID Bactrim Ds Tablet (Sulfamethoxazole/Trimethoprim) 1 Each Tablet 1 Tab PO BID Finasteride 5 Mg Tablet 1 Tab PO DAILY Lyrica (Pregabalin) 150 Mg Capsule 1 Cap PO BID Flomax (Tamsulosin Hcl) 0.4 Mg Cap.er.24h 0.4 Mg PO BID 30 Days Triamcinolone Acetonide 0.1% Oint (Triamcinolone Acetonide) 15 Gm Oint...g. 1 Rogelio TP BID Actos (Pioglitazone Hcl) 15 Mg Tablet 45 Mg PO DAILY 28 Days Glucophage Xr (Metformin Hcl) 500 Mg Tab.er.24h 1,000 Mg PO DAILYWBKFT 30 Days Keppra (Levetiracetam) 500 Mg Tablet 500 Mg PO BID 30 Days Glipizide 5 Mg Tablet 5 Mg PO BIDBFRMEAL 30 Days Bisacodyl 5 Mg Tablet.dr 10 Mg PO PRN DAILY PRN 28 Days Quetiapine Fumarate 100 Mg Tablet 100 Mg PO QHS 30 Days Carvedilol (Carvedilol) 12.5 Mg Tablet 12.5 Mg PO BIDWMEALS 30 Days Baclofen 10 Mg Tablet 10 Mg PO TID 30 Days Reported Protonix (Pantoprazole Sodium) 20 Mg Tablet.dr 40 Mg PO DAILY Furosemide 20 Mg Tablet 1 Tab PO DAILY Docusate Sodium 100 Mg Capsule 1 Cap PO DAILY Latanoprost 2.5 Ml Drops 1 Drop OU QHS Tegretol (Carbamazepine) 200 Mg Tablet 1 Tab PO BID Atorvastatin Calcium 10 Mg Tablet 10 Mg PO Amlodipine Besylate 5 Mg Tablet 5 Mg PO Cymbalta (Duloxetine Hcl) 30 Mg Capsule.dr 60 Mg PO DAILY Lidoderm (Lidocaine) 700 Mg Adh..patch 1 Patch TP DAILY Vitals/I & O Vital Sign - Last 24 Hours 08/23/18 08/23/18 08/23/18 08/23/18 08:40 08:40 11:15 15:15 Temp 98.1 98.6 98.1 98.6 Pulse 72 72 70 72 Resp 16 16 B/P (MAP) 141/74 141/74 125/62 (83) 125/65 (85) Pulse Ox 98 97 O2 Delivery Room Air Room Air 08/23/18 08/23/18 08/23/18 08/24/18 17:21 19:00 23:00 03:00 Temp 98.4 98.4 98.6 98.4 98.4 98.6 Pulse 72 71 75 69 Resp 16 18 18 B/P (MAP) 125/65 134/65 (88) 131/69 (89) 122/66 (84) Pulse Ox 95 92 93 O2 Delivery Room Air Room Air Room Air Intake and Output 08/23/18 08/23/18 08/24/18 15:00 23:00 07:00 Intake Total 180 ml 400 ml 100 ml Output Total 300 ml 650 ml Balance -120 ml 400 ml -550 ml ERNESTO BUCK MD Aug 24, 2018 08:43
[2018-08-24] MEDS ORDERED: predniSONE 20 MG TABLET PO ONE (09:00)
[2018-08-24] MEDS: PREGABALIN 75 MG CAPSULE PO SCH ×2 (09:17→21:35)
[2018-08-24] MEDS: PIOGLITAZONE 15 MG TABLET. PO SCH (09:17)
[2018-08-24] MEDS: DOCUSATE SODIUM 100 MG CAPSULE. PO SCH (09:17)
[2018-08-24] MEDS: TAMSULOSIN 0.4 MG CAP.ER.24H. PO SCH ×2 (09:17→21:35)
[2018-08-24] MEDS: ASCORBIC ACID 500 MG TABLET PO SCH (09:18)
[2018-08-24] MEDS: DULoxetine HCL 30 MG CAPSULE.DR PO SCH (09:18)
[2018-08-24] MEDS: levETIRAcetam 500 MG TABLET PO SCH ×2 (09:18→21:36)
[2018-08-24] MEDS: LACTOBACILLUS RHAMNOSUS GG 1 CAPSULE. PO SCH ×2 (09:18→21:36)
[2018-08-24] MEDS: FINASTERIDE 5 MG TABLET. PO SCH (09:18)
[2018-08-24] MEDS: PANTOPRAZOLE 40 MG TABLET.DR. PO SCH (09:18)
[2018-08-24] MEDS: amLODIPine BESYLATE 5 MG TABLET PO SCH (09:19)
[2018-08-24] MEDS: BACLOFEN 10 MG TABLET. PO SCH ×3 (09:19→21:35)
[2018-08-24] MEDS: FLUCONAZOLE 100 MG TABLET. PO SCH (09:19)
[2018-08-24] MEDS: CARVEDILOL 12.5 MG TABLET. PO SCH ×2 (09:19→17:10)
[2018-08-24] MEDS: MULTIVITAMIN with MINERAL TABLET. PO SCH (09:19)
[2018-08-24] MEDS: carBAMazepine 200 MG TABLET PO SCH ×2 (09:19→21:35)
[2018-08-24] MEDS: NYSTATIN TOPICAL POWDER 15GM BOTTLE. TP SCH ×2 (09:20→21:41)
--- NOTE | 2018-08-24 10:05 | PDOC ---
PROGRESS NOTES Assessment Problems Medical Problems: (1) Acute renal failure Status: Acute (2) Cellulitis of left hand Status: Acute Epilepsy, breakthrough seizure. He is on 3 anticonvulsants including the pregabalin, plus the levetiracetam and carbamazepine. Levels were therapeutic when he was admitted 2 months ago Schizophrenia and depression Diabetic polyneuropathy Tardive dyskinesia, controlled Skin lesions, Suspect allergic reaction to the Bactrim he got last week, anticonvulsants are long-standing in doses have not changed, that they are at fault Plan Continue current anticonvulsant doses He does not need additional neurological studies. Observation Treatment of abscess, fever, lesion on the penis per primary service. Discussed with Dr. Riley, who is giving the patient a dose of prednisone and consulting dermatology Subjective No neurological issues Objective Vital Signs Date Time Temp Pulse Resp B/P (MAP) Pulse Ox O2 Delivery O2 Flow Rate FiO2 08/24/18 09:19 72 154/83 08/24/18 07:00 98.3 16 93 Room Air 98.3 Intake and Output 08/24/18 07:00 Intake Total 680 ml Output Total 950 ml Balance -270 ml Intake Oral 580 ml IV Total 100 ml Output Urine Total 950 ml # Bowel Movements 1 PHYSICAL EXAM Alert. Oriented to time, place and person. PERRL. EOMI. CN: no focal findings. Muscle tone: normal. 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 Sensory exam: Stocking loss. No cerebellar signs elicited. Review of Relevant I have reviewed the following items jacob (where applicable) has been applied. Labs Laboratory Tests Test 08/22/18 11:38 08/22/18 16:49 08/22/18 20:44 08/23/18 07:55 Glucose (Fingerstick) 177 mg/dL (70-99) 158 mg/dL (70-99) 162 mg/dL (70-99) Creatinine 1.1 mg/dL (0.7-1.3) Estimated GFR (Cockcroft-Gault) 81.0 Test 08/23/18 08:36 08/23/18 11:59 08/23/18 17:05 08/23/18 20:10 Glucose (Fingerstick) 119 mg/dL (70-99) 203 mg/dL (70-99) 172 mg/dL (70-99) 211 mg/dL (70-99) Test 08/24/18 07:44 Glucose (Fingerstick) 113 mg/dL (70-99) Laboratory Tests Test 08/23/18 11:59 08/23/18 17:05 08/23/18 20:10 08/24/18 07:44 Glucose (Fingerstick) 203 mg/dL (70-99) 172 mg/dL (70-99) 211 mg/dL (70-99) 113 mg/dL (70-99) Microbiology 08/19/18 Blood Culture - Preliminary, Resulted NO GROWTH AFTER 4 DAYS 08/20/18 Anaerobic/Aerobic Culture, Resulted Pending 08/20/18 Anaerobic Culture Result 1 (HIRA), Resulted Pending 08/20/18 Aerobic Culture - Final, Resulted 08/20/18 Aerobic Culture Result 1 (HIRA) - Final, Resulted 08/20/18 Gram Stain - Final, Resulted 08/20/18 Gram Stain Result 1 (HIRA) - Final, Resulted 08/20/18 Gram Stain Result 2 (HIRA) - Final, Resulted Medications Current Medications Lorazepam (Ativan Inj) 1 mg 1X ONCE IV Last administered on 08/19/18at 11:38; Start 08/19/18 at 11:00; Stop 08/19/18 at 11:01; Status DC Sodium Chloride 1,000 ml @ 100 mls/hr Q10H IV Last administered on 08/19/18at 11:22; Start 08/19/18 at 10:56; Stop 08/19/18 at 20:55; Status DC Ceftriaxone Sodium (Rocephin) 1 gm 1X ONCE IVP Last administered on 08/19/18at 12:10; Start 08/19/18 at 11:45; Stop 08/19/18 at 11:46; Status DC Vancomycin HCl 250 ml @ 250 mls/hr 1X ONCE IV ; Start 08/19/18 at 11:45; Stop 08/19/18 at 12:44; Status UNV Vancomycin HCl 1.25 gm/Sodium Chloride 250 ml @ 166.667 mls/hr 1X ONCE IV Last administered on 08/19/18at 12:14; Start 08/19/18 at 12:00; Stop 08/19/18 at 13:29; Status DC Sodium Chloride 1,000 ml @ 1,000 mls/hr 1X ONCE IV Last administered on 08/19/18 12:33; Start 08/19/18 at 12:00; Stop 08/19/18 at 12:59; Status DC Insulin Human Lispro (HumaLOG) 0-5 UNITS TIDWMEALS SQ Last administered on 08/23/18 17:23; Start 08/19/18 at 17:00 Dextrose (Dextrose 50%-Water Syringe) 12.5 gm PRN Q15MIN PRN IV SEE COMMENTS Last administered on 08/20/18at 08:00; Start 08/19/18 at 14:30 Piperacillin Sod/ Tazobactam Sod 3.375 gm/Sodium Chloride 50 ml @ 100 mls/hr Q6HRS IV Last administered on 08/24/18 06:18; Start 08/19/18 at 14:30; Stop 08/24/18 at 08:26; Status DC Vancomycin HCl (Vanco Per Pharmacy) 1 each PRN DAILY PRN MC SEE COMMENTS Last administered on 08/23/18 13:30; Start 08/19/18 at 14:30; Stop 08/24/18 at 08:26; Status DC Amlodipine Besylate (Norvasc) 5 mg DAILY PO Last administered on 08/24/18 09:19; Start 08/20/18 at 09:00 Atorvastatin Calcium (Lipitor) 10 mg HS PO Last administered on 08/23/18 21:37; Start 08/19/18 at 21:00 Baclofen (Lioresal) 10 mg TID PO Last administered on 08/24/18 09:19; Start 08/19/18 at 15:30 Bisacodyl (Dulcolax Tab) 10 mg PRN DAILY PRN PO CONSTIPATION; Start 08/19/18 at 14:30 Carbamazepine (TEGretol) 200 mg BID PO Last administered on 08/24/18 09:19; Start 08/19/18 at 21:00 Carvedilol (Coreg) 12.5 mg BIDWMEALS PO Last administered on 08/24/18 09:19; Start 08/19/18 at 17:00 Docusate Sodium (Colace) 100 mg DAILY PO Last administered on 08/24/18 09:17; Start 08/20/18 at 09:00 Duloxetine HCl (Cymbalta) 60 mg DAILY PO Last administered on 08/24/18 09:18; Start 08/20/18 at 09:00 Finasteride (Proscar) 5 mg DAILY PO Last administered on 08/24/18 09:18; Start 08/20/18 at 09:00 Glipizide (Glucotrol) 5 mg BIDBFRMEAL PO Last administered on 08/19/18 17:50; Start 08/19/18 at 16:30; Stop 08/20/18 at 08:51; Status DC Levetiracetam (Keppra) 500 mg BID PO Last administered on 08/24/18 09:18; Start 08/19/18 at 21:00 Tamsulosin HCl (Flomax) 0.4 mg BID PO Last administered on 08/24/18 09:17; Start 08/19/18 at 21:00 Latanoprost (Xalatan) 1 drop QHS OU Last administered on 08/23/18 21:38; Start 08/19/18 at 21:00 Pantoprazole Sodium (Protonix) 40 mg DAILYAC PO Last administered on 08/24/18 09:18; Start 08/20/18 at 07:30 Pioglitazone HCl (Actos) 45 mg DAILY PO Last administered on 08/24/18 09:17; Start 08/20/18 at 09:00 Pregabalin (Lyrica) 150 mg BID PO Last administered on 08/24/18 09:17; Start 08/19/18 at 21:00 Quetiapine Fumarate (SEROquel) 100 mg HS PO Last administered on 08/23/18 21:37; Start 08/19/18 at 21:00 Acetaminophen (Tylenol) 1,000 mg PRN Q6HRS PRN PO pain; Start 08/19/18 at 14:45 Vancomycin HCl 750 mg/Sodium Chloride 250 ml @ 250 mls/hr 1X ONCE IV Last administered on 08/19/18at 15:41; Start 08/19/18 at 15:00; Stop 08/19/18 at 15:59; Status DC Vancomycin HCl 1 gm/Sodium Chloride 250 ml @ 250 mls/hr Q24H IV ; Start 08/20/18 at 14:00; Stop 08/20/18 at 14:00; Status DC Vancomycin HCl (Vancomycin Trough Level) 1 each 1X ONCE MC Last administered on 08/21/18at 13:30; Start 08/21/18 at 13:30; Stop 08/21/18 at 13:31; Status DC Sodium Chloride 1,000 ml @ 100 mls/hr Q10H IV Last administered on 08/20/18at 08:58; Start 08/20/18 at 08:45; Stop 08/20/18 at 17:00; Status DC Fluconazole (Diflucan) 100 mg DAILY PO Last administered on 08/24/18at 09:19; Start 08/20/18 at 09:00 Multivitamins (Thera M Plus) 1 tab DAILY PO Last administered on 08/24/18 09 :19; Start 08/21/18 at 09:00 Ascorbic Acid (Vitamin C) 500 mg DAILY PO Last administered on 08/24/18 09:18; Start 08/21/18 at 09:00 Nystatin (Nystop) 1 rogelio BID TP Last administered on 08/24/18at 09:20; Start 08/20/18 at 14:00 Vancomycin HCl 1.5 gm/Sodium Chloride 500 ml @ 250 mls/hr Q24H IV Last administered on 08/23/18 15:24; Start 08/20/18 at 14:00; Stop 08/24/18 at 08:26; Status DC Lactobacillus Rhamnosus (Culturelle) 1 cap BID PO Last administered on 08/24/18at 09:18; Start 08/20/18 at 21:00 Ketoconazole (Nizoral 2% Shampoo) 1 rogelio PRN DAILY PRN TP SEE COMMENTS Last administered on 08/23/18at 12:27; Start 08/23/18 at 11:15 Prednisone (Prednisone) 60 mg 1X ONCE PO Last administered on 08/24/18 09:17; Start 08/24/18 at 09:00; Stop 08/24/18 at 09:01; Status DC Active Scripts Active Tramadol Hcl 50 Mg Tablet 50 Mg PO Q6HRS PRN Cephalexin 500 Mg Tablet 1 Tab PO QID Bactrim Ds Tablet (Sulfamethoxazole/Trimethoprim) 1 Each Tablet 1 Tab PO BID Finasteride 5 Mg Tablet 1 Tab PO DAILY Lyrica (Pregabalin) 150 Mg Capsule 1 Cap PO BID Flomax (Tamsulosin Hcl) 0.4 Mg Cap.er.24h 0.4 Mg PO BID 30 Days Triamcinolone Acetonide 0.1% Oint (Triamcinolone Acetonide) 15 Gm Oint...g. 1 Rogelio TP BID Actos (Pioglitazone Hcl) 15 Mg Tablet 45 Mg PO DAILY 28 Days Glucophage Xr (Metformin Hcl) 500 Mg Tab.er.24h 1,000 Mg PO DAILYWBKFT 30 Days Keppra (Levetiracetam) 500 Mg Tablet 500 Mg PO BID 30 Days Glipizide 5 Mg Tablet 5 Mg PO BIDBFRMEAL 30 Days Bisacodyl 5 Mg Tablet.dr 10 Mg PO PRN DAILY PRN 28 Days Quetiapine Fumarate 100 Mg Tablet 100 Mg PO QHS 30 Days Carvedilol (Carvedilol) 12.5 Mg Tablet 12.5 Mg PO BIDWMEALS 30 Days Baclofen 10 Mg Tablet 10 Mg PO TID 30 Days Reported Protonix (Pantoprazole Sodium) 20 Mg Tablet.dr 40 Mg PO DAILY Furosemide 20 Mg Tablet 1 Tab PO DAILY Docusate Sodium 100 Mg Capsule 1 Cap PO DAILY Latanoprost 2.5 Ml Drops 1 Drop OU QHS Tegretol (Carbamazepine) 200 Mg Tablet 1 Tab PO BID Atorvastatin Calcium 10 Mg Tablet 10 Mg PO Amlodipine Besylate 5 Mg Tablet 5 Mg PO Cymbalta (Duloxetine Hcl) 30 Mg Capsule.dr 60 Mg PO DAILY Lidoderm (Lidocaine) 700 Mg Adh..patch 1 Patch TP DAILY Vitals/I & O Vital Sign - Last 24 Hours 08/23/18 08/23/18 08/23/18 08/23/18 11:15 15:15 17:21 19:00 Temp 98.1 98.6 98.4 98.1 98.6 98.4 Pulse 70 72 72 71 Resp 16 16 16 B/P (MAP) 125/62 (83) 125/65 (85) 125/65 134/65 (88) Pulse Ox 98 97 95 O2 Delivery Room Air Room Air Room Air 08/23/18 08/24/18 08/24/18 08/24/18 23:00 03:00 07:00 09:19 Temp 98.4 98.6 98.3 98.4 98.6 98.3 Pulse 75 69 72 72 Resp 18 18 16 B/P (MAP) 131/69 (89) 122/66 (84) 154/83 (106) 154/83 Pulse Ox 92 93 93 O2 Delivery Room Air Room Air Room Air 08/24/18 09:19 Pulse 72 B/P (MAP) 154/83 Intake and Output 08/23/18 08/23/18 08/24/18 15:00 23:00 07:00 Intake Total 180 ml 400 ml 100 ml Output Total 300 ml 650 ml Balance -120 ml 400 ml -550 ml BEN TAM MD Aug 24, 2018 10:04
--- NOTE | 2018-08-24 10:11 | PDOC ---
ALVARADO BACON FNP 08/24/18 1011: SUBJECTIVE Subjective Condition does not seem to be improving. Per attending RN, patient OBJECTIVE Objective Physical Exam: General appearance: Alert and Oriented Head: Normocephalic. His lips are painful and covered with vaseline. Eyes: conjunctivae/corneas clear. PERRL, EOM's intact. Fundi benign Back: No CVA pain bilaterally Lungs: Regular respirations, non labored breathing Abdomen: soft, non-tender. No masses, no organomegaly Pelvic: + penis has desquamitization of glans. It is wrapped in Xeroform guaze. No drainage or odor noted. Vital Signs Vital Signs Date Time Temp Pulse Resp B/P (MAP) Pulse Ox O2 Delivery O2 Flow Rate FiO2 08/24/18 09:19 72 154/83 08/24/18 09:19 72 154/83 08/24/18 07:00 98.3 72 16 154/83 (106) 93 Room Air 98.3 08/24/18 03:00 98.6 69 18 122/66 (84) 93 Room Air 98.6 08/23/18 23:00 98.4 75 18 131/69 (89) 92 Room Air 98.4 08/23/18 19:00 98.4 71 16 134/65 (88) 95 Room Air 98.4 08/23/18 17:21 72 125/65 08/23/18 15:15 98.6 72 16 125/65 (85) 97 Room Air 98.6 08/23/18 11:15 98.1 70 16 125/62 (83) 98 Room Air 98.1 I & O Intake and Output 08/24/18 07:00 Intake Total 680 ml Output Total 950 ml Balance -270 ml Intake Oral 580 ml IV Total 100 ml Output Urine Total 950 ml # Bowel Movements 1 PHYSICAL EXAM Physical Exam Physical Exam: General appearance: Alert and Oriented Head: Normocephalic. His lips are painful and covered with vaseline. Eyes: conjunctivae/corneas clear. PERRL, EOM's intact. Fundi benign Back: No CVA pain bilaterally Lungs: Regular respirations, non labored breathing Abdomen: soft, non-tender. No masses, no organomegaly Pelvic: + penis has desquamitization of glans. It is wrapped in Xeroform guaze. No drainage or odor noted. ASSESSMENT/PLAN Assessment/Plan Patient has painful desquamitization of the penile glans with white discharge. suspect candidiasis balanitis. They are applying Nystatin around his penis and wrapping it with Xeroform gauze. A consult has been ordered for Dr. Guzman, [facility] to see him since he has not shown any improvement with candidiasis treatment over the past few days. No further recommendations at this time, will sign off. Please call with questions or changes in patient condition. COMMENT Lab Laboratory Tests Test 08/23/18 11:59 08/23/18 17:05 08/23/18 20:10 08/24/18 07:44 Glucose (Fingerstick) 203 mg/dL (70-99) 172 mg/dL (70-99) 211 mg/dL (70-99) 113 mg/dL (70-99) JULIETTE FIGUEROA MD 08/27/18 1612: ASSESSMENT/PLAN Assessment/Plan Agree with assessment and plan. ALVARADO BACON APRN Aug 24, 2018 10:11 JULIETTE FIGUEROA MD Aug 27, 2018 16:12
[2018-08-24 11:00] VITALS: BP 154/78
--- NOTE | 2018-08-24 12:23 | NUR ---
SS following up with discharge planning. PT/OT recommended home healthcare. Pt was previously on services with [facility], ; fax [phone]. SS will continue to follow for discharge planning.
[2018-08-24 15:00] VITALS: BP 127/71
[2018-08-24] MEDS ORDERED: INSULIN LISPRO 300 UNITS/3 ML INSULN.PEN. SQ ONE (17:15)
[2018-08-24 19:00] VITALS: BP 126/73
[2018-08-24] MEDS: ATORVASTATIN CALCIUM 10 MG TABLET. PO SCH (21:35)
[2018-08-24] MEDS: QUEtiapine 100 MG TABLET. PO SCH (21:35)
[2018-08-24] MEDS: LATANOPROST 0.005% OPHTH SOLUTION 2.5ML BOTTLE. OU SCH (22:32)
[2018-08-24 23:00] VITALS: BP 144/80
[2018-08-25 03:03] VITALS: BP 137/69
[2018-08-25 04:19] LABS: CREATININE 1.2 mg/dL (0.7-1.3); GFR 73.3
[2018-08-25] MEDS: PANTOPRAZOLE 40 MG TABLET.DR. PO SCH (06:45)
[2018-08-25 07:15] VITALS: BP 119/72
[2018-08-25] MEDS: carBAMazepine 200 MG TABLET PO SCH ×2 (07:56→21:12)
[2018-08-25] MEDS: PIOGLITAZONE 15 MG TABLET. PO SCH (07:56)
[2018-08-25] MEDS: BACLOFEN 10 MG TABLET. PO SCH ×3 (07:56→21:12)
[2018-08-25] MEDS: ASCORBIC ACID 500 MG TABLET PO SCH (07:56)
[2018-08-25] MEDS: DULoxetine HCL 30 MG CAPSULE.DR PO SCH (07:57)
[2018-08-25] MEDS: LACTOBACILLUS RHAMNOSUS GG 1 CAPSULE. PO SCH ×2 (07:57→21:12)
[2018-08-25] MEDS: MULTIVITAMIN with MINERAL TABLET. PO SCH (07:58)
[2018-08-25] MEDS: levETIRAcetam 500 MG TABLET PO SCH ×2 (07:58→21:11)
[2018-08-25] MEDS: FINASTERIDE 5 MG TABLET. PO SCH (07:58)
[2018-08-25] MEDS: PREGABALIN 75 MG CAPSULE PO SCH ×2 (07:58→21:11)
[2018-08-25] MEDS: amLODIPine BESYLATE 5 MG TABLET PO SCH (07:58)
[2018-08-25] MEDS: FLUCONAZOLE 100 MG TABLET. PO SCH (07:58)
[2018-08-25] MEDS: CARVEDILOL 12.5 MG TABLET. PO SCH ×2 (07:59→17:35)
[2018-08-25] MEDS: TAMSULOSIN 0.4 MG CAP.ER.24H. PO SCH ×2 (07:59→21:12)
[2018-08-25] MEDS: INSULIN LISPRO 300 UNITS/3 ML INSULN.PEN. SQ SCH ×3 (07:59→17:38)
[2018-08-25] MEDS: DOCUSATE SODIUM 100 MG CAPSULE. PO SCH (07:59)
[2018-08-25] MEDS: NYSTATIN TOPICAL POWDER 15GM BOTTLE. TP SCH ×2 (07:59→21:11)
--- NOTE | 2018-08-25 08:26 | PDOC ---
PROGRESS NOTES Subjective Subjective Patient reports sores on lips not worse than yesterday, able to eat 100% of breakfast today. Objective Objective Vital Signs Date Time Temp Pulse Resp B/P (MAP) Pulse Ox O2 Delivery O2 Flow Rate FiO2 08/25/18 07:59 70 119/72 08/25/18 07:15 97.9 18 94 Room Air 97.9 08/19/18 19:10 2.0 Intake and Output 08/25/18 07:00 Intake Total 280 ml Output Total 0 ml Balance 280 ml Intake Oral 280 ml Output Urine Total 0 ml # Voids 1 # Bowel Movements 1 Physical Exam Abdomen: Normal bowel sounds, Soft, No tenderness Heart: Regular rate Extremities: No edema General: Alert, Oriented X3, No acute distress Lungs: Clear to auscultation Skin: Other (shallow ulcers and desquamination of lips, mildly improved from yesterday) Assessment Assessment Problems Medical Problems: (1) Acute renal failure Status: Acute (2) Cellulitis of left hand Status: Acute Plan Plan of Care 1. 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 Still suspect allergic reaction to Bactrim. Dermatology consult pending. Continue Prednisone daily and wound care to penis. 2. seizure disorder - stable on his usual medications per Neurology. 3. DM2 - glucose elevated due to steroids, continue po meds and SS insulin. 4. HTN - controlled, continue home meds. 5. schizophrenia - stable with his usual medications. 6. unsteady gait - doing well with PT and roller walker, continue. 7. cellulitis L index finger - almost resolved, continue to observe off abx. Comment Review of Relevant I have reviewed the following items jacob (where applicable) has been applied. Labs Laboratory Tests Test 08/23/18 08:36 08/23/18 11:59 08/23/18 17:05 08/23/18 20:10 Glucose (Fingerstick) 119 mg/dL (70-99) 203 mg/dL (70-99) 172 mg/dL (70-99) 211 mg/dL (70-99) Test 08/24/18 07:44 08/24/18 12:37 08/24/18 16:44 08/24/18 20:35 Glucose (Fingerstick) 113 mg/dL (70-99) 243 mg/dL (70-99) 379 mg/dL (70-99) 292 mg/dL (70-99) Test 08/25/18 03:35 08/25/18 07:09 Creatinine 1.2 mg/dL (0.7-1.3) Estimated GFR (Cockcroft-Gault) 73.3 Glucose (Fingerstick) 191 mg/dL (70-99) Laboratory Tests Test 08/24/18 12:37 08/24/18 16:44 08/24/18 20:35 08/25/18 03:35 Glucose (Fingerstick) 243 mg/dL (70-99) 379 mg/dL (70-99) 292 mg/dL (70-99) Creatinine 1.2 mg/dL (0.7-1.3) Estimated GFR (Cockcroft-Gault) 73.3 Test 08/25/18 07:09 Glucose (Fingerstick) 191 mg/dL (70-99) Microbiology 08/19/18 Blood Culture - Final, Complete NO GROWTH AFTER 5 DAYS 08/20/18 Anaerobic/Aerobic Culture - Final, Complete 08/20/18 Anaerobic Culture Result 1 (HIRA) - Final, Complete 08/20/18 Aerobic Culture - Final, Complete 08/20/18 Aerobic Culture Result 1 (HIRA) - Final, Complete 08/20/18 Gram Stain - Final, Complete 08/20/18 Gram Stain Result 1 (HIRA) - Final, Complete 08/20/18 Gram Stain Result 2 (HIRA) - Final, Complete Medications Current Medications Lorazepam (Ativan Inj) 1 mg 1X ONCE IV Last administered on 08/19/18at 11:38; Start 08/19/18 at 11:00; Stop 08/19/18 at 11:01; Status DC Sodium Chloride 1,000 ml @ 100 mls/hr Q10H IV Last administered on 08/19/18at 11:22; Start 08/19/18 at 10:56; Stop 08/19/18 at 20:55; Status DC Ceftriaxone Sodium (Rocephin) 1 gm 1X ONCE IVP Last administered on 08/19/18at 12:10; Start 08/19/18 at 11:45; Stop 08/19/18 at 11:46; Status DC Vancomycin HCl 250 ml @ 250 mls/hr 1X ONCE IV ; Start 08/19/18 at 11:45; Stop 08/19/18 at 12:44; Status UNV Vancomycin HCl 1.25 gm/Sodium Chloride 250 ml @ 166.667 mls/hr 1X ONCE IV Last administered on 08/19/18at 12:14; Start 08/19/18 at 12:00; Stop 08/19/18 at 13:29; Status DC Sodium Chloride 1,000 ml @ 1,000 mls/hr 1X ONCE IV Last administered on 08/19/18at 12:33; Start 08/19/18 at 12:00; Stop 08/19/18 at 12:59; Status DC Insulin Human Lispro (HumaLOG) 0-5 UNITS TIDWMEALS SQ Last administered on 08/24/18 17:11; Start 08/19/18 at 17:00 Dextrose (Dextrose 50%-Water Syringe) 12.5 gm PRN Q15MIN PRN IV SEE COMMENTS Last administered on 08/20/18 08:00; Start 08/19/18 at 14:30 Piperacillin Sod/ Tazobactam Sod 3.375 gm/Sodium Chloride 50 ml @ 100 mls/hr Q6HRS IV Last administered on 08/24/18 06:18; Start 08/19/18 at 14:30; Stop 08/24/18 at 08:26; Status DC Vancomycin HCl (Vanco Per Pharmacy) 1 each PRN DAILY PRN MC SEE COMMENTS Last administered on 08/23/18 13:30; Start 08/19/18 at 14:30; Stop 08/24/18 at 08:26; Status DC Amlodipine Besylate (Norvasc) 5 mg DAILY PO Last administered on 08/25/18 07:58; Start 08/20/18 at 09:00 Atorvastatin Calcium (Lipitor) 10 mg HS PO Last administered on 08/24/18 21:35; Start 08/19/18 at 21:00 Baclofen (Lioresal) 10 mg TID PO Last administered on 08/25/18 07:56; Start 08/19/18 at 15:30 Bisacodyl (Dulcolax Tab) 10 mg PRN DAILY PRN PO CONSTIPATION; Start 08/19/18 at 14:30 Carbamazepine (TEGretol) 200 mg BID PO Last administered on 08/25/18 07:56; Start 08/19/18 at 21:00 Carvedilol (Coreg) 12.5 mg BIDWMEALS PO Last administered on 08/25/18 07:59; Start 08/19/18 at 17:00 Docusate Sodium (Colace) 100 mg DAILY PO Last administered on 08/25/18 07:59; Start 08/20/18 at 09:00 Duloxetine HCl (Cymbalta) 60 mg DAILY PO Last administered on 08/25/18 07:57; Start 08/20/18 at 09:00 Finasteride (Proscar) 5 mg DAILY PO Last administered on 08/25/18 07:58; Start 08/20/18 at 09:00 Glipizide (Glucotrol) 5 mg BIDBFRMEAL PO Last administered on 08/19/18at 17:50; Start 08/19/18 at 16:30; Stop 08/20/18 at 08:51; Status DC Levetiracetam (Keppra) 500 mg BID PO Last administered on 08/25/18 07:58; Start 08/19/18 at 21:00 Tamsulosin HCl (Flomax) 0.4 mg BID PO Last administered on 08/25/18 07:59; Start 08/19/18 at 21:00 Latanoprost (Xalatan) 1 drop QHS OU Last administered on 08/24/18 22:32; Start 08/19/18 at 21:00 Pantoprazole Sodium (Protonix) 40 mg DAILYAC PO Last administered on 08/25/18 06:45; Start 08/20/18 at 07:30 Pioglitazone HCl (Actos) 45 mg DAILY PO Last administered on 08/25/18 07:56; Start 08/20/18 at 09:00 Pregabalin (Lyrica) 150 mg BID PO Last administered on 08/25/18 07:58; Start 08/19/18 at 21:00 Quetiapine Fumarate (SEROquel) 100 mg HS PO Last administered on 08/24/18 21:35; Start 08/19/18 at 21:00 Acetaminophen (Tylenol) 1,000 mg PRN Q6HRS PRN PO pain; Start 08/19/18 at 14:45 Vancomycin HCl 750 mg/Sodium Chloride 250 ml @ 250 mls/hr 1X ONCE IV Last administered on 08/19/18at 15:41; Start 08/19/18 at 15:00; Stop 08/19/18 at 15:59; Status DC Vancomycin HCl 1 gm/Sodium Chloride 250 ml @ 250 mls/hr Q24H IV ; Start 08/20/18 at 14:00; Stop 08/20/18 at 14:00; Status DC Vancomycin HCl (Vancomycin Trough Level) 1 each 1X ONCE MC Last administered on 08/21/18at 13:30; Start 08/21/18 at 13:30; Stop 08/21/18 at 13:31; Status DC Sodium Chloride 1,000 ml @ 100 mls/hr Q10H IV Last administered on 08/20/18at 0 8:58; Start 08/20/18 at 08:45; Stop 08/20/18 at 17:00; Status DC Fluconazole (Diflucan) 100 mg DAILY PO Last administered on 08/25/18at 07:58; Start 08/20/18 at 09:00 Multivitamins (Thera M Plus) 1 tab DAILY PO Last administered on 08/25/18 07:58; Start 08/21/18 at 09:00 Ascorbic Acid (Vitamin C) 500 mg DAILY PO Last administered on 08/25/18at 07:56; Start 08/21/18 at 09:00 Nystatin (Nystop) 1 rogelio BID TP Last administered on 08/25/18at 07:59; Start 08/20/18 at 14:00 Vancomycin HCl 1.5 gm/Sodium Chloride 500 ml @ 250 mls/hr Q24H IV Last administered on 08/23/18at 15:24; Start 08/20/18 at 14:00; Stop 08/24/18 at 08:26; Status DC Lactobacillus Rhamnosus (Culturelle) 1 cap BID PO Last administered on 08/25/18 07:57; Start 08/20/18 at 21:00 Ketoconazole (Nizoral 2% Shampoo) 1 rogelio PRN DAILY PRN TP SEE COMMENTS Last administered on 08/23/18at 12:27; Start 08/23/18 at 11:15 Prednisone (Prednisone) 60 mg 1X ONCE PO Last administered on 08/24/18 09:17; Start 08/24/18 at 09:00; Stop 08/24/18 at 09:01; Status DC Insulin Human Lispro (HumaLOG) 6 units 1X ONCE SQ Last administered on 08/24/18at 17:12; Start 08/24/18 at 17:15; Stop 08/24/18 at 17:16; Status DC Active Scripts Active Tramadol Hcl 50 Mg Tablet 50 Mg PO Q6HRS PRN Cephalexin 500 Mg Tablet 1 Tab PO QID Bactrim Ds Tablet (Sulfamethoxazole/Trimethoprim) 1 Each Tablet 1 Tab PO BID Finasteride 5 Mg Tablet 1 Tab PO DAILY Lyrica (Pregabalin) 150 Mg Capsule 1 Cap PO BID Flomax (Tamsulosin Hcl) 0.4 Mg Cap.er.24h 0.4 Mg PO BID 30 Days Triamcinolone Acetonide 0.1% Oint (Triamcinolone Acetonide) 15 Gm Oint...g. 1 Rogelio TP BID Actos (Pioglitazone Hcl) 15 Mg Tablet 45 Mg PO DAILY 28 Days Glucophage Xr (Metformin Hcl) 500 Mg Tab.er.24h 1,000 Mg PO DAILYWBKFT 30 Days Keppra (Levetiracetam) 500 Mg Tablet 500 Mg PO BID 30 Days Glipizide 5 Mg Tablet 5 Mg PO BIDBFRMEAL 30 Days Bisacodyl 5 Mg Tablet.dr 10 Mg PO PRN DAILY PRN 28 Days Quetiapine Fumarate 100 Mg Tablet 100 Mg PO QHS 30 Days Carvedilol (Carvedilol) 12.5 Mg Tablet 12.5 Mg PO BIDWMEALS 30 Days Baclofen 10 Mg Tablet 10 Mg PO TID 30 Days Reported Protonix (Pantoprazole Sodium) 20 Mg Tablet.dr 40 Mg PO DAILY Furosemide 20 Mg Tablet 1 Tab PO DAILY Docusate Sodium 100 Mg Capsule 1 Cap PO DAILY Latanoprost 2.5 Ml Drops 1 Drop OU QHS Tegretol (Carbamazepine) 200 Mg Tablet 1 Tab PO BID Atorvastatin Calcium 10 Mg Tablet 10 Mg PO Amlodipine Besylate 5 Mg Tablet 5 Mg PO Cymbalta (Duloxetine Hcl) 30 Mg Capsule.dr 60 Mg PO DAILY Lidoderm (Lidocaine) 700 Mg Adh..patch 1 Patch TP DAILY Vitals/I & O Vital Sign - Last 24 Hours 08/24/18 08/24/18 08/24/18 08/24/18 09:19 09:19 11:00 15:00 Temp 98.4 98.3 98.4 98.3 Pulse 72 72 97 81 Resp 19 18 B/P (MAP) 154/83 154/83 154/78 (103) 127/71 (89) Pulse Ox 94 96 O2 Delivery Room Air Room Air 08/24/18 08/24/18 08/24/18 08/24/18 17:10 19:00 20:00 23:00 Temp 99.0 97.9 99.0 97.9 Pulse 81 76 79 Resp 20 20 B/P (MAP) 127/71 126/73 (90) 144/80 (101) Pulse Ox 96 95 O2 Delivery Room Air Room Air Room Air 08/25/18 08/25/18 08/25/18 08/25/18 03:03 07:15 07:58 07:59 Temp 97.7 97.9 97.7 97.9 Pulse 70 70 70 70 Resp 18 B/P (MAP) 137/69 (91) 119/72 (88) 119/72 119/72 Pulse Ox 96 94 O2 Delivery Room Air Room Air Intake and Output 08/24/18 08/24/18 08/25/18 15:00 23:00 07:00 Intake Total 280 ml Output Total 0 ml 0 ml Balance 0 ml 280 ml 0 ml ERNESTO BUCK MD Aug 25, 2018 08:26
--- NOTE | 2018-08-25 09:44 | PDOC ---
PROGRESS NOTES Assessment Problems Medical Problems: (1) Acute renal failure Status: Acute (2) Cellulitis of left hand Status: Acute Epilepsy, breakthrough seizure. He is on 3 anticonvulsants including the pregabalin, plus the levetiracetam and carbamazepine. Levels were therapeutic when he was admitted 2 months ago Schizophrenia and depression Diabetic polyneuropathy Tardive dyskinesia, controlled Skin lesions, Suspect allergic reaction to the Bactrim he got last week, anticonvulsants are long-standing in doses have not changed, that they are at fault Plan Continue current anticonvulsant doses He does not need additional neurological studies. Subjective thinks rash is better Objective Vital Signs Date Time Temp Pulse Resp B/P (MAP) Pulse Ox O2 Delivery O2 Flow Rate FiO2 08/25/18 07:59 70 119/72 08/25/18 07:45 Room Air 08/25/18 07:15 97.9 18 94 97.9 Intake and Output 08/25/18 06:59 Intake Total 280 ml Output Total 0 ml Balance 280 ml Intake Oral 280 ml Output Urine Total 0 ml # Voids 1 # Bowel Movements 1 PHYSICAL EXAM Alert. Oriented to time, place and person. PERRL. EOMI. CN: no focal findings. Muscle tone: normal. 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 Sensory exam: Stocking loss. No cerebellar signs elicited. Review of Relevant I have reviewed the following items jacob (where applicable) has been applied. Labs Laboratory Tests Test 08/23/18 11:59 08/23/18 17:05 08/23/18 20:10 08/24/18 07:44 Glucose (Fingerstick) 203 mg/dL (70-99) 172 mg/dL (70-99) 211 mg/dL (70-99) 113 mg/dL (70-99) Test 08/24/18 12:37 08/24/18 16:44 08/24/18 20:35 08/25/18 03:35 Glucose (Fingerstick) 243 mg/dL (70-99) 379 mg/dL (70-99) 292 mg/dL (70-99) Creatinine 1.2 mg/dL (0.7-1.3) Estimated GFR (Cockcroft-Gault) 73.3 Test 08/25/18 07:09 Glucose (Fingerstick) 191 mg/dL (70-99) Laboratory Tests Test 08/24/18 12:37 08/24/18 16:44 08/24/18 20:35 08/25/18 03:35 Glucose (Fingerstick) 243 mg/dL (70-99) 379 mg/dL (70-99) 292 mg/dL (70-99) Creatinine 1.2 mg/dL (0.7-1.3) Estimated GFR (Cockcroft-Gault) 73.3 Test 08/25/18 07:09 Glucose (Fingerstick) 191 mg/dL (70-99) Microbiology 08/19/18 Blood Culture - Final, Complete NO GROWTH AFTER 5 DAYS 08/20/18 Anaerobic/Aerobic Culture - Final, Complete 08/20/18 Anaerobic Culture Result 1 (HIRA) - Final, Complete 08/20/18 Aerobic Culture - Final, Complete 08/20/18 Aerobic Culture Result 1 (HIRA) - Final, Complete 08/20/18 Gram Stain - Final, Complete 08/20/18 Gram Stain Result 1 (HIRA) - Final, Complete 08/20/18 Gram Stain Result 2 (HIRA) - Final, Complete Medications Current Medications Lorazepam (Ativan Inj) 1 mg 1X ONCE IV Last administered on 08/19/18at 11:38; Start 08/19/18 at 11:00; Stop 08/19/18 at 11:01; Status DC Sodium Chloride 1,000 ml @ 100 mls/hr Q10H IV Last administered on 08/19/18at 11:22; Start 08/19/18 at 10:56; Stop 08/19/18 at 20:55; Status DC Ceftriaxone Sodium (Rocephin) 1 gm 1X ONCE IVP Last administered on 08/19/18at 12:10; Start 08/19/18 at 11:45; Stop 08/19/18 at 11:46; Status DC Vancomycin HCl 250 ml @ 250 mls/hr 1X ONCE IV ; Start 08/19/18 at 11:45; Stop 08/19/18 at 12:44; Status UNV Vancomycin HCl 1.25 gm/Sodium Chloride 250 ml @ 166.667 mls/hr 1X ONCE IV Last administered on 08/19/18at 12:14; Start 08/19/18 at 12:00; Stop 08/19/18 at 13:29; Status DC Sodium Chloride 1,000 ml @ 1,000 mls/hr 1X ONCE IV Last administered on 08/19/18 12:33; Start 08/19/18 at 12:00; Stop 08/19/18 at 12:59; Status DC Insulin Human Lispro (HumaLOG) 0-5 UNITS TIDWMEALS SQ Last administered on 08/24/18 17:11; Start 08/19/18 at 17:00 Dextrose (Dextrose 50%-Water Syringe) 12.5 gm PRN Q15MIN PRN IV SEE COMMENTS Last administered on 08/20/18 08:00; Start 08/19/18 at 14:30 Piperacillin Sod/ Tazobactam Sod 3.375 gm/Sodium Chloride 50 ml @ 100 mls/hr Q6HRS IV Last administered on 08/24/18 06:18; Start 08/19/18 at 14:30; Stop 08/24/18 at 08:26; Status DC Vancomycin HCl (Vanco Per Pharmacy) 1 each PRN DAILY PRN MC SEE COMMENTS Last administered on 08/23/18 13:30; Start 08/19/18 at 14:30; Stop 08/24/18 at 08:26; Status DC Amlodipine Besylate (Norvasc) 5 mg DAILY PO Last administered on 08/25/18 07:58; Start 08/20/18 at 09:00 Atorvastatin Calcium (Lipitor) 10 mg HS PO Last administered on 08/24/18 21:35; Start 08/19/18 at 21:00 Baclofen (Lioresal) 10 mg TID PO Last administered on 08/25/18 07:56; Start 08/19/18 at 15:30 Bisacodyl (Dulcolax Tab) 10 mg PRN DAILY PRN PO CONSTIPATION; Start 08/19/18 at 14:30 Carbamazepine (TEGretol) 200 mg BID PO Last administered on 08/25/18 07:56; Start 08/19/18 at 21:00 Carvedilol (Coreg) 12.5 mg BIDWMEALS PO Last administered on 08/25/18 07:59; Start 08/19/18 at 17:00 Docusate Sodium (Colace) 100 mg DAILY PO Last administered on 08/25/18 07:59; Start 08/20/18 at 09:00 Duloxetine HCl (Cymbalta) 60 mg DAILY PO Last administered on 08/25/18 07:57; Start 08/20/18 at 09:00 Finasteride (Proscar) 5 mg DAILY PO Last administered on 08/25/18 07:58; Start 08/20/18 at 09:00 Glipizide (Glucotrol) 5 mg BIDBFRMEAL PO Last administered on 08/19/18 17:50; Start 08/19/18 at 16:30; Stop 08/20/18 at 08:51; Status DC Levetiracetam (Keppra) 500 mg BID PO Last administered on 08/25/18 07:58; Start 08/19/18 at 21:00 Tamsulosin HCl (Flomax) 0.4 mg BID PO Last administered on 08/25/18 07:59; Start 08/19/18 at 21:00 Latanoprost (Xalatan) 1 drop QHS OU Last administered on 08/24/18 22:32; Start 08/19/18 at 21:00 Pantoprazole Sodium (Protonix) 40 mg DAILYAC PO Last administered on 08/25/18 06:45; Start 08/20/18 at 07:30 Pioglitazone HCl (Actos) 45 mg DAILY PO Last administered on 08/25/18 07:56; Start 08/20/18 at 09:00 Pregabalin (Lyrica) 150 mg BID PO Last administered on 08/25/18 07:58; Start 08/19/18 at 21:00 Quetiapine Fumarate (SEROquel) 100 mg HS PO Last administered on 08/24/18 21:35; Start 08/19/18 at 21:00 Acetaminophen (Tylenol) 1,000 mg PRN Q6HRS PRN PO pain; Start 08/19/18 at 14:45 Vancomycin HCl 750 mg/Sodium Chloride 250 ml @ 250 mls/hr 1X ONCE IV Last administered on 08/19/18 15:41; Start 08/19/18 at 15:00; Stop 08/19/18 at 15:59; Status DC Vancomycin HCl 1 gm/Sodium Chloride 250 ml @ 250 mls/hr Q24H IV ; Start 08/20/18 at 14:00; Stop 08/20/18 at 14:00; Status DC Vancomycin HCl (Vancomycin Trough Level) 1 each 1X ONCE MC Last administered on 08/21/18at 13:30; Start 08/21/18 at 13:30; Stop 08/21/18 at 13:31; Status DC Sodium Chloride 1,000 ml @ 100 mls/hr Q10H IV Last administered on 08/20/18 08:58; Start 08/20/18 at 08:45; Stop 08/20/18 at 17:00; Status DC Fluconazole (Diflucan) 100 mg DAILY PO Last administered on 08/25/18 07:58; S tart 08/20/18 at 09:00 Multivitamins (Thera M Plus) 1 tab DAILY PO Last administered on 08/25/18 07:58; Start 08/21/18 at 09:00 Ascorbic Acid (Vitamin C) 500 mg DAILY PO Last administered on 08/25/18 07:56; Start 08/21/18 at 09:00 Nystatin (Nystop) 1 rogelio BID TP Last administered on 08/25/18 07:59; Start 08/20/18 at 14:00 Vancomycin HCl 1.5 gm/Sodium Chloride 500 ml @ 250 mls/hr Q24H IV Last administered on 08/23/18 15:24; Start 08/20/18 at 14:00; Stop 08/24/18 at 08:26; Status DC Lactobacillus Rhamnosus (Culturelle) 1 cap BID PO Last administered on 08/25/18at 07:57; Start 08/20/18 at 21:00 Ketoconazole (Nizoral 2% Shampoo) 1 rogelio PRN DAILY PRN TP SEE COMMENTS Last administered on 08/23/18 12:27; Start 08/23/18 at 11:15 Prednisone (Prednisone) 60 mg 1X ONCE PO Last administered on 08/24/18 09:17; Start 08/24/18 at 09:00; Stop 08/24/18 at 09:01; Status DC Insulin Human Lispro (HumaLOG) 6 units 1X ONCE SQ Last administered on 08/24/18at 17:12; Start 08/24/18 at 17:15; Stop 08/24/18 at 17:16; Status DC Prednisone (Prednisone) 60 mg DAILY PO ; Start 08/25/18 at 09:00 Active Scripts Active Tramadol Hcl 50 Mg Tablet 50 Mg PO Q6HRS PRN Cephalexin 500 Mg Tablet 1 Tab PO QID Bactrim Ds Tablet (Sulfamethoxazole/Trimethoprim) 1 Each Tablet 1 Tab PO BID Finasteride 5 Mg Tablet 1 Tab PO DAILY Lyrica (Pregabalin) 150 Mg Capsule 1 Cap PO BID Flomax (Tamsulosin Hcl) 0.4 Mg Cap.er.24h 0.4 Mg PO BID 30 Days Triamcinolone Acetonide 0.1% Oint (Triamcinolone Acetonide) 15 Gm Oint...g. 1 Rogelio TP BID Actos (Pioglitazone Hcl) 15 Mg Tablet 45 Mg PO DAILY 28 Days Glucophage Xr (Metformin Hcl) 500 Mg Tab.er.24h 1,000 Mg PO DAILYWBKFT 30 Days Keppra (Levetiracetam) 500 Mg Tablet 500 Mg PO BID 30 Days Glipizide 5 Mg Tablet 5 Mg PO BIDBFRMEAL 30 Days Bisacodyl 5 Mg Tablet.dr 10 Mg PO PRN DAILY PRN 28 Days Quetiapine Fumarate 100 Mg Tablet 100 Mg PO QHS 30 Days Carvedilol (Carvedilol) 12.5 Mg Tablet 12.5 Mg PO BIDWMEALS 30 Days Baclofen 10 Mg Tablet 10 Mg PO TID 30 Days Reported Protonix (Pantoprazole Sodium) 20 Mg Tablet.dr 40 Mg PO DAILY Furosemide 20 Mg Tablet 1 Tab PO DAILY Docusate Sodium 100 Mg Capsule 1 Cap PO DAILY Latanoprost 2.5 Ml Drops 1 Drop OU QHS Tegretol (Carbamazepine) 200 Mg Tablet 1 Tab PO BID Atorvastatin Calcium 10 Mg Tablet 10 Mg PO Amlodipine Besylate 5 Mg Tablet 5 Mg PO Cymbalta (Duloxetine Hcl) 30 Mg Capsule.dr 60 Mg PO DAILY Lidoderm (Lidocaine) 700 Mg Adh..patch 1 Patch TP DAILY Vitals/I & O Vital Sign - Last 24 Hours 08/24/18 08/24/18 08/24/18 08/24/18 11:00 15:00 17:10 19:00 Temp 98.4 98.3 99.0 98.4 98.3 99.0 Pulse 97 81 81 76 Resp 19 18 20 B/P (MAP) 154/78 (103) 127/71 (89) 127/71 126/73 (90) Pulse Ox 94 96 96 O2 Delivery Room Air Room Air Room Air 08/24/18 08/24/18 08/25/18 08/25/18 20:00 23:00 03:03 07:15 Temp 97.9 97.7 97.9 97.9 97.7 97.9 Pulse 79 70 70 Resp 20 20 18 B/P (MAP) 144/80 (101) 137/69 (91) 119/72 (88) Pulse Ox 95 96 94 O2 Delivery Room Air Room Air Room Air Room Air 08/25/18 08/25/18 08/25/18 07:45 07:58 07:59 Pulse 70 70 B/P (MAP) 119/72 119/72 O2 Delivery Room Air Intake and Output 08/24/18 08/24/18 08/25/18 14:59 22:59 06:59 Intake Total 280 ml Output Total 0 ml 0 ml Balance 0 ml 280 ml 0 ml BEN TAM MD Aug 25, 2018 09:44
[2018-08-25 10:48] VITALS: BP 128/69
[2018-08-25] MEDS: predniSONE 20 MG TABLET PO SCH (11:07)
[2018-08-25 14:58] VITALS: BP 132/62
[2018-08-25 19:00] VITALS: BP 132/71
[2018-08-25] MEDS: LATANOPROST 0.005% OPHTH SOLUTION 2.5ML BOTTLE. OU SCH (21:11)
[2018-08-25] MEDS: ATORVASTATIN CALCIUM 10 MG TABLET. PO SCH (21:11)
[2018-08-25] MEDS: QUEtiapine 100 MG TABLET. PO SCH (21:12)
[2018-08-25 23:00] VITALS: BP 123/62
[2018-08-26 03:00] VITALS: BP 133/65
[2018-08-26 07:00] VITALS: BP 133/61
[2018-08-26] MEDS: amLODIPine BESYLATE 5 MG TABLET PO SCH (08:24)
[2018-08-26] MEDS: FLUCONAZOLE 100 MG TABLET. PO SCH (08:24)
[2018-08-26] MEDS: MULTIVITAMIN with MINERAL TABLET. PO SCH (08:24)
[2018-08-26] MEDS: predniSONE 20 MG TABLET PO SCH (08:25)
[2018-08-26] MEDS: TAMSULOSIN 0.4 MG CAP.ER.24H. PO SCH (08:25)
[2018-08-26] MEDS: FINASTERIDE 5 MG TABLET. PO SCH (08:25)
[2018-08-26] MEDS: ASCORBIC ACID 500 MG TABLET PO SCH (08:25)
[2018-08-26] MEDS: CARVEDILOL 12.5 MG TABLET. PO SCH (08:25)
[2018-08-26] MEDS: levETIRAcetam 500 MG TABLET PO SCH (08:25)
[2018-08-26] MEDS: BACLOFEN 10 MG TABLET. PO SCH (08:26)
[2018-08-26] MEDS: carBAMazepine 200 MG TABLET PO SCH (08:26)
[2018-08-26] MEDS: PIOGLITAZONE 15 MG TABLET. PO SCH (08:26)
[2018-08-26] MEDS: PANTOPRAZOLE 40 MG TABLET.DR. PO SCH (08:26)
[2018-08-26] MEDS: PREGABALIN 75 MG CAPSULE PO SCH (08:26)
[2018-08-26] MEDS: LACTOBACILLUS RHAMNOSUS GG 1 CAPSULE. PO SCH (08:27)
[2018-08-26] MEDS: NYSTATIN TOPICAL POWDER 15GM BOTTLE. TP SCH (08:28)
[2018-08-26] MEDS: DULoxetine HCL 30 MG CAPSULE.DR PO SCH (08:30)
[2018-08-26] MEDS: DOCUSATE SODIUM 100 MG CAPSULE. PO SCH (08:31)
[2018-08-26] MEDS: INSULIN LISPRO 300 UNITS/3 ML INSULN.PEN. SQ SCH (08:38)
--- NOTE | 2018-08-26 09:04 | PDOC ---
PROGRESS NOTES Subjective Subjective Patient states he feels better, ready to go home now. Objective Objective Vital Signs Date Time Temp Pulse Resp B/P (MAP) Pulse Ox O2 Delivery O2 Flow Rate FiO2 08/26/18 08:25 65 133/61 08/26/18 07:00 97.7 18 96 Room Air 97.7 08/19/18 19:10 2.0 Intake and Output 08/26/18 07:00 Intake Total 1680 ml Output Total 600 ml Balance 1080 ml Intake Oral 1680 ml Output Urine Total 600 ml # Bowel Movements 1 Physical Exam Abdomen: Normal bowel sounds, Soft, No tenderness Heart: Regular rate Extremities: No edema General: Alert, Oriented X3, No acute distress Lungs: Clear to auscultation Skin: Other (edema of lips improved, now scabbed over) Assessment Assessment Problems Medical Problems: (1) Acute renal failure Status: Acute (2) Cellulitis of left hand Status: Acute Plan Plan of Care 1. Seizure disorder - stable, home on his usual medications per Neurology. 2. cellulitis L index finger - resolved, no further antibiotics needed. 3. 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 Phone conversation with Dr Guzman yesterday about this, she feels it is due to the Bactrim he received prior to admission. Have now added Bactrim to his allergy list here. Dr Guzman states that steroid treatment is optional, will send home on short Prednisone taper. Patient strongly advised to avoid Bactrim in the future. 4. Fátima balanitis - home with Nystatin powder, already tx with po Diflucan. 5. DM2 - glucose elevated due to steroids, continue his usual meds. Hyper glycemia will improve as steroids are decreased. 6. HTN - well controlled with home meds. 7. schizophrenia - stable with his usual medications. 8. unsteady gait - chronic, stable, continue to ambulate with walker. Comment Review of Relevant I have reviewed the following items jacob (where applicable) has been applied. Labs Laboratory Tests Test 08/24/18 12:37 08/24/18 16:44 08/24/18 20:35 08/25/18 03:35 Glucose (Fingerstick) 243 mg/dL (70-99) 379 mg/dL (70-99) 292 mg/dL (70-99) Creatinine 1.2 mg/dL (0.7-1.3) Estimated GFR (Cockcroft-Gault) 73.3 Test 08/25/18 07:09 08/25/18 11:48 08/25/18 14:31 08/25/18 16:41 Glucose (Fingerstick) 191 mg/dL (70-99) 190 mg/dL (70-99) 226 mg/dL (70-99) 279 mg/dL (70-99) Test 08/25/18 20:24 08/26/18 07:44 Glucose (Fingerstick) 339 mg/dL (70-99) 244 mg/dL (70-99) Laboratory Tests Test 08/25/18 11:48 08/25/18 14:31 08/25/18 16:41 08/25/18 20:24 Glucose (Fingerstick) 190 mg/dL (70-99) 226 mg/dL (70-99) 279 mg/dL (70-99) 339 mg/dL (70-99) Test 08/26/18 07:44 Glucose (Fingerstick) 244 mg/dL (70-99) Microbiology 08/19/18 Blood Culture - Final, Complete NO GROWTH AFTER 5 DAYS 08/20/18 Anaerobic/Aerobic Culture - Final, Complete 08/20/18 Anaerobic Culture Result 1 (HIRA) - Final, Complete 08/20/18 Aerobic Culture - Final, Complete 08/20/18 Aerobic Culture Result 1 (HIRA) - Final, Complete 08/20/18 Gram Stain - Final, Complete 08/20/18 Gram Stain Result 1 (HIRA) - Final, Complete 08/20/18 Gram Stain Result 2 (HIRA) - Final, Complete Medications Current Medications Lorazepam (Ativan Inj) 1 mg 1X ONCE IV Last administered on 08/19/18at 11:38; Start 08/19/18 at 11:00; Stop 08/19/18 at 11:01; Status DC Sodium Chloride 1,000 ml @ 100 mls/hr Q10H IV Last administered on 08/19/18at 11:22; Start 08/19/18 at 10:56; Stop 08/19/18 at 20:55; Status DC Ceftriaxone Sodium (Rocephin) 1 gm 1X ONCE IVP Last administered on 08/19/18at 12:10; Start 08/19/18 at 11:45; Stop 08/19/18 at 11:46; Status DC Vancomycin HCl 250 ml @ 250 mls/hr 1X ONCE IV ; Start 08/19/18 at 11:45; Stop 08/19/18 at 12:44; Status UNV Vancomycin HCl 1.25 gm/Sodium Chloride 250 ml @ 166.667 mls/hr 1X ONCE IV Last administered on 08/19/18at 12:14; Start 08/19/18 at 12:00; Stop 08/19/18 at 13:29; Status DC Sodium Chloride 1,000 ml @ 1,000 mls/hr 1X ONCE IV Last administered on 08/19/18at 12:33; Start 08/19/18 at 12:00; Stop 08/19/18 at 12:59; Status DC Insulin Human Lispro (HumaLOG) 0-5 UNITS TIDWMEALS SQ Last administered on 08/26/18 08:38; Start 08/19/18 at 17:00 Dextrose (Dextrose 50%-Water Syringe) 12.5 gm PRN Q15MIN PRN IV SEE COMMENTS Last administered on 08/20/18 08:00; Start 08/19/18 at 14:30 Piperacillin Sod/ Tazobactam Sod 3.375 gm/Sodium Chloride 50 ml @ 100 mls/hr Q6HRS IV Last administered on 08/24/18 06:18; Start 08/19/18 at 14:30; Stop 08/24/18 at 08:26; Status DC Vancomycin HCl (Vanco Per Pharmacy) 1 each PRN DAILY PRN MC SEE COMMENTS Last administered on 08/23/18 13:30; Start 08/19/18 at 14:30; Stop 08/24/18 at 08:26; Status DC Amlodipine Besylate (Norvasc) 5 mg DAILY PO Last administered on 08/26/18 08:24; Start 08/20/18 at 09:00 Atorvastatin Calcium (Lipitor) 10 mg HS PO Last administered on 08/25/18 21:11; Start 08/19/18 at 21:00 Baclofen (Lioresal) 10 mg TID PO Last administered on 08/26/18 08:26; Start 08/19/18 at 15:30 Bisacodyl (Dulcolax Tab) 10 mg PRN DAILY PRN PO CONSTIPATION; Start 08/19/18 at 14:30 Carbamazepine (TEGretol) 200 mg BID PO Last administered on 08/26/18 08:26; Start 08/19/18 at 21:00 Carvedilol (Coreg) 12.5 mg BIDWMEALS PO Last administered on 08/26/18 08:25; Start 08/19/18 at 17:00 Docusate Sodium (Colace) 100 mg DAILY PO Last administered on 08/26/18 08:31; Start 08/20/18 at 09:00 Duloxetine HCl (Cymbalta) 60 mg DAILY PO Last administered on 08/26/18 08:30; Start 08/20/18 at 09:00 Finasteride (Proscar) 5 mg DAILY PO Last administered on 08/26/18 08:25; Start 08/20/18 at 09:00 Glipizide (Glucotrol) 5 mg BIDBFRMEAL PO Last administered on 08/19/18 17:50; Start 08/19/18 at 16:30; Stop 08/20/18 at 08:51; Status DC Levetiracetam (Keppra) 500 mg BID PO Last administered on 08/26/18 08:25; Start 08/19/18 at 21:00 Tamsulosin HCl (Flomax) 0.4 mg BID PO Last administered on 08/26/18 08:25; Start 08/19/18 at 21:00 Latanoprost (Xalatan) 1 drop QHS OU Last administered on 08/25/18 21:11; Start 08/19/18 at 21:00 Pantoprazole Sodium (Protonix) 40 mg DAILYAC PO Last administered on 08/26/18 08:26; Start 08/20/18 at 07:30 Pioglitazone HCl (Actos) 45 mg DAILY PO Last administered on 08/26/18 08:26; Start 08/20/18 at 09:00 Pregabalin (Lyrica) 150 mg BID PO Last administered on 08/26/18 08:26; Start 08/19/18 at 21:00 Quetiapine Fumarate (SEROquel) 100 mg HS PO Last administered on 08/25/18 21:12; Start 08/19/18 at 21:00 Acetaminophen (Tylenol) 1,000 mg PRN Q6HRS PRN PO pain; Start 08/19/18 at 14:45 Vancomycin HCl 750 mg/Sodium Chloride 250 ml @ 250 mls/hr 1X ONCE IV Last administered on 08/19/18at 15:41; Start 08/19/18 at 15:00; Stop 08/19/18 at 15:59; Status DC Vancomycin HCl 1 gm/Sodium Chloride 250 ml @ 250 mls/hr Q24H IV ; Start 08/20/18 at 14:00; Stop 08/20/18 at 14:00; Status DC Vancomycin HCl (Vancomycin Trough Level) 1 each 1X ONCE MC Last administered on 08/21/18at 13:30; Start 08/21/18 at 13:30; Stop 08/21/18 at 13:31; Status DC Sodium Chloride 1,000 ml @ 100 mls/hr Q10H IV Last administered on 08/20/18at 08:58; Start 08/20/18 at 08:45; Stop 08/20/18 at 17:00; Status DC Fluconazole (Diflucan) 100 mg DAILY PO Last administered on 08/26/18at 08:24; Start 08/20/18 at 09:00 Multivitamins (Thera M Plus) 1 tab DAILY PO Last administered on 08/26/18at 08:24; Start 08/21/18 at 09:00 Ascorbic Acid (Vitamin C) 500 mg DAILY PO Last administered on 08/26/18at 08:25; Start 08/21/18 at 09:00 Nystatin (Nystop) 1 rogelio BID TP Last administered on 08/26/18at 08:28; Start 08/20/18 at 14:00 Vancomycin HCl 1.5 gm/Sodium Chloride 500 ml @ 250 mls/hr Q24H IV Last administered on 08/23/18at 15:24; Start 08/20/18 at 14:00; Stop 08/24/18 at 08:26; Status DC Lactobacillus Rhamnosus (Culturelle) 1 cap BID PO Last administered on 08/26/18at 08:27; Start 08/20/18 at 21:00 Ketoconazole (Nizoral 2% Shampoo) 1 rogelio PRN DAILY PRN TP SEE COMMENTS Last administered on 08/23/18at 12:27; Start 08/23/18 at 11:15 Prednisone (Prednisone) 60 mg 1X ONCE PO Last administered on 08/24/18at 09:17; Start 08/24/18 at 09:00; Stop 08/24/18 at 09:01; Status DC Insulin Human Lispro (HumaLOG) 6 units 1X ONCE SQ Last administered on at 17:12; Start 08/24/18 at 17:15; Stop 08/24/18 at 17:16; Status DC Prednisone (Prednisone) 60 mg DAILY PO Last administered on 08/26/18at 08:25; Start 08/25/18 at 09:00 Active Scripts Active Tramadol Hcl 50 Mg Tablet 50 Mg PO Q6HRS PRN Cephalexin 500 Mg Tablet 1 Tab PO QID Bactrim Ds Tablet (Sulfamethoxazole/Trimethoprim) 1 Each Tablet 1 Tab PO BID Finasteride 5 Mg Tablet 1 Tab PO DAILY Lyrica (Pregabalin) 150 Mg Capsule 1 Cap PO BID Flomax (Tamsulosin Hcl) 0.4 Mg Cap.er.24h 0.4 Mg PO BID 30 Days Triamcinolone Acetonide 0.1% Oint (Triamcinolone Acetonide) 15 Gm Oint...g. 1 Rogelio TP BID Actos (Pioglitazone Hcl) 15 Mg Tablet 45 Mg PO DAILY 28 Days Glucophage Xr (Metformin Hcl) 500 Mg Tab.er.24h 1,000 Mg PO DAILYWBKFT 30 Days Keppra (Levetiracetam) 500 Mg Tablet 500 Mg PO BID 30 Days Glipizide 5 Mg Tablet 5 Mg PO BIDBFRMEAL 30 Days Bisacodyl 5 Mg Tablet.dr 10 Mg PO PRN DAILY PRN 28 Days Quetiapine Fumarate 100 Mg Tablet 100 Mg PO QHS 30 Days Carvedilol (Carvedilol) 12.5 Mg Tablet 12.5 Mg PO BIDWMEALS 30 Days Baclofen 10 Mg Tablet 10 Mg PO TID 30 Days Reported Protonix (Pantoprazole Sodium) 20 Mg Tablet.dr 40 Mg PO DAILY Furosemide 20 Mg Tablet 1 Tab PO DAILY Docusate Sodium 100 Mg Capsule 1 Cap PO DAILY Latanoprost 2.5 Ml Drops 1 Drop OU QHS Tegretol (Carbamazepine) 200 Mg Tablet 1 Tab PO BID Atorvastatin Calcium 10 Mg Tablet 10 Mg PO Amlodipine Besylate 5 Mg Tablet 5 Mg PO Cymbalta (Duloxetine Hcl) 30 Mg Capsule.dr 60 Mg PO DAILY Lidoderm (Lidocaine) 700 Mg Adh..patch 1 Patch TP DAILY Vitals/I & O Vital Sign - Last 24 Hours 08/25/18 08/25/18 08/25/18 08/25/18 10:48 14:58 17:35 19:00 Temp 97.9 97.8 98.1 97.9 97.8 98.1 Pulse 72 88 88 72 Resp 20 20 18 B/P (MAP) 128/69 (88) 132/62 (85) 132/62 132/71 (91) Pulse Ox 99 98 95 O2 Delivery Room Air Room Air Room Air 08/25/18 08/26/18 08/26/18 08/26/18 23:00 03:00 07:00 08:24 Temp 98.1 98.1 97.7 98.1 98.1 97.7 Pulse 71 65 65 65 Resp 18 18 18 B/P (MAP) 123/62 (82) 133/65 (87) 133/61 (85) 133/61 Pulse Ox 96 96 96 O2 Delivery Room Air Room Air Room Air 08/26/18 08:25 Pulse 65 B/P (MAP) 133/61 Intake and Output 08/25/18 08/25/18 08/26/18 15:00 23:00 07:00 Intake Total 560 ml 540 ml 580 ml Output Total 200 ml 400 ml Balance 560 ml 340 ml 180 ml ERNESTO BUCK MD Aug 26, 2018 09:04
[2018-08-26] MEDS ORDERED: NYST60PO TP (09:10)
[2018-08-26] MEDS ORDERED: PRED20TA PO (09:10)
--- NOTE | 2018-08-26 09:12 | SNU/HH DC ---
DISCHARGE WITH HOME HEALTH DISCHARGE INFORMATION: Final Diagnosis: Problems Medical Problems: (1) Acute renal failure Status: Acute (2) Cellulitis of left hand Status: Acute Condition on Discharge: Stable CODE STATUS: Code Status: Full HOME HEALTH: Face to Face: I certify this patient is under my care and that I, or a nurse practitioner or physician's speech and language assistant working with me, had a face to face encounter that meets the physician face to face encounter requirements with this patient on []. RN For Eval/Treatment: Yes Physical Therapy For: Evalulation/Treatment Occupational Therapy For: Evaluation/Treatment Pt Meets Homebound Status: Unsteady balance w/ amb, POST DISCHARGE ORDERS: Activity Instructions for Disc: Activity as tolerated Weight Bearing Status after Di: No restrictions, As tolerated Bathing Instructions: Shower-keep dressing dry, No Tub Bath until see DIET AFTER DISCHARGE: MICHA Wound/Incision Care: Keep wound/cast CDI, Reinforce dressing PRN CHECKS AFTER DISCHARGE: Checks after discharge: Check blood press - daily, Check blood sugar, ac/hs TREATMENT/EQUIPMENT ORDERS: Adaptive Equipment Issued: None CERTIFICATION STATEMENT: Certification Statement: Certification Statement: Based on the above finding, I certify that this patient is confined to the home and needs intermittent usp care, physical therapy and/or speech therapy, or continues to need occupational therapy.~ This patient is under my care, and I have initiated the establishment of the plan of care.~ This patient will be followed by myself or a community physician who will periodically review the plan of care. Home Meds Active Scripts Nystatin (NYSTOP) 60 Gm Powder, 1 BENJAMÍN TP BID for rash for 14 Days, MISC Prov:ERNESTO BUCK MD 08/26/18 Prednisone (PREDNISONE) 20 Mg Tablet, 40 MG PO DAILY for swelling for 4 Days, #8 TAB take 4 tabs daily for 2 days then 2 tabs daily for 2 days then discontinue. Start 08/27/18. Prov:ERNESTO BUCK MD 08/26/18 Finasteride (FINASTERIDE) 5 Mg Tablet, 1 TAB PO DAILY for bph, #30 TAB 11 Refills Prov:ERNESTO BUCK MD 02/26/18 Pregabalin (LYRICA) 150 Mg Capsule, 1 CAP PO BID, #60 CAP 5 Refills Prov:Dinorah LOAIZA MD 06/18/17 Tamsulosin Hcl (FLOMAX) 0.4 Mg Cap.er.24h, 0.4 MG PO BID for 30 Days, #60 CAP.SR 5 Refills Prov:Dinorah LOAIZA MD 11/18/16 Pioglitazone Hcl (ACTOS) 15 Mg Tablet, 45 MG PO DAILY for 28 Days, TAB Prov:ERNESTO BUCK MD 04/22/16 Metformin Hcl (GLUCOPHAGE XR) 500 Mg Tab.er.24h, 1000 MG PO DAILYWBKFT for 30 Days, TAB Prov:ERNESTO BUCK MD 04/22/16 Levetiracetam (KEPPRA) 500 Mg Tablet, 500 MG PO BID for 30 Days, TAB Prov:ERNESTO BUCK MD 04/22/16 Glipizide (GLIPIZIDE) 5 Mg Tablet, 5 MG PO BIDBFRMEAL for 30 Days, TAB Prov:ERNESTO BUCK MD 04/22/16 Bisacodyl (BISACODYL) 5 Mg Tablet.dr, 10 MG PO PRN DAILY PRN for CONSTIPATION for 28 Days, TAB Prov:ERNESTO BUCK MD 04/22/16 Quetiapine Fumarate (QUETIAPINE FUMARATE) 100 Mg Tablet, 100 MG PO QHS for 30 Days, TAB Prov:ERNESTO BUCK MD 03/11/16 Carvedilol (CARVEDILOL ) 12.5 Mg Tablet, 12.5 MG PO BIDWMEALS for 30 Days, TAB Prov:ERNESTO BUCK MD 03/11/16 Baclofen (BACLOFEN) 10 Mg Tablet, 10 MG PO TID for 30 Days, TAB Prov:ERNESTO BUCK MD 03/11/16 Reported Medications Pantoprazole Sodium (PROTONIX) 20 Mg Tablet.dr, 40 MG PO DAILY for acid refulx, TAB 06/26/18 Furosemide (FUROSEMIDE) 20 Mg Tablet, 1 TAB PO DAILY for diuretic, #90 TAB 1 Refill 06/26/18 Docusate Sodium (DOCUSATE SODIUM) 100 Mg Capsule, 1 CAP PO DAILY for bowels, #30 CAP 06/26/18 Latanoprost (LATANOPROST) 2.5 Ml Drops, 1 DROP OU QHS, #25 04/17/16 Carbamazepine (TEGRETOL) 200 Mg Tablet, 1 TAB PO BID, #60 TAB 1 Refill 12/30/13 Atorvastatin Calcium (ATORVASTATIN CALCIUM) 10 Mg Tablet, 10 MG PO 06/21/13 Amlodipine Besylate (AMLODIPINE BESYLATE) 5 Mg Tablet, 5 MG PO 06/21/13 Duloxetine Hcl (CYMBALTA) 30 Mg Capsule.dr, 60 MG PO DAILY 06/21/13 Lidocaine (LIDODERM) 700 Mg Adh..patch, 1 PATCH TP DAILY 06/21/13 Discontinued Reported Medications Hyoscyamine Sulfate (LEVSIN) 0.125 Mg Tablet, 1 TAB PO Q4HRS for bladder spasm, #120 TAB 5 Refills 06/26/18 Cephalexin (CEPHALEXIN) 500 Mg Tablet, 500 MG PO BID for after surgery at [facility], TAB 06/26/18 Discontinued Scripts Tramadol Hcl (TRAMADOL HCL) 50 Mg Tablet, 50 MG PO Q6HRS PRN for PAIN, #20 TAB Prov:EBEN FULTON APRN 08/17/18 Cephalexin (CEPHALEXIN) 500 Mg Tablet, 1 TAB PO QID, #40 TAB Prov:EBEN FULTON APRN 08/17/18 Sulfamethoxazole/Trimethoprim (BACTRIM DS TABLET) 1 Each Tablet, 1 TAB PO BID, #20 TAB Prov:EBEN FULTON [employer] 08/17/18 Triamcinolone Acetonide (TRIAMCINOLONE ACETONIDE 0.1% OINT) 15 Gm Oint...g., 1 BENJMAÍN TP BID for WOUND CARE, #1 TUBE Prov:EBEN FULTON APRN 10/29/16 Lactulose (LACTULOSE) 20 Gm/30 Ml Solution, 10 GM PO DAILY PRN for CONSTIPATION, #240 [facility] [place] Prov:STEPHANIE LINDSEY Jr. DO 03/10/18 ERNESTO BUCK MD Aug 26, 2018 09:11
--- NOTE | 2018-08-26 10:29 | NUR ---
SW following pt. Spoke with pt about home health and he reported he has been using [facility]. Spoke with Gia at [facility] and faxed orders. SW arranged transportation via central transport for [id number] and pt [place]. Per pt's request, SW left a voice mail to pt's medical case worker, Daniel regarding dc plan. ITA JEAN.
[2018-08-26 11:00] VITALS: BP 153/73
--- NOTE | 2018-08-26 11:44 | PDOC ---
PROGRESS NOTES Assessment Problems Medical Problems: (1) Acute renal failure Status: Acute (2) Cellulitis of left hand Status: Acute Epilepsy, breakthrough seizure. He is on 3 anticonvulsants including the pregabalin, plus the levetiracetam and carbamazepine. 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 Agree with discharge Follow-up with me in [address] Riley Subjective Feels better Objective Vital Signs Date Time Temp Pulse Resp B/P (MAP) Pulse Ox O2 Delivery O2 Flow Rate FiO2 08/26/18 08:25 65 133/61 08/26/18 07:00 97.7 18 96 Room Air 97.7 Intake and Output 08/26/18 06:59 Intake Total 1680 ml Output Total 600 ml Balance 1080 ml Intake Oral 1680 ml Output Urine Total 600 ml # Bowel Movements 1 PHYSICAL EXAM Alert. Oriented to time, place and person. PERRL. EOMI. CN: no focal findings. Muscle tone: normal. 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 Sensory exam: Stocking loss. No cerebellar signs elicited. Review of Relevant I have reviewed the following items jacob (where applicable) has been applied. Labs Laboratory Tests Test 08/24/18 12:37 08/24/18 16:44 08/24/18 20:35 08/25/18 03:35 Glucose (Fingerstick) 243 mg/dL (70-99) 379 mg/dL (70-99) 292 mg/dL (70-99) Creatinine 1.2 mg/dL (0.7-1.3) Estimated GFR (Cockcroft-Gault) 73.3 Test 08/25/18 07:09 08/25/18 11:48 08/25/18 14:31 08/25/18 16:41 Glucose (Fingerstick) 191 mg/dL (70-99) 190 mg/dL (70-99) 226 mg/dL (70-99) 279 mg/dL (70-99) Test 08/25/18 20:24 08/26/18 07:44 Glucose (Fingerstick) 339 mg/dL (70-99) 244 mg/dL (70-99) Laboratory Tests Test 08/25/18 11:48 08/25/18 14:31 08/25/18 16:41 08/25/18 20:24 Glucose (Fingerstick) 190 mg/dL (70-99) 226 mg/dL (70-99) 279 mg/dL (70-99) 339 mg/dL (70-99) Test 08/26/18 07:44 Glucose (Fingerstick) 244 mg/dL (70-99) Microbiology 08/19/18 Blood Culture - Final, Complete NO GROWTH AFTER 5 DAYS 08/20/18 Anaerobic/Aerobic Culture - Final, Complete 08/20/18 Anaerobic Culture Result 1 (HIRA) - Final, Complete 08/20/18 Aerobic Culture - Final, Complete 08/20/18 Aerobic Culture Result 1 (HIRA) - Final, Complete 08/20/18 Gram Stain - Final, Complete 08/20/18 Gram Stain Result 1 (HIRA) - Final, Complete 08/20/18 Gram Stain Result 2 (HIRA) - Final, Complete Medications Current Medications Lorazepam (Ativan Inj) 1 mg 1X ONCE IV Last administered on 08/19/18at 11:38; Start 08/19/18 at 11:00; Stop 08/19/18 at 11:01; Status DC Sodium Chloride 1,000 ml @ 100 mls/hr Q10H IV Last administered on 08/19/18at 11:22; Start 08/19/18 at 10:56; Stop 08/19/18 at 20:55; Status DC Ceftriaxone Sodium (Rocephin) 1 gm 1X ONCE IVP Last administered on 08/19/18at 12:10; Start 08/19/18 at 11:45; Stop 08/19/18 at 11:46; Status DC Vancomycin HCl 250 ml @ 250 mls/hr 1X ONCE IV ; Start 08/19/18 at 11:45; Stop 08/19/18 at 12:44; Status UNV Vancomycin HCl 1.25 gm/Sodium Chloride 250 ml @ 166.667 mls/hr 1X ONCE IV Last administered on 08/19/18at 12:14; Start 08/19/18 at 12:00; Stop 08/19/18 at 13:29; Status DC Sodium Chloride 1,000 ml @ 1,000 mls/hr 1X ONCE IV Last administered on 08/19/18 12:33; Start 08/19/18 at 12:00; Stop 08/19/18 at 12:59; Status DC Insulin Human Lispro (HumaLOG) 0-5 UNITS TIDWMEALS SQ Last administered on 08/26/18 08:38; Start 08/19/18 at 17:00 Dextrose (Dextrose 50%-Water Syringe) 12.5 gm PRN Q15MIN PRN IV SEE COMMENTS Last administered on 08/20/18 08:00; Start 08/19/18 at 14:30 Piperacillin Sod/ Tazobactam Sod 3.375 gm/Sodium Chloride 50 ml @ 100 mls/hr Q6HRS IV Last administered on 08/24/18 06:18; Start 08/19/18 at 14:30; Stop 08/24/18 at 08:26; Status DC Vancomycin HCl (Vanco Per Pharmacy) 1 each PRN DAILY PRN MC SEE COMMENTS Last administered on 08/23/18 13:30; Start 08/19/18 at 14:30; Stop 08/24/18 at 08:26; Status DC Amlodipine Besylate (Norvasc) 5 mg DAILY PO Last administered on 08/26/18 08:24; Start 08/20/18 at 09:00 Atorvastatin Calcium (Lipitor) 10 mg HS PO Last administered on 08/25/18 21:11; Start 08/19/18 at 21:00 Baclofen (Lioresal) 10 mg TID PO Last administered on 08/26/18 08:26; Start 08/19/18 at 15:30 Bisacodyl (Dulcolax Tab) 10 mg PRN DAILY PRN PO CONSTIPATION; Start 08/19/18 at 14:30 Carbamazepine (TEGretol) 200 mg BID PO Last administered on 08/26/18 08:26; Start 08/19/18 at 21:00 Carvedilol (Coreg) 12.5 mg BIDWMEALS PO Last administered on 08/26/18 08:25; Start 08/19/18 at 17:00 Docusate Sodium (Colace) 100 mg DAILY PO Last administered on 08/26/18 08:31; Start 08/20/18 at 09:00 Duloxetine HCl (Cymbalta) 60 mg DAILY PO Last administered on 08/26/18 08:30; Start 08/20/18 at 09:00 Finasteride (Proscar) 5 mg DAILY PO Last administered on 08/26/18 08:25; Start 08/20/18 at 09:00 Glipizide (Glucotrol) 5 mg BIDBFRMEAL PO Last administered on 08/19/18 17:50; Start 08/19/18 at 16:30; Stop 08/20/18 at 08:51; Status DC Levetiracetam (Keppra) 500 mg BID PO Last administered on 08/26/18 08:25; Start 08/19/18 at 21:00 Tamsulosin HCl (Flomax) 0.4 mg BID PO Last administered on 08/26/18 08:25; Start 08/19/18 at 21:00 Latanoprost (Xalatan) 1 drop QHS OU Last administered on 08/25/18 21:11; Start 08/19/18 at 21:00 Pantoprazole Sodium (Protonix) 40 mg DAILYAC PO Last administered on 08/26/18 08:26; Start 08/20/18 at 07:30 Pioglitazone HCl (Actos) 45 mg DAILY PO Last administered on 08/26/18 08:26; Start 08/20/18 at 09:00 Pregabalin (Lyrica) 150 mg BID PO Last administered on 08/26/18 08:26; Start 08/19/18 at 21:00 Quetiapine Fumarate (SEROquel) 100 mg HS PO Last administered on 08/25/18 21:12; Start 08/19/18 at 21:00 Acetaminophen (Tylenol) 1,000 mg PRN Q6HRS PRN PO pain; Start 08/19/18 at 14:45 Vancomycin HCl 750 mg/Sodium Chloride 250 ml @ 250 mls/hr 1X ONCE IV Last administered on 08/19/18 15:41; Start 08/19/18 at 15:00; Stop 08/19/18 at 15:59; Status DC Vancomycin HCl 1 gm/Sodium Chloride 250 ml @ 250 mls/hr Q24H IV ; Start 08/20/18 at 14:00; Stop 08/20/18 at 14:00; Status DC Vancomycin HCl (Vancomycin Trough Level) 1 each 1X ONCE MC Last administered on 08/21/18 13:30; Start 08/21/18 at 13:30; Stop 08/21/18 at 13:31; Status DC Sodium Chloride 1,000 ml @ 100 mls/hr Q10H IV Last administered on 08/20/18 08:58; Start 08/20/18 at 08:45; Stop 08/20/18 at 17:00; Status DC Fluconazole (Diflucan) 100 mg DAILY PO Last administered on 08/26/18 08:24; Start 08/20/18 at 09:00 Multivitamins (Thera M Plus) 1 tab DAILY PO Last administered on 08/26/18 08:24; Start 08/21/18 at 09:00 Ascorbic Acid (Vitamin C) 500 mg DAILY PO Last administered on 08/26/18 08:25; Start 08/21/18 at 09:00 Nystatin (Nystop) 1 rogelio BID TP Last administered on 08/26/18 08:28; Start 08/20/18 at 14:00 Vancomycin HCl 1.5 gm/Sodium Chloride 500 ml @ 250 mls/hr Q24H IV Last administered on 08/23/18 15:24; Start 08/20/18 at 14:00; Stop 08/24/18 at 08:26; Status DC Lactobacillus Rhamnosus (Culturelle) 1 cap BID PO Last administered on 08/26/18 08:27; Start 08/20/18 at 21:00 Ketoconazole (Nizoral 2% Shampoo) 1 rogelio PRN DAILY PRN TP SEE COMMENTS Last administered on 08/23/18 12:27; Start 08/23/18 at 11:15 Prednisone (Prednisone) 60 mg 1X ONCE PO Last administered on 08/24/18 09:17; Start 08/24/18 at 09:00; Stop 08/24/18 at 09:01; Status DC Insulin Human Lispro (HumaLOG) 6 units 1X ONCE SQ Last administered on 08/24/18 17:12; Start 08/24/18 at 17:15; Stop 08/24/18 at 17:16; Status DC Prednisone (Prednisone) 60 mg DAILY PO Last administered on 08/26/18 08:25; Start 08/25/18 at 09:00 Active Scripts Active Nystop (Nystatin) 60 Gm Powder 1 Rogelio TP BID 14 Days Prednisone 20 Mg Tablet 40 Mg PO DAILY 4 Days take 4 tabs daily for 2 days then 2 tabs daily for 2 days then discontinue. Start 08/27/18. Finasteride 5 Mg Tablet 1 Tab PO DAILY Lyrica (Pregabalin) 150 Mg Capsule 1 Cap PO BID Flomax (Tamsulosin Hcl) 0.4 Mg Cap.er.24h 0.4 Mg PO BID 30 Days Actos (Pioglitazone Hcl) 15 Mg Tablet 45 Mg PO DAILY 28 Days Glucophage Xr (Metformin Hcl) 500 Mg Tab.er.24h 1,000 Mg PO DAILYWBKFT 30 Days Keppra (Levetiracetam) 500 Mg Tablet 500 Mg PO BID 30 Days Glipizide 5 Mg Tablet 5 Mg PO BIDBFRMEAL 30 Days Bisacodyl 5 Mg Tablet.dr 10 Mg PO PRN DAILY PRN 28 Days Quetiapine Fumarate 100 Mg Tablet 100 Mg PO QHS 30 Days Carvedilol (Carvedilol) 12.5 Mg Tablet 12.5 Mg PO BIDWMEALS 30 Days Baclofen 10 Mg Tablet 10 Mg PO TID 30 Days Reported Protonix (Pantoprazole Sodium) 20 Mg Tablet.dr 40 Mg PO DAILY Furosemide 20 Mg Tablet 1 Tab PO DAILY Docusate Sodium 100 Mg Capsule 1 Cap PO DAILY Latanoprost 2.5 Ml Drops 1 Drop OU QHS Tegretol (Carbamazepine) 200 Mg Tablet 1 Tab PO BID Atorvastatin Calcium 10 Mg Tablet 10 Mg PO Amlodipine Besylate 5 Mg Tablet 5 Mg PO Cymbalta (Duloxetine Hcl) 30 Mg Capsule.dr 60 Mg PO DAILY Lidoderm (Lidocaine) 700 Mg Adh..patch 1 Patch TP DAILY Vitals/I & O Vital Sign - Last 24 Hours 08/25/18 08/25/18 08/25/18 08/25/18 14:58 17:35 19:00 23:00 Temp 97.8 98.1 98.1 97.8 98.1 98.1 Pulse 88 88 72 71 Resp 20 18 18 B/P (MAP) 132/62 (85) 132/62 132/71 (91) 123/62 (82) Pulse Ox 98 95 96 O2 Delivery Room Air Room Air Room Air 08/26/18 08/26/18 08/26/18 08/26/18 03:00 07:00 08:24 08:25 Temp 98.1 97.7 98.1 97.7 Pulse 65 65 65 65 Resp 18 18 B/P (MAP) 133/65 (87) 133/61 (85) 133/61 133/61 Pulse Ox 96 96 O2 Delivery Room Air Room Air Intake and Output 08/25/18 08/25/18 08/26/18 14:59 22:59 06:59 Intake Total 560 ml 540 ml 580 ml Output Total 200 ml 400 ml Balance 560 ml 340 ml 180 ml BEN TAM MD Aug 26, 2018 11:44
--- NOTE | 2018-08-26 13:06 | NUR ---
Patient discharged, home with home health. Patient understands the need to follow up with Dr. Riley within the next couple weeks. Patient understands need to get prescriptions filled at [facility]. Patient understands to avoid bactrim due to allergic reaction. Wounds dressed right before d/c. Patient given supplies to change at home. IV discontinued. All belongings with patient. Patient accompanied by transport personnel. Patient alert and stable.
--- NOTE | 2018-08-26 19:56 | DS ---
DATE OF DISCHARGE: 08/26/2018 CHIEF COMPLAINT: Seizures. HISTORY OF PRESENT ILLNESS: The patient is a 68-year-old male with a history of seizure disorder. He was brought to the Emergency Room with the above complaint. He apparently had a witnessed seizure at home and paramedics were called. Initial evaluation in the Emergency Room showed him to be postictal. He was also found to be febrile with a temperature of 101.2. Labs showed acute renal failure and he was admitted for further care. HOSPITAL COURSE: The patient had no further seizures during his hospital stay. He was seen by Dr. Knowles, his neurologist, who recommended continuing his usual medications for his seizures. The patient's acute renal failure quickly resolved with IV fluids for hydration and his renal function remained normal after this. The patient had been seen in the Emergency Room several days prior to this admission for cellulitis of the left index finger. An incision and drainage had been performed at that time and he was discharged home on Bactrim and Keflex. The patient had been taking these as prescribed for 1-2 days. He was seen in our office prior to this admission for an ER followup and the wound on his finger was healing well. When the patient was admitted the oral antibiotics were discontinued and he was given several days of broad-spectrum IV antibiotics, but these were discontinued as the infection in his finger was much improved. Blood cultures were done and were negative. The patient remained afebrile for the rest of his hospital stay. At admission, the patient was found to have a rash on the glans penis with eroded skin throughout. He was seen in consultation by Urology due to this. It was felt that this was at least partially fungal in nature and he was treated with oral Diflucan and topical nystatin powder. Shortly after admission, the patient began to develop swelling and erythema of the lips. This progressed and he developed superficial ulcers and skin sloughing on his lips. There was no other skin rash seen. The patient's skin lesions were discussed with our plastics plater, Dr. Kristin Guzman over the phone. She was confident that this represented a mild case of Ye-Rishi syndrome and the most likely medication to which he had developed an allergy was the BACTRIM that he had taken as an outpatient. He was started on steroids and has had much improvement in his ulcers. He is eating and drinking with a good appetite and no difficulty. Bactrim has been added to his hospital and office chart as an allergy and the patient was also made aware of this. The patient's chronic medical conditions have remained stable. He is on his usual medication for his blood pressure and his schizophrenia and these are well controlled. The patient's diabetes is usually controlled with oral medication. He has had some elevation in his blood sugar since starting the steroids, but this is expected to improve as the steroids are tapered and he is to continue his usual medications. He has a long history of urinary retention and is on several medications for this. He recently had placement of a bladder stimulator at Urology and has had much improvement in his symptoms since then. He is able to urinate easily and appears to empty his bladder without difficulty now. The patient will be discharged home today with home health. FINAL DIAGNOSES: 1. Seizure disorder. 2. Cellulitis of the left index finger. 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 4. Acute renal failure, resolved. 5. Fátima balanitis. 6. Diabetes mellitus type 2. 7. Hypertension. 8. Schizophrenia. 9. Chronic urinary retention. DISCHARGE MEDICATIONS: Prednisone 20 mg tablet 2 tablets daily for 2 days, then 1 tablet daily for 2 days, then discontinue; nystatin powder to groin rash b.i.d. p.r.n.; amlodipine 5 mg daily; atorvastatin 10 mg daily; baclofen 10 mg t.i.d.; Tegretol 200 mg b.i.d.; carvedilol 12.5 mg b.i.d.; Cymbalta 60 mg daily; finasteride 5 mg daily; furosemide 20 mg daily; glipizide 5 mg b.i.d.; latanoprost eyedrops; Keppra 500 mg b.i.d.; metformin XR 500 mg 2 tablets daily; pantoprazole 40 mg daily; pioglitazone 45 mg daily; Lyrica 150 mg b.i.d.; Seroquel 100 mg at bedtime; Flomax 0.4 mg daily. FOLLOWUP: With Dr. Riley as needed. Home health has been ordered. ERNESTO RILEY MD DR: WILLIE/kristen JOB#: [id number] / [id number] MTDD
== END 2018-08-26 13:10 | disposition home health service (06) | DRG 595 ==
LOC: ER 10:41 → 5 NORTH 12:15
PROVIDERS: ADMIT Family Medicine; ATTEND Family Medicine
DX: L51.1 Stevens-Johnson syndrome (principal); N17.0 Acute kidney failure with tubular necrosis; L03.114 Cellulitis of left upper limb; G40.909 Epilepsy, unspecified, not intractable, without status epilepticus; I10 Essential (primary) hypertension; H40.9 Unspecified glaucoma; E11.42 Type 2 diabetes mellitus with diabetic polyneuropathy; F20.9 Schizophrenia, unspecified; M50.30 Other cervical disc degeneration, unspecified cervical region; M51.36 Other intervertebral disc degeneration, lumbar region; M54.30 Sciatica, unspecified side; L03.012 Cellulitis of left finger; F32.9 Major depressive disorder, single episode, unspecified; E78.5 Hyperlipidemia, unspecified; G24.01 Drug induced subacute dyskinesia; T36.8X5A Adverse effect of other systemic antibiotics, initial encounter; B37.2 Candidiasis of skin and nail; B37.42 Candidal balanitis; R33.9 Retention of urine, unspecified; Z87.11 Personal history of peptic ulcer disease; Z98.1 Arthrodesis status; Z90.49 Acquired absence of other specified parts of digestive tract; Z79.899 Other long term (current) drug therapy; Z79.84 Long term (current) use of oral hypoglycemic drugs; Z87.442 Personal history of urinary calculi; Y92.89 Other specified places as the place of occurrence of the external cause
CPT/HCPCS: 36415; 71045; 80048; 80053; 80156; 80177; 80202; 80307; 81001; 82140; 82565; 82962; 83605; 83690; 84484; 85025; 85027; 85610; 86592; 87040; 87071; 87075; 87186; 93005; J0696; J1815; J2060; J2543; J3370; J7030; J7040; J7042; J7050; J7512; 97110; 97112; 97116; 97530; 97535

== ENCOUNTER 2018-09-15 13:08 | Emergency (ER) | payer MEDICARE, MEDICAID ==
[~2018-09-15] VITALS: Ht 182.9 cm; Wt 86.2 kg
[~2018-09-15 13:08] MED LIST changes: +NYST60PO TP; -PANT40TA5 PO; +PANT40TA77 PO
[2018-09-15 13:22] VITALS: BP 130/77
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
[2018-09-15] MEDS ORDERED: HYDR-2761 PO (15:26)
[2018-09-15] MEDS ORDERED: HYDROcodone/APAP 5/325MG 1 TAB TABLET PO ONE (16:00)
== END 2018-09-15 16:36 | disposition home or self-care (01) ==
LOC: ER 13:08
DX: S09.90XA Unspecified injury of head, initial encounter (principal); R07.81 Pleurodynia; M25.552 Pain in left hip; E11.39 Type 2 diabetes mellitus with other diabetic ophthalmic complication; H40.9 Unspecified glaucoma; E11.40 Type 2 diabetes mellitus with diabetic neuropathy, unspecified; I10 Essential (primary) hypertension; Z98.890 Other specified postprocedural states; Z87.820 Personal history of traumatic brain injury; Z88.1 Allergy status to other antibiotic agents; Z88.2 Allergy status to sulfonamides; Y04.0XXA Assault by unarmed brawl or fight, initial encounter; Y93.89 Activity, other specified; Y92.89 Other specified places as the place of occurrence of the external cause; Y99.8 Other external cause status
CPT/HCPCS: 70450; 70486; 71111; 72125; 72128; 99284-25

== ENCOUNTER 2019-08-07 14:35 | Emergency (ER) | payer MEDICAID, MEDICARE, OTHER ==
[~2019-08-07] VITALS: Ht 175.3 cm; Wt 77.0 kg
[~2019-08-07 14:35] MED LIST changes: -CARB100C2 PO; +CARB100C4 PO; -CLON1TAB11 PO; +CLONAZEPAM1 MG PO; +HYDR-2761 PO; -POTA20TA82 PO; +PREG-9 PO; -PREG75CA PO
[2019-08-07 14:49] VITALS: BP 116/63
[2019-08-07] MEDS ORDERED: CLINDAMYCIN HCL 150 MG CAPSULE. PO ONE (15:00)
[2019-08-07] MEDS ORDERED: HYDROcodone/APAP 5/325MG 1 TAB TABLET PO ONE (15:00)
[2019-08-07] MEDS ORDERED: CLIN150C14 PO (15:58)
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
== END 2019-08-07 16:26 | disposition home or self-care (01) ==
LOC: ER 14:35
DX: S60.467A Insect bite (nonvenomous) of left little finger, initial encounter (principal); L02.512 Cutaneous abscess of left hand; E11.40 Type 2 diabetes mellitus with diabetic neuropathy, unspecified; I10 Essential (primary) hypertension; E11.39 Type 2 diabetes mellitus with other diabetic ophthalmic complication; H40.9 Unspecified glaucoma; Z87.820 Personal history of traumatic brain injury; Z88.1 Allergy status to other antibiotic agents; Z88.2 Allergy status to sulfonamides; W57.XXXA Bitten or stung by nonvenomous insect and other nonvenomous arthropods, initial encounter; Y93.89 Activity, other specified; Y92.89 Other specified places as the place of occurrence of the external cause; Y99.8 Other external cause status
CPT/HCPCS: 26010; 99283

== ENCOUNTER 2019-12-26 18:35 | Emergency (ER) | payer MEDICARE, OTHER ==
[~2019-12-26] VITALS: Ht 175.3 cm; Wt 84.0 kg
[~2019-12-26 18:35] MED LIST changes: +CLIN150C14 PO
[2019-12-26 18:54] VITALS: BP 154/93
--- NOTE | 2019-12-26 19:04 | PHYS DOC ---
Past Medical History Past Medical History: Diabetes-Type II, Glaucoma, Hypertension Additional Past Medical Histor: TBI, URINARY RETEN, SCIATICA, NEUROPATHY,ANEURSYM, TARDIVE DYSKINESIA Past Surgical History: Lumbar Laminectomy Additional Past Surgical Histo: neck and back surgery Smoking Status: Never Smoker Alcohol Use: None Drug Use: None General Adult EDM: Chief Complaint: MECHANICAL FALL HPI: HPI: Patient is a 69 year old male who had a mechanical fall in the shower at about 430 this afternoon. Patient struck the left side of his head and had loss of consciousness. Patient has a little bit of nausea and moderate head pain as well as moderate low back pain that is nonradiating. Patient states pain is worse with movement. Patient also has some mild neck discomfort. Review of Systems: Review of Systems: Constitutional: Denies fever or chills. [] Eyes: Denies change in visual acuity. [] HENT: Denies nasal congestion or sore throat. [] Respiratory: Denies cough or shortness of breath. [] Cardiovascular: Denies chest pain or edema. [] GI: Denies abdominal pain, , vomiting, bloody stools or diarrhea. [] Patient has mild nausea : Denies dysuria. [] Musculoskeletal: Denies back pain or joint pain. [] Integument: Denies rash. [] Neurologic: Complains of headache but no focal weakness or sensory changes. [] Endocrine: Denies polyuria or polydipsia. [] Lymphatic: Denies swollen glands. [] Psychiatric: Denies depression or anxiety. [] Heart Score: Risk Factors: Risk Factors: DM, Current or recent (<one month) smoker, HTN, HLP, family history of CAD, obesity. Risk Scores: Score 0 - 3: 2.5% MACE over next 6 weeks - Discharge Home Score 4 - 6: 20.3% MACE over next 6 weeks - Admit for Clinical Observation Score 7 - 10: 72.7% MACE over next 6 weeks - Early Invasive Strategies Allergies: Allergies: Allergies Coded Allergies Type Severity Reaction Last Updated Verified sulfamethoxazole Allergy Severe Swelling 08/26/18 Yes trimethoprim Allergy Severe Swelling 08/26/18 Yes Physical Exam: PE: Constitutional: Well developed, well nourished, no acute distress, non-toxic appearance. [] HENT: Normocephalic, atraumatic, bilateral external ears normal, no trismus nose normal. [] Eyes: PERRLA, EOMI, conjunctiva normal, no discharge. [] Neck: Mild paraspinous tenderness Cardiovascular:Heart rate regular rhythm, no murmur [] Lungs & Thorax: Bilateral breath sounds clear to auscultation [] Abdomen: Bowel sounds normal, soft, no tenderness, no masses, no pulsatile masses. [] Skin: Warm, dry, no erythema, no rash. [] Back: Mild lumbar tenderness Extremities: No tenderness, no cyanosis, no clubbing, ROM intact, no edema. [] Neurologic: Alert and oriented X 3, normal motor function, normal sensory function, no focal deficits noted. [] Psychologic: Affect normal, judgement normal, mood normal. [] Current Patient Data: Vital Signs: Vital Signs Date Time Temp Pulse Resp B/P (MAP) Pulse Ox O2 Delivery O2 Flow Rate FiO2 12/26/19 18:54 98.6 73 18 154/93 (113) 100 Room Air 98.6 EKG: EKG: [] Radiology/Procedures: Radiology/Procedures: [][facility] [address] [place] [address] IMAGING REPORT Signed PATIENT: ANAMARIA MAJANO ACCOUNT: [id number] : 1950 LOCATION: ER AGE: 69 SEX: M EXAM STATUS: PRE ER ORD. PHYSICIAN: SUELLEN YAP MD REASON: fall, head injury PROCEDURE: CT HEAD AND CERVICAL SPINE WO STUDY: 1. CT head without contrast 2. CT cervical spine without contrast 3. CT lumbar spine without contrast INDICATION: Fall. Head injury. COMPARISON: CT head and cervical spine 09/15/2018 TECHNIQUE: Axial CT imaging of the head, cervical spine and lumbar spine performed without the use of intravenous contrast. Coronal and sagittal reformats were obtained. One or more of the following individualized dose reduction techniques were utilized for this examination: 1. Automated exposure control 2. Adjustment of the mA and/or kV according to patient size 3. Use of iterative reconstruction technique. FINDINGS: Head: No acute intracranial hemorrhage. No newly seen loss of suárez-white matter differentiation. No localized mass effect, midline shift or hydrocephalus. Chronic changes to include left temporal encephalomalacia are no different. Redemonstration of a left temporal craniotomy. No depressed calvarial fracture. Normally aerated mastoid air cells, middle ears and visualized paranasal sinuses. Cervical spine: No acute fracture or traumatic malalignment. Redemonstrated operative changes of posterior cervical fusion and dorsal decompression spanning C2-C6. Unchanged hardware alignment. No progressive lucency along any of the screws. As before, advanced discogenic arthrosis at several levels and chronic fusion across C3-C4 and C7-T1. The degree of osseous neural foraminal encroachment is no different. Unchanged configuration of the central canal. No soft tissue sequela of trauma seen throughout the neck. No apical pneumothorax. Lumbar spine: No acute fracture is identified. Chronic compression deformity status post augmentation at L2. Dorsal boris and screw fixation construct spanning L3-S1. There is solid ankylosis and chronic deformity across L4-L5. The hardware is intact. Periscrew lucency at S1 on the left. No prevertebral edema/hemorrhage is identified to suggest occult osseous injury. The visualized pelvic osseous structures are grossly intact. Mostly mild to moderate osseous neural foraminal encroachment at a few levels. Assessment for any significant central canal stenosis is limited by technique and streak artifact from surgical hardware. Incompletely characterized bilateral renal cystic foci. The partially imaged bladder is distended. IMPRESSION: Head: 1. No acute intracranial abnormality by CT. 2. Chronic/senescent findings as detailed in the body the report. Cervical spine: 1. No acute fracture or traumatic malalignment. 2. No significant change in the configuration of C2-C6 surgical hardware or in the extent of multifactorial degenerative changes. Lumbar spine: 1. No acute fracture or traumatic malalignment. 2. Chronic findings and operative changes as detailed in the body the report. 3. Mildly distended urinary bladder. Correlate for voluntary versus involuntary urinary retention. 4. Incompletely characterize renal cystic foci bilaterally. As deemed necessary, such as if no evaluation of the kidneys has been performed recently, eventual ultrasound follow-up could be considered. Electronically signed by: KASEY MCKINNEY MD (12/26/2019 7:39 PM) [id number] DICTATED and SIGNED BY: KASEY MCKINNEY MD DATE: 12/26/19 1939 Course & Med Decision Making: Course & Med Decision Making Pertinent Labs and Imaging studies reviewed. (See chart for details) [] 69-year-old male with a mechanical fall and head injury. Due to his age and loss of consciousness head CT was done which is negative. Patient is neurologically intact CTs of the neck and back are normal. Patient be stable for discharge at home with pain medicines. Return precautions given. Dragon Disclaimer: Dragon Disclaimer: This electronic medical record was generated, in whole or in part, using a voice recognition dictation system. Departure Departure Impression: Primary Impression: Closed head injury Additional Impressions: Cervical strain Lumbar strain Disposition: 01 HOME, SELF-CARE Condition: STABLE Referrals: ERNESTO BUCK MD (PCP) 2-3 DAYS Patient Instructions: Back Pain, Adult, Cervical Strain and Sprain with Rehab- SportsMed, Head Injury, Adult Additional Instructions: EMERGENCY DEPARTMENT GENERAL DISCHARGE INSTRUCTIONS THANK YOU for coming to [facility] Emergency Department (ED) today and trusting us with your care. We trust that you had a positive experience in our Emergency Department. If you wish to speak to the department Management you can contact the supervisor wall mirror department at . YOUR FOLLOW UP INSTRUCTIONS ARE FOLLOWS: Do you have a private doctor? If you do not have a private doctor, please ask for a resource list of physicians or clinics that may be able to assist you with follow up care. The Emergency Physician has interpreted your x-rays. The X-ray specialist will also review them. If there is a change in the findings you will be notified in 48 hours when at all possible. A lab test or lab culture may have been done, your results will be reviewed and you will be notified if you need a change in treatment. ADDITIONAL INSTRUCTIONS AND INFORMATION Your care today has been supervised by a physician who is specially trained in emergency care. Many problems require more than one evaluation for a complete diagnosis and treatment. We recommend that you schedule your follow up appointment as recommended to ensure complete treatment of your illness or injury. If you are unable to obtain follow up care and continue to have a problem, or if your condition worsens we recommend that you return to the ED. We are not able to safely determine your condition over the phone nor are we able to give sound medical advice over the phone. For these safety reasons, if you call for medical advice we will ask you to come to the ED for further evaluation If you have any questions regarding these discharge instructions please call the ED at . SAFETY INFORMATION In the interest of safety, wellness, and injury prevention; we encourage you to wear your seatbelt, if you smoke; quit smoking, and we encourage your family to use protective helmet for bicycling and other sporting events that present an increased risk for head injury. IF YOUR SYMPTOMS WORSEN OR NEW SYMPTOMS DEVELOP, OR YOU HAVE CONCERNS ABOUT YOUR CONDITION; OR IF YOUR CONDITION WORSENS WHILE YOU ARE WAITING FOR YOUR FOLLOW UP APPOINTMENT; EITHER CONTACT YOUR PRIMARY CARE DOCTOR, THE PHYSICIAN WHOSE NAME AND NUMBER YOU WERE GIVEN, OR RETURN TO THE ED IMMEDIATELY. Scripts Acetaminophen With Codeine (ACETAMINOPHEN-COD #3 TABLET) 1 Each Tablet 1 TAB PO PRN Q6HRS PRN for PAIN for 3 Days, #12 TAB Prov: SUELLEN YAP MD 12/26/19 SUELLEN YAP MD Dec 26, 2019 19:04
--- NOTE | 2019-12-26 19:42 | RAD ---
STUDY: 1. CT head without contrast 2. CT cervical spine without contrast 3. CT lumbar spine without contrast INDICATION: Fall. Head injury. COMPARISON: CT head and cervical spine 09/15/2018 TECHNIQUE: Axial CT imaging of the head, cervical spine and lumbar spine performed without the use of intravenous contrast. Coronal and sagittal reformats were obtained. One or more of the following individualized dose reduction techniques were utilized for this examination: 1. Automated exposure control 2. Adjustment of the mA and/or kV according to patient size 3. Use of iterative reconstruction technique. FINDINGS: Head: No acute intracranial hemorrhage. No newly seen loss of suárez-white matter differentiation. No localized mass effect, midline shift or hydrocephalus. Chronic changes to include left temporal encephalomalacia are no different. Redemonstration of a left temporal craniotomy. No depressed calvarial fracture. Normally aerated mastoid air cells, middle ears and visualized paranasal sinuses. Cervical spine: No acute fracture or traumatic malalignment. Redemonstrated operative changes of posterior cervical fusion and dorsal decompression spanning C2-C6. Unchanged hardware alignment. No progressive lucency along any of the screws. As before, advanced discogenic arthrosis at several levels and chronic fusion across C3-C4 and C7-T1. The degree of osseous neural foraminal encroachment is no different. Unchanged configuration of the central canal. No soft tissue sequela of trauma seen throughout the neck. No apical pneumothorax. Lumbar spine: No acute fracture is identified. Chronic compression deformity status post augmentation at L2. Dorsal boris and screw fixation construct spanning L3-S1. There is solid ankylosis and chronic deformity across L4-L5. The hardware is intact. Periscrew lucency at S1 on the left. No prevertebral edema/hemorrhage is identified to suggest occult osseous injury. The visualized pelvic osseous structures are grossly intact. Mostly mild to moderate osseous neural foraminal encroachment at a few levels. Assessment for any significant central canal stenosis is limited by technique and streak artifact from surgical hardware. Incompletely characterized bilateral renal cystic foci. The partially imaged bladder is distended. IMPRESSION: Head: 1. No acute intracranial abnormality by CT. 2. Chronic/senescent findings as detailed in the body the report. Cervical spine: 1. No acute fracture or traumatic malalignment. 2. No significant change in the configuration of C2-C6 surgical hardware or in the extent of multifactorial degenerative changes. Lumbar spine: 1. No acute fracture or traumatic malalignment. 2. Chronic findings and operative changes as detailed in the body the report. 3. Mildly distended urinary bladder. Correlate for voluntary versus involuntary urinary retention. 4. Incompletely characterize renal cystic foci bilaterally. As deemed necessary, such as if no evaluation of the kidneys has been performed recently, eventual ultrasound follow-up could be considered. Electronically signed by: KASEY MCKINNEY MD (12/26/2019 7:39 PM) [id number]
[2019-12-26] MEDS ORDERED: ACET1TAB33 PO (19:58)
== END 2019-12-26 20:19 | disposition home or self-care (01) ==
LOC: ER 18:35
DX: S16.1XXA Strain of muscle, fascia and tendon at neck level, initial encounter (principal); S39.012A Strain of muscle, fascia and tendon of lower back, initial encounter; S09.90XA Unspecified injury of head, initial encounter; R51.9 Headache, unspecified; Z87.820 Personal history of traumatic brain injury; E11.40 Type 2 diabetes mellitus with diabetic neuropathy, unspecified; I10 Essential (primary) hypertension; Z88.2 Allergy status to sulfonamides; Z88.1 Allergy status to other antibiotic agents; W18.09XA Striking against other object with subsequent fall, initial encounter; Y93.89 Activity, other specified; Y92.89 Other specified places as the place of occurrence of the external cause; Y99.8 Other external cause status
CPT/HCPCS: 70450; 72125; 72131; 99285

== ENCOUNTER 2021-02-18 10:43 | Inpatient (IN) | payer OTHER, MEDICAID ==
[~2021-02-18] VITALS: Ht 175.3 cm; Wt 84.1 kg
[~2021-02-18 10:43] MED LIST changes: +ACET1TAB33 PO; -ACYC800T PO; +ACYC800T88 PO; +AMLO-186 PO; -AMLO5TAB10 PO; +CARB200T4 PO; +CETI10TA16 PO; -CLIN150C14 PO; +CLIN150C16 PO; +DICL100G54 TP; -DIPH50CA PO; +DIPH50CA16 PO; -DOXY100C2 PO; +DOXY100C3 PO; +GLIP10TA13 PO; +GUAI100L12 PO; +INSU100V35 SQ; +INSU100V8 SQ; +LIDO700A21 TP; +METF500T16 PO; +NYST15PO2 TP; +POTA-121 PO; +PRAV10TA2 PO; -QUET100T PO; +QUET100T2 PO; -QUET25TA PO; +QUET25TA3 PO; +QUET50TA5 PO; +SENN1TAB62 PO; +TIMO5DRO26 OU
--- NOTE | 2021-02-18 11:59 | RAD ---
EXAM: Chest, single view. HISTORY: Altered mental status COMPARISON: 08/07/2020 FINDINGS: A frontal view of the chest is obtained. There is stable diffuse interstitial prominence. T here is no consolidation, pleural fusion or pneumothorax. There is a stable cardiac silhouette. IMPRESSION: Chronic appearing interstitial changes. Electronically signed by: Thea Cuellar MD (02/18/2021 11:57 AM) [id number]
[2021-02-18 13:11] LABS: BASO % 1 % (0-3); EOS # 0.1 x10^3/uL (0.0-0.7); EOS % 2 % (0-3); HEMATOCRIT 34.5 % (39.0-53.0); HEMOGLOBIN 11.3 g/dL (13.0-17.5); LYMPH # 1.2 x10^3/uL (1.0-4.8); LYMPH % 21 % (24-48); MEAN CORPUSCULAR HEMOGLOBIN 31 pg (25-35); MEAN CORPUSCULAR HGB CONC 33 g/dL (31-37); MEAN CORPUSCULAR VOLUME 96 fL (79-100); MONO # 0.6 x10^3/uL (0.0-1.1); MONO % 12 % (0-9); NEUT # 3.6 x10^3/uL (1.8-7.7); NEUT % 65 % (31-73); PLATELET COUNT 112 x10^3/uL (140-400); RED BLOOD COUNT 3.59 x10^6/uL (4.30-5.70); RED CELL DISTRIBUTION WIDTH 15.7 % (11.5-14.5); WHITE BLOOD COUNT 5.5 x10^3/uL (4.0-11.0)
[2021-02-18 13:14] LABS: CALCIUM 8.7 mg/dL (8.5-10.1); CREATININE 1.3 mg/dL (0.7-1.3); GFR 66.4
[2021-02-18 13:15] LABS: BILIRUBIN,URINE NEGATIVE (NEG); CLARITY,URINE CLEAR; COLOR,URINE YELLOW; NITRITE,URINE NEGATIVE (NEG); PH,URINE 7.5 (<5.0-8.0); PROTEIN,URINE NEGATIVE (NEG-TRACE)
[2021-02-18 13:18] LABS: POTASSIUM 4.5 mmol/L (3.5-5.1)
[2021-02-18 13:20] LABS: ALBUMIN 3.3 g/dL (3.4-5.0); ALBUMIN/GLOBULIN RATIO 0.8 (1.0-1.7); TOTAL BILIRUBIN 0.5 mg/dL (0.2-1.0); TOTAL PROTEIN 7.6 g/dL (6.4-8.2)
[2021-02-18 13:28] LABS: BACTERIA,URINE 0 /HPF (0-FEW); RBC,URINE 0 /HPF (0-2); WBC,URINE 0 /HPF (0-4)
--- NOTE | 2021-02-18 13:48 | PHYS DOC ---
Past Medical History Past Medical History: Diabetes-Type II Additional Past Medical Histor: TARDIVE DYSKINESHA, METABOLIC ENCEPHALOPATHY, LEFT FRONTAL LOBE HEAD INJURY Past Surgical History: Other Additional Past Surgical Histo: SPINAL CORD STIMULATOR, CRAINOTOMY Smoking Status: Unknown if ever smoked Alcohol Use: Occasionally Drug Use: None General Adult EDM: Chief Complaint: MULTIPLE COMPLAINTS HPI: HPI: Patient is a 70 year old male with history of dementia who presents with multiple complaints. Patient is a poor historian secondary to altered mental status. Per the adult care facility that he visits 3 times per week, they report that he is slightly more altered than normal for about 1 week time. They report that today, the patient told him that he had a seizure and was "bleeding from his head." His son brought him to the emergency department, but was unsure why the patient wanted to come. When speaking to the patient, he states his "prostate is leaking a whole bunch of stuff" and that his "head is all messed up." Patient's main concern is dribbling urine, specifically at night. Patient does report associated incomplete voiding. He denies dysuria, hematuria, urgency, frequency. Patient reports he does feel more confused than normal. He denies head trauma during interview. Review of Systems: Review of Systems: 12 systems reviewed. ROS negative except as mentioned in HPI. HPI is obtained, however may be unreliable secondary to patient's altered mental status. Heart Score: C/O Chest Pain: No Allergies: Allergies: Allergies Coded Allergies Type Severity Reaction Last Updated Verified sulfamethoxazole Allergy Severe Swelling 08/26/18 Yes trimethoprim Allergy Severe Swelling 08/26/18 Yes Physical Exam: PE: Constitutional: Well developed, well nourished, no acute distress, non-toxic appearance. HENT: Normocephalic, atraumatic, bilateral external ears normal, oropharynx moist, external nose without obvious deformities. Eyes: PERRLA, EOMI, conjunctiva normal, no discharge, arcus senilis present bilaterally. Neck: Normal range of motion, no tenderness, supple, no stridor. Cardiovascular: Heart rate regular rhythm, no obvious murmur. Lungs & Thorax: Bilateral breath sounds clear to auscultation. Abdomen: Bowel sounds normal, soft, no tenderness, no masses, no pulsatile masses. Skin: Warm, dry, no erythema, no rash. Back: No tenderness, no CVA tenderness. Extremities: No tenderness, no cyanosis, no clubbing, ROM intact, no edema. Neurologic: Alert and oriented x4, no focal deficits noted. Current Patient Data: Labs: Laboratory Tests Test 02/18/21 11:25 02/18/21 11:48 02/18/21 12:48 Urine Collection Type Unknown Urine Color Yellow Urine Clarity Clear Urine pH 7.5 (<5.0-8.0) Urine Specific [place] 1.015 (1.000-1.030) Urine Protein Negative mg/dL (NEG-TRACE) Urine Glucose (UA) Negative mg/dL (NEG) Urine Ketones (Stick) Negative mg/dL (NEG) Urine Blood Negative (NEG) Urine Nitrite Negative (NEG) Urine Bilirubin Negative (NEG) Urine Urobilinogen Dipstick 1.0 mg/dL (0.2 mg/dL) Urine Leukocyte Esterase Negative (NEG) Urine RBC 0 /HPF (0-2) Urine WBC 0 /HPF (0-4) Urine Bacteria 0 /HPF (0-FEW) Glucose (Fingerstick) 186 mg/dL (70-99) H Sodium Level 144 mmol/L (136-145) Potassium Level 4.5 mmol/L (3.5-5.1) Chloride Level 104 mmol/L (98-107) Carbon Dioxide Level 33 mmol/L (21-32) H Anion Gap 7 (6-14) Blood Urea Nitrogen 22 mg/dL (8-26) Creatinine 1.3 mg/dL (0.7-1.3) Estimated GFR (Cockcroft-Gault) 66.4 BUN/Creatinine Ratio 17 (6-20) Glucose Level 145 mg/dL (70-99) H Lactic Acid Level 1.1 mmol/L (0.4-2.0) Calcium Level 8.7 mg/dL (8.5-10.1) Total Bilirubin 0.5 mg/dL (0.2-1.0) Aspartate Amino Transferase (AST) 44 U/L (15-37) H Alanine Aminotransferase (ALT) 43 U/L (16-63) Alkaline Phosphatase 55 U/L (46-116) Total Protein 7.6 g/dL (6.4-8.2) Albumin 3.3 g/dL (3.4-5.0) L Albumin/Globulin Ratio 0.8 (1.0-1.7) L Laboratory Tests 02/18/21 12:48 Vital Signs: Vital Signs Date Time Temp Pulse Resp B/P (MAP) Pulse Ox O2 Delivery O2 Flow Rate FiO2 02/18/21 10:47 97.8 69 18 128/94 (105) 100 Room Air 97.8 EKG: EKG: EKG Interpreted by Dr. Estrada at 1323: Regular rate 70 bpm and sinus arrhythmia with no ectopic beats. No concerning ST-T wave changes. Radiology/Procedures: Radiology/Procedures: PROCEDURE: PORTABLE CHEST 1V EXAM: Chest, single view. HISTORY: Altered mental status COMPARISON: 08/07/2020 FINDINGS: A frontal view of the chest is obtained. There is stable diffuse interstitial prominence. There is no consolidation, pleural fusion or pneumothorax. There is a stable cardiac silhouette. IMPRESSION: Chronic appearing interstitial changes. Electronically signed by: Thea Cuellar MD (02/18/2021 11:57 AM) [id number] PROCEDURE: CT HEAD AND CERVICAL SPINE WO EXAM: Head and cervical spine CT without contrast. HISTORY: Trauma. Seizure. TECHNIQUE: Computed tomographic images of the head and cervical spine were obtained without contrast. *One or more of the following individualized dose reduction techniques were utilized for this examination: 1. Automated exposure control. 2. Adjustment of the mA and/or kV according to patient size. 3. Use of iterative reconstruction technique. COMPARISON: 08/02/2020. FINDINGS: Head: There is no acute hemorrhage. There is no mass effect or midline shift. There is no hydrocephalus. There is encephalomalacia involving the left temporal lobe likely due to chronic infarction, chronic hemorrhage or lesion resection given the presence of overlying craniotomy changes. There is also encephalomalacia within the inferior right frontal lobe likely due to chronic infarction or chronic hemorrhage. There is a small chronic lacunar infarct within the right caudate nucleus. There is encephalomalacia within the left cerebellum likely due to chronic infarction. There is cerebral and cerebellar volume loss. There are white matter changes due to chronic small vessel disease. There is evidence of lens surgery. The paranasal sinuses mastoid air cells are unremarkable. Cervical spine: There is instrumented posterior spinal fusion and laminectomy decompression at C3-C7. The left posterior screw appears to traverse the left C7-T1 facet joint. There is no lucency surrounding the instrumentation to suggest loosening. No segmentation fracture is seen. There is cervical kyphosis centered at C3. There is of bony fusion across the disc space at C3-C4. There is also partial fusion across the disc space at C7-T1. There is degenerative endplate remodeling with disc space narrowing, osteophytosis and Schmorl's node formation at C4-C7. There is multilevel facet arthropathy. There is no suspicious osseous lesion. No acute fracture is seen. 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 The combination of degenerative changes results in foraminal stenosis at multiple levels. There is decompression of the central canal at the fused levels. IMPRESSION: 1. No acute intercranial finding. Note is made that MRI is more sensitive for acute infarction. 2. Stable encephalomalacia within the left temporal lobe and inferior right frontal lobe. 3. Chronic lacunar infarct within the right caudate nucleus and suspected small chronic infarct within the left cerebellum. 4. Cerebral white matter changes likely due to chronic small vessel disease. 5. Cerebral and cerebellar volume loss. 6. Left temporal cranial finding changes. 7. Instrumented posterior spinal fusion and laminotomy decompression at C3-C7 and noninstrumented fusion at C3-C4 and C7-T1. 8. Multilevel degenerative change involving the cervical spine, resulting in foraminal stenosis at multiple levels. Electronically signed by: Thea Cuellar MD (02/18/2021 3:09 PM) [id number] Course & Med Decision Making: Course & Med Decision Making Pertinent Labs and Imaging studies reviewed. (See chart for details) Due to patient's altered mental status and urinary complaints, septic work-up will be initiated. Patient has a history of hepatic encephalopathy, so ammonia level will be checked as well. Patient lives on his own in an apartment, but visits an adult care facility 3 times per week. The remaining 2 weekdays, staff from the facility visits him at home. Patient has history of seizures and reported a seizure to the care facility that he visits. Per care facility, patient has a family meeting on Friday of this week (2 days from now) to discuss long-term care facility placement. At this time, patient is unable to care for himself at home and family that we have contact with is unreliable. Patient will be admitted to hospitalist service for decline in mental status. I will also speak to neuro logy regarding patient's reported seizure. Spoke with Dr. Wills about patient presentation. Shared decision making to order CT head and neck plain due to possibility of head trauma. Suni Disclaimer: Suni Disclaimer: This electronic medical record was generated, in whole or in part, using a voice recognition dictation system. Departure Departure Impression: Primary Impression: Cognitive decline Disposition: ADMITTED INPATIENT Admitting Physician: LIZBET Chavira) Condition: GUARDED Referrals: UNKNOWN PCP NAME (PCP) GIL VIERA Feb 18, 2021 13:48
--- NOTE | 2021-02-18 15:12 | RAD ---
EXAM: Head and cervical spine CT without contrast. HISTORY: Trauma. Seizure. TECHNIQUE: Computed tomographic images of the head and cervical spine were obtained without contrast. *One or more of the following individualized dose reduction techniques were utilized for this examina tion: 1. Automated exposure control. 2. Adjustment of the mA and/or kV according to patient size. 3. Use of iterative reconstruction technique. COMPARISON: 08/02/2020. FINDINGS: Head: There is no acute hemorrhage. There is no mass effect or midline shift. There is no hydrocephal us. There is encephalomalacia involving the left temporal lobe likely due to chronic infarction, lunchroom aide israel hemorrhage or lesion resection given the presence of overlying craniotomy changes. There is also encephalomalacia within the inferior right frontal lobe likely due to chronic infarction or chronic h emorrhage. There is a small chronic lacunar infarct within the right caudate nucleus. There is enceph alomalacia within the left cerebellum likely due to chronic infarction. There is cerebral and cerebel lar volume loss. There are white matter changes due to chronic small vessel disease. There is evidenc e of lens surgery. The paranasal sinuses mastoid air cells are unremarkable. Cervical spine: There is instrumented posterior spinal fusion and laminectomy decompression at C3-C7. The left posterior screw appears to traverse the left C7-T1 facet joint. There is no lucency surroun ding the instrumentation to suggest loosening. No segmentation fracture is seen. There is cervical ky phosis centered at C3. There is of bony fusion across the disc space at C3-C4. There is also partial fusion across the disc space at C7-T1. There is degenerative endplate remodeling with disc space narr owing, osteophytosis and Schmorl's node formation at C4-C7. There is multilevel facet arthropathy. Th ere is no suspicious osseous lesion. No acute fracture is seen. 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 The combination of degenerative changes results in foraminal stenosis at multiple level s. There is decompression of the central canal at the fused levels. IMPRESSION: 1. No acute intercranial finding. Note is made that MRI is more sensitive for acute infarction. 2. Stable encephalomalacia within the left temporal lobe and inferior right frontal lobe. 3. Chronic lacunar infarct within the right caudate nucleus and suspected small chronic infarct withi n the left cerebellum. 4. Cerebral white matter changes likely due to chronic small vessel disease. 5. Cerebral and cerebellar volume loss. 6. Left temporal cranial finding changes. 7. Instrumented posterior spinal fusion and laminotomy decompression at C3-C7 and noninstrumented fus ion at C3-C4 and C7-T1. 8. Multilevel degenerative change involving the cervical spine, resulting in foraminal stenosis at mu ltiple levels. Electronically signed by: Thea Cuellar MD (02/18/2021 3:09 PM) [id number]
--- NOTE | 2021-02-18 15:44 | EKG ---
[facility] [address] [place] [address] Test Date: 2021-02-18 Test Time: 13:21:52 Pat Name: ANAMARIA MAJANO Department: Room: 430 Gender: M Control Supervisor: : [id number] Requested By: GIL VIERA Order Number: [id number] Reading MD: Ric Brandon Measurements Intervals Watson Rate: 70 P: 26 MS: 176 QRS: -1 QRSD: 90 T: 27 QT: 372 QTc: 404 Interpretive Statements SINUS RHYTHM LEFTWARD AXIS INCOMPLETE RIGHT BUNDLE BRANCH BLOCK Electronically Signed On 02-19-2021 9:34:32 CHANNEL PROGRAM MANAGER by Ric Brandon
--- NOTE | 2021-02-18 17:43 | PDOC1 ---
History and Physical Date of Service: DOS: DATE: 02/18/21 TIME: 17:43 Chief Complaint: Chief Complain: confusion History of Present Illness: HPI: No real obtainable history from patient, history from ED Patient is a 70 year old male with history of dementia who presents with multiple complaints. Patient is a poor historian secondary to altered mental status. Per the adult care facility that he visits 3 times per week, they report that he is slightly more altered than normal for about 1 week time. They report that today, the patient told him that he had a seizure and was "bleeding from his head." His son brought him to the emergency department, but was unsure why the patient wanted to come. When speaking to the patient, he states his "prostate is leaking a whole bunch of stuff" and that his "head is all messed up." Patient's main concern is dribbling urine, specifically at night. Patient does report associated incomplete voiding. He denies dysuria, hematuria, urgency, frequency. Patient reports he does feel more confused than normal. He denies head trauma during interview. Due to patient's altered mental status and urinary complaints, septic work-up will be initiated. Patient has a history of hepatic encephalopathy, so ammonia level will be checked as well. Patient lives on his own in an apartment, but visits an adult care facility 3 times per week. The remaining 2 weekdays, staff from the facility visits him at home. Patient has history of seizures and reported a seizure to the care facility that he visits. Per care facility, patient has a family meeting on Friday of this week (2 days from now) to discuss long-term care facility plac ement. At this time, patient is unable to care for himself at home and family that we have contact with is unreliable. Patient will be admitted to hospitalist service for decline in mental status. I will also speak to neurology regarding patient's reported seizure. Spoke with Dr. Wills about patient presentation. Shared decision making to order CT head and neck plain due to possibility of head trauma. 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 (Verified Allergy, Severe, Swelling, 08/26/18) Ye Rishi syndrome Family History: Family History: Cannot obtain from patient, none noted in chart review Social History: Social History: no smoking, alcohol, drug use history Current Medications: Current Medications Current Medications Ziprasidone (Geodon Im) 20 mg 1X ONCE IM ; Start 02/18/21 at 17:45; Stop 02/18/21 at 17:46 Active Scripts Active Lidocaine PATCH (Lidocaine) 1 Each Adh..patch 1 Patch TP DAILY 30 Days Nyamyc (Nystatin) 15 Gm Powder 1 Rogelio TP BID 14 Days Glipizide 5 Mg Tablet 5 Mg PO BIDBFRMEAL 30 Days Admelog (Insulin Lispro) 100 Unit/1 Ml Vial 0 Units SQ TIDWMEALS 14 Days Lantus (Insulin Glargine,Hum.rec.anlog) 100 Unit/1 Ml Vial 10 Unit SQ QHS 14 Days Guaifenesin 100 Mg/5 Ml Liquid 200 Mg PO PRN Q4HRS PRN 14 Days Klor-Con M20 (Potassium Chloride) 20 Meq Tab.er.prt 20 Meq PO DAILYWBKFT 10 Days Carbamazepine 200 Mg Tablet 200 Mg PO BID 30 Days Acetaminophen 325 Mg Tablet 650 Mg PO PRN Q4HRS PRN 14 Days Flomax (Tamsulosin Hcl) 0.4 Mg Cap.er.24h 0.4 Mg PO BID 30 Days Finasteride 5 Mg Tablet 1 Tab PO DAILY Lyrica (Pregabalin) 150 Mg Capsule 1 Cap PO BID Actos (Pioglitazone Hcl) 15 Mg Tablet 45 Mg PO DAILY 28 Days Keppra (Levetiracetam) 500 Mg Tablet 500 Mg PO BID 30 Days Carvedilol (Carvedilol) 12.5 Mg Tablet 12.5 Mg PO BIDWMEALS 30 Days Reported Betimol (Timolol) 5 Ml Drops 1 Drop OU BID Senna Plus Tablet (Sennosides/Docusate Sodium) 1 Each Tablet 1 Each PO DAILY Seroquel (Quetiapine Fumarate) 50 Mg Tablet 150 Mg PO HS Pravastatin Sodium 10 Mg Tablet 10 Mg PO QHS Miralax (Polyethylene Glycol 3350) 17 Gm Powd.pack 1 Pkt PO DAILY Metformin Hcl 500 Mg Tablet 500 Mg PO BIDWMEALS Ferrous Sulfate 325 Mg Tablet 325 Mg PO DAILYAC Voltaren (Diclofenac Sodium) 100 Gm Gel..gram. 4 Gm TP QID Cetirizine Hcl 10 Mg Tablet 5 Mg PO DAILY Baclofen 10 Mg Tablet 5 Mg PO TID Protonix (Pantoprazole Sodium) 20 Mg Tablet.dr 40 Mg PO DAILY Furosemide 20 Mg Tablet 1 Tab PO DAILY Latanoprost 2.5 Ml Drops 1 Drop OU QHS Amlodipine Besylate 5 Mg Tablet 5 Mg PO DAILY Cymbalta (Duloxetine Hcl) 30 Mg Capsule.dr 60 Mg PO DAILY ROS: Review of Systems Review of System REVIEW OF SYSTEMS:cannot obtain due to AMS Physical Exam: Vital Signs: Vital Signs Date Time Temp Pulse Resp B/P (MAP) Pulse Ox O2 Delivery O2 Flow Rate FiO2 02/18/21 10:47 97.8 69 18 128/94 (105) 100 Room Air 97.8 Physcial Exam: GEN: No apparent distress. Alert and oriented x0 HEENT: Normal cephalic, atraumatic, external auditory canals are patent EYES: Extraocular muscles are intact, pupil are equally round and reactive to light and accommodation MUSCULOSKELETAL: appears malnourished ENDOCRINE: No thyromegaly was palpated LYMPHATICS: No cervical chain or axillary nodes were noted HEMATOPOIETIC: No bruising NECK: Supple, no JVD, no thyromegaly was noted LUNGS: Clear to auscultation in all lung garcia without rhonchi or wheezing HEART: RRR, S1, S2 present. Peripheral pulses intact, no obvious murmurs noted ABDOMEN: Soft, nontender. Positive bowel sounds, no organomegaly, normal bowel sounds EXTREMITIES: Without clubbing, cyanosis, or edema. Pedal pulses intact. Negative Homans sign NEUROLOGIC: low slow speech. A&O x 0 SKIN: No ulcerations or rashes, good skin turgor, no jaundice VASCULAR: Good capillary refill, neurovascular bundle appears to be intact Labs: Labs: Laboratory Tests Test 02/18/21 11:25 02/18/21 11:48 02/18/21 12:48 02/18/21 15:50 Urine Collection Type Unknown Urine Color Yellow Urine Clarity Clear Urine pH 7.5 (<5.0-8.0) Urine Specific [place] 1.015 (1.000-1.030) Urine Protein Negative mg/dL (NEG-TRACE) Urine Glucose (UA) Negative mg/dL (NEG) Urine Ketones (Stick) Negative mg/dL (NEG) Urine Blood Negative (NEG) Urine Nitrite Negative (NEG) Urine Bilirubin Negative (NEG) Urine Urobilinogen Dipstick 1.0 mg/dL (0.2 mg/dL) Urine Leukocyte Esterase Negative (NEG) Urine RBC 0 /HPF (0-2) Urine WBC 0 /HPF (0-4) Urine Bacteria 0 /HPF (0-FEW) Glucose (Fingerstick) 186 mg/dL (70-99) White Blood Count 5.5 x10^3/uL (4.0-11.0) Red Blood Count 3.59 x10^6/uL (4.30-5.70) Hemoglobin 11.3 g/dL (13.0-17.5) Hematocrit 34.5 % (39.0-53.0) Mean Corpuscular Volume 96 fL (79-100) Mean Corpuscular Hemoglobin 31 pg (25-35) Mean Corpuscular Hemoglobin Concent 33 g/dL (31-37) Red Cell Distribution Width 15.7 % (11.5-14.5) Platelet Count 112 x10^3/uL (140-400) Neutrophils (%) (Auto) 65 % (31-73) Lymphocytes (%) (Auto) 21 % (24-48) Monocytes (%) (Auto) 12 % (0-9) Eosinophils (%) (Auto) 2 % (0-3) Basophils (%) (Auto) 1 % (0-3) Neutrophils # (Auto) 3.6 x10^3/uL (1.8-7.7) Lymphocytes # (Auto) 1.2 x10^3/uL (1.0-4.8) Monocytes # (Auto) 0.6 x10^3/uL (0.0-1.1) Eosinophils # (Auto) 0.1 x10^3/uL (0.0-0.7) Basophils # (Auto) 0.0 x10^3/uL (0.0-0.2) Sodium Level 144 mmol/L (136-145) Potassium Level 4.5 mmol/L (3.5-5.1) Chloride Level 104 mmol/L (98-107) Carbon Dioxide Level 33 mmol/L (21-32) Anion Gap 7 (6-14) Blood Urea Nitrogen 22 mg/dL (8-26) Creatinine 1.3 mg/dL (0.7-1.3) Estimated GFR (Cockcroft-Gault) 66.4 BUN/Creatinine Ratio 17 (6-20) Glucose Level 145 mg/dL (70-99) Lactic Acid Level 1.1 mmol/L (0.4-2.0) Calcium Level 8.7 mg/dL (8.5-10.1) Total Bilirubin 0.5 mg/dL (0.2-1.0) Aspartate Amino Transf (AST/SGOT) 44 U/L (15-37) Alanine Aminotransferase (ALT/SGPT) 43 U/L (16-63) Alkaline Phosphatase 55 U/L (46-116) Total Protein 7.6 g/dL (6.4-8.2) Albumin 3.3 g/dL (3.4-5.0) Albumin/Globulin Ratio 0.8 (1.0-1.7) Ammonia < 10 mcmol/L (11-34) Laboratory Tests Test 02/18/21 11:25 02/18/21 11:48 02/18/21 12:48 02/18/21 15:50 Urine Collection Type Unknown Urine Color Yellow Urine Clarity Clear Urine pH 7.5 (<5.0-8.0) Urine Specific [place] 1.015 (1.000-1.030) Urine Protein Negative mg/dL (NEG-TRACE) Urine Glucose (UA) Negative mg/dL (NEG) Urine Ketones (Stick) Negative mg/dL (NEG) Urine Blood Negative (NEG) Urine Nitrite Negative (NEG) Urine Bilirubin Negative (NEG) Urine Urobilinogen Dipstick 1.0 mg/dL (0.2 mg/dL) Urine Leukocyte Esterase Negative (NEG) Urine RBC 0 /HPF (0-2) Urine WBC 0 /HPF (0-4) Urine Bacteria 0 /HPF (0-FEW) Glucose (Fingerstick) 186 mg/dL (70-99) White Blood Count 5.5 x10^3/uL (4.0-11.0) Red Blood Count 3.59 x10^6/uL (4.30-5.70) Hemoglobin 11.3 g/dL (13.0-17.5) Hematocrit 34.5 % (39.0-53.0) Mean Corpuscular Volume 96 fL (79-100) Mean Corpuscular Hemoglobin 31 pg (25-35) Mean Corpuscular Hemoglobin Concent 33 g/dL (31-37) Red Cell Distribution Width 15.7 % (11.5-14.5) Platelet Count 112 x10^3/uL (140-400) Neutrophils (%) (Auto) 65 % (31-73) Lymphocytes (%) (Auto) 21 % (24-48) Monocytes (%) (Auto) 12 % (0-9) Eosinophils (%) (Auto) 2 % (0-3) Basophils (%) (Auto) 1 % (0-3) Neutrophils # (Auto) 3.6 x10^3/uL (1.8-7.7) Lymphocytes # (Auto) 1.2 x10^3/uL (1.0-4.8) Monocytes # (Auto) 0.6 x10^3/uL (0.0-1.1) Eosinophils # (Auto) 0.1 x10^3/uL (0.0-0.7) Basophils # (Auto) 0.0 x10^3/uL (0.0-0.2) Sodium Level 144 mmol/L (136-145) Potassium Level 4.5 mmol/L (3.5-5.1) Chloride Level 104 mmol/L (98-107) Carbon Dioxide Level 33 mmol/L (21-32) Anion Gap 7 (6-14) Blood Urea Nitrogen 22 mg/dL (8-26) Creatinine 1.3 mg/dL (0.7-1.3) Estimated GFR (Cockcroft-Gault) 66.4 BUN/Creatinine Ratio 17 (6-20) Glucose Level 145 mg/dL (70-99) Lactic Acid Level 1.1 mmol/L (0.4-2.0) Calcium Level 8.7 mg/dL (8.5-10.1) Total Bilirubin 0.5 mg/dL (0.2-1.0) Aspartate Amino Transf (AST/SGOT) 44 U/L (15-37) Alanine Aminotransferase (ALT/SGPT) 43 U/L (16-63) Alkaline Phosphatase 55 U/L (46-116) Total Protein 7.6 g/dL (6.4-8.2) Albumin 3.3 g/dL (3.4-5.0) Albumin/Globulin Ratio 0.8 (1.0-1.7) Ammonia < 10 mcmol/L (11-34) Assessment/Plan Assessment/Plan AMS, adult failure to thrive, dementia, seizure d/o -patient presenting with AMS, possible reported seizure -workup in ER thusfar unrevealing; patient appears poorly cared for -neuro consulted in ED -resume home meds; prn ativan for any seizure like activity -PT/OT; patient likely needs placement -will try to communicate more with family in the morning Justifications for Admission Other Justification acute metabolic encephalopathy TAYLOR CABRALES MD Feb 18, 2021 17:43
[2021-02-18] MEDS ORDERED: ACETAMINOPHEN 325 MG TABLET. PO PRN (17:45)
[2021-02-18] MEDS ORDERED: ELECTROLYTE (NON-ICU) PROTOCOL. MC PRN (17:45)
[2021-02-18] MEDS ORDERED: ZIPRASIDONE IM 20 MG VIAL. IM ONE (17:45)
[2021-02-18] MEDS ORDERED: ONDANSETRON PF 4 MG/2 ML VIAL. IVP PRN (17:45)
[2021-02-18] MEDS ORDERED: CALCIUM CARBONATE 500 MG TAB.CHEW PO PRN (17:45)
[2021-02-18 19:00] VITALS: BP 150/63
[2021-02-18] MEDS: carBAMazepine 200 MG TABLET PO SCH (20:55)
[2021-02-18] MEDS: TAMSULOSIN 0.4 MG CAP.ER.24H. PO SCH (20:55)
[2021-02-18] MEDS: levETIRAcetam 500 MG TABLET PO SCH (20:55)
[2021-02-18] MEDS: PREGABALIN 75 MG CAPSULE PO SCH (20:55)
[2021-02-18] MEDS: BACLOFEN 10 MG TABLET. PO SCH (20:56)
[2021-02-18] MEDS: ATORVASTATIN CALCIUM 10 MG TABLET. PO SCH (20:56)
[2021-02-18] MEDS: QUEtiapine 100 MG TABLET. PO SCH (20:56)
[2021-02-18] MEDS: LATANOPROST 0.005% OPHTH SOLUTION 2.5ML BOTTLE. OU SCH (20:58)
[2021-02-18] MEDS: TIMOLOL 0.5% OPHTH SOLUTION 5ML BOTTLE. OU SCH (20:58)
[2021-02-18 23:00] VITALS: BP 125/65
[2021-02-18] MEDS: HEPARIN for SUB-Q USE 5,000 UNIT/ML VIAL. SQ SCH (23:15)
[2021-02-19 03:00] VITALS: BP 142/83
[2021-02-19] MEDS: HEPARIN for SUB-Q USE 5,000 UNIT/ML VIAL. SQ SCH ×3 (06:01→22:00)
[2021-02-19 07:00] VITALS: BP 134/74
[2021-02-19] MEDS: carBAMazepine 200 MG TABLET PO SCH ×2 (09:00→19:34)
[2021-02-19] MEDS: glipiZIDE 5 MG TABLET PO SCH ×3 (09:00→16:48)
[2021-02-19] MEDS: TAMSULOSIN 0.4 MG CAP.ER.24H. PO SCH ×2 (09:00→19:34)
[2021-02-19] MEDS: metFORMIN 500 MG TABLET PO SCH ×3 (09:00→16:48)
[2021-02-19] MEDS: FINASTERIDE 5 MG TABLET. PO SCH (09:00)
[2021-02-19] MEDS: CARVEDILOL 12.5 MG TABLET. PO SCH ×3 (09:00→16:49)
[2021-02-19] MEDS: levETIRAcetam 500 MG TABLET PO SCH ×2 (09:00→19:34)
[2021-02-19] MEDS: DULoxetine HCL 30 MG CAPSULE.DR PO SCH (09:01)
[2021-02-19] MEDS: PIOGLITAZONE 15 MG TABLET. PO SCH (09:01)
[2021-02-19] MEDS: PANTOPRAZOLE 40 MG TABLET.DR. PO SCH (09:01)
[2021-02-19] MEDS: FERROUS SULFATE 325 MG TABLET. PO SCH (09:02)
[2021-02-19] MEDS: BACLOFEN 10 MG TABLET. PO SCH ×3 (09:02→19:34)
[2021-02-19] MEDS: ATORVASTATIN CALCIUM 10 MG TABLET. PO SCH (09:02)
[2021-02-19] MEDS: FUROSEMIDE 20 MG TABLET PO SCH (09:02)
[2021-02-19] MEDS: CETIRIZINE HCL 10 MG TABLET. PO SCH (09:03)
[2021-02-19] MEDS: PREGABALIN 75 MG CAPSULE PO SCH ×2 (09:06→19:33)
[2021-02-19] MEDS: TIMOLOL 0.5% OPHTH SOLUTION 5ML BOTTLE. OU SCH ×2 (09:08→19:33)
[2021-02-19 11:00] VITALS: BP 110/61
--- NOTE | 2021-02-19 13:03 | PDOC ---
[facility] PROGRESS NOTE Date of Service DOS: DATE: 02/19/21 TIME: 12:15 Chief Complaint Chief Complaint A/P: Acute encephalopathy - likely metabolic Nocturnal enuresis - possibly overflow incontinence. Lyrica can cause urinary retention but this is necessary for his epilepsy TBI history DM2 HTN HLD History of TIA History of seizures Chronic back pain Epilepsy - on 3 anticonvulsants including the pregabalin, plus the levetiracetam and carbamazepine. 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 History of Present Illness History of Present Illness Patient is a 70 year old male with history of dementia who presents with multiple complaints. Patient is a poor historian secondary to altered mental status. Per the adult care facility that he visits 3 times per week, they report that he is slightly more altered than normal for about 1 week time. They report that today, the patient told him that he had a seizure and was "bleeding from his head." His son brought him to the emergency department, but was unsure why the patient wanted to come. When speaking to the patient, he states his "prostate is leaking a whole bunch of stuff" and that his "head is all messed up." Patient's main concern is dribbling urine, specifically at night. Patient does report associated incomplete voiding. He denies dysuria, hematuria, urgency, frequency. Patient reports he does feel more confused than normal. He denies head trauma during interview. Due to patient's altered mental status and urinary complaints, septic work-up will be initiated. Patient has a history of hepatic encephalopathy, so ammonia level will be checked as well. Patient lives on his own in an apartment, but visits an adult care facility 3 times per week. The remaining 2 weekdays, staff from the facility visits him at home. Patient has history of seizures and reported a seizure to the care facility that he visits. Per care facility, patient has a family meeting on Friday of this week (2 days from now) to discuss long-term care facility placement. At this time, patient is unable to care for himself at home and family that we have contact with is unreliable. 02/19: He is complaining of some urinary incontinence again today. He notes it only happens at night. He is also worried about his left foot. Will check PVR Vitals/I&O Vitals/I&O: Vital Signs Date Time Temp Pulse Resp B/P (MAP) Pulse Ox O2 Delivery O2 Flow Rate FiO2 02/19/21 11:00 97.4 66 18 110/61 (77) 98 Room Air 97.4 I & O 02/18/21 02/18/21 02/19/21 15:00 23:00 07:00 Intake Total 390 ml Output Total 350 ml Balance -350 ml 390 ml Physical Exam General: Alert, Cooperative Heart: Regular rate, Normal S1, Normal S2 Lungs: Clear Abdomen: Normal bowel sounds, Soft Extremities: No clubbing, No cyanosis Skin: No rashes, No breakdown Labs Labs: Laboratory Tests Test 02/18/21 12:48 02/18/21 15:50 02/18/21 23:05 02/19/21 08:00 White Blood Count 5.5 x10^3/uL (4.0-11.0) Red Blood Count 3.59 x10^6/uL (4.30-5.70) Hemoglobin 11.3 g/dL (13.0-17.5) Hematocrit 34.5 % (39.0-53.0) Mean Corpuscular Volume 96 fL (79-100) Mean Corpuscular Hemoglobin 31 pg (25-35) Mean Corpuscular Hemoglobin Concent 33 g/dL (31-37) Red Cell Distribution Width 15.7 % (11.5-14.5) Platelet Count 112 x10^3/uL (140-400) Neutrophils (%) (Auto) 65 % (31-73) Lymphocytes (%) (Auto) 21 % (24-48) Monocytes (%) (Auto) 12 % (0-9) Eosinophils (%) (Auto) 2 % (0-3) Basophils (%) (Auto) 1 % (0-3) Neutrophils # (Auto) 3.6 x10^3/uL (1.8-7.7) Lymphocytes # (Auto) 1.2 x10^3/uL (1.0-4.8) Monocytes # (Auto) 0.6 x10^3/uL (0.0-1.1) Eosinophils # (Auto) 0.1 x10^3/uL (0.0-0.7) Basophils # (Auto) 0.0 x10^3/uL (0.0-0.2) Sodium Level 144 mmol/L (136-145) Potassium Level 4.5 mmol/L (3.5-5.1) Chloride Level 104 mmol/L (98-107) Carbon Dioxide Level 33 mmol/L (21-32) Anion Gap 7 (6-14) Blood Urea Nitrogen 22 mg/dL (8-26) Creatinine 1.3 mg/dL (0.7-1.3) Estimated GFR (Cockcroft-Gault) 66.4 BUN/Creatinine Ratio 17 (6-20) Glucose Level 145 mg/dL (70-99) Lactic Acid Level 1.1 mmol/L (0.4-2.0) Calcium Level 8.7 mg/dL (8.5-10.1) Total Bilirubin 0.5 mg/dL (0.2-1.0) Aspartate Amino Transf (AST/SGOT) 44 U/L (15-37) Alanine Aminotransferase (ALT/SGPT) 43 U/L (16-63) Alkaline Phosphatase 55 U/L (46-116) Total Protein 7.6 g/dL (6.4-8.2) Albumin 3.3 g/dL (3.4-5.0) Albumin/Globulin Ratio 0.8 (1.0-1.7) Ammonia < 10 mcmol/L (11-34) Glucose (Fingerstick) 252 mg/dL (70-99) 148 mg/dL (70-99) Test 02/19/21 11:31 Glucose (Fingerstick) 143 mg/dL (70-99) Assessment and Plan Assessmemt and Plan Problems Medical Problems: (1) Cognitive decline Status: Acute Comment Review of Relevant I have reviewed the following items jacob (where applicable) has been applied. Medications: Current Medications Medications (Trade) Dose Ordered Sig/Loyda Route PRN Reason Start Time Stop Time Status Last Admin Dose Admin Heparin Sodium (Porcine) (Heparin Sodium) 5,000 unit Q8HRS SQ 02/18/21 22:00 02/19/21 06:01 Amlodipine Besylate (Norvasc) 5 mg DAILY PO 02/19/21 09:00 02/19/21 09:00 Baclofen (Lioresal) 5 mg TID PO 02/18/21 21:00 02/19/21 09:02 Carbamazepine (TEGretol) 200 mg BID PO 02/18/21 21:00 02/19/21 09:00 Carvedilol (Coreg) 12.5 mg BIDWMEALS PO 02/18/21 18:00 02/19/21 09:00 Cetirizine HCl (ZyrTEC) 5 mg DAILY PO 02/19/21 09:00 02/19/21 09:03 Duloxetine HCl (Cymbalta) 60 mg DAILY PO 02/19/21 09:00 02/19/21 09:01 Ferrous Sulfate (Feosol) 325 mg DAILY PO 02/19/21 09:00 02/19/21 09:02 Finasteride (Proscar) 5 mg DAILY PO 02/19/21 09:00 02/19/21 09:00 Furosemide (Lasix) 20 mg DAILY PO 02/19/21 09:00 02/19/21 09:02 Glipizide (Glucotrol) 5 mg BIDBFRMEAL PO 02/18/21 18:00 02/19/21 09:00 Latanoprost (Xalatan) 1 drop QHS OU 02/18/21 21:00 02/18/21 20:58 Levetiracetam (Keppra) 500 mg BID PO 02/18/21 21:00 02/19/21 09:00 Metformin HCl (Glucophage) 500 mg BIDWMEALS PO 02/18/21 18:00 02/19/21 09:00 Pioglitazone HCl (Actos) 45 mg DAILY PO 02/19/21 09:00 02/19/21 09:01 Tamsulosin HCl (Flomax) 0.4 mg BID PO 02/18/21 21:00 02/19/21 09:00 Pantoprazole Sodium (Protonix) 40 mg DAILYAC PO 02/19/21 07:30 02/19/21 09:01 Atorvastatin Calcium (Lipitor) 5 mg QHS PO 02/18/21 21:00 02/19/21 09:02 Pregabalin (Lyrica) 150 mg BID PO 02/18/21 21:00 02/19/21 09:06 Quetiapine Fumarate (SEROquel) 150 mg HS PO 02/18/21 21:00 02/18/21 20:56 Timolol Maleate (Timoptic 0.5% Oph) 1 drop BID OU 02/18/21 21:00 02/19/21 09:08 Justifications for Admission Other Justification acute metabolic encephalopathy TAYLOR LANDA MD Feb 19, 2021 13:02
[2021-02-19 15:00] VITALS: BP 109/72
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
--- NOTE | 2021-02-19 17:17 | RAD ---
US RENAL BILAT History: Reason: Pain, history of urinary retention, concern for overlow incontinence / Spl. Instruct ions: / History: Comparison: None. Procedure: Transabdominal ultrasound images are obtained of the kidneys and bladder. Findings: Right kidney: measures 9.6 x 5.2 x 4.8 cm. Multiple right renal cysts largest measures 3.1 cm mid as pect and inferior cyst measures 3.9 cm. No hydronephrosis. Left kidney: measures 11.1 x 5.2 x 5.8 cm. Multiple left renal cysts largest mid measures 5.3 cm and inferior cyst measures 4.4 cm. No hydronephrosis. Urinary bladder: Decompressed urinary bladder. Post void residual urinary bladder volume 61 mL, withi n normal limits for patient's age. The IVC is normal caliber. The visualized abdominal aorta is normal caliber. IMPRESSION: 1. Bilateral renal cysts. No follow-up imaging is recommended per consensus recommendations based on imaging criteria. Electronically signed by: Ricardo Calderón DO (02/19/2021 5:15 PM) [id number]
[2021-02-19 19:00] VITALS: BP 134/76
[2021-02-19] MEDS: LATANOPROST 0.005% OPHTH SOLUTION 2.5ML BOTTLE. OU SCH (19:33)
[2021-02-19] MEDS: QUEtiapine 100 MG TABLET. PO SCH (19:34)
[2021-02-19 23:00] VITALS: BP 114/63
[2021-02-20 03:00] VITALS: BP 102/60
[2021-02-20] MEDS: HEPARIN for SUB-Q USE 5,000 UNIT/ML VIAL. SQ SCH ×3 (05:30→22:32)
[2021-02-20 07:00] VITALS: BP 115/64
[2021-02-20] MEDS: PANTOPRAZOLE 40 MG TABLET.DR. PO SCH (07:54)
[2021-02-20] MEDS: glipiZIDE 5 MG TABLET PO SCH ×2 (07:54→17:29)
[2021-02-20] MEDS: metFORMIN 500 MG TABLET PO SCH ×2 (08:00→17:29)
[2021-02-20] MEDS: PREGABALIN 75 MG CAPSULE PO SCH ×2 (09:53→21:28)
[2021-02-20] MEDS: PIOGLITAZONE 15 MG TABLET. PO SCH (09:54)
[2021-02-20] MEDS: DULoxetine HCL 30 MG CAPSULE.DR PO SCH (09:56)
[2021-02-20] MEDS: TAMSULOSIN 0.4 MG CAP.ER.24H. PO SCH ×2 (09:56→21:27)
[2021-02-20] MEDS: carBAMazepine 200 MG TABLET PO SCH ×2 (09:57→21:28)
[2021-02-20] MEDS: BACLOFEN 10 MG TABLET. PO SCH (09:58)
[2021-02-20] MEDS: CETIRIZINE HCL 10 MG TABLET. PO SCH (09:58)
[2021-02-20] MEDS: FINASTERIDE 5 MG TABLET. PO SCH (09:58)
[2021-02-20] MEDS: FUROSEMIDE 20 MG TABLET PO SCH (09:59)
[2021-02-20] MEDS: FERROUS SULFATE 325 MG TABLET. PO SCH (10:00)
[2021-02-20] MEDS: levETIRAcetam 500 MG TABLET PO SCH ×2 (10:00→21:27)
[2021-02-20] MEDS: CARVEDILOL 12.5 MG TABLET. PO SCH ×2 (10:00→17:29)
[2021-02-20] MEDS: TIMOLOL 0.5% OPHTH SOLUTION 5ML BOTTLE. OU SCH ×2 (10:02→21:28)
[2021-02-20 11:00] VITALS: BP 118/60
--- NOTE | 2021-02-20 13:12 | PDOC ---
[employer] PROGRESS NOTE Date of Service DOS: DATE: 02/20/21 TIME: 13:05 Chief Complaint Chief Complaint A/P: Acute encephalopathy - likely metabolic Nocturnal enuresis - possibly overflow incontinence. Lyrica can cause urinary retention but this is necessary for his epilepsy TBI history DM2 HTN HLD History of TIA History of seizures Chronic back pain Epilepsy - on 3 anticonvulsants including the pregabalin, plus the levetiracetam and carbamazepine. 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 History of Present Illness History of Present Illness Patient is a 70 year old male with history of dementia who presents with multiple complaints. Patient is a poor historian secondary to altered mental status. Per the adult care facility that he visits 3 times per week, they report that he is slightly more altered than normal for about 1 week time. They report that today, the patient told him that he had a seizure and was "bleeding from his head." His son brought him to the emergency department, but was unsure why the patient wanted to come. When speaking to the patient, he states his "prostate is leaking a whole bunch of stuff" and that his "head is all messed up." Patient's main concern is dribbling urine, specifically at night. Patient does report associated incomplete voiding. He denies dysuria, hematuria, urgency, frequency. Patient reports he does feel more confused than normal. He denies head trauma during interview. Due to patient's altered mental status and urinary complaints, septic work-up will be initiated. Patient has a history of hepatic encephalopathy, so ammonia level will be checked as well. Patient lives on his own in an apartment, but visits an adult care facility 3 times per week. The remaining 2 weekdays, staff from the facility visits him at home. Patient has history of seizures and reported a seizure to the care facility that he visits. Per care facility, patient has a family meeting on Friday of this week (2 days from now) to discuss long-term care facility placement. At this time, patient is unable to care for himself at home and family that we have contact with is unreliable. 02/19: He is complaining of some urinary incontinence again today. He notes it only happens at night. He is also worried about his left foot. PVR 81ml 02/20: More redirectable today. Renal ultrasound with small cysts otherwise no significant abnormalities discussed with patient's Sister Ronda. Patient still concerned about "all that stuff" in his groin on admission. Advised he was wearing 2 diapers and one of them was wet. He also is concerned that people are stealing food and other things including a glucometer lancets and test strips from his house and he does not want a return there currently. Vitals/I&O Vitals/I&O: Vital Signs Date Time Temp Pulse Resp B/P (MAP) Pulse Ox O2 Delivery O2 Flow Rate FiO2 02/20/21 11:00 97.4 68 16 118/60 (79) 99 Nasal Cannula 2.0 97.4 I & O 02/19/21 02/19/21 02/20/21 15:00 23:00 07:00 Intake Total 440 ml 240 ml Output Total 125 ml Balance 440 ml 115 ml Physical Exam General: Alert, Cooperative Heart: Regular rate, Normal S1, Normal S2 Lungs: Clear Abdomen: Normal bowel sounds, Soft Extremities: No clubbing, No cyanosis Skin: No rashes, No breakdown Labs Labs: Laboratory Tests Test 02/19/21 16:45 02/19/21 22:08 02/20/21 08:45 02/20/21 12:21 Glucose (Fingerstick) 213 mg/dL (70-99) 129 mg/dL (70-99) 82 mg/dL (70-99) 176 mg/dL (70-99) Assessment and Plan Assessmemt and Plan Problems Medical Problems: (1) Cognitive decline Status: Acute Comment Review of Relevant I have reviewed the following items jacob (where applicable) has been applied. Justifications for Admission Other Justification acute metabolic encephalopathy TAYLOR LANDA MD Feb 20, 2021 13:12
[2021-02-20] MEDS ORDERED: BACLOFEN 10 MG TABLET. PO PRN (13:45)
[2021-02-20 15:00] VITALS: BP 126/64
[2021-02-20 19:00] VITALS: BP 120/72
[2021-02-20] MEDS: ATORVASTATIN CALCIUM 10 MG TABLET. PO SCH (21:27)
[2021-02-20] MEDS: QUEtiapine 100 MG TABLET. PO SCH (21:27)
[2021-02-20] MEDS: LATANOPROST 0.005% OPHTH SOLUTION 2.5ML BOTTLE. OU SCH (21:28)
[2021-02-20 23:00] VITALS: BP 154/85
[2021-02-21 03:00] VITALS: BP 118/69
[2021-02-21] MEDS: HEPARIN for SUB-Q USE 5,000 UNIT/ML VIAL. SQ SCH ×3 (05:53→21:26)
[2021-02-21] MEDS: PANTOPRAZOLE 40 MG TABLET.DR. PO SCH (06:12)
[2021-02-21 07:00] VITALS: BP 149/70
[2021-02-21] MEDS: TAMSULOSIN 0.4 MG CAP.ER.24H. PO SCH ×2 (09:54→21:14)
[2021-02-21] MEDS: FUROSEMIDE 20 MG TABLET PO SCH (09:55)
[2021-02-21] MEDS: glipiZIDE 5 MG TABLET PO SCH ×2 (09:55→17:04)
[2021-02-21] MEDS: FERROUS SULFATE 325 MG TABLET. PO SCH (09:55)
[2021-02-21] MEDS: carBAMazepine 200 MG TABLET PO SCH ×2 (09:55→21:15)
[2021-02-21] MEDS: DULoxetine HCL 30 MG CAPSULE.DR PO SCH (09:55)
[2021-02-21] MEDS: PIOGLITAZONE 15 MG TABLET. PO SCH (09:55)
[2021-02-21] MEDS: CARVEDILOL 12.5 MG TABLET. PO SCH ×2 (09:55→17:05)
[2021-02-21] MEDS: FINASTERIDE 5 MG TABLET. PO SCH (09:56)
[2021-02-21] MEDS: TIMOLOL 0.5% OPHTH SOLUTION 5ML BOTTLE. OU SCH ×2 (09:56→21:15)
[2021-02-21] MEDS: metFORMIN 500 MG TABLET PO SCH ×2 (09:56→17:04)
[2021-02-21] MEDS: CETIRIZINE HCL 10 MG TABLET. PO SCH (09:56)
[2021-02-21] MEDS: levETIRAcetam 500 MG TABLET PO SCH ×2 (09:56→21:15)
[2021-02-21] MEDS: PREGABALIN 75 MG CAPSULE PO SCH ×2 (09:56→21:14)
[2021-02-21 11:00] VITALS: BP 127/63
--- NOTE | 2021-02-21 12:14 | NUR ---
MICHELLE following. Discussed with RN, MICHELLE communicating daily with pt's [employer] 7[employer] grade social studies teacher, Hallie. Pt's sister visited with [employer] yesterday but is still on the fence about SNF. SOBIA have provided [facility] SW[facility]'s phone number to Alisha and stressed the importance of her calling. MICHELLE able to leave a voicemail with Alisha, awaiting call back. MICHELLE questioning whether [facility] is going to approve SNF if pt's sister is agreeable, awaiting response. MICHELLE will continue to follow. Addendum: 02/21/21 at 1352 by YOUSUF MARTINEZ MICHELLE spoke with pt's sister, Alisha. She is agreeable to SNF, MICHELLE notified Alisha that [facility] is looking into [facility], Alisha agreeable. MICHELLE faxed clinicals to [facility]. Reminded RN of need for PCR COVID. MICHELLE will continue to follow. Addendum: 02/21/21 at 1555 by YOUSUF MARTINEZ Pt accepted at [facility] for admission tomorrow. Awaiting COVID PCR. RN notified.
--- NOTE | 2021-02-21 14:43 | PDOC ---
[employer] PROGRESS NOTE Date of Service DOS: DATE: 02/21/21 TIME: 14:42 Chief Complaint Chief Complaint A/P: Acute encephalopathy - likely metabolic Nocturnal enuresis - possibly overflow incontinence. Lyrica can cause urinary retention but this is necessary for his epilepsy TBI history DM2 HTN HLD History of TIA History of seizures Chronic back pain Epilepsy - on 3 anticonvulsants including the pregabalin, plus the levetiracetam and carbamazepine. 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 History of Present Illness History of Present Illness Patient is a 70 year old male with history of dementia who presents with multiple complaints. Patient is a poor historian secondary to altered mental status. Per the adult care facility that he visits 3 times per week, they report that he is slightly more altered than normal for about 1 week time. They report that today, the patient told him that he had a seizure and was "bleeding from his head." His son brought him to the emergency department, but was unsure why the patient wanted to come. When speaking to the patient, he states his "prostate is leaking a whole bunch of stuff" and that his "head is all messed up." Patient's main concern is dribbling urine, specifically at night. Patient does report associated incomplete voiding. He denies dysuria, hematuria, urgency, frequency. Patient reports he does feel more confused than normal. He denies head trauma during interview. Due to patient's altered mental status and urinary complaints, septic work-up will be initiated. Patient has a history of hepatic encephalopathy, so ammonia level will be checked as well. Patient lives on his own in an apartment, but visits an adult care facility 3 times per week. The remaining 2 weekdays, staff from the facility visits him at home. Patient has history of seizures and reported a seizure to the care facility that he visits. Per care facility, patient has a family meeting on Friday of this week (2 days from now) to discuss long-term care facility placement. At this time, patient is unable to care for himself at home and family that we have contact with is unreliable. 02/21 More redirectable today. try to get to skilled, needs COVID PCR test, dont today yesterday the Renal ultrasound with small cysts otherwise no significant abnormalities he has ongoign weakness, left hand contracted, Vitals/I&O Vitals/I&O: Vital Signs Date Time Temp Pulse Resp B/P (MAP) Pulse Ox O2 Delivery O2 Flow Rate FiO2 02/21/21 11:00 97.4 71 16 127/63 (84) 93 Room Air 97.4 02/20/21 11:00 2.0 I & O 02/20/21 02/20/21 02/21/21 15:00 23:00 07:00 Intake Total 420 ml 0 ml Balance 420 ml 0 ml Physical Exam General: Alert, Cooperative Heart: Regular rate, Normal S1, Normal S2 Lungs: Clear Abdomen: Normal bowel sounds, Soft Extremities: No clubbing, No cyanosis Skin: No rashes, No breakdown Labs Labs: Laboratory Tests Test 02/20/21 17:13 02/20/21 21:13 02/21/21 08:13 Glucose (Fingerstick) 212 mg/dL (70-99) 193 mg/dL (70-99) 98 mg/dL (70-99) Assessment and Plan Assessmemt and Plan Problems Medical Problems: (1) Cognitive decline Status: Acute Comment Review of Relevant I have reviewed the following items jacob (where applicable) has been applied. Justifications for Admission Other Justification acute metabolic encephalopathy HITESH CANELA MD Feb 21, 2021 14:43
[2021-02-21 15:00] VITALS: BP 103/51
[2021-02-21 19:00] VITALS: BP 137/69
[2021-02-21] MEDS: QUEtiapine 100 MG TABLET. PO SCH (21:14)
[2021-02-21] MEDS: LATANOPROST 0.005% OPHTH SOLUTION 2.5ML BOTTLE. OU SCH (21:15)
[2021-02-21] MEDS: ATORVASTATIN CALCIUM 10 MG TABLET. PO SCH (21:15)
[2021-02-21 23:00] VITALS: BP 126/70
[2021-02-22 03:00] VITALS: BP 99/55
[2021-02-22] MEDS: HEPARIN for SUB-Q USE 5,000 UNIT/ML VIAL. SQ SCH (05:45)
[2021-02-22 07:00] VITALS: BP 92/52
[2021-02-22] MEDS: CARVEDILOL 12.5 MG TABLET. PO SCH (08:00)
[2021-02-22] MEDS: TIMOLOL 0.5% OPHTH SOLUTION 5ML BOTTLE. OU SCH (08:53)
[2021-02-22] MEDS: DULoxetine HCL 30 MG CAPSULE.DR PO SCH (08:55)
[2021-02-22] MEDS: glipiZIDE 5 MG TABLET PO SCH (08:55)
[2021-02-22] MEDS: metFORMIN 500 MG TABLET PO SCH (08:55)
[2021-02-22] MEDS: CETIRIZINE HCL 10 MG TABLET. PO SCH (08:55)
[2021-02-22] MEDS: TAMSULOSIN 0.4 MG CAP.ER.24H. PO SCH (08:56)
[2021-02-22] MEDS: carBAMazepine 200 MG TABLET PO SCH (08:56)
[2021-02-22] MEDS: PIOGLITAZONE 15 MG TABLET. PO SCH (08:56)
[2021-02-22] MEDS: FUROSEMIDE 20 MG TABLET PO SCH (08:57)
[2021-02-22] MEDS: PANTOPRAZOLE 40 MG TABLET.DR. PO SCH (08:57)
[2021-02-22] MEDS: FINASTERIDE 5 MG TABLET. PO SCH (08:57)
[2021-02-22] MEDS: levETIRAcetam 500 MG TABLET PO SCH (08:57)
[2021-02-22] MEDS: FERROUS SULFATE 325 MG TABLET. PO SCH (08:58)
[2021-02-22] MEDS: PREGABALIN 75 MG CAPSULE PO SCH (08:58)
--- NOTE | 2021-02-22 10:34 | NUR ---
SW following. Discussed with RN, COVID-19 negative. Awaiting discharge orders for pt to go to [facility]. 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 RN notified. SW will continue to follow.
[2021-02-22 11:12] VITALS: BP 106/56
--- NOTE | 2021-02-22 11:36 | SNU/HH DC ---
DISCHARGE ORDERS DISCHARGE INFORMATION: DISCHARGE DATE: Feb 22, 2021 FINAL DIAGNOSIS Acute encephalopathy - likely metabolic Nocturnal enuresis - possibly overflow incontinence. Lyrica can cause urinary retention but this is necessary for his epilepsy TBI history DM2 HTN HLD History of TIA History of seizures Chronic back pain Epilepsy - on 3 anticonvulsants including the pregabalin, plus the levetiracetam and carbamazepine. 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 Problems Medical Problems: (1) Cognitive decline Status: Acute CONDITION ON DISCHARGE: Stable CODE STATUS: Code Status: Full DETENTION: SNF STAY <30 DAYS: Yes POST DISCHARGE ORDERS: ACTIVITY ORDERS: Activity as tolerated WEIGHT BEARING STATUS: As tolerated BATHING ORDERS: Shower-keep dressing dry, No Tub Bath until see DIET AFTER DISCHARGE: ADA WOUND/INCISION CARE: No wound care needed CHECKS AFTER DISCHARGE: CHECKS AFTER DISCHARGE: Check blood press - daily, Check blood sugar, ac/hs TREATMENT/EQUIPMENT ORDERS: ADAPTIVE EQUIPMENT NEEDED: Commode, Front wheeled walker, Raised toilet seat w/ arms, Raised toilet seat, Walker Physical Therapy For: Evalulation/Treatment Occupational Therapy For: Evaluation/Treatment Speech Language Pathology For: Evaluation/Treatment DISCHARGE MEDICATIONS: Home Meds Active Scripts Lidocaine (Lidocaine PATCH ) 1 Each Adh..patch, 1 PATCH TP DAILY for PAIN for 30 Days, #30 PATCH Prov:JUS JONES MD 08/11/20 Nystatin (NYAMYC) 15 Gm Powder, 1 BENJAMÍN TP BID for RASH for 14 Days, #60 MISC Prov:JUS JONES MD 08/11/20 Glipizide (GLIPIZIDE) 5 Mg Tablet, 5 MG PO BIDBFRMEAL for DIABETES for 30 Days, #60 TAB Prov:JUS JONES MD 08/11/20 Insulin Lispro (Admelog) 100 Unit/1 Ml Vial, 0 UNITS SQ TIDWMEALS for DIABETES for 14 Days, #1 EACH Prov:JUS JONES MD 08/11/20 Insulin Glargine,Hum.rec.anlog (LANTUS) 100 Unit/1 Ml Vial, 10 UNIT SQ QHS for DIABETES for 14 Days, #1 EACH Prov:JUS JONES MD 08/11/20 Guaifenesin (GUAIFENESIN) 100 Mg/5 Ml Liquid, 200 MG PO PRN Q4HRS PRN for COUGH for 14 Days, #120 LIQUID Prov:JUS JONES MD 08/11/20 Potassium Chloride (KLOR-CON M20) 20 Meq Tab.er.prt, 20 MEQ PO DAILYWBKFT for SUPPLEMENT for 10 Days, #10 TAB.SR Prov:JUS JONES MD 08/11/20 Carbamazepine (CARBAMAZEPINE) 200 Mg Tablet, 200 MG PO BID for SEIZURES for 30 Days, #60 TAB Prov:JUS JONES MD 08/11/20 Acetaminophen (ACETAMINOPHEN) 325 Mg Tablet, 650 MG PO PRN Q4HRS PRN for TEMP OVER 100.4F OR MILD PAIN for 14 Days, #60 TAB Prov:JUS JONES MD 08/11/20 Tamsulosin Hcl (FLOMAX) 0.4 Mg Cap.er.24h, 0.4 MG PO BID for URINE FLOW for 30 Days, #60 CAP.SR Prov:JUS JONES MD 08/11/20 Finasteride (FINASTERIDE) 5 Mg Tablet, 1 TAB PO DAILY for bph, #30 TAB 11 Refills Prov:ERNESTO BUCK MD 02/26/18 Pregabalin (LYRICA) 150 Mg Capsule, 1 CAP PO BID, #60 CAP 5 Refills Prov:Dinorah LOAIZA MD 06/18/17 Pioglitazone Hcl (ACTOS) 15 Mg Tablet, 45 MG PO DAILY for 28 Days, TAB Prov:ERNESTO BUCK MD 04/22/16 Levetiracetam (KEPPRA) 500 Mg Tablet, 500 MG PO BID for 30 Days, TAB Prov:ERNESTO BUCK MD 04/22/16 Carvedilol (CARVEDILOL ) 12.5 Mg Tablet, 12.5 MG PO BIDWMEALS for 30 Days, TAB Prov:ERNESTO BUCK MD 03/11/16 Reported Medications Timolol (BETIMOL) 5 Ml Drops, 1 DROP OU BID for GLAUCOMA, DROP 08/09/20 Sennosides/Docusate Sodium (SENNA PLUS TABLET) 1 Each Tablet, 1 EACH PO DAILY for CONSTIPATION, TAB 08/09/20 Quetiapine Fumarate (SEROQUEL) 50 Mg Tablet, 150 MG PO HS for MOOD, TAB 08/09/20 Pravastatin Sodium (PRAVASTATIN SODIUM) 10 Mg Tablet, 10 MG PO QHS for HLD, TAB 08/09/20 Polyethylene Glycol 3350 (MIRALAX) 17 Gm Powd.pack, 1 PKT PO DAILY for CONSTIPATION, PKT 08/09/20 Metformin Hcl (METFORMIN HCL) 500 Mg Tablet, 500 MG PO BIDWMEALS for ANTI- DIABETIC, TAB 0 Refills 08/09/20 Ferrous Sulfate (FERROUS SULFATE) 325 Mg Tablet, 325 MG PO DAILYAC for IRON DEF ANEMIA, TAB 08/09/20 Diclofenac Sodium (VOLTAREN) 100 Gm Gel..gram., 4 GM TP QID for PAIN, EACH 08/09/20 Cetirizine Hcl (CETIRIZINE HCL) 10 Mg Tablet, 5 MG PO DAILY for ALLERGIES, TAB 08/09/20 Baclofen (BACLOFEN) 10 Mg Tablet, 5 MG PO TID for MUSCLE RELAXER, #30 TAB 0 Refills 08/09/20 Pantoprazole Sodium (PROTONIX) 20 Mg Tablet.dr, 40 MG PO DAILY for acid refulx, TAB 06/26/18 Furosemide (FUROSEMIDE) 20 Mg Tablet, 1 TAB PO DAILY for diuretic, #90 TAB 1 Refill 06/26/18 Latanoprost (LATANOPROST) 2.5 Ml Drops, 1 DROP OU QHS, #25 04/17/16 Amlodipine Besylate (AMLODIPINE BESYLATE) 5 Mg Tablet, 5 MG PO DAILY for HTN 06/21/13 Duloxetine Hcl (CYMBALTA) 30 Mg Capsule.dr, 60 MG PO DAILY 06/21/13 HITESH CANELA MD Feb 22, 2021 11:36
--- NOTE | 2021-02-22 11:44 | PDOC3 ---
Discharge Summary Visit Information Date of Admission: Mar 20, 2011 Date of Discharge: Feb 22, 2021 Final Diagnosis Acute encephalopathy - metabolic on dementia Nocturnal enuresis - overflow incontinence. side effect of Lyrica TBI history DM2 HTN HLD History of TIA History of seizures Chronic back pain Epilepsy - on 3 anticonvulsants including the pregabalin, plus the levetiracetam and carbamazepine. 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 left knee pain, OA (1) Cognitive decline Status: Acute Brief Hospital Course Allergies Allergies Coded Allergies Type Severity Reaction Last Updated Verified sulfamethoxazole Allergy Severe Swelling 08/26/18 Yes trimethoprim Allergy Severe Swelling 08/26/18 Yes Vital Signs Vital Signs Date Time Temp Pulse Resp B/P (MAP) Pulse Ox O2 Delivery O2 Flow Rate FiO2 02/22/21 11:12 98.4 66 106/56 (73) 95 Room Air 2.0 98.4 02/22/21 07:00 18 Lab Results Laboratory Tests Test 02/20/21 12:21 02/20/21 17:13 02/20/21 21:13 02/21/21 08:13 Glucose (Fingerstick) 176 mg/dL (70-99) 212 mg/dL (70-99) 193 mg/dL (70-99) 98 mg/dL (70-99) Test 02/21/21 14:40 02/21/21 16:38 02/21/21 20:35 02/22/21 07:42 SARS-CoV-2 RNA (BELINDA) Negative (Negative) Glucose (Fingerstick) 189 mg/dL (70-99) 257 mg/dL (70-99) 132 mg/dL (70-99) Test 02/22/21 10:24 Glucose (Fingerstick) 179 mg/dL (70-99) Laboratory Tests Test 02/21/21 14:40 02/21/21 16:38 02/21/21 20:35 02/22/21 07:42 SARS-CoV-2 RNA (BELINDA) Negative (Negative) Glucose (Fingerstick) 189 mg/dL (70-99) 257 mg/dL (70-99) 132 mg/dL (70-99) Test 02/22/21 10:24 Glucose (Fingerstick) 179 mg/dL (70-99) Brief Hospital Course Mr. Faust is a 70 old male with history of dementia who presents with multiple complaints. Acute on chronic confusion. goes to adult care facility t 3 times per week at baseline, and he was more altered there. had urinary problmes, better over time, HX hepatic disease and prior brain injury, DC to [facility], sister and social insurance specialist are following Discharge Information Condition at Discharge: Improved Follow Up: Weeks Disposition/Orders: D/C to Another Facility Scheduled Amlodipine Besylate (Amlodipine Besylate) 5 Mg Tablet, 5 MG PO DAILY for HTN, (Reported) Entered as Reported by: ALICIA RIVERA on 06/21/13 1213 Last Action: Reviewed on 02/20/211750 by CHRIS NAVARRO Baclofen (Baclofen) 10 Mg Tablet, 5 MG PO TID for MUSCLE RELAXER, #30 Ref 0 (Reported) Entered as Reported by: ZOHRA FRYE on 08/09/20205 Last Action: Continued on 02/18/211747 by TAYLOR CABRALES MD Carbamazepine (Carbamazepine) 200 Mg Tablet, 200 MG PO BID for SEIZURES for 30 Days, #60 Prescribed by: JUS JONES MD on 08/11/20 1449 Last Action: Continued on 02/18/211747 by TAYLOR CABRALES MD Carvedilol (Carvedilol ) 12.5 Mg Tablet, 12.5 MG PO BIDWMEALS for 30 Days Prescribed by: ERNESTO BUCK on 03/11/16 0929 Last Action: Reviewed on 02/20/211750 by CHRIS NAVARRO Cetirizine Hcl (Cetirizine Hcl) 10 Mg Tablet, 5 MG PO DAILY for ALLERGIES, (Reported) Entered as Reported by: ZOHRA FRYE on 08/09/20205 Last Action: Continued on 02/18/211747 by TAYLOR CABRALES MD Diclofenac Sodium (Voltaren) 100 Gm Gel..gram., 4 GM TP QID for PAIN, (Reported) Entered as Reported by: ZOHRA FRYE on 08/09/20205 Last Action: HELD on 02/18/211747 by TAYLOR CABRALES MD Duloxetine Hcl (Cymbalta) 30 Mg Capsule.dr, 60 MG PO DAILY, (Reported) Entered as Reported by: ALICIA RIVERA on 06/21/13 1213 Last Action: Reviewed on 02/20/211750 by CHRIS NAVARRO Ferrous Sulfate (Ferrous Sulfate) 325 Mg Tablet, 325 MG PO DAILYAC for IRON DEF ANEMIA, (Reported) Entered as Reported by: ZOHRA FRYE on 08/09/20 0206 Last Action: Continued on 02/18/211747 by TAYLOR CABRALES MD Finasteride (Finasteride) 5 Mg Tablet, 1 TAB PO DAILY for bph, #30 Ref 11 Prescribed by: ERNESTO BUCK on 02/26/18 0927 Last Action: Reviewed on 02/20/211750 by CHRIS NAVARRO Furosemide (Furosemide) 20 Mg Tablet, 1 TAB PO DAILY for diuretic, #90 Ref 1 (Reported) Entered as Reported by: CECILIO GUERRERO on 06/26/18 1628 Last Action: Reviewed on 02/20/211750 by CHRIS NAVARRO Glipizide (Glipizide) 5 Mg Tablet, 5 MG PO BIDBFRMEAL for DIABETES for 30 Days, #60 Prescribed by: JUS JONES MD on 08/11/201448 Last Action: Continued on 02/18/211747 by TAYLOR CABRALES MD Insulin Glargine,Hum.rec.anlog (Lantus) 100 Unit/1 Ml Vial, 10 UNIT SQ QHS for DIABETES for 14 Days, #1 Prescribed by: JUS JONES MD on 08/11/201448 Last Action: HELD on 02/18/211747 by TAYLOR CABRALES MD Insulin Lispro (Admelog) 100 Unit/1 Ml Vial, 0 UNITS SQ TIDWMEALS for DIABETES for 14 Days, #1 Prescribed by: JUS JONES MD on 08/11/201448 Last Action: HELD on 02/18/211747 by TAYLOR CABRALES MD Latanoprost (Latanoprost) 2.5 Ml Drops, 1 DROP OU QHS, #25 (Reported) Entered as Reported by: Lu Teague on 04/17/16 0430 Last Action: Continued on 02/18/211747 by TAYLOR CABRALES MD Levetiracetam (Keppra) 500 Mg Tablet, 500 MG PO BID for 30 Days Prescribed by: ERNESTO BUCK on 04/22/16 1002 Last Action: Reviewed on 02/20/211750 by CHRIS NAVARRO Lidocaine (Lidocaine PATCH ) 1 Each Adh..patch, 1 PATCH TP DAILY for PAIN for 30 Days, #30 Prescribed by: JUS JONES MD on 08/11/201448 Last Action: HELD on 02/18/211747 by TAYLOR CABRALES MD Metformin Hcl (Metformin Hcl) 500 Mg Tablet, 500 MG PO BIDWMEALS for ANTI- DIABETIC, Ref 0 (Reported) Entered as Reported by: ZOHRA FRYE on 08/09/20205 Last Action: Reviewed on 02/20/211750 by CHRIS NAVARRO Nystatin (Nyamyc) 15 Gm Powder, 1 BENJAMÍN TP BID for RASH for 14 Days, #60 Prescribed by: JUS JONES MD on 08/11/201448 Last Action: HELD on 02/18/211747 by TAYLOR CABRALES MD Pantoprazole Sodium (Protonix) 20 Mg Tablet.dr, 40 MG PO DAILY for acid refulx, (Reported) Entered as Reported by: CECILIO CESAR on 06/26/181627 Last Action: Reviewed on 02/20/211750 by CHRIS NAVARRO Pioglitazone Hcl (Actos) 15 Mg Tablet, 45 MG PO DAILY for 28 Days Prescribed by: ERNESTO BUCK on 04/22/16 1002 Last Action: Continued on 02/18/211747 by TAYLOR CABRALES MD Polyethylene Glycol 3350 (Miralax) 17 Gm Powd.pack, 1 PKT PO DAILY for CONSTIPATION, (Reported) Entered as Reported by: ZOHRA FRYE on 08/09/20205 Last Action: HELD on 02/18/211747 by TAYLOR CABRALES MD Potassium Chloride (Klor-Con M20) 20 Meq Tab.er.prt, 20 MEQ PO DAILYWBKFT for SUPPLEMENT for 10 Days, #10 Prescribed by: JUS JONES MD on 08/11/201448 Last Action: HELD on 02/18/211747 by TAYLOR CABRALES MD Pravastatin Sodium (Pravastatin Sodium) 10 Mg Tablet, 10 MG PO QHS for HLD, (Reported) Entered as Reported by: ZOHRA FRYE on 08/09/20205 Last Action: Converted on 02/18/211747 by TAYLOR CABRALES MD Pregabalin (Lyrica) 150 Mg Capsule, 1 CAP PO BID, #60 Ref 5 Prescribed by: LORI LOAIZA MD on 06/18/17 170 Last Action: Converted on 02/18/211747 by TAYLOR CABRALES MD Quetiapine Fumarate (Seroquel) 50 Mg Tablet, 150 MG PO HS for MOOD, (Reported) Entered as Reported by: ZOHRA FRYE on 08/09/20205 Last Action: Converted on 02/18/211747 by TAYLOR CABRALES MD Sennosides/Docusate Sodium (Senna Plus Tablet) 1 Each Tablet, 1 EACH PO DAILY for CONSTIPATION, (Reported) Entered as Reported by: ZOHRA FRYE on 08/09/20205 Last Action: HELD on 02/18/211747 by TAYLOR CABRALES MD Tamsulosin Hcl (Flomax) 0.4 Mg Cap.er.24h, 0.4 MG PO BID for URINE FLOW for 30 Days, #60 Prescribed by: JUS JONES MD on 08/11/201448 Last Action: Continued on 02/18/211747 by TAYLOR CABRALES MD Timolol (Betimol) 5 Ml Drops, 1 DROP OU BID for GLAUCOMA, (Reported) Entered as Reported by: ZOHRA FRYE on 08/09/20205 Last Action: Converted on 02/18/211747 by TAYLOR CABRALES MD Scheduled PRN Acetaminophen (Acetaminophen) 325 Mg Tablet, 650 MG PO PRN Q4HRS PRN for TEMP OVER 100.4F OR MILD PAIN for 14 Days, #60 Prescribed by: JUS JONES MD on 08/11/201448 Last Action: HELD on 02/18/211747 by TAYLOR CABRALES MD Guaifenesin (Guaifenesin) 100 Mg/5 Ml Liquid, 200 MG PO PRN Q4HRS PRN for COUGH for 14 Days, #120 Prescribed by: JUS JONES MD on 08/11/201448 Last Action: HELD on 02/18/211747 by TAYLOR CABRALES MD Patient Instructions Patient Instructions pt seen face to face Coordingation of care done 34 min total Justicifation of Admission Dx: Justifications for Admission: Justification of Admission Dx: Yes Sepsis: Failure of Out Pt Tx HITESH CANELA MD Feb 22, 2021 11:44
--- NOTE | 2021-02-22 12:28 | NUR ---
Pt left to [facility] at 1215 with transportation and w/c. Walker and belongings were sent with him and wallet was obtained from security. Report called to [facility] at 1225. Spoke with Claude.
== END 2021-02-22 12:32 | DRG 72 ==
LOC: ER 10:43 → 4 NORTH 13:55
PROVIDERS: ADMIT Student in an Organized Health Care Education/Training Program; ATTEND Student in an Organized Health Care Education/Training Program
DX: G93.41 Metabolic encephalopathy (principal); F20.9 Schizophrenia, unspecified; F03.90 Unspecified dementia, unspecified severity, without behavioral disturbance, psychotic disturbance, mood disturbance, and anxiety; F32.A Depression, unspecified; E11.42 Type 2 diabetes mellitus with diabetic polyneuropathy; E78.5 Hyperlipidemia, unspecified; G24.01 Drug induced subacute dyskinesia; G40.909 Epilepsy, unspecified, not intractable, without status epilepticus; G93.89 Other specified disorders of brain; I10 Essential (primary) hypertension; M48.00 Spinal stenosis, site unspecified; N39.44 Nocturnal enuresis; N39.490 Overflow incontinence; N40.1 Benign prostatic hyperplasia with lower urinary tract symptoms; R62.7 Adult failure to thrive; Z86.73 Personal history of transient ischemic attack (TIA), and cerebral infarction without residual deficits; Z98.1 Arthrodesis status; G89.29 Other chronic pain
CPT/HCPCS: 36415; 70450; 71045; 72125; 76770; 80053; 80177; 81001; 82140; 82962; 83605; 85025; 87040; 93005; J1644; U0003; U0005; 97110-GP; 97116-GP; 97530-GP; 97535-GO; 99285-25; G0378

== ENCOUNTER 2021-03-06 15:02 | Emergency (ER) | payer OTHER, MEDICAID ==
[~2021-03-06] VITALS: Ht 182.9 cm; Wt 100.0 kg
[2021-03-06 15:05] VITALS: BP 143/66
--- NOTE | 2021-03-06 15:26 | PHYS DOC ---
Past Medical History Past Medical History: Diabetes-Type II Additional Past Medical Histor: TARDIVE DYSKINESHA, METABOLIC ENCEPHALOPATHY, LEFT FRONTAL LOBE HEAD INJURY Past Surgical History: Other Additional Past Surgical Histo: SPINAL CORD STIMULATOR, CRAINOTOMY Smoking Status: Never Smoker Alcohol Use: None Drug Use: None General Adult EDM: Chief Complaint: OTHER COMPLAINTS HPI: HPI: Patient is a 70-year-old male who presents to the emergency department. EMS states that patient was at the nursing facility when he was witnessed to drink approximately 2 ounces of hand licensed sales assistant and following started complaining of chest pain and abdominal pain. EMS administered aspirin. Upon ER arrival, patient has no complaints. Patient states that he was brought in because he [place] began licensed sales assistant but does not know why he drank the hand licensed sales assistant. Patient denies chest pain, shortness of breath, abdominal pain, nausea, vomiting, fevers. Patient has a history of a TBI with confusion, schizophrenia, hypertension, CKD, CHF, diabetes and anemia. Patient's vital signs are stable and he is in no acute distress. Review of Systems: Review of Systems: 14 body systems of the review of systems have been reviewed. See HPI for pertinent positive and negative responses, otherwise all other systems are negative, nonpertinent or noncontributory Heart Score: C/O Chest Pain: No Risk Factors: Risk Factors: DM, Current or recent (<one month) smoker, HTN, HLP, family history of CAD, obesity. Risk Scores: Score 0 - 3: 2.5% MACE over next 6 weeks - Discharge Home Score 4 - 6: 20.3% MACE over next 6 weeks - Admit for Clinical Observation Score 7 - 10: 72.7% MACE over next 6 weeks - Early Invasive Strategies Allergies: Allergies: Allergies Coded Allergies Type Severity Reaction Last Updated Verified sulfamethoxazole Allergy Severe Swelling 08/26/18 Yes trimethoprim Allergy Severe Swelling 08/26/18 Yes Physical Exam: PE: Constitutional: Well developed, well nourished, no acute distress, non-toxic appearance. [] HENT: Normocephalic, atraumatic, bilateral external ears normal, oropharynx moist, no oral exudates, nose normal. [] Eyes: PERRL, EOMI, conjunctiva normal, no discharge. [] Neck: Normal range of motion, no tenderness, supple, no stridor. [] Cardiovascular:Heart rate regular rhythm, no murmur [] Lungs & Thorax: Bilateral breath sounds clear to auscultation [] Abdomen: Bowel sounds normal, soft, no tenderness, no masses, no pulsatile masses. [] Skin: Warm, dry, no erythema, no rash. [] Back: Normal range of motion Extremities: No tenderness, no cyanosis, no clubbing, ROM intact, no edema. [] Neurologic: Alert and oriented X 3, normal motor function, normal sensory function, no focal deficits noted. [] Psychologic: Affect normal, judgement normal, mood normal. [] Current Patient Data: Labs: Laboratory Tests Test 03/06/21 16:25 White Blood Count 4.5 x10^3/uL Red Blood Count 3.95 x10^6/uL Hemoglobin 12.4 g/dL Hematocrit 38.3 % Mean Corpuscular Volume 97 fL Mean Corpuscular Hemoglobin 32 pg Mean Corpuscular Hemoglobin Concent 33 g/dL Red Cell Distribution Width 15.0 % Platelet Count 180 x10^3/uL Neutrophils (%) (Auto) 62 % Lymphocytes (%) (Auto) 22 % Monocytes (%) (Auto) 15 % Eosinophils (%) (Auto) 0 % Basophils (%) (Auto) 1 % Neutrophils # (Auto) 2.8 x10^3/uL Lymphocytes # (Auto) 1.0 x10^3/uL Monocytes # (Auto) 0.7 x10^3/uL Eosinophils # (Auto) 0.0 x10^3/uL Basophils # (Auto) 0.0 x10^3/uL Sodium Level 143 mmol/L Potassium Level 3.2 mmol/L Chloride Level 105 mmol/L Carbon Dioxide Level 31 mmol/L Anion Gap 7 Blood Urea Nitrogen 18 mg/dL Creatinine 1.5 mg/dL Estimated GFR (Cockcroft-Gault) 56.3 BUN/Creatinine Ratio 12 Glucose Level 225 mg/dL Calcium Level 8.4 mg/dL Total Bilirubin 0.5 mg/dL Aspartate Amino Transf (AST/SGOT) 39 U/L Alanine Aminotransferase (ALT/SGPT) 51 U/L Alkaline Phosphatase 62 U/L Troponin I High Sensitivity 25 ng/L BA-Yin-J-Type Natriuretic Peptide 159 pg/mL Total Protein 7.8 g/dL Albumin 3.4 g/dL Albumin/Globulin Ratio 0.8 Vital Signs: Vital Signs Date Time Temp Pulse Resp B/P (MAP) Pulse Ox O2 Delivery O2 Flow Rate FiO2 03/06/21 15:05 98.6 81 16 143/66 (91) 98 Room Air 98.6 EKG: EKG: [] Radiology/Procedures: Radiology/Procedures: []PROCEDURE: PORTABLE CHEST 1V Site ID: [id number] EXAMINATION: XR CHEST 1V. HISTORY: 70 years Male Reason: CP . . COMPARISON: February 18, 2021. Findings: Mild prominence of interstitial markings seen similar to the previous exams with no definite focal infiltrate. The heart size is normal. There is no effusion or pneumothorax. The mediastinum and ursula appear unremarkable. Impression: No acute process. Electronically signed by: Kenya Wilcox MD (03/06/2021 3:33 PM) [id number] DICTATED and SIGNED BY: KENYA WILCOX MD DATE: 03/06/21 [id number] Course & Med Decision Making: Course & Med Decision Making Pertinent Labs and Imaging studies reviewed. (See chart for details) [] Patient presents to the emergency department after drinking 2 ounces of hand licensed sales assistant. Per EMS on scene, he was complaining of chest pain and abdominal pain and was given aspirin. When patient arrived to the ER he is alert and orienteD x4. He states he is unsure of why he drank the hand licensed sales assistant but has no complaints. He denies any chest pain or abdominal pain. Work-up in the ER consisted of blood work, EKG and chest x-ray. Chest x-ray was unremarkable. Patient CBC unremarkable. His potassium was 3.2 and this was replaced in the ER. Patient advised to eat potassium rich foods at home. Creatinine was mildly elevated consistent with previous lab findings. Patient's BNP was 159 which is overall improved from his previous findings. Troponin was not elevated. Ethanol less than 10. Patient continues to be complaint free and denies chest pain or abdominal pain. Patient's vital signs are stable. I discussed with patient all findings and diagnostic testing as well as the need to follow-up with PCP for further evaluation and treatment or return to the ER if any new or worsening symptoms. Strict return precautions were also discussed at length. Patient voiced understanding and agreement with the plan. Patient is hemodynamically stable at the time of disposition. Dragon Disclaimer: Dragon Disclaimer: This electronic medical record was generated, in whole or in part, using a voice recognition dictation system. Departure Departure Impression: Primary Impression: Drug ingestion Disposition: HOME / SELF CARE / HOMELESS Condition: GOOD Referrals: UNKNOWN PCP NAME (PCP) Patient Instructions: Nontoxic Ingestion Additional Instructions: You were seen in the emergency department today after ingesting hand licensed sales assistant. Your chest x-ray showed no acute findings. Your potassium level was low and this was replaced in the emergency department with supplementation. Please be sure that you are eating potassium rich foods like green leafy vegetables and bananas at home. You had no complaints while in the emergency department today. Please follow-up with your primary care provider tomorrow regarding your ER visit. Please return to the emergency department if you develop chest pain, shortness of breath, intractable nausea or vomiting, confusion, lethargy or any new or worsening concerns. MARLI WALTERS PEDIATRIC DERMATOLOGIST Mar 06, 2021 15:26
--- NOTE | 2021-03-06 15:35 | RAD ---
Site ID: [id number] EXAMINATION: XR CHEST 1V. HISTORY: 70 years Male Reason: CP . . COMPARISON: February 18, 2021. Findings: Mild prominence of interstitial markings seen similar to the previous exams with no definit e focal infiltrate. The heart size is normal. There is no effusion or pneumothorax. The mediastinum and ursula appear unremarkable. Impression: No acute process. Electronically signed by: Santhosh Wilcox MD (03/06/2021 3:33 PM) [id number]
--- NOTE | 2021-03-06 16:08 | EKG ---
[facility] [address] [place] [address] Test Date: 2021-03-06 Test Time: 15:13:45 Pat Name: ANAMARIA MAJANO Department: Room: Gender: M Rn Family: : 1950 Requested By: MARLI WALTERS Order Number: [id number] Reading MD: Measurements Intervals Reader Rate: 80 P: 34 SC: 160 QRS: -10 QRSD: 94 T: 52 QT: 374 QTc: 435 Interpretive Statements SINUS RHYTHM LEFTWARD AXIS OTHERWISE NORMAL ECG RI6.02 No previous ECG available for comparison
[2021-03-06 16:33] LABS: BASO % 1 % (0-3); EOS % 0 % (0-3); HEMATOCRIT 38.3 % (39.0-53.0); HEMOGLOBIN 12.4 g/dL (13.0-17.5); LYMPH % 22 % (24-48); MEAN CORPUSCULAR HEMOGLOBIN 32 pg (25-35); MEAN CORPUSCULAR HGB CONC 33 g/dL (31-37); MEAN CORPUSCULAR VOLUME 97 fL (79-100); MONO # 0.7 x10^3/uL (0.0-1.1); MONO % 15 % (0-9); NEUT # 2.8 x10^3/uL (1.8-7.7); NEUT % 62 % (31-73); PLATELET COUNT 180 x10^3/uL (140-400); RED BLOOD COUNT 3.95 x10^6/uL (4.30-5.70); WHITE BLOOD COUNT 4.5 x10^3/uL (4.0-11.0)
[2021-03-06 16:48] LABS: CALCIUM 8.4 mg/dL (8.5-10.1); CREATININE 1.5 mg/dL (0.7-1.3); GFR 56.3; POTASSIUM 3.2 mmol/L (3.5-5.1)
[2021-03-06 16:52] LABS: ALBUMIN 3.4 g/dL (3.4-5.0); ALBUMIN/GLOBULIN RATIO 0.8 (1.0-1.7); TOTAL BILIRUBIN 0.5 mg/dL (0.2-1.0); TOTAL PROTEIN 7.8 g/dL (6.4-8.2)
[2021-03-06] MEDS ORDERED: POTASSIUM CHLORIDE 20 MEQ TABLET.ER. PO ONE (17:30)
[2021-03-06] MEDS ORDERED: ONDANSETRON PF 4 MG/2 ML VIAL. IVP ONE (18:00)
== END 2021-03-06 19:53 | disposition home or self-care (01) ==
LOC: ER 15:02
DX: T49.0X1A Poisoning by local antifungal, anti-infective and anti-inflammatory drugs, accidental (unintentional), initial encounter (principal); R07.9 Chest pain, unspecified; R10.9 Unspecified abdominal pain; F20.9 Schizophrenia, unspecified; E11.22 Type 2 diabetes mellitus with diabetic chronic kidney disease; E11.65 Type 2 diabetes mellitus with hyperglycemia; I13.0 Hypertensive heart and chronic kidney disease with heart failure and stage 1 through stage 4 chronic kidney disease, or unspecified chronic kidney disease; N18.9 Chronic kidney disease, unspecified; I50.9 Heart failure, unspecified; Z88.2 Allergy status to sulfonamides; Z88.1 Allergy status to other antibiotic agents; Y92.89 Other specified places as the place of occurrence of the external cause
CPT/HCPCS: 36415; 71045; 80053; 83880; 84484; 85025; 93005; 96374; 99285; G0480; J2405

== ENCOUNTER 2021-03-18 14:48 | Emergency (ER) | payer OTHER, MEDICAID ==
[~2021-03-18] VITALS: Ht 177.8 cm; Wt 90.9 kg
--- NOTE | 2021-03-18 15:29 | PHYS DOC ---
Past Medical History Past Medical History: Diabetes-Type II Additional Past Medical Histor: TARDIVE DYSKINESHA, METABOLIC ENCEPHALOPATHY, LEFT FRONTAL LOBE HEAD INJURY Past Surgical History: Other Additional Past Surgical Histo: SPINAL CORD STIMULATOR, CRAINOTOMY Smoking Status: Never Smoker Alcohol Use: None Drug Use: None General Adult HPI: HPI: Patient is a 70-year-old male the presents today from [facility] w ith screaming "I cannot breathe". Patient has a history of traumatic brain injury with confusion and a history of schizophrenia according to the family member because patient is unable to give me any information she states that he has been at her house since and starting today he started screaming I cannot breathe she called 911 and they brought him here to the emergency department. We are asking family to come in so that we can have a better idea of what is going on and the patient is very anxious and is unable to tell me what is going on. Review of Systems: Review of Systems: Constitutional: Denies fever or chills. [] Eyes: Denies change in visual acuity. [] HENT: Denies nasal congestion or sore throat. [] Respiratory: Denies cough or shortness of breath. [] Cardiovascular: Denies chest pain or edema. [] GI: Denies abdominal pain, nausea, vomiting, bloody stools or diarrhea. [] : Denies dysuria. [] Musculoskeletal: Denies back pain or joint pain. [] Integument: Denies rash. [] Neurologic: Denies headache, focal weakness or sensory changes. [] Endocrine: Denies polyuria or polydipsia. [] Lymphatic: Denies swollen glands. [] Psychiatric: Denies depression or anxiety. [] Heart Score: C/O Chest Pain: N/A Risk Factors: Risk Factors: DM, Current or recent (<one month) smoker, HTN, HLP, family history of CAD, obesity. Risk Scores: Score 0 - 3: 2.5% MACE over next 6 weeks - Discharge Home Score 4 - 6: 20.3% MACE over next 6 weeks - Admit for Clinical Observation Score 7 - 10: 72.7% MACE over next 6 weeks - Early Invasive Strategies Allergies: Allergies: Allergies Coded Allergies Type Severity Reaction Last Updated Verified sulfamethoxazole Allergy Severe Swelling 08/26/18 Yes trimethoprim Allergy Severe Swelling 08/26/18 Yes Physical Exam: PE: Constitutional: Well developed, well nourished, no acute distress, non-toxic appearance. [] HENT: Normocephalic, atraumatic, bilateral external ears normal, oropharynx moist, no oral exudates, nose normal. [] Eyes: PERRLA, EOMI, conjunctiva normal, no discharge. [] Neck: Normal range of motion, no tenderness, supple, no stridor. [] Cardiovascular:Heart rate regular rhythm, no murmur [] Lungs & Thorax: Bilateral breath sounds clear to auscultation [] Abdomen: Bowel sounds normal, soft, no tenderness, no masses, no pulsatile masses. [] Skin: Warm, dry, no erythema, no rash. [] Back: No tenderness, no CVA tenderness. [] Extremities: No tenderness, no cyanosis, no clubbing, ROM intact, no edema. [] Neurologic: Alert and oriented X2, normal motor function, normal sensory function, no focal deficits noted. [] Psychologic: Anxious, confused, [] Current Patient Data: Vital Signs: Vital Signs Date Time Temp Pulse Resp B/P (MAP) Pulse Ox O2 Delivery O2 Flow Rate FiO2 03/18/21 16:22 85 16 182/97 (125) 100 Room Air 03/18/21 16:05 91 18 194/96 (128) 100 Room Air 03/18/21 14:48 97.3 89 20 171/89 (116) 100 Room Air 97.3 Vital Signs Date Time Temp Pulse Resp B/P (MAP) Pulse Ox O2 Delivery O2 Flow Rate FiO2 03/18/21 14:48 97.3 89 20 171/89 (116) 100 Room Air 97.3 EKG: EKG: [] Radiology/Procedures: Radiology/Procedures: REASON: SOA PROCEDURE: CHEST AP ONLY XR CHEST 1V History: Short of air. Comparison: 03/06/2021, 02/18/2021, 02/26/2018 Technique: Portable AP radiograph of the chest. Findings: The lungs are adequately inflated. There are mild chronic interstitial opacities. No focal airspace consolidation, pleural effusion or pneumothorax. The cardiomediastinal silhouette and pulmonary vasculature are within normal limits. Osseous structures are unremarkable. There is colon interposed anterior and superior to the liver at the right diaphragm. Impression: 1. No acute cardiopulmonary process. Electronically signed by: Patrick Chapman MD (03/18/2021 5:26 PM) [facility] [] Course & Med Decision Making: Course & Med Decision Making Pertinent Labs and Imaging studies reviewed. (See chart for details) 1610 sister at the bedside of the patient who is his DPOA. She states that today while there is family at the bedside patient started saying he could not breathe he appeared very anxious she could not get him to calm down she then called 911 and 911 transported him currently patient is calm sitting at the bedside denies any chest pain any shortness of breath. Sats are currently 100%. Did get sister to agree to doing just 1 view chest x-ray. And then patient will be discharged back to [facility]. Sister did state that his blood pressure has been elevated at the intermediate that he resides and has been attempting to get the blood pressure under control with multiple different medications she does not have a current medication list. She states that he is supposed to take another blood pressure medication at 5:00 this evening and he has not taken his morning meds either. [place]on Disclaimer: Suni Disclaimer: This electronic medical record was generated, in whole or in part, using a voice recognition dictation system. Departure Departure Impression: Primary Impression: Anxiety Disposition: 01 HOME / SELF CARE / HOMELESS Condition: STABLE Referrals: UNKNOWN PCP NAME (PCP) Patient Instructions: Anxiety and Panic Attacks, Shortness of Breath Additional Instructions: Continue current medications Blood pressures systolically have been at 180s, please have facility the patient comes from check with primary care physician for further management of this. Return to the emergency department for increase shortness of air, chest pain, or any other concerns you may have. DEMETRIA SURESH APRN Mar 18, 2021 15:29
[2021-03-18 15:38] LABS: BILIRUBIN,URINE NEGATIVE (NEG); CLARITY,URINE CLEAR; COLOR,URINE YELLOW; NITRITE,URINE NEGATIVE (NEG); PROTEIN,URINE NEGATIVE (NEG-TRACE)
[2021-03-18 15:48] LABS: BACTERIA,URINE 0 /HPF (0-FEW); RBC,URINE 0 /HPF (0-2); WBC,URINE OCC /HPF (0-4)
[2021-03-18 16:22] VITALS: BP 182/97
--- NOTE | 2021-03-18 17:29 | RAD ---
XR CHEST 1V History: Short of air. Comparison: 03/06/2021, 02/18/2021, 02/26/2018 Technique: Portable AP radiograph of the chest. Findings: The lungs are adequately inflated. There are mild chronic interstitial opacities. No focal airspace c onsolidation, pleural effusion or pneumothorax. The cardiomediastinal silhouette and pulmonary vascul ature are within normal limits. Osseous structures are unremarkable. There is colon interposed anteri or and superior to the liver at the right diaphragm. Impression: 1. No acute cardiopulmonary process. Electronically signed by: Patrick Chapman MD (03/18/2021 5:26 PM) [facility]
== END 2021-03-18 18:25 | disposition home or self-care (01) ==
LOC: ER 14:48
DX: F41.9 Anxiety disorder, unspecified (principal); E11.9 Type 2 diabetes mellitus without complications; F20.9 Schizophrenia, unspecified; Z88.2 Allergy status to sulfonamides; Z88.1 Allergy status to other antibiotic agents
CPT/HCPCS: 71045; 81001; 99284

== ENCOUNTER 2021-05-04 12:42 | Emergency (ER) | payer MEDICARE, MEDICAID ==
[~2021-05-04] VITALS: Ht 175.3 cm; Wt 79.5 kg
[~2021-05-04 12:42] MED LIST changes: +CEFD300C PO
--- NOTE | 2021-05-04 13:00 | PHYS DOC ---
Past Medical History Past Medical History: CHF, Diabetes-Type II, Hypertension, Renal Disease, Schizophrenia Additional Past Medical Histor: TARDIVE DYSKINESHA, METABOLIC ENCEPHALOPATHY, LEFT FRONTAL LOBE HEAD INJURY Past Surgical History: Other Additional Past Surgical Histo: SPINAL CORD STIMULATOR, CRAINOTOMY Smoking Status: Never Smoker Alcohol Use: None Drug Use: None General Adult EDM: Chief Complaint: HYPOGLYCEMIA HPI: HPI: Patient is a 70 year old male who [facility] due to low blood sugar.. Per EMS report, patient has history of diabetic, they check his blood sugar today and it was 388. Patient was given 12 units regular insulin injection. Later [facility] staff found him unresponsive, they checked his blood sugar and it was 48. assisted staff tried to give him glucagon pain juices to drink, he was still 1 responsive, EMS were called, they checked his blood sugar and it was too low to measure. EMS started an IV and gave him dextrose, his blood sugar went up to 135. Patient was still confused, not sure what his baseline was. Patient has history of traumatic brain injury, history of confusion . Review of Systems: Review of Systems: Not able to obtain due to patient condition. Heart Score: C/O Chest Pain: N/A Risk Factors: Risk Factors: DM, Current or recent (<one month) smoker, HTN, HLP, family history of CAD, obesity. Risk Scores: Score 0 - 3: 2.5% MACE over next 6 weeks - Discharge Home Score 4 - 6: 20.3% MACE over next 6 weeks - Admit for Clinical Observation Score 7 - 10: 72.7% MACE over next 6 weeks - Early Invasive Strategies Allergies: Allergies: Allergies Coded Allergies Type Severity Reaction Last Updated Verified sulfamethoxazole Allergy Severe Swelling 08/26/18 Yes trimethoprim Allergy Severe Swelling 08/26/18 Yes Physical Exam: PE: Constitutional: Well developed, well nourished, no acute distress, non-toxic appearance. [] HENT: Normocephalic, atraumatic, bilateral external ears normal, oropharynx moist, no oral exudates, nose normal. [] Eyes: PERRLA, EOMI, conjunctiva normal, no discharge. [] Neck: Normal range of motion, no tenderness, supple, no stridor. [] Cardiovascular:Heart rate regular rhythm, no murmur [] Lungs & Thorax: Bilateral breath sounds clear to auscultation [] Abdomen: Bowel sounds normal, soft, no tenderness, no masses, no pulsatile masses. [] Skin: Warm, dry, no erythema, no rash. [] Back: No tenderness, no CVA tenderness. [] Extremities: No tenderness, no cyanosis, no clubbing, ROM intact, no edema. [] Neurologic: Alert and oriented X 3, normal motor function, normal sensory function, no focal deficits noted. [] Psychologic: Affect normal, judgement normal, mood normal. [] Current Patient Data: Labs: Laboratory Tests Test 05/04/21 12:53 05/04/21 13:08 05/04/21 14:20 Glucose (Fingerstick) 153 mg/dL White Blood Count 7.5 x10^3/uL Red Blood Count 3.85 x10^6/uL Hemoglobin 11.7 g/dL Hematocrit 36.4 % Mean Corpuscular Volume 95 fL Mean Corpuscular Hemoglobin 30 pg Mean Corpuscular Hemoglobin Concent 32 g/dL Red Cell Distribution Width 14.6 % Platelet Count 255 x10^3/uL Neutrophils (%) (Auto) 83 % Lymphocytes (%) (Auto) 10 % Monocytes (%) (Auto) 7 % Eosinophils (%) (Auto) 0 % Basophils (%) (Auto) 1 % Neutrophils # (Auto) 6.2 x10^3/uL Lymphocytes # (Auto) 0.7 x10^3/uL Monocytes # (Auto) 0.5 x10^3/uL Eosinophils # (Auto) 0.0 x10^3/uL Basophils # (Auto) 0.1 x10^3/uL Sodium Level 147 mmol/L Potassium Level 3.4 mmol/L Chloride Level 105 mmol/L Carbon Dioxide Level 35 mmol/L Anion Gap 7 Blood Urea Nitrogen 21 mg/dL Creatinine 2.4 mg/dL Estimated GFR (Cockcroft-Gault) 32.7 BUN/Creatinine Ratio 9 Glucose Level 151 mg/dL Calcium Level 8.7 mg/dL Magnesium Level 2.3 mg/dL Total Bilirubin 0.5 mg/dL Aspartate Amino Transf (AST/SGOT) 16 U/L Alanine Aminotransferase (ALT/SGPT) 11 U/L Alkaline Phosphatase 60 U/L Total Protein 8.7 g/dL Albumin 2.7 g/dL Albumin/Globulin Ratio 0.5 Urine Collection Type Unknown Urine Color Yellow Urine Clarity Clear Urine pH 7.5 Urine Specific [place] 1.010 Urine Protein Negative mg/dL Urine Glucose (UA) Negative mg/dL Urine Ketones (Stick) Negative mg/dL Urine Blood Small Urine Nitrite Negative Urine Bilirubin Negative Urine Urobilinogen Dipstick 1.0 mg/dL Urine Leukocyte Esterase Small Urine RBC 6-10 /HPF Urine WBC 5-10 /HPF Urine Bacteria 0 /HPF Current Medications Medications (Trade) Dose Ordered Sig/Loyda Route PRN Reason Start Time Stop Time Status Last Admin Dose Admin Potassium Chloride (Klor-Con) 40 meq 1X ONCE PO 05/04/21 14:45 05/04/21 14:46 DC 05/04/21 14:56 Vital Signs: Laboratory Tests Test 05/04/21 12:53 05/04/21 13:08 05/04/21 14:20 Glucose (Fingerstick) 153 mg/dL White Blood Count 7.5 x10^3/uL Red Blood Count 3.85 x10^6/uL Hemoglobin 11.7 g/dL Hematocrit 36.4 % Mean Corpuscular Volume 95 fL Mean Corpuscular Hemoglobin 30 pg Mean Corpuscular Hemoglobin Concent 32 g/dL Red Cell Distribution Width 14.6 % Platelet Count 255 x10^3/uL Neutrophils (%) (Auto) 83 % Lymphocytes (%) (Auto) 10 % Monocytes (%) (Auto) 7 % Eosinophils (%) (Auto) 0 % Basophils (%) (Auto) 1 % Neutrophils # (Auto) 6.2 x10^3/uL Lymphocytes # (Auto) 0.7 x10^3/uL Monocytes # (Auto) 0.5 x10^3/uL Eosinophils # (Auto) 0.0 x10^3/uL Basophils # (Auto) 0.1 x10^3/uL Sodium Level 147 mmol/L Potassium Level 3.4 mmol/L Chloride Level 105 mmol/L Carbon Dioxide Level 35 mmol/L Anion Gap 7 Blood Urea Nitrogen 21 mg/dL Creatinine 2.4 mg/dL Estimated GFR (Cockcroft-Gault) 32.7 BUN/Creatinine Ratio 9 Glucose Level 151 mg/dL Calcium Level 8.7 mg/dL Magnesium Level 2.3 mg/dL Total Bilirubin 0.5 mg/dL Aspartate Amino Transf (AST/SGOT) 16 U/L Alanine Aminotransferase (ALT/SGPT) 11 U/L Alkaline Phosphatase 60 U/L Total Protein 8.7 g/dL Albumin 2.7 g/dL Albumin/Globulin Ratio 0.5 Urine Collection Type Unknown Urine Color Yellow Urine Clarity Clear Urine pH 7.5 Urine Specific [place] 1.010 Urine Protein Negative mg/dL Urine Glucose (UA) Negative mg/dL Urine Ketones (Stick) Negative mg/dL Urine Blood Small Urine Nitrite Negative Urine Bilirubin Negative Urine Urobilinogen Dipstick 1.0 mg/dL Urine Leukocyte Esterase Small Urine RBC 6-10 /HPF Urine WBC 5-10 /HPF Urine Bacteria 0 /HPF Current Medications Medications (Trade) Dose Ordered Sig/Loyda Route PRN Reason Start Time Stop Time Status Last Admin Dose Admin Potassium Chloride (Klor-Con) 40 meq 1X ONCE PO 05/04/21 14:45 05/04/21 14:46 DC 05/04/21 14:56 EKG: EKG: [] Radiology/Procedures: Radiology/Procedures: [] Course & Med Decision Making: Course & Med Decision Making Pertinent Labs and Imaging studies reviewed. (See chart for details) Patient is a 70-year-old male who [facility] to [facility] blood sugar. Patient was given insulin when his blood sugar was 388, he did not eat lunch. His blood sugar was found to be low, patient was given dextrose by EMS, patient was given food in the ER to eat. Patient has been observed in the ER for 3 and half hour, blood sugar has been stabilized. Discussed with the [facility] doctor Dr. Leslie about patient condition and he agreed to take the patient back to the [facility] Dragon Disclaimer: Suni Disclaimer: This electronic medical record was generated, in whole or in part, using a voice recognition dictation system. Departure Departure Impression: Primary Impression: Hypoglycemia due to insulin Disposition: 03 [facility] FACILITY Condition: IMPROVED Referrals: UNKNOWN PCP NAME (PCP) MIREYA LESLIE MD Please follow up with your facilicty doctor this week Patient Instructions: Hypoglycemia (Low Blood Sugar) Additional Instructions: Thank you for visiting our Emergency Department. We appreciate you trusting us with your care. If any additional problems come up don't hesitate to return to visit us. Please follow up with your primary care provider so they can plan additional care if needed and know about the problem that you had. If symptoms worsen come back to the Emergency Department. Any concerning symptoms that start such as chest pain, shortness of air, weakness or numbness on one side of the body, running high fevers or any other concerning symptoms return to the ER. SVETLANA CARVALHO DO May 04, 2021 13:00
[2021-05-04 13:27] LABS: BASO # 0.1 x10^3/uL (0.0-0.2); BASO % 1 % (0-3); EOS % 0 % (0-3); HEMATOCRIT 36.4 % (39.0-53.0); HEMOGLOBIN 11.7 g/dL (13.0-17.5); LYMPH # 0.7 x10^3/uL (1.0-4.8); LYMPH % 10 % (24-48); MEAN CORPUSCULAR HEMOGLOBIN 30 pg (25-35); MEAN CORPUSCULAR HGB CONC 32 g/dL (31-37); MEAN CORPUSCULAR VOLUME 95 fL (79-100); MONO # 0.5 x10^3/uL (0.0-1.1); MONO % 7 % (0-9); NEUT # 6.2 x10^3/uL (1.8-7.7); NEUT % 83 % (31-73); PLATELET COUNT 255 x10^3/uL (140-400); RED BLOOD COUNT 3.85 x10^6/uL (4.30-5.70); RED CELL DISTRIBUTION WIDTH 14.6 % (11.5-14.5); WHITE BLOOD COUNT 7.5 x10^3/uL (4.0-11.0)
[2021-05-04 13:47] LABS: CALCIUM 8.7 mg/dL (8.5-10.1); CREATININE 2.4 mg/dL (0.7-1.3); GFR 32.7; POTASSIUM 3.4 mmol/L (3.5-5.1)
[2021-05-04 13:49] LABS: ALBUMIN 2.7 g/dL (3.4-5.0); ALBUMIN/GLOBULIN RATIO 0.5 (1.0-1.7); MAGNESIUM 2.3 mg/dL (1.8-2.4); TOTAL BILIRUBIN 0.5 mg/dL (0.2-1.0); TOTAL PROTEIN 8.7 g/dL (6.4-8.2)
[2021-05-04 14:29] LABS: BILIRUBIN,URINE NEGATIVE (NEG); CLARITY,URINE CLEAR; COLOR,URINE YELLOW; NITRITE,URINE NEGATIVE (NEG); PH,URINE 7.5 (<5.0-8.0); PROTEIN,URINE NEGATIVE (NEG-TRACE)
[2021-05-04 14:35] LABS: BACTERIA,URINE 0 /HPF (0-FEW)
[2021-05-04] MEDS ORDERED: POTASSIUM CHLORIDE 10 MEQ TABLET.ER. PO ONE (14:45)
[2021-05-04 15:52] VITALS: BP 140/77
--- NOTE | 2021-05-06 02:23 | EKG ---
[facility] [address] [place] [address] Test Date: 2021-05-04 Test Time: 12:49:03 Pat Name: ANAMARIA MAJANO Department: Room: Gender: M Director Public Service: : 1950 Requested By: SVETLANA CARVALHO Order Number: [id number] Reading MD: Freeman Baez MD Measurements Intervals [place] Rate: 64 P: 31 MI: 178 QRS: -8 QRSD: 88 T: 20 QT: 438 QTc: 452 Interpretive Statements SINUS RHYTHM Electronically Signed On 05-07-2021 8:28:34 DOPER by Freeman Baez MD
--- NOTE | 2021-05-09 13:21 | EKG ---
[facility] [address] [place] [address] Test Date: 2021-05-04 Test Time: 12:49:03 Pat Name: ANAMARIA MAJANO Department: Room: Gender: M Rn Critical Care: : 1950 Requested By: SVETLANA CARVALHO Order Number: [id number] Reading MD: Bhupendra Lopez Measurements Intervals [place] Rate: 64 P: 31 VT: 178 QRS: -8 QRSD: 88 T: 20 QT: 438 QTc: 452 Interpretive Statements SINUS RHYTHM Electronically Signed On 05-09-2021 20:04:25 VICE PRESIDENT QUALITY IMPROVEMENT by Bhupendra Lopez
== END 2021-05-04 17:40 ==
LOC: ER 12:42
DX: E10.65 Type 1 diabetes mellitus with hyperglycemia (principal); E10.22 Type 1 diabetes mellitus with diabetic chronic kidney disease; I13.0 Hypertensive heart and chronic kidney disease with heart failure and stage 1 through stage 4 chronic kidney disease, or unspecified chronic kidney disease; N18.9 Chronic kidney disease, unspecified; I50.9 Heart failure, unspecified; F20.9 Schizophrenia, unspecified; Z79.4 Long term (current) use of insulin; Z88.1 Allergy status to other antibiotic agents; Z88.2 Allergy status to sulfonamides
CPT/HCPCS: 36415; 80053; 80177; 81001; 82962; 83735; 85025; 87086; 93005; 99285-25

== ENCOUNTER 2021-06-20 08:50 | Emergency (ER) | payer MEDICARE, MEDICAID ==
[~2021-06-20] VITALS: Ht 177.8 cm; Wt 81.8 kg
--- NOTE | 2021-06-20 09:07 | PHYS DOC ---
Past Medical History Past Medical History: CHF, Diabetes-Type II, Hypertension, Renal Disease, Schizophrenia Additional Past Medical Histor: Schizophrenia Past Surgical History: No Surgical History Additional Past Surgical Histo: SPINAL CORD STIMULATOR, CRAINOTOMY Smoking Status: Never Smoker Alcohol Use: None Drug Use: None General Adult HPI: HPI: Patient is a 70 year old male brought in by EMS from his assisted [facility], reportedly after being found on the floor. The patient denies that he fell. No witnessed fall reported. The staff felt that he might have been altered from his baseline mental status. The patient reports that he feels cold. He denies chest pain, cough, dyspnea. He denies abdominal pain, though he does report he has some mild nausea, no vomiting reported. No reported bowel habit changes. He denies urinary symptoms The facility staff informed EMS that the patient had hypoglycemia, though it sounds like his blood sugar was in the high 60s or 70s. The patient reportedly got up, ate breakfast without difficulty then went back to bed and then EMS was called. On arrival, temperature is not measurable. No reported fever. The patient is a very poor historian, review of systems is somewhat limited secondary to this. Review of Systems: Review of Systems: Limited review of systems, see HPI Heart Score: C/O Chest Pain: No Risk Factors: Risk Factors: DM, Current or recent (<one month) smoker, HTN, HLP, family history of CAD, obesity. Risk Scores: Score 0 - 3: 2.5% MACE over next 6 weeks - Discharge Home Score 4 - 6: 20.3% MACE over next 6 weeks - Admit for Clinical Observation Score 7 - 10: 72.7% MACE over next 6 weeks - Early Invasive Strategies Allergies: Allergies: Allergies Coded Allergies Type Severity Reaction Last Updated Verified sulfamethoxazole Allergy Severe Swelling 08/26/18 Yes trimethoprim Allergy Severe Swelling 08/26/18 Yes Physical Exam: PE: Constitutional: Well developed, well nourished, no acute distress, non-toxic appearance. He is a chronically ill-appearing male, appears slightly older than stated age, manifest no evidence of acute distress, not acutely ill-appearing. HENT: Normocephalic, atraumatic, oropharynx is patent and clear, mucous membranes are moist. No evidence of facial or oral trauma. TMs are clear bilaterally. Nares are patent clear without rhinorrhea epistaxis Eyes: PERRL, EOMI, conjunctiva normal, no discharge. No scleral icterus. Pupils are small but symmetric Neck: Normal range of motion, no tenderness, supple, no stridor. No meningismus. No midline tenderness or step-offs. Trachea is midline. No JVD Cardiovascular:Heart rate regular rhythm, +2 radial and +2 posterior tibial pulses bilaterally Lungs & Thorax: Bilateral breath sounds clear to auscultation, mildly diminished breath sounds in bilateral bases. Equal chest rise. No evidence of chest or thorax trauma. No wheezing, rales, rhonchi. No stridor. No evidence of respiratory distress Abdomen: Abdomen is soft, mildly distended, obese, mildly tender to palpation epigastrium, no guarding, no rigidity, no rebound tenderness. Hypoactive bowel sounds. No palpable pulsatile mass. Hepatomegaly is noted. No evidence of abdominal or thorax or flank trauma or ecchymoses Skin: Warm, dry, no erythema, no rash. Electively poor skin turgor. No jaundice. Back: No formerly, limited range of motion. No step-offs Extremities: No tenderness, no cyanosis, no clubbing, ROM intact, no edema. Pelvis is stable. No calf tenderness. No limb deformity, no bony tenderness. Neurologic: Patient is awake, alert, oriented to person, "hospital," does not know specific date or year, this is reportedly baseline for him. He follows commands. Cranial nerves II through XII grossly intact. 5 out of 5 motor strength all 4 extremities. Sensation is grossly intact. Speech is clear and fluent. Psychologic: Affect is flat, he is cooperative Current Patient Data: Labs: Laboratory Tests Test 06/20/21 08:59 Glucose (Fingerstick) 152 mg/dL (70-99) H EKG: EKG: EKG is interpreted at 1004 Rhythm is sinus Rate is 88 bpm [place] is left No STEMI Radiology/Procedures: Radiology/Procedures: CT imaging reads are not coming through on the computer, so the tech walked a paper read over to me, exam findings as follows: On CT head and cervical spine, per Dr. Torres Hebert: #1 no acute intracranial process. #2 no acute osseous process in the cervical spine. #3 suggestion of lucency about right C7 screw, similar to prior exam Or for other chronic/incidental findings, as described above IMAGING REPORT Signed PATIENT: ANAMARIA MAJANO ACCOUNT: [id number] : 1950 LOCATION: ER AGE: 70 SEX: M EXAM STATUS: REG ER ORD. PHYSICIAN: BLAYNE POLLOCK DO REASON: weakness PROCEDURE: PORTABLE CHEST 1V EXAMINATION: Chest radiograph. VIEWS: Single AP view of the chest COMPARISON: Chest radiograph from 04/19/2021 INDICATION:70 years, Male, weakness. FINDINGS: Lungs are hypoinflated. Heart size appears mildly enlarged when compared to priors. Similar mild prominence of the interstitial markings. New patchy bilateral perihilar opacities. Partial obscuration of the left costophrenic angle and cardiac silhouette system with small pleural effusion. No pneumothorax. No acute osseous abnormalities. IMPRESSION: 1. Hypoventilatory effort. Mildly enlarged cardiac silhouette. Patchy bilateral perihilar opacities may represent interstitial pulmonary edema, atelectasis, or infiltrates. 2. Small left pleural effusion. Electronically signed by: Hakan Nelson DO (06/20/2021 9:46 AM) [id number] DICTATED and SIGNED BY: HAKAN NELSON DO DATE: 06/20/21 0940 IMAGING REPORT Signed PATIENT: ANAMARIA MAJANO ACCOUNT: [id number] : 1950 LOCATION: ER AGE: 70 SEX: M EXAM STATUS: REG ER ORD. PHYSICIAN: BLAYNE POLLOCK DO REASON: weakness, ?fall PROCEDURE: CT HEAD AND CERVICAL SPINE WO EXAMINATION: CT head and cervical spine without IV contrast. INDICATION:70 years, Male, falling down. COMPARISON: 02/18/2021 TECHNIQUE: Spiral acquisition of contiguous images from the skull base to the vertex were obtained. CT of the cervical spine was obtained using contiguous spiral imaging from the skull base to the upper thoracic level. Sagittal and coronal 2D reformatted series were provided by the technologist. Soft tissue and bone window algorithms were reviewed. Exposure: One or more of the following individualized dose reduction techniques were utilized for this examination: 1. Automated exposure control 2. Adjustment of the mA and/or kV according to patient size 3. Use of iterative reconstruction technique. FINDINGS: CT HEAD: Neither mass, midline shift, intracranial hemorrhage, acute/subacute ischemic changes, nor extraaxial fluid collections are seen. Moderate brain parenchymal volume loss. Redemonstrated encephalomalacias in the left temporal lobe and right inferior frontal lobe. Similar chronic lacunar infarct in either right caudate nucleus. Supratentorial periventricular white matter hypodensities, indeterminate but most likely representing chronic microangiopathic disease. The paranasal sinuses, mastoid air cells, and middle ears are clear. The orbital contents appear within normal limits. Left temporal craniotomy changes. CT CERVICAL SPINE: Posterior hardware instrumentation with laminectomy changes at C3-C7. There is a 3 mm lucency adjacent to the right C7 screw, unchanged since prior exam. Similar cervical kyphosis centered at C3. Osseous fusion of the C3 and C4 vertebral bodies. Grade 1 anterolisthesis of C2 over C3. Neither fracture, subluxation, nor traumatic spondylolisthesis is seen. The vertebral body heights are preserved. Severe multilevel degenerative changes with disc space narrowing, endplate erosions and osteophytes. Vacuum disc phenomena at C6-C7. Multilevel bilateral facet and uncovertebral arthropathy. There is no evidence of a large intraspinal hematoma. The prevertebral and paravertebral soft tissues are within normal limits. IMPRESSION: 1. No acute intracranial process. 2. No acute osseous process in the cervical spine. 3. Suggestion of lucency about right C7 screw, similar to prior exam. 4. Other chronic/incidental findings, as described above. Electronically signed by: Torres Hebert MD (06/20/2021 10:05 AM) [id number] DICTATED and SIGNED BY: TORRES HEBERT MD DATE: 06/20/21 0956 IMAGING REPORT Signed PATIENT: ANAMARIA MAJANO ACCOUNT: [id number] : 1950 LOCATION: ER AGE: 70 SEX: M EXAM STATUS: REG ER ORD. PHYSICIAN: BLAYNE POLLOCK DO REASON: abd distension, nausea PROCEDURE: CT ABDOMEN PELVIS WO CONTRAST CT ABDOMEN+PELVIS WO History: Reason: abd distension, nausea / Spl. Instructions: / History: Technique: CT imaging was performed of the abdomen and pelvis. Multiplanar images are reviewed. Without IV or oral contrast Exposure: One or more of the following individualized dose reduction techniques were utilized for this examination: 1. Automated exposure control 2. Adjustment of the mA and/or kV according to patient size 3. Use of iterative reconstruction technique. Comparison: CT abdomen pelvis from 11/12/2016 Findings: Lower chest: Moderate bibasilar subsegmental atelectasis and/or scarring. No focal airspace consolidation or pleural effusion.. Abdomen and pelvis: The evaluation of the solid organs is limited due to lack of IV contrast. The evaluation of bowel is limited due to lack of oral contrast. No focal hepatic abnormality. Single calcified gallstone is seen in the gallbladder. No evidence of acute cholecystitis. No significant biliary ductal dilation. The spleen, adrenals, and pancreas are unremarkable. The kidneys redemonstrate multiple round hypodensities within both kidneys, incompletely characterized on this study, however these appear similar dating back to 2017 favoring benign cysts. There are scattered subcentimeter hypoattenuating foci, too small to characterize possibly representing hemorrhage/proteinaceous material within benign cysts. Nonspecific bilateral perinephric stranding, relatively similar from prior. No obstructing nephrolithiasis or hydroureteronephrosis. Metallic coils adjacent to the pancreas likely represent prior vascular embolization. Mild distal esophageal wall thickening with hyperattenuating intraluminal debris may relate to reflux dysphagia process. There is a moderate to large amount of mixed attenuating material within the stomach. No evidence of obstruction of the small or large bowel. Appendix is normal. There is a large colorectal stool burden with no definite pericolonic or rectal fat stranding. No free intra- abdominal air or free fluid. No pathologically enlarged abdominal or pelvic adenopathy. Aorta is normal in caliber with mild atherosclerotic calcifications present. No evidence of aneurysmal. Urinary bladder is unremarkable. Likely multiple pelvic phleboliths. Small fat- containing periumbilical hernia. Electronic device overlying the left posterior flank with leads extending into the presacral area. Bones: No pathologic osseous lesions or acute fracture. Redemonstrate postoperative changes of posterior fusion instrumentation at the 4 S1 levels similar vertebroplasty changes at the L3 level. Impression: 1. Moderate to large amount of mixed attenuation material within the stomach. This could represent ingested material. Differential also includes blood products from possible gastric ulcer. This is not well evaluated on CT. No evidence of perforation. Mild distal esophageal wall thickening may relate to reflux dysphagia process. Further evaluation with upper endoscopy could be of benefit. 2. Large retention of colonic fecal material. No evidence of obstruction. Correlate with symptoms of constipation. 3. Cholelithiasis. 4. Overall similar appearance of multiple bilateral renal hypodensities with associated subcentimeter bilateral hypoattenuating foci. These were previously evaluated with renal ultrasound 1 02/19/2021 and deemed to be benign renal cysts. Electronically signed by: Hakan Nelson DO (06/20/2021 12:42 PM) [id number] Course & Med Decision Making: Course & Med Decision Making Pertinent Labs and Imaging studies reviewed. (See chart for details) The patient is observed in the ED. He is placed under Angella hugger warmer, his temperature is normal. He continues to deny any complaints. Imaging studies are unremarkable for any acute process. CT did not demonstrate large volume of stool, but the patient had very large bowel movement. He is not complaining of any pain or discomfort, he reports that he wants to go home. He is requesting something to eat and drink. Emergency department work-up is unremarkable for any acute life-threatening process, no indication for further invasive exams, imaging or admission at this time. He will be discharged back to his assisted facility. Return precautions are provided. Dragon Disclaimer: Dragprecious Disclaimer: This electronic medical record was generated, in whole or in part, using a voice recognition dictation system. Departure Departure Impression: Primary Impression: Fall at long term Qualified Codes: W19.XXXA - Unspecified fall, initial encounter; Y92.129 - Unspecified place in long term as the place of occurrence of the external cause Additional Impressions: Constipation Qualified Codes: K59.00 - Constipation, unspecified Low body temperature Disposition: 03 ALF FACILITY Condition: STABLE Referrals: UNKNOWN PCP NAME (PCP) Patient Instructions: Constipation, Adult, Fall Prevention and Home Safety, Fall Prevention in Hospitals Additional Instructions: Return to the ER for chest pain, shortness of breath, severe abdominal pain, vomiting, focal weakness, acute mental status changes, if you are acutely injured or sustained any trauma or for any other concerns. Please follow-up with your primary care doctor. BLAYNE POLLOCK DO Jun 20, 2021 09:07
[2021-06-20 09:55] LABS: BACTERIA,URINE 0 /HPF (0-FEW); RBC,URINE 0 /HPF (0-2); WBC,URINE OCC /HPF (0-4)
[2021-06-20 10:52] LABS: BASO % 0 % (0-3); EOS % 0 % (0-3); HEMATOCRIT 35.1 % (39.0-53.0); HEMOGLOBIN 11.2 g/dL (13.0-17.5); LYMPH # 0.7 x10^3/uL (1.0-4.8); LYMPH % 12 % (24-48); MEAN CORPUSCULAR HEMOGLOBIN 30 pg (25-35); MEAN CORPUSCULAR HGB CONC 32 g/dL (31-37); MEAN CORPUSCULAR VOLUME 93 fL (79-100); MONO # 0.2 x10^3/uL (0.0-1.1); MONO % 3 % (0-9); NEUT # 5.4 x10^3/uL (1.8-7.7); NEUT % 85 % (31-73); PLATELET COUNT 103 x10^3/uL (140-400); RED BLOOD COUNT 3.76 x10^6/uL (4.30-5.70); RED CELL DISTRIBUTION WIDTH 15.8 % (11.5-14.5); WHITE BLOOD COUNT 6.4 x10^3/uL (4.0-11.0)
[2021-06-20 11:01] LABS: CALCIUM 8.6 mg/dL (8.5-10.1); CREATININE 2.2 mg/dL (0.7-1.3); GFR 36.2; POTASSIUM 3.9 mmol/L (3.5-5.1)
[2021-06-20 11:07] LABS: ALBUMIN 3.6 g/dL (3.4-5.0); ALBUMIN/GLOBULIN RATIO 0.8 (1.0-1.7); MAGNESIUM 1.9 mg/dL (1.8-2.4); PHOSPHORUS 4.3 mg/dL (2.6-4.7); TOTAL BILIRUBIN 0.7 mg/dL (0.2-1.0); TOTAL PROTEIN 7.9 g/dL (6.4-8.2)
--- NOTE | 2021-06-20 11:23 | RAD ---
EXAMINATION: Chest radiograph. VIEWS: Single AP view of the chest COMPARISON: Chest radiograph from 04/19/2021 INDICATION:70 years, Male, weakness. FINDINGS: Lungs are hypoinflated. Heart size appears mildly enlarged when compared to priors. Similar mild prom inence of the interstitial markings. New patchy bilateral perihilar opacities. Partial obscuration of the left costophrenic angle and cardiac silhouette system with small pleural effusion. No pneumothor ax. No acute osseous abnormalities. IMPRESSION: 1. Hypoventilatory effort. Mildly enlarged cardiac silhouette. Patchy bilateral perihilar opacities m ay represent interstitial pulmonary edema, atelectasis, or infiltrates. 2. Small left pleural effusion. Electronically signed by: Austin Nelson DO (06/20/2021 9:46 AM) [id number]
--- NOTE | 2021-06-20 11:23 | RAD ---
EXAMINATION: CT head and cervical spine without IV contrast. INDICATION:70 years, Male, falling down. COMPARISON: 02/18/2021 TECHNIQUE: Spiral acquisition of contiguous images from the skull base to the vertex were obtained. C T of the cervical spine was obtained using contiguous spiral imaging from the skull base to the upper thoracic level. Sagittal and coronal 2D reformatted series were provided by the technologist. Soft t issue and bone window algorithms were reviewed. Exposure: One or more of the following individualized dose reduction techniques were utilized for thi s examination: 1. Automated exposure control 2. Adjustment of the mA and/or kV according to patient size 3. Use of iterative reconstruction technique. FINDINGS: CT HEAD: Neither mass, midline shift, intracranial hemorrhage, acute/subacute ischemic changes, nor extraaxial fluid collections are seen. Moderate brain parenchymal volume loss. Redemonstrated encephalomalacias in the left temporal lobe and right inferior frontal lobe. Similar chronic lacunar infarct in either right caudate nucleus. Supratentorial periventricular white matter hypodensities, indeterminate but most likely representing chronic microangiopathic disease. The paranasal sinuses, mastoid air cells, and middle ears are clear. The orbital contents appear within normal limits. Left temporal craniotomy changes. CT CERVICAL SPINE: Posterior hardware instrumentation with laminectomy changes at C3-C7. There is a 3 mm lucency adjacen t to the right C7 screw, unchanged since prior exam. Similar cervical kyphosis centered at C3. Osseou s fusion of the C3 and C4 vertebral bodies. Grade 1 anterolisthesis of C2 over C3. Neither fracture, subluxation, nor traumatic spondylolisthesis is seen. The vertebral body heights are preserved. Sever e multilevel degenerative changes with disc space narrowing, endplate erosions and osteophytes. Vacuu m disc phenomena at C6-C7. Multilevel bilateral facet and uncovertebral arthropathy. There is no evid ence of a large intraspinal hematoma. The prevertebral and paravertebral soft tissues are within norm al limits. IMPRESSION: 1. No acute intracranial process. 2. No acute osseous process in the cervical spine. 3. Suggestion of lucency about right C7 screw, similar to prior exam. 4. Other chronic/incidental findings, as described above. Electronically signed by: Avis Hebert MD (06/20/2021 10:05 AM) [id number]
--- NOTE | 2021-06-20 12:45 | RAD ---
CT ABDOMEN+PELVIS WO History: Reason: abd distension, nausea / Spl. Instructions: / History: Technique: CT imaging was performed of the abdomen and pelvis. Multiplanar images are reviewed. Wit hout IV or oral contrast Exposure: One or more of the following individualized dose reduction techniques were utilized for thi s examination: 1. Automated exposure control 2. Adjustment of the mA and/or kV according to patient size 3. Use of iterative reconstruction technique. Comparison: CT abdomen pelvis from 11/12/2016 Findings: Lower chest: Moderate bibasilar subsegmental atelectasis and/or scarring. No focal airspace consolida tion or pleural effusion.. Abdomen and pelvis: The evaluation of the solid organs is limited due to lack of IV contrast. The evaluation of bowel is limited due to lack of oral contrast. No focal hepatic abnormality. Single calcified gallstone is seen in the gallbladder. No evidence of a cute cholecystitis. No significant biliary ductal dilation. The spleen, adrenals, and pancreas are un remarkable. The kidneys redemonstrate multiple round hypodensities within both kidneys, incompletely characterize d on this study, however these appear similar dating back to 2017 favoring benign cysts. There are sc attered subcentimeter hypoattenuating foci, too small to characterize possibly representing hemorrhag e/proteinaceous material within benign cysts. Nonspecific bilateral perinephric stranding, relatively similar from prior. No obstructing nephrolithiasis or hydroureteronephrosis. Metallic coils adjacent to the pancreas likely represent prior vascular embolization. Mild distal esophageal wall thickening with hyperattenuating intraluminal debris may relate to reflux dysphagia process. There is a moderate to large amount of mixed attenuating material within the stom ach. No evidence of obstruction of the small or large bowel. Appendix is normal. There is a large col orectal stool burden with no definite pericolonic or rectal fat stranding. No free intra-abdominal ai r or free fluid. No pathologically enlarged abdominal or pelvic adenopathy. Aorta is normal in caliber with mild atherosclerotic calcifications present. No evidence of aneurysma l. Urinary bladder is unremarkable. Likely multiple pelvic phleboliths. Small fat-containing periumbilic al hernia. Electronic device overlying the left posterior flank with leads extending into the presacr al area. Bones: No pathologic osseous lesions or acute fracture. Redemonstrate postoperative changes of marketing information analyst ior fusion instrumentation at the 4 S1 levels similar vertebroplasty changes at the L3 level. Impression: 1. Moderate to large amount of mixed attenuation material within the stomach. This could represent in gested material. Differential also includes blood products from possible gastric ulcer. This is not w ell evaluated on CT. No evidence of perforation. Mild distal esophageal wall thickening may relate to reflux dysphagia process. Further evaluation with upper endoscopy could be of benefit. 2. Large retention of colonic fecal material. No evidence of obstruction. Correlate with symptoms of constipation. 3. Cholelithiasis. 4. Overall similar appearance of multiple bilateral renal hypodensities with associated subcentimeter bilateral hypoattenuating foci. These were previously evaluated with renal ultrasound 1 02/19/2021 a nd deemed to be benign renal cysts. Electronically signed by: Austin Nelson DO (06/20/2021 12:42 PM) [id number]
[2021-06-20 14:25] VITALS: BP 160/86
--- NOTE | 2021-06-21 07:26 | EKG ---
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
== END 2021-06-20 15:09 | disposition home or self-care (01) ==
LOC: ER 08:50
DX: R51.9 Headache, unspecified (principal); M54.2 Cervicalgia; K59.00 Constipation, unspecified; K80.20 Calculus of gallbladder without cholecystitis without obstruction; G89.11 Acute pain due to trauma; R07.89 Other chest pain; E11.649 Type 2 diabetes mellitus with hypoglycemia without coma; F20.9 Schizophrenia, unspecified; E11.22 Type 2 diabetes mellitus with diabetic chronic kidney disease; I13.0 Hypertensive heart and chronic kidney disease with heart failure and stage 1 through stage 4 chronic kidney disease, or unspecified chronic kidney disease; N18.9 Chronic kidney disease, unspecified; I50.9 Heart failure, unspecified; Z88.1 Allergy status to other antibiotic agents; Z88.2 Allergy status to sulfonamides; W18.39XA Other fall on same level, initial encounter; Y93.89 Activity, other specified; Y92.128 Other place in nursing home as the place of occurrence of the external cause; Y99.8 Other external cause status
CPT/HCPCS: 36415; 70450; 71045; 72125; 74176; 80053; 81001; 82140; 82550; 82962; 83605; 83690; 83735; 84100; 84484; 85025; 87040; 93005; 99285-25

== ENCOUNTER 2021-07-12 21:46 | Emergency (ER) | payer MEDICARE, MEDICAID ==
[~2021-07-12] VITALS: Ht 175.3 cm; Wt 89.4 kg
[~2021-07-12 21:46] MED LIST changes: -ACET1TAB33 PO; +ACET1TAB56 PO
--- NOTE | 2021-07-12 23:09 | PHYS DOC ---
Past Medical History Past Medical History: CHF, Diabetes-Type II, Hypertension, Renal Disease, Schizophrenia Additional Past Medical Histor: Schizophrenia Past Surgical History: No Surgical History Additional Past Surgical Histo: SPINAL CORD STIMULATOR, CRAINOTOMY Smoking Status: Never Smoker Alcohol Use: None Drug Use: None Adult General Chief Complaint Chief Complaint: HYPERGLYCEMIA HPI HPI The patient is a 70-year-old male with a history of hypertension, hyperlipidemia, some degree of heart failure (likely diastolic per last echo results from 2018), insulin-dependent diabetes on nighttime Lantus but not on a daily mealtime insulin. Patient was recently at [facility] for rehabilitation after an episode of sepsis due to E. coli. bacteremia. Mr. Faust presents to the emergency department with 2 concerns. First, blood glucose was noted to be in the 400s at home prior to arrival. Second, patient has had some mild swelling to his left foot for at least a month. Contrary to the triage note, he denies any new pain to the left foot and states it does not hurt. He is just a little frustrated as he cannot get a normal sized shoe on. Son called what sounds like a nurse advice line and was directed to the emergency department for further evaluation of these concerns. Patient and his son deny fevers, nausea or vomiting, diminished oral intake, upper respiratory congestion/rhinorrhea, cough, sore throat, shortness of breath or chest pain of any kind, abdominal pain of any kind, flank pain, midline back pain, dysuria, hematuria, polyuria or oliguria, changes in bowel habits. Vital signs are appropriate here and the patient is in no acute distress. Review of Systems Review of Systems A 12 point review of systems was completed and was negative except where noted in HPI above. Current Medications Current Medications Current Medications Medications (Trade) Dose Ordered Sig/Loyda Start Time Stop Time Status Last Admin Dose Admin Insulin Human Regular (HumuLIN R VIAL) 7 unit ONCE ONCE 07/13/21 01:00 07/13/21 01:01 DC 07/13/21 00:45 7 UNIT Sodium Chloride 1,000 ml @ 1,000 mls/hr 1X ONCE 07/13/21 01:00 07/13/21 01:59 DC 07/13/21 00:37 1,000 MLS/HR Allergies Allergies Allergies Coded Allergies Type Severity Reaction Last Updated Verified sulfamethoxazole Allergy Severe Swelling 08/26/18 Yes trimethoprim Allergy Severe Swelling 08/26/18 Yes Physical Exam Physical Exam 70-year-old male appearing nontoxic and in no acute distress. Head is normocephalic and atraumatic. Neck is supple and nontender. Oropharynx is ber[address]. Lungs are clear to auscultation at all stations. There is a normal S1 and S2 without rubs or gallops and capillary refill is appropriate, less than 2 seconds globally. Abdomen is soft, nontender and nondistended. No pulsatile abdominal mass. Skin is warm and dry without cyanosis, clubbing or edema. Psychiatrically, the patient demonstrates appropriate mood and affect and is alert. Evaluation of the extremities is remarkable for 1+ DP and PT pulse on the left and 2+ DP and PT pulse on the right. No erythema, warmth or tenderness to the distal left lower extremity but there are chronic changes to the midfoot medially which are somewhat suspicious for Charcot foot deformity. No dis comfort with ranging of any joint of the BUEs or BLEs. All compartments of all extremities are soft. No calf tenderness or swelling bilaterally. Aside from the diminished pulses noted to the distal LLE, bilateral radial and right DP and PT pulse are 2+. Current Patient Data Vital Signs Vital Signs Date Time Temp Pulse Resp B/P (MAP) Pulse Ox O2 Delivery O2 Flow Rate FiO2 07/13/21 01:12 76 20 150/85 (106) 100 Room Air 07/12/21 22:00 98.2 98.2 Lab Values Laboratory Tests Test 07/12/21 22:20 07/12/21 23:40 07/13/21 00:05 Glucose (Fingerstick) 342 mg/dL (70-99) H White Blood Count 4.5 x10^3/uL (4.0-11.0) Red Blood Count 3.40 x10^6/uL (4.30-5.70) L Hemoglobin 10.4 g/dL (13.0-17.5) L Hematocrit 31.4 % (39.0-53.0) L Mean Corpuscular Volume 93 fL (79-100) Mean Corpuscular Hemoglobin 31 pg (25-35) Mean Corpuscular Hemoglobin Concent 33 g/dL (31-37) Red Cell Distribution Width 15.4 % (11.5-14.5) H Platelet Count 104 x10^3/uL (140-400) L Neutrophils (%) (Auto) 62 % (31-73) Lymphocytes (%) (Auto) 24 % (24-48) Monocytes (%) (Auto) 11 % (0-9) H Eosinophils (%) (Auto) 2 % (0-3) Basophils (%) (Auto) 1 % (0-3) Neutrophils # (Auto) 2.8 x10^3/uL (1.8-7.7) Lymphocytes # (Auto) 1.1 x10^3/uL (1.0-4.8) Monocytes # (Auto) 0.5 x10^3/uL (0.0-1.1) Eosinophils # (Auto) 0.1 x10^3/uL (0.0-0.7) Basophils # (Auto) 0.0 x10^3/uL (0.0-0.2) Sodium Level 135 mmol/L (136-145) L Potassium Level 4.7 mmol/L (3.5-5.1) Chloride Level 102 mmol/L (98-107) Carbon Dioxide Level 26 mmol/L (21-32) Anion Gap 7 (6-14) Blood Urea Nitrogen 38 mg/dL (8-26) H Creatinine 2.7 mg/dL (0.7-1.3) H Estimated GFR (Cockcroft-Gault) 28.6 Glucose Level 329 mg/dL (70-99) H Calcium Level 8.4 mg/dL (8.5-10.1) L Urine Collection Type Unknown Urine Color (Auto) Light yellow Urine Turbidity Clear Urine pH (Auto) 5.5 (<5.0-8.0) Urine Specific [place] 1.017 (1.000-1.030) Urine Protein (Auto) 30 mg/dL (Negative) Urine Glucose (Auto)(UA) >=1000 mg/dL (Negative) Urine Ketones (Auto) Negative mg/dL (Negative) Urine Blood (Auto) Negative (Negative) Urine Nitrite Negative (Negative) Urine Bilirubin (Auto) Negative (Negative) Urine Urobilinogen (Auto) Normal mg/dL (Normal) Urine Leukocyte Esterase (Auto) Negative (Negative) Urine RBC 0 /HPF (0-2) Urine WBC 1-4 /HPF (0-4) Urine Squamous Epithelial Cells Mod /LPF Urine Bacteria 0 /HPF (0-FEW) Urine Hyaline Casts Few /HPF Urine Mucus Slight /LPF Laboratory Tests 07/12/21 23:40 Laboratory Tests 07/12/21 23:40 EKG EKG [] Radiology/Procedures Radiology/Procedures INDICATION: Reason: LLE pain and swelling, diminished pulses to distal LLE rel ative to RLE / Spl. Instructions: / History: COMPARISON: None. FINDINGS: Spectral Doppler, color and grayscale ultrasound images are obtained of the left leg arterial system. Calcific atherosclerosis is seen throughout the vasculature. There is biphasic or triphasic waveforms seen throughout the left leg arterial system including the left common femoral, superficial femoral, popliteal arteries as well as the visualized calf vessels. Mild blunting of the waveforms within the calf. Luminal irregularity is seen which could be from plaque. IMPRESSION: * There is some mild blunting of the waveforms within the left calf vessels which could be from more proximal regions of plaque. No high-grade stenosis or occlusion is seen of the major arterial vessels. Electronically signed by: Gene Bhatia MD (07/12/2021 11:49 PM) [facility] [id number] DICTATED and SIGNED BY: GENE BHATIA MD DATE: 07/12/21 7553 INDICATION: Reason: LLE swelling x1 month / Spl. Instructions: / History: COMPARISON: September 2012 TECHNIQUE: Grayscale, color and doppler ultrasound images were obtained of the left lower extremity venous vasculature. LEFT: No thrombus identified in the common femoral vein, femoral vein, popliteal vein or visualized calf veins. IMPRESSION: * No thrombus identified in deep venous system of the left lower extremity. Electronically signed by: Gene Bhatia MD (07/12/2021 11:46 PM) [employer]- [id number] DICTATED and SIGNED BY: GENE BHATIA MD DATE: 07/12/21 2820 Left ankle x-rays 3 views HISTORY: Left leg swelling. FINDINGS: Mild soft tissue edema and swelling. Arterial vascular calcifications. No fracture. No dislocation. No bone lesion. IMPRESSION: No acute osseous injury of the ankle. Left foot x-rays 3 views HISTORY: Left leg swelling. FINDINGS: Mild soft tissue swelling. Arteriovascular calcifications. There is abnormal flat foot deformity with pes planus, there is widening at the Lisfranc ligament between the medial piriform and base of the second metatarsal, unilateral subluxation of the second metatarsal at the TMT joint, and there is bony sclerosis and articular ossicles at the TMT joints with some disorganization present this may indicate chronic neuropathic joint. No acute fracture evident. 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 Electronically signed by: Joanne Roper MD (07/13/2021 1:19 AM) [facility] [place] DICTATED and SIGNED BY: JOANNE ROPER MD DATE: 07/13/21114 Course & Med Decision Making Course & Med Decision Making Well-appearing elderly comorbid gentleman with normal vital signs presenting for evaluation of elevated blood glucose and some problems with his left foot for at least the last month (nothing new or different today, and no pain today contrary to the triage note). To address patient's concern about hyperglycemia, will check basic labs and urine. To address patient's concern about chronic foot changes, will obtain plain films and, given diminished pulses and mild swelling, will obtain arterial and venous Doppler studies of the affected extremity. We will then reevaluate. 0215: Labs and imaging as above. Labs are remarkable only for mild acute on chronic renal insufficiency (baseline creatinine slightly lower than the patient's current value), which has been addressed with a liter of fluid bolus. Imaging remarkable for evidence of mild Charcot foot on the left, in context likely the explanation for patient's chronic left foot deformity. I offered the patient admission for hydration and renal function monitoring but he would much prefer to go home and get some rest and follow-up closely with his doctor in the next 1 to 2 days, which I feel is reasonable. Blood sugar has come down after insulin and fluids. Patient ambulatory with a narrow, steady gait here in the emergency department. Will provide a postoperative shoe for use on the left. Patient and his son understand that if he feels worse instead of better or develops other new symptoms of concern that he should return to the emergency department immediately for reevaluation. All questions are answered. Dragon Disclaimer Dragon Disclaimer This electronic medical record was generated, in whole or in part, using a voice recognition dictation system. Departure Departure Impression: Primary Impression: Hyperglycemia due to type 2 diabetes mellitus Additional Impressions: Acute on chronic renal insufficiency Charcot's joint of left foot Disposition: HOME / SELF CARE / HOMELESS Condition: IMPROVED Referrals: MIREYA LESLIE MD (PCP) Patient Instructions: Chronic Renal Insufficiency, Hyperglycemia Additional Instructions: Follow-up very closely with your primary care doctor in the office in the next 1 to 2 days for reevaluation of your symptoms and a discussion of next best steps in care. Your kidney function was a little worse than usual today. We have addressed this with IV fluids but it is very important that you have your kidney function rechecked by your primary doctor at your upcoming close follow-up appointment. Drink plenty of fluids to stay hydrated and get plenty of rest. Take your home insulin as prescribed and make sure to discuss with your doctor whether or not you need a change in your insulin regimen. Your left foot is a little deformed due to chronic changes in the bones that have to do with your diabetic neuropathy. This is called Charcot foot or neuropathic foot. Special shoes can help. You should discuss all of this with your doctor at your upcoming appointment. Return to the emergency department right away for worsening symptoms of any kind or with any other new symptoms of concern. 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
--- NOTE | 2021-07-12 23:49 | RAD ---
INDICATION: Reason: LLE swelling x1 month / Spl. Instructions: / History: COMPARISON: September 2012 TECHNIQUE: Grayscale, color and doppler ultrasound images were obtained of the left lower extremity v enous vasculature. LEFT: No thrombus identified in the common femoral vein, femoral vein, popliteal vein or visualized calf ve ins. IMPRESSION: * No thrombus identified in deep venous system of the left lower extremity. Electronically signed by: Checo Blackwell MD (07/12/2021 11:46 PM) [id number]
--- NOTE | 2021-07-12 23:51 | RAD ---
INDICATION: Reason: LLE pain and swelling, diminished pulses to distal LLE relative to RLE / Spl. In structions: / History: COMPARISON: None. FINDINGS: Spectral Doppler, color and grayscale ultrasound images are obtained of the left leg arterial system. Calcific atherosclerosis is seen throughout the vasculature. There is biphasic or triphasic waveforms seen throughout the left leg arterial system including the left common femoral, superficial femoral, popliteal arteries as well as the visualized calf vessels. Mild blunting of the waveforms within the calf. Luminal irregularity is seen which could be from plaque. IMPRESSION: * There is some mild blunting of the waveforms within the left calf vessels which could be from mor e proximal regions of plaque. No high-grade stenosis or occlusion is seen of the major arterial vesse ls. Electronically signed by: Checo Blackwell MD (07/12/2021 11:49 PM) [id number]
[2021-07-12 23:53] LABS: BASO % 1 % (0-3); EOS # 0.1 x10^3/uL (0.0-0.7); EOS % 2 % (0-3); HEMATOCRIT 31.4 % (39.0-53.0); HEMOGLOBIN 10.4 g/dL (13.0-17.5); LYMPH # 1.1 x10^3/uL (1.0-4.8); LYMPH % 24 % (24-48); MEAN CORPUSCULAR HEMOGLOBIN 31 pg (25-35); MEAN CORPUSCULAR HGB CONC 33 g/dL (31-37); MEAN CORPUSCULAR VOLUME 93 fL (79-100); MONO # 0.5 x10^3/uL (0.0-1.1); MONO % 11 % (0-9); NEUT # 2.8 x10^3/uL (1.8-7.7); NEUT % 62 % (31-73); PLATELET COUNT 104 x10^3/uL (140-400); RED CELL DISTRIBUTION WIDTH 15.4 % (11.5-14.5); WHITE BLOOD COUNT 4.5 x10^3/uL (4.0-11.0)
[2021-07-13 00:07] LABS: CALCIUM 8.4 mg/dL (8.5-10.1); CREATININE 2.7 mg/dL (0.7-1.3); GFR 28.6; POTASSIUM 4.7 mmol/L (3.5-5.1)
[2021-07-13 00:35] LABS: BACTERIA,URINE 0 /HPF (0-FEW); RBC,URINE 0 /HPF (0-2)
[2021-07-13 00:36] LABS: HYALINE CASTS, URINE FEW /HPF
[2021-07-13] MEDS ORDERED: INSULIN REGULAR 100 UNIT/ML 3ML VIAL. IV ONE (01:00)
[2021-07-13] MEDS ORDERED: IV NORMAL SALINE 1000ML BAG 1,000 ML IV ONE (01:00)
--- NOTE | 2021-07-13 01:22 | RAD ---
Left ankle x-rays 3 views HISTORY: Left leg swelling. FINDINGS: Mild soft tissue edema and swelling. Arterial vascular calcifications. No fracture. No disl ocation. No bone lesion. IMPRESSION: No acute osseous injury of the ankle. Left foot x-rays 3 views HISTORY: Left leg swelling. FINDINGS: Mild soft tissue swelling. Arteriovascular calcifications. There is abnormal flat foot defo rmity with pes planus, there is widening at the Lisfranc ligament between the medial piriform and bas e of the second metatarsal, unilateral subluxation of the second metatarsal at the TMT joint, and the re is bony sclerosis and articular ossicles at the TMT joints with some disorganization present this may indicate chronic neuropathic joint. No acute fracture evident. IMPRESSION: Probably changes of chronic neuropathic joint with disruption of the Lisfranc ligament wi th lateral subluxation of the second metatarsal at the TMT joint, periarticular ossicles and disorgan ization of the TMT joints. Electronically signed by: Ryna Roper MD (07/13/2021 1:19 AM) [facility]
[2021-07-13 02:12] VITALS: BP 158/82
== END 2021-07-13 02:35 | disposition home or self-care (01) ==
LOC: ER 21:46
DX: E11.65 Type 2 diabetes mellitus with hyperglycemia (principal); E11.22 Type 2 diabetes mellitus with diabetic chronic kidney disease; I13.0 Hypertensive heart and chronic kidney disease with heart failure and stage 1 through stage 4 chronic kidney disease, or unspecified chronic kidney disease; N18.9 Chronic kidney disease, unspecified; I50.9 Heart failure, unspecified; F20.9 Schizophrenia, unspecified; E11.610 Type 2 diabetes mellitus with diabetic neuropathic arthropathy; Z79.4 Long term (current) use of insulin; Z88.2 Allergy status to sulfonamides; Z88.1 Allergy status to other antibiotic agents
CPT/HCPCS: 36415; 73610; 73630; 80048; 81001; 82962; 85025; 93923; 93971; 96361; 96374; 99285; J1815; J7030